=== PATIENT | female | born 1975 | race Caucasian/White ===

== ENCOUNTER 2023-03-21 22:34 | Emergency (ER) | payer MEDICAID, SELFPAY ==
--- NOTE | ~2023-03-21 | CT_ITS ---
EXAMINATION: CT abdomen pelvis w con INDICATION: Right upper quadrant pain and jaundice, history of primary biliary cholangitis TECHNIQUE: Computed tomographic images of the abdomen and pelvis were obtained after the administrati on of 100 cc of Omnipaque 350 intravenous contrast. The dose-length product (DLP) was 1287.27 mGy-cm. Automated exposure control and iterative reconstruction technique were employed. COMPARISON: 05/07/2019 FINDINGS: The lung bases are clear. The heart size is normal. There is mild nodularity of the liver s urface. Splenomegaly is noted. A stone is present in the nondistended gallbladder. The pancreas and a drenal glands are normal. The right kidney is unremarkable. There is mild urothelial enhancement of t he left renal pelvis. There is chronic periportal lymphadenopathy, likely reactive. There is calcifie d atherosclerosis of the aorta and many of the other arteries. No free intraperitoneal gas or evidenc e of bowel obstruction. The appendix is normal. There is mild lumbar spondylosis. IMPRESSION: 1. Cirrhosis and splenomegaly, consistent with history of primary biliary cholangitis. 2. Mild urothelial enhancement of the left renal pelvis, consistent with urinary tract infection. Reviewed, dictated and finalized at location F. UCT DIRECTOR IMPRESSION: 1. Cirrhosis and splenomegaly, consistent with history of primary biliary chola ngitis. 2. Mild urothelial enhancement of the left renal pelvis, consistent with urinar y tract infection.
[2023-03-21 22:36] VITALS: BP 123/51; PULSE 96; RESP 16; TEMP 38.6; O2SAT 100
[2023-03-21 22:55] VITALS: RESP 18; O2SAT 99
[2023-03-21 22:56] VITALS: BP 131/63; PULSE 87; RESP 17; TEMP 37.6; O2SAT 99
[2023-03-21 23:38] LABS: Basophils Percent Auto 0.4 % (0.2-1.2); Eosinophils Percent Auto 0.4 % (0-4.4); Hematocrit 29.1 % (37.0-47.0); Hemoglobin 9.7 g/dL (12.0-15.0); Immature Granulocyte Absolute 0.02 K/mm3 (0.00-0.031); Immature Granulocyte Percent A 0.4 % (0-0.5); Lymphocytes Absolute Auto 0.96 K/mm3 (0.9-3.2); Lymphocytes Percent Auto 20.2 % (18.3-44.2); Mean Corpuscular HGB Conc 33.3 g/dl (32-36); Mean Corpuscular Hemoglobin 31.5 pg (26-34); Mean Corpuscular Volume 94.5 fl (80-100); Mean Platelet Volume 9.9 fl (7.4-10.4); Monocytes Absolute Auto 0.3 K/mm3 (0.1-0.6); Monocytes Percent Auto 5.7 % (2.6-8.5); Neutrophils Absolute Auto 3.5 K/mm3 (1.3-6.7); Neutrophils Percent Auto 72.9 % (45.5-73.1); Platelet Count Result 145 k/mm3 (150-375); Red Blood Count 3.08 M/mm3 (4.2-5.4); Red Cell Distribution Width 18.7 % (11.5-14.5); White Blood Count 4.8 K/mm3 (4.5-10.0)
[2023-03-21 23:47] LABS: Appearance Urine Turbid (Clear); Bacteria Urine 4+ /hpf; Bilirubin Urine 2+ (Negative); Blood Urine 1+ (Negative); Color Urine Dark Yellow (Yellow); Glucose Urine UA Negative (Negative); Ketones Urine Negative (Negative); Leukocyte Esterase Ur 3+ LEU/UL (Negative); Nitrate Urine Positive (Negative); Non Pathogenic Casts 0-2; Protein Urine 1+ mg/dL (Negative); Specific Grav Ur 1.016 (1.001-1.035); Squamous Epithelial Cell Urine Occasional /hpf (Few); WBC Urine >100 /hpf
[2023-03-21 23:50] LABS: Add Urine Microscopic? YES
[2023-03-21 23:53] LABS: Alanine Aminotransferase 72 U/L (6-35); Albumin Level 3.4 g/dL (3.5-5.1); Alkaline Phosphatase 338 U/L (38-126); Anion Gap 10 mmol/L (8-16); Aspartate Amino Transferase 130 U/L (14-36); Bilirubin,Total 5.6 mg/dL (0.2-1.3); Blood Urea Nitrogen 13 mg/dL (7-17); Calcium 8.6 mg/dL (8.4-10.2); Carbon Dioxide 22 mmol/L (22-30); Chloride 104 mmol/L (98-107); Estimated CRCL calculation 85 ml/min; Estimated Glomerular Filt Rate > 60; Glucose 90 mg/dL (65-110); Potassium 3.9 mmol/L (3.4-5.0); Sodium 136 mmol/L (137-145)
[2023-03-22] VITALS (8 sets, daily range): BP systolic 103–139; BP diastolic 53–74; PULSE 71–97; RESP 14–18; TEMP 36.8–38.4; O2SAT 95–100
[2023-03-22 01:02] LABS: Influenza A QL RT-PCR Negative (Negative); Influenza B QL RT-PCR Negative (Negative); SARS-CoV-2 RNA PCR Negative (Negative)
--- NOTE | 2023-03-22 01:06 | ED.FEVER ---
HPI - Fever General Chief Complaint: Fever Stated Complaint: fever, bodyaches Time Seen by Provider: 03/21/23 23:04 Source: patient and family () History of Present Illness HPI Narrative: This is a 47-year-old female with past medical history of primary biliary cholangitis who presents with myalgias, headache, nausea, vomiting, and diarrhea. She denies any hematemesis or hematochezia / melena. Her symptoms all started last night. She has been febrile. She states she did have a maximum temperature of 106.8? F at home. She has also been coughing productive of white phlegm. Due to her underlying liver and biliary condition home she does not take a seat in the. She states she also has underlying kidney dysfunction and for this reason she was only taking 200 mg of ibuprofen for her fever. She is having abdominal pain that 1st started in left upper quadrant back is now in her right upper quadrant. She has noticed a worsening yellowing of her skin. She recently changed GI doctors as she was referred to another specialist and has seen them once. The are through U and she has MRI pending. Meds: cholesterol medication and Vitamin D as well as ursodiol and cholestyramine Related Data Allergies Allergy/AdvReac Type Severity Reaction Status Date / Time sulfamethoxazole Allergy Mild NAUSEA Verified 03/22/23 06:34 trimethoprim Allergy Mild NAUSEA Verified 03/22/23 06:34 Sulfa (Sulfonamide AdvReac Intermediate NAUSEA Verified 03/22/23 06:34 Antibiotics) PMFSH Past Medical History Medical History (Updated 03/22/23 @ 07:27 by Elizabet Diana MD) Frequent UTI Gastritis GERD (gastroesophageal reflux disease) Hypercholesterolemia Inflammatory liver disease, unspecified Primary biliary cholangitis Vitamin D deficiency Surgical History Surgical History (System 07/01/21 @ 16:10 by Cass Lott) History of section History of esophagogastroduodenoscopy (EGD) Social History Social History (System 07/01/21 @ 16:10 by Cass Lott) Smoking packs per day: 0.5 Smoking cigarettes per day: 10.0 Smoking status: Current every day smoker Additional smoking assessment comments: Patient trying to quit Alcohol intake: current Exam Narrative: GENERAL:well-nourished but ill appearing; HEAD: Normocephalic, atraumatic. EYES: scleral icterus ENT: Nares clear, no rhinorrhea or epistaxis. NECK: Supple. CHEST: No respiratory distress. Speaking in full sentences HEART: Regular rate and rhythm. ABDOMEN: Soft,nondistended, but TTP throughout. No rigidity or guarding, Not peritoneal EXTREMITIES: Normal range of motion. No edema. SKIN: Warm, dry, no rash. jaundiced NEURO: No focal deficits. Alert and oriented x3. PSYCH: Normal mood and affect. Course Vital Signs Vital signs: Vital Signs Temperature 101.4 F H 03/21/23 22:36 Pulse Rate 96 03/21/23 22:36 Respiratory Rate 16 03/21/23 22:36 Blood Pressure 123/51 L 03/21/23 22:36 Pulse Oximetry 100 03/21/23 22:36 Oxygen Delivery Room Air 03/21/23 22:36 Temperature 99.9 F H 03/22/23 06:31 Pulse Rate 96 03/22/23 06:31 Respiratory Rate 18 03/22/23 06:31 Blood Pressure 110/60 03/22/23 06:31 Pulse Oximetry 97 03/22/23 06:31 Oxygen Delivery Room Air 03/21/23 22:36 Transfer Transfered to: [facility] Accepting physician: Haleigh Burch comments: bed assignment pending MDM - Fever MDM Narrative Medical decision making narrative: Patient presents with fever, Nausea, vomiting, diarrhea myalgias, abdominal pain. Given patient's right upper quadrant abdominal pain, jaundice, and temperature of 101.4? , I do have significant concern for cholangitis. Urinalysis showed evidence of infection. CT supports UTI and left pyelonephritis. However, it is still a strong concern that patient has cholangitis. Antibiotics are initiated and patient given fluid boluses. Given our inability to obtain ultra
[2023-03-22 01:32] LABS: Pregnancy On Board Control Positive; Urine Pregnancy Test Negative
[2023-03-22] MEDS: MORPHINE SULFATE (*CRX) 4 MG/ML INJ IV PUSH ×2 (01:32→04:27)
[2023-03-22] MEDS: ONDANSETRON INJ 4 MG/2 ML VIAL IV PUSH (01:37)
[2023-03-22] MEDS: metroNIDAZOLE 500 MG/ISO 100ML 500 MG/100 ML BAG 100 MG IVPB ×2 (02:08→10:49)
[2023-03-22] MEDS: SODIUM CHLORIDE 0.9% IV 1,000 ML 999 ML IV CONT ×2 (02:08)
[2023-03-22 02:31] LABS: Lactic Acid Reflex 0.8 mmol/L (0.7-2.0)
[2023-03-22] MEDS: CIPROFLOXACIN 400 MG/D5W 200ML 200 ML 200 MG IVPB (02:58)
[2023-03-22] MEDS: IBUPROFEN 600 MG TABLET PO (05:06)
[2023-03-22] MEDS: LACTATED RINGERS 1,000 ML 150 ML IV CONT (06:27)
--- NOTE | 2023-03-22 07:40 | PC.NURSE ---
Pt given hospital bed at this time
[2023-03-22] MEDS: ursodioL 300 MG CAPSULE PO (09:35)
[2023-03-22] MEDS: ATORVASTATIN 10 MG TABLET PO (09:35)
[2023-03-22] MEDS: PHARMACIST COMMUNICATION ORDER 1 EACH XX (09:35)
[2023-03-24 14:34] LABS: GGT 102 U/L (3-55)
== END 2023-03-22 10:50 | disposition short-term general hospital (02) ==
PROVIDERS: Emergency Provider Student in an Organized Health Care Education/Training Program
DX: N12 Tubulo-interstitial nephritis, not specified as acute or chronic (principal); K74.3 Primary biliary cirrhosis; E80.6 Other disorders of bilirubin metabolism; R74.01 Elevation of levels of liver transaminase levels; R10.11 Right upper quadrant pain; Z20.822 Contact with and (suspected) exposure to COVID-19; E78.00 Pure hypercholesterolemia, unspecified; E55.9 Vitamin D deficiency, unspecified; K21.9 Gastro-esophageal reflux disease without esophagitis; F17.210 Nicotine dependence, cigarettes, uncomplicated
CPT/HCPCS: 36415; 74177; 80053; 81001; 81025; 82977; 83605; 85025; 87040; 87077; 87086; 87088; 87186; 87636; 96361; 96365; 96367; 96375; 96376; 99285; A9270; J0696; J0744; J1836; J2270; J2405; J7030; J7120; Q9967

== ENCOUNTER 2023-08-01 19:52 | Emergency (ER) | payer OTHER, SELFPAY ==
--- NOTE | ~2023-08-01 | CT_ITS ---
CT of the Abdomen and Pelvis: Indication: Rectal pain, GI bleed Technique: 2.5 mm axial scans were obtained through the abdomen and pelvis following intravenous adm inistration of 100 cc of Omnipaque 350. Dose reduction technique was used on this scan by utilizing a utomated exposure control and iterative reconstruction technique. The dose-length product (DLP) was 1 151.86 mGy-cm. Findings: Scans through the lung bases are unremarkable. Questionable micronodular contour of liver. The pancreas, gallbladder, adrenals and kidneys are withi n normal limits. Spleen is enlarged, measuring 23 cm in length. There are atherosclerotic calcificati ons of the aorta. No lymphadenopathy. No bowel obstruction or bowel wall thickening. There is no evidence to suggest acute appendicitis. Images through the pelvis were performed. Urinary bladder wall thickening versus underdistention. No pelvic mass. No ascites. Impression: No etiology for GI bleeding identified. Possible early/mild cirrhotic change of the liver. Splenomegaly. Reviewed, dictated and finalized at [facility]. Impression: No etiology for GI bleeding identified. Possible early/mild cirrhotic change of the liver. Splenomegaly.
[2023-08-01 20:18] VITALS: BP 123/59; PULSE 79; RESP 14; TEMP 36.6; O2SAT 98
[2023-08-01 21:55] VITALS: BP 125/57; PULSE 74; RESP 18; O2SAT 100
[2023-08-01 22:17] LABS: Basophils Percent Auto 0.7 % (0.2-1.2); Eosinophils Absolute Auto 0.1 K/mm3 (0-0.3); Eosinophils Percent Auto 2.1 % (0-4.4); Hematocrit 33.1 % (37.0-47.0); Hemoglobin 11.2 g/dL (12.0-15.0); Immature Granulocyte Absolute 0.01 K/mm3 (0.00-0.031); Immature Granulocyte Percent A 0.2 % (0-0.5); Lymphocytes Absolute Auto 1.17 K/mm3 (0.9-3.2); Lymphocytes Percent Auto 27.9 % (18.3-44.2); Mean Corpuscular HGB Conc 33.8 g/dl (32-36); Mean Corpuscular Hemoglobin 31.2 pg (26-34); Mean Corpuscular Volume 92.2 fl (80-100); Mean Platelet Volume 10.2 fl (7.4-10.4); Monocytes Absolute Auto 0.2 K/mm3 (0.1-0.6); Monocytes Percent Auto 5.2 % (2.6-8.5); Neutrophils Absolute Auto 2.7 K/mm3 (1.3-6.7); Neutrophils Percent Auto 63.9 % (45.5-73.1); Platelet Count Result 169 k/mm3 (150-375); Red Blood Count 3.59 M/mm3 (4.2-5.4); White Blood Count 4.2 K/mm3 (4.5-10.0)
[2023-08-01 22:27] LABS: Alanine Aminotransferase 56 U/L (6-35); Albumin Level 3.6 g/dL (3.5-5.1); Alkaline Phosphatase 296 U/L (38-126); Anion Gap 6 mmol/L (4-12); Aspartate Amino Transferase 114 U/L (14-36); Bilirubin,Total 6.8 mg/dL (0.2-1.3); Blood Urea Nitrogen 14 mg/dL (7-17); Carbon Dioxide 25 mmol/L (22-30); Chloride 107 mmol/L (98-107); Estimated CRCL calculation 93 ml/min; Estimated Glomerular Filt Rate > 60; Glucose 88 mg/dL (65-110); Potassium 3.9 mmol/L (3.4-5.0); Sodium 138 mmol/L (137-145)
[2023-08-01 22:28] LABS: Partial Thromboplastin Time 35.4 Seconds (22.3-36.8)
[2023-08-01 22:42] LABS: Prothrombin Time 14.2 Seconds (11.1-14.7)
--- NOTE | 2023-08-01 22:42 | ED.GIBLEED ---
HPI - GI Bleed General Chief complaint: GI Bleed Stated complaint: rectal pain Time Seen by Provider: 08/01/23 22:15 Source: patient Mode of arrival: ambulatory Limitations: no limitations History of Present Illness HPI Narrative: This is a 48 year old female that presents to the ER for rectal pain. Ongoing since having her colonoscopy about a month ago. Reports intermittent rectal bleeding. Reports bright red blood. She had her colonoscopy at [facility] which is where her GI specialist is for her primary biliary cholangitis. Denies fever, vomiting or diarrhea. Related Data Home Medications Medication Instructions Recorded Confirmed atorvastatin 10 mg tablet 10 mg PO DAILY 03/22/23 03/22/23 ursodiol 300 mg capsule 300 mg PO BID 03/22/23 03/22/23 Allergies Allergy/AdvReac Type Severity Reaction Status Date / Time sulfamethoxazole Allergy Mild NAUSEA Verified 08/01/23 21:57 trimethoprim Allergy Mild NAUSEA Verified 08/01/23 21:57 Sulfa (Sulfonamide AdvReac Intermediate NAUSEA Verified 08/01/23 21:57 Antibiotics) Review of Systems Review of Systems: CONSTITUTIONAL: Denies fever GASTROINTESTINAL: Denies abdominal pain, nausea, vomiting, or diarrhea. All systems reviewed & are unremarkable except as noted in HPI and below PMFSH Past Medical History Medical History (Updated 08/02/23 @ 01:53 by Africa Medrano PA-C) Frequent UTI Gastritis GERD (gastroesophageal reflux disease) Hypercholesterolemia Inflammatory liver disease, unspecified Primary biliary cholangitis Vitamin D deficiency Surgical History Surgical History (System 07/01/21 @ 16:10 by Cass Lott) History of section History of esophagogastroduodenoscopy (EGD) Social History Social History (System 07/01/21 @ 16:10 by Cass Lott) Smoking packs per day: 0.5 Smoking cigarettes per day: 10.0 Smoking status: Current every day smoker Additional smoking assessment comments: Patient trying to quit Alcohol intake: current Exam Narrative: GENERAL: Well-appearing, well-nourished, and in no acute distress. HEAD: Normocephalic, atraumatic. EYES: EOMI. CHEST: Clear to auscultation. No respiratory distress. No wheezes rales or rhonchi HEART: Regular rate and rhythm. No murmur heard. Normal peripheral pulses. ABDOMEN: Soft, nontender, nondistended, normal active bowel sounds. EXTREMITIES: Normal range of motion. No edema. SKIN: Warm, dry, no rash. NEURO: No focal deficits. Alert and oriented x3. PSYCH: Normal mood and affect RECTAL: No active bleeding. Two external hemorrhoids present that are not inflamed or thrombosed Course Course Emergency Course: Patient updated on her workup and agrees with plan of care Vital Signs Vital signs: Vital Signs Temperature 98 F 08/01/23 20:18 Pulse Rate 79 08/01/23 20:18 Respiratory Rate 14 08/01/23 20:18 Blood Pressure 123/59 L 08/01/23 20:18 Pulse Oximetry 98 08/01/23 20:18 Temperature 98 F 08/01/23 20:18 Pulse Rate 69 08/02/23 00:31 Respiratory Rate 17 08/02/23 00:31 Blood Pressure 119/65 08/02/23 00:31 Pulse Oximetry 98 08/02/23 00:31 MDM - GI Bleed MDM Narrative Medical decision making narrative: Patient presents the emergency department for rectal pain and intermittent it is rectal bleeding ongoing over the last month. She is afebrile and nontoxic appearing. Her vitals are stable. CBC without leukocytosis. Hemoglobin is improved from prior labs. Metabolic panel with evidence of patient's known liver disease. test is negative. CT abdomen and pelvis shows cirrhosis and splenomegaly. Changes due to chronic liver disease. Possible cystitis. Urine is without evidence of infection. Patient updated on her workup and agrees with plan of care. She did have hemorrhoids that were not actively bleeding. Will be treated with Anusol. She is to follow up with her secondary set up man. She was given warnings to return to the
[2023-08-02 00:21] VITALS: BP 122/63; PULSE 72; RESP 18; O2SAT 99
[2023-08-02 00:31] VITALS: BP 119/65; PULSE 69; RESP 17; O2SAT 98
[2023-08-02 00:46] VITALS: BP 123/69; PULSE 84; RESP 16; O2SAT 98
[2023-08-02 01:48] LABS: Appearance Urine Cloudy (Clear); Bacteria Urine Rare /hpf; Bilirubin Urine 3+ (Negative); Blood Urine Negative (Negative); Color Urine Dark Yellow (Yellow); Glucose Urine UA Negative (Negative); Ketones Urine Negative (Negative); Leukocyte Esterase Ur Trace LEU/UL (Negative); Nitrate Urine Negative (Negative); Non Pathogenic Casts 0-2; Protein Urine Negative (Negative); RBC Urine 0-2 /hpf (0-2); Specific Grav Ur 1.023 (1.001-1.035); Squamous Epithelial Cell Urine Moderate /hpf (Few); WBC Urine 0-5 /hpf (0-3)
[2023-08-02 01:49] LABS: Add Urine Microscopic? YES
[2023-08-02 02:01] VITALS: BP 115/57; PULSE 70; RESP 17; O2SAT 99
== END 2023-08-02 02:03 | disposition home or self-care (01) ==
PROVIDERS: Emergency Medicine; Emergency Provider Physician Assistant; PCP Physician Assistant
DX: K64.9 Unspecified hemorrhoids (principal); K74.3 Primary biliary cirrhosis; K21.9 Gastro-esophageal reflux disease without esophagitis; E78.00 Pure hypercholesterolemia, unspecified; E55.9 Vitamin D deficiency, unspecified
CPT/HCPCS: 36415; 74177; 80053; 81001; 81025; 85025; 85610; 85730; 86850; 86900; 86901; 99284; Q9967

== ENCOUNTER 2025-03-05 10:05 | Emergency (ER) | payer SELFPAY ==
--- OUTSIDE RECORDS SUMMARY | 2006-07-30 02:23 | XMS_ITS | Continuity of Care Document ---
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 No Information [address] Marta Holloway. [address], [place], [id number], [place]. tel:[phone] Referring Provider: Thelma Banegas MD, [address] [place], [address]. tel:[phone] Family History Family Member Type Diagnosis Age At Onset No Information Payers Payer name Insurance type Covered alliance party ID Authoriza tion(s) No Information Social History Type Description Quantity Date Captured Comments Sex Female Smoking Status No Information Chief Complaint And Reason For Visit No Information Reason For Referral Reason For Referral No Information History Of Present Illness Encounter Date Complaint History Of Prese nt Illness No Information Functional Status Date Functional Assessmen t No Information Instructions Date Instruction Additional Infor mation No Information Assessments Type Assessment Date No Information Patient Care Teams Name Effective Dates (start - stop) Status Members No Information
--- OUTSIDE RECORDS SUMMARY | 2006-07-30 02:23 | XMS_ITS | Continuity of Care Document ---
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, [address], [place], [place], [id number], [place] tel:[phone] [facility] No Information [address] Marta Holloway. [address], [place], [id number], [place]. tel:[phone] Referring Provider: Thelma Banegas MD, [address] [place], [address]. tel:[phone] Family History Family Member Type Diagnosis Age [...]
[2025-03-05] VITALS (7 sets, daily range): BP systolic 126–131; BP diastolic 52–74; PULSE 67–78; RESP 13–20; TEMP 36.2–36.6; O2SAT 99–100
--- NOTE | ~2025-03-05 | CT_ITS ---
Exam: CT abdomen and pelvis with contrast Clinical History: [Right upper quadrant abdominal pain ] Comparison: [ CT abdomen and pelvis 08/01/2023] Technique: Multiple axial CT images of the abdomen and pelvis were obtained with IV contrast. Sagittal and coronal reformatted images were obtained. FINDINGS: Lung bases: [Clear ] Liver: [ No intrahepatic biliary duct dilatation.] Micronodular appearance to the surface of the liver suggestive of cirrhosis. Correlate clinically. Consider a liver mass CT or MRI for further assessment. There are splenic, gastric and esophageal varices. Gallbladder: Surgically absent. Common bile duct: [ Normal caliber.] [ No stones.] Spleen: The spleen is enlarged. Pancreas: [ No mass. No pancreatic fluid collection.] Adrenals: [ No masses.] Kidneys: [ No masses. No hydronephrosis.][ ] Lymph nodes: There are a few nonenlarged, borderline and mildly enlarged lymph nodes in the abdomen which may be reactive. Other etiologies are possible. A malignant process is possible. Stomach, small bowel and colon: Short segment thickening of the cheng of the ascending and proximal transverse colon with a small amount of surrounding fat stranding. Colitis is suspected. Peritoneum cavity: [ No mesenteric fat stranding or fluid.] Bladder: [ Unremarkable.] Osseous structures: [ No acute fracture or destructive lesion.] [ Multilevel degenerative change in the visualized spine.] Abdominal aorta: [ No aneurysm.] Additional findings: The uterus is heterogeneous. Endometrium is prominent. A pelvic ultrasound is recommended. IMPRESSION: 1. Short segment thickening of the cheng of the ascending and proximal transverse colon with a small amount of surrounding fat stranding. Colitis is suspected. Recommend follow-up to resolution to exclude an underlying mass. 2. Micronodular appearance to the surface of the liver suggestive of cirrhosis. Correlate clinically. Consider a liver mass CT or MRI for further assessment. There are splenic, gastric and esophageal varices. 3. Splenomegaly. 4.There are a few nonenlarged, borderline and mildly enlarged lymph nodes in the abdomen which may be reactive. Other etiologies are possible. A malignant process is possible. Consider a PET/CT for further assessment. A follow-up CT in 3 months is recommended. 5. The uterus is heterogeneous. Endometrium is prominent. A pelvic ultrasound is recommended. Reviewed, dictated and finalized at location Q. VERY DRIVER/SUPERVISOR IMPRESSION: 1. Short segment thickening of the cheng of the ascending and proximal transver se colon with a small amount of surrounding fat stranding. Colitis is suspected . Recommend follow-up to resolution to exclude an underlying mass. 2. Micronodular appearance to the surface of the liver suggestive of cirrhosis. Correlate clinically. Consider a liver mass CT or MRI for further assessment. There are splenic, gastric and esophageal varices. 3. Splenomegaly. 4.There are a few nonenlarged, borderline and mildly enlarged lymph nodes in th e abdomen which may be reactive. Other etiologies are possible. A malignant pro cess is possible. Consider a PET/CT for further assessment. A follow-up CT in 3 months is recommended. 5. The uterus is heterogeneous. Endometrium is prominent. A pelvic ultrasound i s recommended.
--- NOTE | ~2025-03-05 | US_ITS ---
EXAM/PROCEDURE: US transvaginal HISTORY: heterogenous endometrium findings on ct COMPARISON: CT exam from same date TECHNIQUE: Pelvic ultrasound FINDINGS: The uterus measures 7.2 x 2.8 x 3.6 cm it is heterogeneous in appearance. The endometrial stripe is not well seen. The ovaries are poorly seen. No free fluid seen. No mass seen on images labeled left or right adnexal region. IMPRESSION: Very limited examination with essentially nonvisualization of the endometrial stripe, and nonvisualization of both ovaries. Heterogeneous appearance of the uterus noted. COMMENT: If there is clinical concern for intrapelvic pathology, follow-up pelvic ultrasound with adequate preparation, or pelvic MRI may provide more beneficial information. Reviewed, dictated and finalized at location A. BARBECUE IMPRESSION: Very limited examination with essentially nonvisualization of the e ndometrial stripe, and nonvisualization of both ovaries. Heterogeneous appearan ce of the uterus noted. COMMENT: If there is clinical concern for intrapelvic pathology, follow-up pelv ic ultrasound with adequate preparation, or pelvic MRI may provide more benefic ial information.
--- NOTE | 2025-03-05 11:56 | ED.ABDPAIN ---
HPI - Abdominal Pain General Chief Complaint: Abdominal Pain Stated Complaint: URI Time Seen by Provider: 03/05/25 11:56 Focused HPI: This is a 49 year old female that presents to the ER for abdominal pain. Reports history of primary biliary cholangitis. Reports she has not been able to go to her specialist recently because she lost her insurance. She used to see a specialist at [facility]. Reports she has felt unwell over the last couple of weeks. Reports she feels like she has the flu. Reports subjective fevers. Reports right sided abdominal pain, vomiting, diarrhea. GENERAL: Jaundiced, well-nourished, and in no acute distress. HEAD: Normocephalic, atraumatic. CHEST: Clear to auscultation. ?No respiratory distress. HEART: Regular rate and rhythm.? NEURO: ?Alert and oriented x3. Patient screened in triage and initial orders placed.? ?Additional care and disposition to be based upon?diagnostic testing and treatment. Related Data Home Medications ?Medication ?Instructions ?Recorded ?Confirmed ?Last Taken ?Type atorvastatin 10 mg tablet 10 mg PO DAILY 03/22/23 03/22/23 03/21/23 History ursodiol 300 mg capsule 300 mg PO BID 03/22/23 03/22/23 03/21/23 History Allergies Allergy/AdvReac Type Severity Reaction Status Date / Time sulfamethoxazole Allergy Mild NAUSEA Verified 03/05/25 13:17 trimethoprim Allergy Mild NAUSEA Verified 03/05/25 13:17 Sulfa (Sulfonamide AdvReac Intermediate NAUSEA Verified 03/05/25 13:17 Antibiotics) Review of Systems Review of Systems: All systems reviewed & are unremarkable except as noted in HPI and below PMFSH Past Medical History Medical History (Updated 03/07/25 @ 15:23 by Africa Medrano PA-C) GERD (gastroesophageal reflux disease) Vitamin D deficiency Hypercholesterolemia Primary biliary cholangitis Inflammatory liver disease, unspecified Frequent UTI Gastritis Surgical History Surgical History (System 07/01/21 @ 16:10 by Cass Lott) History of section History of esophagogastroduodenoscopy (EGD) Social History Social History (System 07/01/21 @ 16:10 by Cass Lott) Smoking packs per day: 0.5 Smoking cigarettes per day: 10.0 Additional smoking assessment comments: Patient trying to quit Alcohol intake: current Course Vital Signs Vital signs: Vital Signs Temperature 97.1 F L 03/05/25 10:10 Pulse Rate 71 03/05/25 10:10 Respiratory Rate 16 03/05/25 10:10 Blood Pressure 131/52 L 03/05/25 10:10 Pulse Oximetry 99 03/05/25 10:10 Temperature 97.9 F 03/05/25 13:12 Pulse Rate 71 03/05/25 17:33 Respiratory Rate 19 03/05/25 17:33 Blood Pressure 128/74 03/05/25 17:33 Pulse Oximetry 100 03/05/25 17:33 Oxygen Delivery Room Air 03/05/25 13:12 MDM - Abdominal Pain Lab Data 03/05/25 12:10 03/05/25 12:10 Labs: Lab Results 03/05/25 03/05/25 Range/Units 12:10 12:13 WBC 2.6 L (4.5-10.0) K/mm3 RBC 2.99 L (4.2-5.4) M/mm3 Hgb 9.8 L (12.0-15.0) g/dL Hct 30.1 L (37.0-47.0) % MCV 100.7 H (80-100) fl MCH 32.8 (26-34) pg MCHC 32.6 (32-36) g/dl RDW 16.6 H (11.5-14.5) % Plt Count 120 L (150-375) k/mm3 MPV 9.6 (7.4-10.4) fl Immature Gran % (Auto) 0.8 H (0-0.5) % Neut % (Auto) 54.1 (45.5-73.1) % Lymph % (Auto) 34.7 (18.3-44.2) % [place] % (Auto) 5.8 (2.6-8.5) % Eos % (Auto) 4.2 (0-4.4) % Baso % (Auto) 0.4 (0.2-1.2) % Lymph # (Auto) 0.90 (0.9-3.2) K/mm3 [place] # (Auto) 0.2 (0.1-0.6) K/mm3 Eos # (Auto) 0.1 (0-0.3) K/mm3 Baso # (Auto) 0.0 (0.0-0.1) K/mm3 Abs Immat Gran (auto) 0.02 (0.00-0.031) K/mm3 Absolute Neuts (auto) 1.4 (1.3-6.7) K/mm3 Absolute Nucleated RBC 0.000 (0.0-0.012) K/mm3 Nucleated RBC % 0.0 (0.0-0.2) % PT 14.7 (11.1-14.7) Seconds INR 1.1 APTT 36.5 (22.3-36.8) Seconds Sodium 138 (137-145) mmol/L Potassium 3.6 (3.4-5.0) mmol/L Chloride 108 H (98-107) mmol/L Carbon Dioxide 22 (22-30) mmol/L Anion Gap 8 (4-12) mmol/L BUN 12 (7-17) mg/dL Creatinine 0.72 (0.7-1.0) mg/dL Estim Creat Clear Calc 87 ml/min Estimated GFR > 60 (59 - ) Glucose 82 (65-110) mg/dL Calcium 8.6 (8.4-10.2) mg/dL Total Bilirubin 9.4 H (0.2-1.3) mg/dL AST 145 H (14-36) U/L ALT 55 H (6-35) U/L Alkaline Phosphatase 289 H (38-126) U/L Total Protein 7.9 (6.3-8.2) g/dL Albumin 3.3 L (3.5-5.1) g/dL Lipase 122 (23-300) U/L Urine Color Dark yellow (Yellow) Urine Appearance Turbid H (Clear) Urine pH 8.0 (5.0-9.0) Ur Specific [place] 1.017 (1.001-1.035) Urine Protein 1+ H (Negative) mg/dL Urine Glucose (UA) Negative (Negative) mg/dL Urine Ketones Negative (Negative) mg/dL Ur Blood (Man) Negative (Negative) Urine Nitrate Positive H (Negative) Urine Bilirubin 2+ H (Negative) Urine Urobilinogen 1.0 (<2.0) mg/dL Add Ur Microanalysis Reviewed Leukocyte Esterase Rfl 2+ H (Negative) ANTONINO/UL Urine RBC 3-5 H (0-2) /hpf Urine WBC 11-20 H (0-3) /hpf Ur Squamous Epith Cells Occasional (Few) /hpf Uric Acid Crystals Present H (None) /hpf Urine Bacteria 4+ /hpf Urine Casts 0-2 POC Urine HCG, Qual Negative (Negative) Imaging Data Radiologist's impression: ITS Impressions Abdomen/Pelvis CT 03/05/25 14:24 IMPRESSION: 1. Short segment thickening of the cheng of the ascending and proximal transverse colon with a small amount of surrounding fat stranding. Colitis is suspected. Recommend follow-up to resolution to exclude an underlying mass. 2. Micronodular appearance to the surface of the liver suggestive of cirrhosis. Correlate clinically. Consider a liver mass CT or MRI for further assessment. There are splenic, gastric and esophageal varices. 3. Splenomegaly. 4.There are a few nonenlarged, borderline and mildly enlarged lymph nodes in the abdomen which may be reactive. Other etiologies are possible. A malignant process is possible. Consider a PET/CT for further assessment. A follow-up CT in 3 months is recommended. 5. The uterus is heterogeneous. Endometrium is prominent. A pelvic ultrasound is recommended. Transvaginal US 03/05/25 16:46 IMPRESSION: Very limited examination with essentially nonvisualization of the endometrial stripe, and nonvisualization of both ovaries. Heterogeneous appearance of the uterus noted. COMMENT: If there is clinical concern for intrapelvic pathology, follow-up pelvic ultrasound with adequate preparation, or pelvic MRI may provide more beneficial information. Discharge Plan Discharge Clinical Impression: Restless leg syndrome, Colitis Chronic liver failure Qualifiers: Hepatic coma status: without hepatic coma Qualified Code(s): K72.10 - Chronic hepatic failure without coma Patient Disposition: Home Condition: Stable Instructions: Antibiotic Form Additional Instructions: CT scan was consistent with colitis. There were some other findings as noted below he should be followed up by your transplant team. Take Zofran as prescribed. After discussion, it did sound like he may have restless leg syndrome so your given a prescription for ropinirole, take this as prescribed. Return to the ED for any new or worsening symptoms. 2. Micronodular appearance to the surface of the liver suggestive of cirrhosis. Correlate clinically. Consider a liver mass CT or MRI for further assessment. There are splenic, gastric and esophageal varices. 3. Splenomegaly. 4.There are a few nonenlarged, borderline and mildly enlarged lymph nodes in the abdomen which may be reactive. Other etiologies are possible. A malignant process is possible. Consider a PET/CT for further assessment. A follow-up CT in 3 months is recommended. 5. The uterus is heterogeneous. Endometrium is prominent. A pelvic ultrasound is recommended. Patient Language: Ethiopian Prescriptions: New ropinirole 0.25 mg tablet 0.25 mg PO HS Qty: 30 0RF ondansetron 4 mg tablet,disintegrating 4 mg PO Q8H PRN (Reason: nausea and vomiting) Qty: 15 0RF No Action ursodiol 300 mg Capsule 300 mg PO BID atorvastatin 10 mg Tablet 10 mg PO DAILY hydrocortisone [Anusol-HC] 2.5 % cream with perineal applicator 1 applic RECTAL BID 7 Days Qty: 30 0RF Follow-up/Referrals: Nita,AUBREY Archer [Primary Care Provider, Family Practice]
[2025-03-05 12:16] LABS: BEDSIDEPREGUCG Negative (Negative)
[2025-03-05 12:23] LABS: Hematocrit 30.1 % (37.0-47.0); Hemoglobin 9.8 g/dL (12.0-15.0); Immature Granulocyte Percent A 0.8 % (0-0.5); Lymphocytes Absolute Auto 0.90 K/mm3 (0.9-3.2); Mean Corpuscular HGB Conc 32.6 g/dl (32-36); Mean Corpuscular Hemoglobin 32.8 pg (26-34); Mean Corpuscular Volume 100.7 fl (80-100); Nucleated Red Blood Cells Absolute Auto 0.000 K/mm3 (0.0-0.012); Nucleated Red Blood Cells Perc 0.0 % (0.0-0.2); Platelet Count Result 120 k/mm3 (150-375); Red Blood Count 2.99 M/mm3 (4.2-5.4); White Blood Count 2.6 K/mm3 (4.5-10.0)
[2025-03-05 12:44] LABS: Add Urine Microscopic? YES; Alanine Aminotransferase 55 U/L (6-35); Albumin Level 3.3 g/dL (3.5-5.1); Alkaline Phosphatase 289 U/L (38-126); Anion Gap 8 mmol/L (4-12); Appearance Urine Turbid (Clear); Aspartate Amino Transferase 145 U/L (14-36); Bilirubin,Total 9.4 mg/dL (0.2-1.3); Blood Urea Nitrogen 12 mg/dL (7-17); Calcium 8.6 mg/dL (8.4-10.2); Carbon Dioxide 22 mmol/L (22-30); Chloride 108 mmol/L (98-107); Estimated CRCL calculation 87 ml/min; Estimated Glomerular Filt Rate > 60; Glucose 82 mg/dL (65-110); Glucose Urine UA Negative (Negative); INR 1.1; Leukocyte Esterase Ur 2+ LEU/UL (Negative); Lipase 122 U/L (23-300); Need Manual Microscopic Reviewed; Nitrate Urine Positive (Negative); Non Pathogenic Casts 0-2; Potassium 3.6 mmol/L (3.4-5.0); Prothrombin Time 14.7 Seconds (11.1-14.7); Sodium 138 mmol/L (137-145); Specific Grav Ur 1.017 (1.001-1.035); Total Protein 7.9 g/dL (6.3-8.2)
[2025-03-05 12:45] LABS: Partial Thromboplastin Time 36.5 Seconds (22.3-36.8)
--- NOTE | 2025-03-05 13:32 | ED.ABDPAIN ---
HPI - Abdominal Pain General Chief Complaint: Abdominal Pain Stated Complaint: URI Time Seen by Provider: 03/05/25 11:56 Source: patient Mode of arrival: wheelchair Limitations: no limitations History of Present Illness HPI narrative: This is a 49-year-old female with history of PSC and liver failure who presents the ED for abdominal pain. Patient states that for the past week or so, she has been having increasing right upper quadrant abdominal pain and jaundice. She has not seen her transplant team in several months due to loss of insurance. She was on the transplant list at [facility] a year ago but she had a cholecystectomy which improved her meld score so she was taken off of the list. She has had intermittent nausea and abdominal swelling since then. Related Data Home Medications ?Medication ?Instructions ?Recorded ?Confirmed ?Last Taken ?Type atorvastatin 10 mg tablet 10 mg PO DAILY 03/22/23 03/22/23 03/21/23 History ursodiol 300 mg capsule 300 mg PO BID 03/22/23 03/22/23 03/21/23 History Allergies Allergy/AdvReac Type Severity Reaction Status Date / Time sulfamethoxazole Allergy Mild NAUSEA Verified 03/05/25 13:17 trimethoprim Allergy Mild NAUSEA Verified 03/05/25 13:17 Sulfa (Sulfonamide AdvReac Intermediate NAUSEA Verified 03/05/25 13:17 Antibiotics) Review of Systems Review of Systems: Gen.: Denies fevers or chills Eyes: Denies eye pain or visual change. ENT: Denies congestion Respiratory: Denies shortness of breath or cough CV: Denies chest pain or palpitations GI: As per HPI denies burning, urgency, frequency or hematuria Musculoskeletal: Denies back pain or muscle pain Neuro: Denies numbness, tingling, weakness or focal weakness Skin: Jaundice Except as documented, all other systems reviewed and negative [facility] Past Medical History Medical History (Updated 03/05/25 @ 17:15 by Car Drew DO) GERD (gastroesophageal reflux disease) Vitamin D deficiency Hypercholesterolemia Primary biliary cholangitis Inflammatory liver disease, unspecified Frequent UTI Gastritis Surgical History Surgical History (System 07/01/21 @ 16:10 by Cass Lott) History of section History of esophagogastroduodenoscopy (EGD) Social History Social History (System 07/01/21 @ 16:10 by Cass Lott) Smoking packs per day: 0.5 Smoking cigarettes per day: 10.0 Additional smoking assessment comments: Patient trying to quit Alcohol intake: current Exam Narrative: APPEARANCE: No acute distress, nontoxic, resting in bed EYES: EOMI. Scleral icterus HEENT: Normocephalic, atraumatic, OMM RESPIRATORY: No respiratory distress Clear to auscultation bilaterally with no rhonchi wheezing or rales. CARDIOVASCULAR: Regular rate and rhythm without murmurs rubs or gallops. ABDOMINAL: Soft, mild right upper quadrant tenderness to palpation, mild distention MUSCULOSKELETAl: Moves all extremities. No clubbing, cyanosis or edema. NEURO: Awake and alert. Following commands, speech normal, no focal deficits SKIN:: Jaundice PSYCHIATRIC: Normal affect/mood, Course Vital Signs Vital signs: Vital Signs Temperature 97.1 F L 03/05/25 10:10 Pulse Rate 71 03/05/25 10:10 Respiratory Rate 16 03/05/25 10:10 Blood Pressure 131/52 L 03/05/25 10:10 Pulse Oximetry 99 03/05/25 10:10 Temperature 97.9 F 03/05/25 13:12 Pulse Rate 71 03/05/25 17:33 Respiratory Rate 19 03/05/25 17:33 Blood Pressure 128/74 03/05/25 17:33 Pulse Oximetry 100 03/05/25 17:33 Oxygen Delivery Room Air 03/05/25 13:12 MDM - Abdominal Pain MDM Narrative Medical decision making narrative: 49-year-old female Presenting for nausea and abdominal pain. On initial evaluation patient was in no acute distress afebrile, hemodynamic stable. Differentials include but are not limited to: ACS, GERD, PUD, Pancreatitis, SBO, Cancer, AAA, liver failure Notable exam findings: Jaundice, scleral icterus, mild abdominal distension with minimal tenderness right upper quadrant tenderness to palpation Notable lab findings: White count 2.6. Anemic to 9.8. Bilirubin elevated at 9.4, likely consistent with her known hepatic failure. UA likely consistent with contaminated specimen. Notable imaging findings: CT abdomen/pelvis showed likely colitis as well as cirrhotic appearing liver with splenic, gastric, and esophageal varices, noted splenomegaly. Also noted mildly large lymph nodes that could be reactive versus malignant. Uterus was heterogenous with endometrium prominent and a pelvic ultrasound was recommended. Pelvic ultrasound showed limited visualization of the endometrial stripe. Patient's MELD score 16. He is she remained without nausea and abdominal pain throughout her ED course. She follows with transplant surgery at [facility] but has not seen them in about years due to insurance issues. Her meld score does not seem to have progressed per patient. CT scan was likely consistent with colitis which is likely the source of her symptoms. She was educated on bland diet. She is given a prescription for Zofran. On further discussion the patient, she had noted that she had a very hard time sleeping over the last several months due to feeling of restlessness in legs and hands. She has never tried ropinirole so she will be given a prescription for that as well. Patient was deemed appropriate for discharge at this time. She was advised to follow-up with her transplant team in the next week for re-evaluation if able. Patient was agreeable to this plan. Given strict return precautions. Medical Records Attestation: I reviewed the patient's medical records. Lab Data Attestation: I reviewed the patient's lab results. 03/05/25 12:10 03/05/25 12:10 Labs: Lab Results 03/05/25 03/05/25 Range/Units 12:10 12:13 WBC 2.6 L (4.5-10.0) K/mm3 RBC 2.99 L (4.2-5.4) M/mm3 Hgb 9.8 L (12.0-15.0) g/dL Hct 30.1 L (37.0-47.0) % MCV 100.7 H (80-100) fl MCH 32.8 (26-34) pg MCHC 32.6 (32-36) g/dl RDW 16.6 H (11.5-14.5) % Plt Count 120 L (150-375) k/mm3 MPV 9.6 (7.4-10.4) fl Immature Gran % (Auto) 0.8 H (0-0.5) % Neut % (Auto) 54.1 (45.5-73.1) % Lymph % (Auto) 34.7 (18.3-44.2) % Randall % (Auto) 5.8 (2.6-8.5) % Eos % (Auto) 4.2 (0-4.4) % Baso % (Auto) 0.4 (0.2-1.2) % Lymph # (Auto) 0.90 (0.9-3.2) K/mm3 Randall # (Auto) 0.2 (0.1-0.6) K/mm3 Eos # (Auto) 0.1 (0-0.3) K/mm3 Baso # (Auto) 0.0 (0.0-0.1) K/mm3 Abs Immat Gran (auto) 0.02 (0.00-0.031) K/mm3 Absolute Neuts (auto) 1.4 (1.3-6.7) K/mm3 Absolute Nucleated RBC 0.000 (0.0-0.012) K/mm3 Nucleated RBC % 0.0 (0.0-0.2) % PT 14.7 (11.1-14.7) Seconds INR 1.1 APTT 36.5 (22.3-36.8) Seconds Sodium 138 (137-145) mmol/L Potassium 3.6 (3.4-5.0) mmol/L Chloride 108 H (98-107) mmol/L Carbon Dioxide 22 (22-30) mmol/L Anion Gap 8 (4-12) mmol/L BUN 12 (7-17) mg/dL Creatinine 0.72 (0.7-1.0) mg/dL Estim Creat Clear Calc 87 ml/min Estimated GFR > 60 (59 - ) Glucose 82 (65-110) mg/dL Calcium 8.6 (8.4-10.2) mg/dL Total Bilirubin 9.4 H (0.2-1.3) mg/dL AST 145 H (14-36) U/L ALT 55 H (6-35) U/L Alkaline Phosphatase 289 H (38-126) U/L Total Protein 7.9 (6.3-8.2) g/dL Albumin 3.3 L (3.5-5.1) g/dL Lipase 122 (23-300) U/L Urine Color Dark yellow (Yellow) Urine Appearance Turbid H (Clear) Urine pH 8.0 (5.0-9.0) Ur Specific [place] 1.017 (1.001-1.035) Urine Protein 1+ H (Negative) mg/dL Urine Glucose (UA) Negative (Negative) mg/dL Urine Ketones Negative (Negative) mg/dL Ur Blood (Man) Negative (Negative) Urine Nitrate Positive H (Negative) Urine Bilirubin 2+ H (Negative) Urine Urobilinogen 1.0 (<2.0) mg/dL Add Ur Microanalysis Reviewed Leukocyte Esterase Rfl 2+ H (Negative) ANTONINO/UL Urine RBC 3-5 H (0-2) /hpf Urine WBC 11-20 H (0-3) /hpf Ur Squamous Epith Cells Occasional (Few) /hpf Uric Acid Crystals Present H (None) /hpf Urine Bacteria 4+ /hpf Urine Casts 0-2 POC Urine HCG, Qual Negative (Negative) Imaging Data Attestation: I personally reviewed and interpreted this imaging study as follows: Radiologist's impression: ITS Impressions Abdomen/Pelvis CT 03/05/25 14:24 IMPRESSION: 1. Short segment thickening of the cheng of the ascending and proximal transverse colon with a small amount of surrounding fat stranding. Colitis is suspected. Recommend follow-up to resolution to exclude an underlying mass. 2. Micronodular appearance to the surface of the liver suggestive of cirrhosis. Correlate clinically. Consider a liver mass CT or MRI for further assessment. There are splenic, gastric and esophageal varices. 3. Splenomegaly. 4.There are a few nonenlarged, borderline and mildly enlarged lymph nodes in the abdomen which may be reactive. Other etiologies are possible. A malignant process is possible. Consider a PET/CT for further assessment. A follow-up CT in 3 months is recommended. 5. The uterus is heterogeneous. Endometrium is prominent. A pelvic ultrasound is recommended. Transvaginal US 03/05/25 16:46 IMPRESSION: Very limited examination with essentially nonvisualization of the endometrial stripe, and nonvisualization of both ovaries. Heterogeneous appearance of the uterus noted. COMMENT: If there is clinical concern for intrapelvic pathology, follow-up pelvic ultrasound with adequate preparation, or pelvic MRI may provide more beneficial information. Discharge Plan Discharge Clinical Impression: Restless leg syndrome, Colitis Chronic liver failure Qualifiers: Hepatic coma status: without hepatic coma Qualified Code(s): K72.10 - Chronic hepatic failure without coma Patient Disposition: Home Condition: Stable Instructions: Antibiotic Form Additional Instructions: CT scan was consistent with colitis. There were some other findings as noted below he should be followed up by your transplant team. Take Zofran as prescribed. After discussion, it did sound like he may have restless leg syndrome so your given a prescription for ropinirole, take this as prescribed. Return to the ED for any new or worsening symptoms. 2. Micronodular appearance to the surface of the liver suggestive of cirrhosis. Correlate clinically. Consider a liver mass CT or MRI for further assessment. There are splenic, gastric and esophageal varices. 3. Splenomegaly. 4.There are a few nonenlarged, borderline and mildly enlarged lymph nodes in the abdomen which may be reactive. Other etiologies are possible. A malignant process is possible. Consider a PET/CT for further assessment. A follow-up CT in 3 months is recommended. 5. The uterus is heterogeneous. Endometrium is prominent. A pelvic ultrasound is recommended. Patient Language: Spanish Prescriptions: New ropinirole 0.25 mg tablet 0.25 mg PO HS Qty: 30 0RF ondansetron 4 mg tablet,disintegrating 4 mg PO Q8H PRN (Reason: nausea and vomiting) Qty: 15 0RF No Action ursodiol 300 mg Capsule 300 mg PO BID atorvastatin 10 mg Tablet 10 mg PO DAILY hydrocortisone [Anusol-HC] 2.5 % cream with perineal applicator 1 applic RECTAL BID 7 Days Qty: 30 0RF Follow-up/Referrals: Nita,AUBREY Archer [Primary Care Provider, Family Practice]
--- OUTSIDE RECORDS SUMMARY | 2025-03-05 18:23 | XMS_ITS | Patient Health Record ---
Author Organization [facility] [employer] Address [address] [facility] [address] [place] [address] Care Team Providers Care Rubber Goods Inspector Tester Name Role Phone Bubba Cortez Unavailable [phone] Reason For Referral No Information Medications Medication SIG (Take, Route, Frequency, Duration) Notes Start Date End Date Status Zoloft 100 MG Tablet Oral Active Wellbutrin SR 150 MG Tablet Extended Release 12 Hour Oral Active Plan Of Treatment No Information
--- OUTSIDE RECORDS SUMMARY | 2025-03-05 18:23 | XMS_ITS | Encounter Summary ---
Author Organization [facility] Address [address] [place] [address] Care Team Providers Care Quality System Manager Name Role Phone Lily Wright MD Unavailable Joana Moya PA-C Primary Care Provider Reason for Visit * Reason Comments Refill Request Encounter Details Date Type Department Care Team (Late st Contact Info) Description 03/04/2025 Refill [facility] [place] [address] [place] [address], [place] [id number] Alexx Manriquez MD [address] [place] [address] [place] [address] Refill Request Social History Tobacco Use Types Packs/Day Years Used Date Smoking Tobacco: Former Cigarettes 2 28 1 06/20/1991 - 04/19/2020 Smokeless Tobacco: Never Alcohol Use Standard Drinks/Week Comments Not Currently 0 (1 standard drink = 0.6 oz pure alcohol) minimal socially / none since diagnosed AUDIT-C Answer Date Recorded Frequency of Alcohol Consumption Not on file 06/25/2024 Q2: How many drinks containi ng alcohol do you have on a typical day when you are drinking? Patient does not drink Q3: How often do you have si x or more drinks on one occasion? Never 06/25/2024 Overall Financial Resource Strain (CARDIA) Gianfranco r Date Recorded How hard is it for you to pa y for the very basics like food, housing, medical care, and heating? Not hard at all 11/11/2023 [facility] [place] of Occupat ional Health - Occupational Stress Questionnaire Answer Date Recorded Do you feel stress - tense, restless, nervous, or anxious, or unable to sleep at night because your mind is troubled all the time - these days? Very much 11/11/2023 Hunger Vital Sign Answer Date Recorded Within the past 12 months, y ou worried that your food would run out before you got the money to buy more. Never true 11/11/19 24 Within the past 12 months, t he food you bought just didn't last and you didn't have money to get more. Never true 11/11/2023 PRAPARE - Transportation Answer Date Re corded In the past 12 months, has l ack of transportation kept you from medical appointments or from getting medications? No 10/28 In the past 12 months, has l ack of transportation kept you from meetings, work, or from getting things needed for daily living? No 11/11/2023 Housing Stability Vital Sign Answer Chad e Recorded In the last 12 months, was t here a time when you were not able to pay the mortgage or rent on time? No 11/11/2023 In the last 12 months, how many places have you lived? 1 11/11/2023 In the last 12 months, was t here a time when you did not have a steady place to sleep or slept in a correction (including now)? No 11/11/2023 Comments No Sex and Gender Information Value Date Recorded Sex Assigned at Female 01/09/2024 9:11 PM CDT Legal Sex Female 8:39 AM CDT Gender Identity Not on file Sexual Orientation Not on file documented as of this encounter Functional Status * Is person deaf or have serious hearing difficulty? Answer Date of Assessment Author No 06/25/2024 1:02 PM Martha Winkler RN * Is person blind or have serious difficulty seeing? Answer Date of Assessment Author No 06/25/2024 1:02 PM Martha Winkler RN * Does person have serious difficulty walking/climbing stairs? Answer Date of Assessment Author No 06/25/2024 1:02 PM Martha Winkler RN * Does person have difficulty dressing/bathing? Answer Date of Assessment Author No 06/25/2024 1:02 PM Martha Winkler RN * Does person have difficulty doing errands alone? Answer Date of Assessment Author No 06/25/2024 1:02 PM Martha Winkler RN documented as of this encounter Mental Status * Does person have difficulty concentrating/remembering/making decisions? Answer Entry Date Author No 06/25/2024 1:02 PM Martha Winkler RN documented in this encounter Plan of Treatment Not on file documented as of this encounter Goals Goal Patient Goal Type Associated Problems Recent Progress Patient-Stated? Author Medication Management General On track( 025 9:29 AM CDT) No Chantale Haney RN Note: Expected end date: Ongoing Interventions: Take all medications as prescribed Let your doctor know right away about any changes in your medications Make sure to request a refill of your medication at least one week prior to your last dose documented as of this encounter Visit Diagnoses Not on filedocumented in this encounter Care Teams Quality System Manager Relationship Specialty Start Date End Date Joana Moya PA-C [facility] [place] [address] PCP - General Physician Body Wirer 08/08/23 Lily Wright MD [address] [place] [id number] Obstetrics and Gynecology 08/08/23 documented as of this encounter
--- OUTSIDE RECORDS SUMMARY | 2025-03-05 18:23 | XMS_ITS | Clinical Summary ---
Author Organization [facility] Address [address] [place] [address] Care Team Providers Care Superintendent Seed Mill Name Role Phone Joana Moya PA-C Primary Care Provider [phone] Allergies Active Allergy Reactions Criticality Noted Date Comments Sulfamethoxazole-Trimethopr im Nausea Only 09/28/2020 Cephalexin Itching 09/28/2020 Itching-swelling in pubic area and itching Sulfa Antibiotics Nausea Only 09/28/2020 Nausea and abdomina pain Family History Medical History Relation Comments Alcohol Abuse Brother Alcohol Abuse Father Cancer Father Alcohol Abuse Mother Cancer Paternal Grandfather Diabetes Paternal Grandmother Alcohol Abuse Sister Relation Status Comments Brother Father Mother Paternal Grandfather Paternal Grandmother Sister Social History Tobacco Use Types Packs/Day Years Used Date Smoking Tobacco: Former Cigarettes Smokeless Tobacco: Never Comments Unknown Sex and Gender Information Value Date Recorded Sex Assigned at Not on file Legal Sex Female 6:30 PM CDT Gender Identity Not on file Sexual Orientation Not on file Plan of Treatment Health Maintenance Due Date Last Done Comments Cervical Cancer Screening Pa p Smear (Age 30 to 64) Every 3 Years 1974 Colorectal Cancer Screening Colonoscopy (10 Years) 1974 Annual Physical 1977 Hepatitis C 1992 DTaP, Tdap and Td Vaccines ( 1 - Tdap) 1993 Hepatitis B Vaccines (1 of 3 - 19+ 3-dose series) 1993 Cervical Cancer Screening Pa p with HPV Testing (Age 30 to 64) Every 5 Years 2004 Cervical Cancer Screening with HPV 2004 Mammogram Screening 2014 Pneumococcal Vaccine: 50+ Ye ars (1 of 1 - PCV) 2024 Zoster Vaccines (1 of 2) 2024 COVID-19 Vaccine ( - 2024-2 6 season) 2024 Influenza Adult (#1) 2025 Hepatitis A Vaccines Aged Out No long er eligible based on patient's age to complete this topic Meningococcal B Vaccine Aged Out No l onger eligible based on patient's age to complete this topic Meningococcal Vaccine Aged Out No hermann paige eligible based on patient's age to complete this topic RSV Immunizations Under 20 Months Aged Out No longer eligible based on patient's age to complete this topic Care Teams Superintendent Seed Mill Relationship Specialty Start Date End Date Joana Moya PA-C [address] [place] [id number] PCP - General NURSE PRACTITIONER 09/28/20
--- OUTSIDE RECORDS SUMMARY | 2025-03-05 18:23 | XMS_ITS | Encounter Summary ---
Author Organization [facility] Address [address] [place] [address] Care Team Providers Care Mems Process Engineer Name Role Phone Lily Wright MD Unavailable Joana Moya PA-C Primary Care Provider Encounter Details Date Type Department Care Team (Late st Contact Info) Description 08/09/2023 Telephone [facility] - [address] [phone] [place], [place] Social History Tobacco Use Types Packs/Day Years Used Date Smoking Tobacco: Former Cigarettes 2 28 1 06/20/1991 - 04/19/2020 Smokeless Tobacco: Never Alcohol Use Standard Drinks/Week Comments Never 0 (1 standard drink = 0.6 oz pur e alcohol) AUDIT-C Answer Date Recorded Q1: How often do you have a drink containing alcohol? Never 05/01/2023 Q2: How many drinks containi ng alcohol do you have on a typical day when you are drinking? Patient does not drink Q3: How often do you have si x or more drinks on one occasion? Never 05/01/2023 Overall Financial Resource Strain (CARDIA) Dare r Date Recorded How hard is it for you to pa y for the very basics like food, housing, medical care, and heating? Hard 03/22/2023 [facility] [place] of Occupat ional Health - Occupational Stress Questionnaire Answer Date Recorded Do you feel stress - tense, restless, nervous, or anxious, or unable to sleep at night because your mind is troubled all the time - these days? To some extent 03/22/2023 Hunger Vital Sign Answer Date Recorded Within the past 12 months, y ou worried that your food would run out before you got the money to buy more. Never true 03/22/20 Within the past 12 months, t he food you bought just didn't last and you didn't have money to get more. Never true 03/22/2023 PRAPARE - Transportation Answer Date Re corded In the past 12 months, has l ack of transportation kept you from medical appointments or from getting medications? No 03/01 In the past 12 months, has l ack of transportation kept you from meetings, work, or from getting things needed for daily living? No 03/22/2023 Housing Stability Vital Sign Answer Chad e Recorded In the last 12 months, was t here a time when you were not able to pay the mortgage or rent on time? No 03/22/2023 In the last 12 months, how many places have you lived? 1 03/22/2023 In the last 12 months, was t here a time when you did not have a steady place to sleep or slept in a nursing home (including now)? No 03/22/2023 Comments No Sex and Gender Information Value Date Recorded Sex Assigned at Female 01/09/2024 9:11 PM CDT Legal Sex Female 8:39 AM CDT Gender Identity Not on file Sexual Orientation Not on file documented as of this encounter Functional Status * Is person deaf or have serious hearing difficulty? Answer Date of Assessment Author No 06/21/2023 8:51 AM Brittnee Hernandez RN * Is person blind or have serious difficulty seeing? Answer Date of Assessment Author No 06/21/2023 8:51 AM Brittnee Hernandez RN * Does person have serious difficulty walking/climbing stairs? Answer Date of Assessment Author No 06/21/2023 8:51 AM Brittnee Hernandez RN * Does person have difficulty dressing/bathing? Answer Date of Assessment Author No 06/21/2023 8:51 AM Brittnee Hernandez RN * Does person have difficulty doing errands alone? Answer Date of Assessment Author No 06/21/2023 8:51 AM Brittnee Hernandez RN documented as of this encounter Mental Status * Does person have difficulty concentrating/remembering/making decisions? Answer Entry Date Author No 06/21/2023 8:51 AM Brittnee Hernandez RN documented in this encounter Plan of Treatment Not on file documented as of this encounter Goals Goal Patient Goal Type Associated Problems Recent Progress Patient-Stated? Author Medication Management General On track( 025 9:29 AM CDT) Chantale Prado RN Note: Expected end date: Ongoing Interventions: Take all medications as prescribed Let your doctor know right away about any changes in your medications Make sure to request a refill of your medication at least one week prior to your last dose documented as of this encounter Visit Diagnoses Not on filedocumented in this encounter Care Teams Mems Process Engineer Relationship Specialty Start Date End Date Joana Moya PA-C [address] [place] [address] PCP - General Physician Cable Television Access Coordinator 08/08/23 Lily Wright MD [address] [place] [address] Obstetrics and Gynecology 08/08/23 documented as of this encounter
--- OUTSIDE RECORDS SUMMARY | 2025-03-05 18:23 | XMS_ITS | Clinical Summary ---
Author Organization [facility] Address [address] [place] [address] Care Team Providers Care Bulkhead Carpenter Name Role Phone Lily Wright MD Unavailable Joana Moya PA-C Primary Care Provider Source Comments [facility],non-owned Affiliates and Associated Physician Practices is amultiple site organization consisting of ambulatory clinics and hospital sitesin [place], [place], [place] and [place]. This disclosure is being madepursuant to the Care Everywhere program and may not contain all information available regarding this patient. Last updated 18.[facility] Allergies Active Allergy Reactions Criticality Noted Date Comments Cephalexin Itching 09/28/2020 Itching-swelling in pubic area and itching Sulfa Drugs GI Discomfort,Nausea and/or Vomiting 09/28/2020 Nausea and abdomina pain Sulfamethoxazole W-Trimethoprim Nausea and/or Vomiting 09/28/2020 Medications * Be aware that medications may not be up to date on this document. Alwaysverify current medications with the patient. ursodiol (Actigall) 300 MG capsule ursodiol 300 mg capsule TAKE 2 CAPSULES BY MOUTH TWICE A DAY DIRECTED 1 Active cholestyramine (Questran) 4 g packet 2 times daily 1 Active atorvastatin (Lipitor) 10 MG tablet Take 1 (one) tablet by mouth once daily 3 Active vitamin D, ergocalciferol , (Drisdol) 1.25 MG (84284 UT) capsule Take 1 (one) capsule by mouth every 7 days 12 capsule 3 4 Active lactulose (Chronulac) 10 GM/15ML solution Take 10 mL by mouth 2 times daily for 90 days 600 mL 2 4 Active Additional Information Patient taking differently:10 mL Oral 2 TIMES DAILY,Taking PRN, Reported on 10/01/2024 furosemide (Lasix) 20 MG tablet Take 1 (one) tablet by mouth once daily 90 tablet 3 4 Active spironolactone (Aldactone) 50 MG tablet Take 1 (one) tablet by mouth once daily 90 tablet 3 4 Active acetaminophen (Tylenol) 500 MG tablet Take 1 (one) tablet by mouth every 6 hours as needed for Pain Maximum allowable Acetaminophen amount = 2 Grams (2000 mg) / 24 hours. 4 Active magnesium oxide (Mag-Ox) 400 MG tablet Take 1 (one) tablet by mouth 2 times daily 60 tablet 2 4 Active methocarbamol (Robaxin) 500 MG tablet Take 1 (one) tablet by mouth every 12 hours as needed for Muscle Spasms 30 tablet 4 Active hydrOXYzine HCl (Atarax) 25 MG tablet Take 1 (one) tablet by mouth 4 times daily as needed for Itching Active ferrous sulfate EC 325 (65 Fe) MG tablet Take 1 (one) tablet by mouth every 2 days 100 tablet 4 Active calcium carbonate (Tums) 500 MG chew tablet Take 1 (one) tablet by mouth daily with food Active docusate sodium (Colace) 100 MG capsule Take 1 (one) capsule by mouth once daily as needed for Constipation Constipation related to narcotics 10 capsule 5 Active Additional Information Patient not taking.Reported on 10/01/2024 acetaminophen (Tylenol) 500 MG tablet Take 1 (one) tablet by mouth every 6 hours as needed for Fever or Pain Maximum allowable Acetaminophen amount = 4 Grams (4000 mg) / 24 hours. 30 tablet 1 5 Active ciclopirox (Penlac) 8 % solutionIndica tions:Onychomy cosis Apply to nail daily. 30 days supply. 6.6 mL 3 5 Active ketoconazole (Nizoral) 2 % creamIndicatio ns:Tinea corporis Apply to affected area of fungal rash twice daily until clear. 30 days supply. 60 g 3 5 Active metroNIDAZOLE, topical, (Metrocream) 0.75 % creamIndicatio ns:Perioral dermatitis Apply to affected area on face BID. 30 day supply. 60 g 3 5 Active doxycycline hyclate 100 MG tabletIndicati ons:Acne Vulgaris Take 1 (one) tablet by mouth 2 times daily Reasons: Common Acne 60 tablet 2 5 Active clobetasol (Temovate) 0.05 % ointmentIndica tions:Rash Apply to affected area on arms twice daily. 30 day supply. 60 g 1 5 Active pantoprazole EC (Protonix) 40 MG tablet TAKE ONE TABLET BY MOUTH EVERY DAY BEFORE MEALS 30 tablet 2 5 Active Active Problems Problem Noted Date Diagnosed Date SOB (shortness of breath) 11/11/2023 RUQ pain 11/11/2023 Chest pain, unspecified type 11/11/2023 Encounter for pre-transplant evaluation for liver transplant 10/23/2023 Overview (08/04/2024): Images from the original note were not included. Elena Lugo 1975 48 year old female PBC w poss [facility] ariel Ybarra/Dr. Manriquez Liver biopsy 05/01/23 Final Diagnosis Liver, biopsy (A): - Cirrhosis - Features of chronic cholestatic liver disease, see comment Body mass index is 37.01 kg/m . MELD 3.0: 19 at 07/07/2024 12:54 PM MELD-Na: 16 at 07/07/2024 12:54 PM Calculated from: Serum Creatinine: 0.77 mg/dL (Using min of 1 mg/dL) at 07/07/2024 12:54 PM Serum Sodium: 135 mmol/L at 07/07/2024 12:54 PM Total Bilirubin: 4.8 mg/dL at 07/07/2024 12:54 PM Serum Albumin: 2.7 g/dL at 07/07/2024 12:54 PM INR(ratio): 1.2 at 07/07/2024 12:54 PM Age at listing (hypothetical): 49 years Sex: Female at 07/07/2024 12:54 PM Weight 11/19/23 = 215.6 lbs 12/26/23 = 212 lbs 05/23/24=214 lbs Goal = 195 Hep B IMMUNITY Status: 10/29/23 08:22 Hepatitis B Surface Antibody Quantitative 0.0 Patient is not hep B immune. Saw PCP 10/29/23 Vaccination was out of stock Obtained 05/02 on 12/17/23 10/29/23 08:23 10/29/23 08:42 ABO Rh O POS O POS 10/29/23 08:23 Ferritin 48 Iron 72 Transferrin 335 10/29/23 08:22 Total Cholesterol (NMR) 171 Triglycerides 175 (H) HDL <5 (L) LDL Calculated SEE COMMENT 10/29/23 08:22 10/29/23 08:23 Hemoglobin A1c <4.0 Estimated Average Glucose <68 PTH Intact 29.6 10/29/23 08:22 Alpha-Fetoprotein Tumor Marker 2.2 CA 19-9 103 (H) 10/17/23 04:37 Vitamin D, 25 Hydroxy 13.4 (L) 10/29/23 08:22 [id number] 266 (H) Tnmvc-6-Azsmyjcmhwa Phenotype M1M1 Ceruloplasmin 53 04/19/23 16:38 CONI HEp-2 IgG <1:80 CONI IgG Detected ! CONI Interpretive Comment See Note Cytoplasmic Pattern Titer >1:2560 (H) CYTOPLASMIC PATTERN AMA ! F-Actin Antibody IgG 8 Mitochondrial M2 Antibody 139.6 (H) Liver/Kidney Microsomal Antibody IgG See Note Soluable Liver Antigen Antibody IgG 2.7 APL 1 10/29/23 08:22 Cardiolipin Antibody IgG <10 Cardiolipin Antibody IgM 22 (H) Beta-2 Glycoprotein Antibody IgG <10 Beta-2 Glycoprotein Antibody IgM <10 dRVVT Screen Ratio 0.76 APL 2: To be drawn on or after 12/30/23 10/29/23 08:22 Treponema pallidum Antibody Non-reactive HIV Antigen/Antibody 1 & 2 Non-reactive 10/29/23 08:22 QuantiFERON-TB Gold Plus Negative QuantiFERON Plus TB1 Minus NIL -0.01 QuantiFERON Plus TB2 Minus NIL -0.01 QuantiFERON Mitogen Minus NIL 9.97 QuantiFERON Nil Value 0.03 10/29/23 08:22 Cytomegalovirus Antibody IgG >10.00 (H) Daniela-Reina Virus Antibody IgG Viral Capsid Antigen 124.0 (H) Measles (Rubeola) Antibody IgG >300.0 Mumps Virus Antibody IgG 12.1 Rubella Antibody IgG 9.3 Varicella zoster Virus Antibody IgG 954.4 10/29/23 08:22 HBc Antibody Total Non-reactive Hepatitis B Surface Antibody Quantitative 0.0 Hepatitis B Virus Surface Antibody Non-reactive Hepatitis B Virus Surface Antigen Non-reactive Hepatitis C Antibody Non-reactive 10/29/23 08:22 Strongyloides Antibody IgG 0.6 Toxoplasma Antibody IgG <3.0 10/29/23 08:43 Alcohol Random Urine Negative Amphetamines Urine Screen Negative Barbiturates Urine Screen Negative Benzodiazepines Urine Screen Negative THC Urine Screen Negative Cocaine Urine Screen Negative Methadone Urine Screen Negative Opiates Urine Negative Phencyclidine Urine Screen Negative Propoxyphene Urine Screen Negative 11/13/23 07:12 Cotinine <5 Nicotine <5 03/27/23 04:13 10/29/23 08:22 PEth 16:0/18.1 (POPEth) <10 <10 PEth 16:0/18.2 (PLPEth) <10 <10 CXR 11/11/23 Low lung volumes bilaterally with bronchovascular crowding. There is no focal consolidation, pleural effusion, or pneumothorax. The cardiomediastinal silhouette is normal. The visible bony thorax is intact. No acute pulmonary process. Former smoker quit 2020 PFT 11/05/23 SPIROMETRY: FVC: normal. FEV1: normal. FEV1/FVC ratio is normal. IMPRESSION: 1. Normal spirometry and lung volumes. 2. There is mild air trapping. 3. No significant bronchodilator response, however this does not preclude the use of bronchodilators. 4. There is no previous study available for comparison. MRI w/MRCP 10/18/23 Vasculature Portal and hepatic veins: Patent. Incidental retroaortic left renal vein. Arterial anatomy: Early bifurcation of the common hepatic artery. MRCP: The gallbladder is decompressed and cannot be fully evaluated. The intrahepatic and extrahepatic bile ducts are nondilated. No filling defect or stricture is seen in the biliary system. Subcentimeter pancreatic cyst in the tail (series 3, image 16). The pancreatic duct is nondilated. 1.No significant abnormality of the biliary or pancreatic ductal systems. 2.Cirrhosis with sequelae of portal hypertension. HIDA scan 12/07/23 1. No scintigraphic evidence of acute cholecystitis. 2. Abnormal gallbladder function with a calculated GBEF of 15%. However, certainty of diagnosis is limited due to use of ensure and not CCK, given patient cholelithiasis. 3. No evidence of enterogastric reflux. EKG 10/17/23 Echo w/BS 11/13/23 Findings Left Ventricle Left ventricular systolic function is normal with an estimated ejection fraction of 65% by biplane method of disks. The left ventricle is normal in size. There is normal mass and geometry of the left ventricle. Left ventricular segmental wall motion is normal. The left ventricular diastolic function is normal. Right Ventricle The right ventricle is normal in size. Right ventricular systolic function is normal. Left Atrium The left atrium is normal in size with a left atrial volume index of 27 ml/m by BP MOD. Right Atrium The right atrium is normal in size. Atrial Septum Interatrial septum is normal by 2D and color Doppler imaging. No right to left shunt visualized by agitated saline contrast study (bubble study) at rest and during Valsalva. Aortic Valve The aortic valve is trileaflet. There is no aortic valve stenosis with a peak velocity of 1.5 m/s, mean gradient of 4 mmHg, and aortic valve area of 2.6 cm . There is no aortic valve regurgitation. Mitral Valve The mitral valve is normal. There is no mitral valve stenosis. There is trace mitral valve regurgitation. Tricuspid Valve The tricuspid valve is normal. There is no tricuspid valve stenosis. There is trace tricuspid valve regurgitation. Unable to assess pulmonary pressures due to a lack of tricuspid regurgitation. Pulmonic Valve The pulmonic valve is grossly normal. There is no pulmonic valve stenosis. There is no significant pulmonic regurgitation. Z01.818 Encounter for pre-transplant evaluation for liver transplant Definity 0.50 ml Huber Norman no Agitated Saline 20.00 ml Huber Norman no Aorta The ascending aorta is normal in size measuring 2.3 cm with an index of 1.1 cm/m2. The aortic root at the sinus of Valsalva is normal in size measuring 2.3 cm with an index of 1.1 cm/m . Inferior Vena Cava The inferior vena cava is normal in size (< 2.1 cm). Unable to assess collapsibility. Pericardium/Pleural There is no pericardial effusion. DSE 11/13/23 PAP 07/26/23 Final Diagnosis Negative for Intraepithelial Lesion or Malignancy (NIL). HPV mRNA E6/E7,Reported w/Pap (CDH/DCH/KH/VWH) Specimen: Cervical Cancer Screening Component Ref Range & Units 2 mo ago HPV mRNA E6/E7 No HPV mRNA Detected No HPV mRNA Detected Mammogram 07/23/23 EGD 06/21/23 Z-line regular, 39 cm from the incisors. - Grade I and small (< 5 mm) esophageal varices. - Normal mucosa was found in the entire stomach. - Normal examined duodenum. - No specimens collected. Impression: - Repeat upper endoscopy in 1 year for screening purposes. - Perform a colonoscopy today Colonoscopy 06/21/23 - Two 3 to 5 mm polyps in the transverse colon, removed with a cold snare. Resected and retrieved. Clip was placed. - One 1 mm polyp at the hepatic flexure, removed with a jumbo cold forceps. Resected and retrieved. - The examination was otherwise normal on direct and retroflexion views - Await pathology results. - Repeat colonoscopy in 3 - 5 years for surveillance based on pathology result Path: Final Diagnosis Large intestine, transverse colon polyps x3, biopsy (A): - Tubular adenoma(s), fragmented at 1516 Panorex 11/13/23 Multiple dental restorations are identified. No acute mandibular fracture is identified. Both temporomandibular joints are intact. Slight lucency noted around the root of the left maxillary central incisor which could potentially represent a periapical abscess. IMPRESSION: Slight lucency noted around the root of the left maxillary central incisor which could potentially represent a periapical abscess. Dental evaluation is recommended. Dental Consultation Dr. Oliver working to get patient scheduled for resolution SW helped patient obtain dental maryellen Dental work completed as of 03/18/24 Dexa 12/07/23 LUMBAR SPINE (L1-L4): Bone mineral density (g/cm2): 1.107 Current Z-score: 1.2 LEFT FEMORAL NECK: Bone mineral density (g/cm2): 1.040 Current Z-score: 2.4 BONE DENSITY ASSESSMENT: WHO Category: Within the expected range for age.. FRAX not reported because: Patient age is less than 50. PT Frailty assessment 10/29/23 Liver Frailty Score Frailty Index Value: 4.42 (10/29/23 0900) Classification Score ROBUST: Less than or equal to 3.3 PRE-FRAIL: 3.3 - 4.4 FRAIL: Greater than or equal to 4.5 Transplant Education 10/29/23 Xuan Fallon seed technicianAuto Body Builder Apprentice 10/29/23 Clinical Social Work Impression: It is the impression of this social media job titles that Elena Lugo has several positive factors for Liver transplant candidacy including knowledge of illness, sufficient insurance coverage, stable financial situation for post transplant needs, no concerns regarding substance abuse, adequate support system, and appropriate discharge plan. Plan: parks and recreation worker to provide supportive services as needed. Patient appears to be a reasonable candidate for transplant from a psychosocial perspective. Post transplant arrangement forms are needed prior to being listed. -Mail senior placement resources for mother in law -DME for motor scooter Psychiatric Consult Recommended: No Transplant Pantograph Operator: Anna Painting LMSW RD 10/29/23 Ht: 64 Wt: 215.6 lbs BMI: 37.0, Class II Obesity. Pt is considered to be a good candidate for a Liver Transplant from a Nutrition standpoint. Pt is accepting of RD's recommendation to work on wt loss pre-Sx. Suggest: at least > 5 lb wt loss, wt of < 210 lbs, BMI of 35 or less. 08/17/22 Rheumatology Clinic Note Patient: Elena Lugo ( 1975, ) Encounter Date: 08/17/2022 Chief Concern: +SSA, SKIN THICKENING Assessment & Recommendations Elena Lugo is a 47 year old female seen for +CONI,+ SSA and skin thickening, dry eyes. First follow up visit #. Skin induration forearms: - Onset: 2021 Phenotype: Localized skin thickening with subcutaneous swelling of skin of forearms and left leg. no Sclerodactyly on exam.. D.D includes Eosinophilic fasciitis, Scleroderma vs Morphea. skin biopsy read as dermal Sclerosis. Considering lacking Rayanud's symptoms, no sclerodactyly and negative SSc autoantibody panel suspicion for Systemic Sclerosis is low at this point. Morphea and Eosinophilic fasciitis still in differentuial. Appreciate Derm input and plan for deep skin biopsy to muscle/fascia. MRI done, awaiting on results faxed to us Her elbow/wrists pain seem more related to skin induration of forearms. encourage to follow up with Derm and discuss treatment options including topicals vs watchful waiting. #.Possible Sjogren's reported dry mouth/dry eyes symptoms. repeated labs showed persistent +SSA abs. could have Sjogren's Syndrome. discussed different OTC modalities for dry mouth symptoms. following with Occupational Health And Safety Adviser #. Follow-up: In 4 months or sooner if needed. Thank you for placing trust in us. I educated the patient regarding risks and benefits of the management plan, their medical problems, and contingency plans for worsening symptoms. Additional contributions to medical decision making for today's encounter: - I reviewed the patient's chart including review of clinical notes, laboratory results, and imaging results dating back to 06/22 - Additional independent source(s) of information used for assessment included the patient's spouse who accompanied the patient during the visit. 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 Would need to discuss with glass breaker whether that was feasible given need for upcoming liver transplantation RTC in 2 months for follow up and FBSE Seen, examined, and discussed with Dr. Todd, attending railroad engineer. Han Aldrich MD - Dermatology Resident 12/17/23 Patient reports she was prescribed ointment for fungal infection and rash has resolved Transplant Surgical Consultation 11/19/23 Dr. Alvares Assessment/Plan: I believe Ms. Lugo is a Good candidate for liver transplant. At this time the patient needs the following prior to committee presentation: 15 lb weight loss (can work on this after listing) HIDA scan for RUQ pain - some gallstones on imaging Derm consult for idiopathic chronic rash All listing decisions will be made in the listing committee and are final. 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 Hyperlipidemia 03/27/2023 Sjogren's syndrome 03/27/2023 Normocytic anemia 03/27/2023 Gallbladder polyp 03/27/2023 Cholangitis, recurrent 03/22/2023 Resolved Problems Problem Noted Date Diagnosed Date Resolved Date Urinary tract infection 03/27/202303/30 Encounters Date Type Department Care Team Description 03/04/2025 Refill [facility] - [facility] [address] [place] [address] Alexx Manriquez MD Refill Request from Last 3 Months Family History Medical History Relation Name Comments Cancer - Skin, Non Melanoma Father Diabetes; unknown type Maternal Grandmother Cancer - Skin, Non Melanoma Mother Relation Name Status Comments Brother 1 Brother 2 Alive Father Alive Maternal Grandmother Mother Alive Sister Alive Social History Tobacco Use Types Packs/Day Years Used Date Smoking Tobacco: Former Cigarettes 2 28 1 06/20/1991 - 04/19/2020 Smokeless Tobacco: Never Tobacco Cessation:Counseling Given: Not Answered Alcohol Use Standard Drinks/Week Comments Not Currently [...] Never 06/25/2024 Overall Financial Resource Strain (CARDIA) Answe r Date Recorded How hard is it for you to pa y for the very basics like food, housing, medical care, and heating? Not hard at all 11/11/2023 [facility] Occupat ional Health - Occupational Stress [...] place to sleep or slept in a jail (including now)? No 11/11/2023 Comments No Sex and Gender Information Value Date Recorded Sex Assigned at Female 01/09/2024 9:11 PM CDT Legal Sex Female 8:39 AM CDT Gender Identity Not on file Sexual Orientation Not on file Last Filed Vital Signs Vital Sign Reading Time Taken Comments Blood Pressure 120/67 10/01/2024 2:15 PM CDT Pulse 57 10/01/2024 2:15 PM CDT Temperature 36.5 C (97.7 F) 07/07/2024 9:31 AM CDT Respiratory Rate 12 06/25/2024 1:53 PM [employer] EXCHANGE ARCHITECT Oxygen Saturation 100% 07/07/2024 9:31 AM CDT Inhaled Oxygen Concentration - - Weight 94.3 kg (208 lb) 10/01/2024 2:15 PM CDT Height 160 cm (5' 3) 07/07/2024 9:31 AM CDT Body Mass Index 36.85 07/07/2024 9:31 AM CDT Plan of Treatment Health Maintenance Due Date Last Done Comments COLOGUARD (AGES 45-75) - COLON CA SCREENING 1975 CT COLONOGRAPHY - COLON CA SCREENING 1975 FIT - COLON CA SCREENING 1975 FLEX SIG - COLON CA SCREENING 1975 MAMMOGRAM 1975 DTAP/TDAP/TD VACCINES (1 - Tdap) 1993 HEPATITIS B VACCINE (1 of 3 - 19+ 3-dose series) 1993 PNEUMOCOCCAL VACCINE 50+ (1 of 2 - PCV) 1993 DEPRESSION SCREENING 04/30/2024 LUNG CANCER SCREENING 2024 ZOSTER VACCINE (1 of 2) 2024 COVID-19 VACCINE (3 - 2024- season) 2024 06/13/2021, 05/23/2021 INFLUENZA VACCINE (#1) 2024 PAP SMEAR 07/25/2026 07/26/2023, 06/29, 07/23/2023 (Done Outside Per Patient) SCREENING FOR DIABETES 07/08/2027 , 06/25/2024, 06/04/2024, Additional history exists COLON MONITORING 06/21/2033 06/21/2023, 06/21/2023 COLONOSCOPY - COLON CA SCREENING 06/21/2033 06/21/2023, 06/21/2023 Colorectal Cancer Screening 06/21/2033 HEPATITIS C SCREENING Completed 10/29/2023, 023 HIV SCREENING Completed 10/29/2023 HIB VACCINE Aged Out No longer eligi ble based on patient's age to complete this topic HPV VACCINE Aged Out No longer eligi ble based on patient's age to complete this topic MENINGOCOCCAL (Group B) VACCINE SHARED DECISION-MAKING Aged Out No longer eligible based on patient's age to complete this topic MENINGOCOCCAL GROUPS A/C/Y/W VACCINE Aged Out No longer eligible based on patient's age to complete this topic Goals Goal Patient Goal Type Associated Problems Recent Progress Patient-Stated? Author Medication Management General On track( 025 9:29 AM CDT) No Chantale Haney, RN Note: Expected end date: Ongoing Interventions: Take all medications as prescribed Let your doctor know right away about any changes in your medications Make sure to request a refill of your medication at least one week prior to your last dose Procedures Procedure Name Priority Date/Time Associated Diagnosis Comments COMPREHENSIVE METABOLIC PANEL Routine 07/07/2024 12:54 PM CDT Chest pain, unspecified type HEPATITIS C ANTIBODY Routine 10/29/2023 8:22 AM CDT Hepatic encephalopathy Cholangitis, recurrent Muscle spasm Primary biliary cirrhosis Sjogren's syndrome, with unspecified organ involvement Encounter for pre-transplant evaluation for liver transplant HIV-1 HIV-2 ANTIBODY + HIV P24 AG PANEL Routine 10/29/2023 8:22 AM CDT Hepatic encephalopathy Cholangitis, recurrent Muscle spasm Primary biliary cirrhosis Sjogren's syndrome, with unspecified organ involvement Encounter for pre-transplant evaluation for liver transplant ENDOSCOPY, COLON, SCREENING Routine 06/21/2023 8:11 AM [employer] EXCHANGE ARCHITECT from Last 3 Months or Most Recently Relevant to Health Maintenance Results * (ABNORMAL) COMPREHENSIVE METABOLIC PANEL (07/07/2024 12:54 PM CDT) BUN 11 7 - 26 mg/dL 07/07/2024 1:58 PM [facility] Creatinine 0.77 0.56 - 0.96 mg/dL 07/07/2024 1:58 PM [facility] Sodium 135(L) 136 - 145 mmol/L 07/07/2024 1:58 PM [facility] Potassium 3.7 3.5 - 4.5 mmol/L 07/07/2024 1:58 PM [facility] Chloride 110(H) 98 - 107 mmol/L 07/07/2024 1:58 PM [facility] CO2 19(L) 22 - 29 mmol/L 07/07/2024 1:58 PM [facility] Glucose 81 70 - 99 mg/dL 07/07/2024 1:58 PM [facility] Calcium 8.6 8.4 - 10.2 mg/dL 07/07/2024 1:58 PM [facility] Protein Total 7.3 6.0 - 8.3 g/dL 07/07/2024 1:58 PM [facility] Albumin 2.7(L) 3.4 - 5.0 g/dL 07/07/2024 1:58 PM [facility] Bilirubin Total 4.8(H) 0.2 - 1.2 mg/dL 07/07/2024 1:58 PM [facility] Alkaline Phosphatase 346(H) 40 - 150 U/L 07/07/2024 1:58 PM [facility] ALT 62(H) 5 - 55 U/L 07/07/2024 1:58 PM [facility] AST 151(H) 5 - 34 U/L 07/07/2024 1:58 PM [facility] Anion Gap 6 6 - 16 07/07/2024 1:58 PM [facility] BUN/Creatinine Ratio 14 7 - 23 07/07/2024 1:58 PM [facility] Osmolality Calculated 278 275 - 295 mOsm/kg 07/07/2024 1:58 PM [facility] Albumin/Globulin Ratio 0.6(L) 1.1 - 2.3 07/07/2024 1:58 PM [facility] eGFR by CKD-EPI >90 >=90 mL/min/1.7 3 m2 07/07/2024 1:58 PM [facility] Blood BLOOD SPECIMEN / Unknown Lab Venipuncture / Unknown 07/07/2024 12:54 PM CDT 07/07/2024 1:30 PM CDT Alexx Manriquez MD LAB - CHEMISTRY ORDERABLES Fin al Result [facility] [address] [place] [address], [facility] [phone] * HIV-1 HIV-2 ANTIBODY + HIV P24 AG PANEL (10/29/2023 8:22 AM CDT) HIV Antigen/Antibod y 1 & 2 Non-reacti ve Non-react ion 10/29/2023 9:38 AM T [facility] Comment:No Laboratory eviden ce of HIV infection. Blood BLOOD SPECIMEN / Unknown Lab Venipuncture / Unknown 10/29/2023 8:22 AM CDT 10/29/2023 8:53 AM CDT Alexx Manriquez MD LAB - CHEMISTRY ORDERABLES Fin al Result Performing Organization Address [facility] Co de Phone Number [address] [address], [facility] [phone] * HEPATITIS C ANTIBODY (10/29/2023 8:22 AM CDT) Hepatitis C Antibody Non-react ion Non-reac tive 10/29/2023 9:38 AM CDT [facility] Comment:Hepatitis C Antibody screen indicates no serologic evidence of past or current infection with Hepatitis C Virus. Patients with unexplained liver disease who are immunocompromised or suspected of having acute Hepatitis C infection may benefit from Nucleic Acid Test (GIUSEPPE) for Hepatitis C Viral RNA to confirm Hepatitis C status. Blood BLOOD SPECIMEN / Unknown Lab Venipuncture / Unknown 10/29/2023 8:22 AM CDT 10/29/2023 8:54 AM CDT Alexx Manriquez MD LAB - CHEMISTRY ORDERABLES [facility] Result Performing Organization Address [facility] Co de Phone Number [address] [address], [facility] [phone] * ENDOSCOPY, COLON, SCREENING (06/21/2023 8:11 AM [employer]) [facility] Report Endoscopy POC Endoscopy Department Report _ Patient Name: Elena Lugo Procedure Date: 06/21/2023 8:11 AM Date of : 1975 Classification: Outpatient Gender: Female Ethnicity: Not or Race: White _ Providers: Alexx Manriquez Referring MD: Joana Moya (Referring MD) Procedure: Colonoscopy Indications: Screening for colorectal malignant neoplasm, This is the patient's first colonoscopy Medications: Propofol per Anesthesia, See the Anesthesia note for documentation of the administered medications Description of Procedure: Pre-Anesthesia Assessment: - Pre-procedure physical examination revealed no contraindications to sedation. - After reviewing the risks and benefits, the patient was deemed in satisfactory condition to undergo the procedure. - The anesthesia plan was to use monitored anesthesia care (MAC). - Immediately prior to administration of medications, the patient was re-assessed for adequacy to receive sedatives. After I obtained informed consent, the scope was passed under direct vision. Throughout the procedure, the patient's blood pressure, pulse, and oxygen saturations were monitored continuously. The PCF-[id number] was introduced through the anus and advanced to the cecum, identified by appendiceal orifice and ileocecal valve. The colonoscopy was performed without difficulty. The patient tolerated the procedure well. The quality of the bowel preparation was good. The ileocecal valve, appendiceal orifice, and rectum were photographed. Findings: The perianal and digital rectal examinations were normal. Two flat and sessile polyps were found in the transverse colon. The polyps were 3 to 5 mm in size. These polyps were removed with a cold snare. Resection and retrieval were complete. To prevent bleeding after the polypectomy, one hemostatic clip was successfully placed. There was no bleeding at the end of the maneuver. A 1 mm polyp was found in the hepatic flexure. The polyp was sessile. The polyp was removed with a jumbo cold forceps. Resection and retrieval were complete. The exam was otherwise without abnormality on direct and retroflexion views. Estimated Blood Loss: Estimated blood loss was minimal. Complications: No immediate complications. Impression: - Two 3 to 5 mm polyps in the transverse colon, removed with a cold snare. Resected and retrieved. Clip was placed. - One 1 mm polyp at the hepatic flexure, removed with a jumbo cold forceps. Resected and retrieved. - The examination was otherwise normal on direct and retroflexion views. Recommendation: - Patient has a contact number available for emergencies. The signs and symptoms of potential delayed complications were discussed with the patient. Return to normal activities tomorrow. Written discharge instructions were provided to the patient. - Discharge patient to home. - Resume previous diet. - Continue present medications. - No aspirin, ibuprofen, naproxen, or other non-steroidal anti-inflammatory drugs for 5 days after polyp removal. - Await pathology results. - Repeat colonoscopy in 3 - 5 years for surveillance based on pathology results. - Return to my office. - The findings and recommendations were discussed with the patient. Attending Participation: I personally performed the entire procedure. Procedure Code(s): --- Professional --- 16408, Colonoscopy, flexible; with removal of tumor(s), polyp(s), or other lesion(s) by snare technique 28864, 59, Colonoscopy, flexible; with biopsy, single or multiple Diagnosis Code(s): --- Professional --- D12.3, Benign neoplasm of transverse colon (hepatic flexure or splenic flexure) Z12.11, Encounter for screening for malignant neoplasm of colon CPT copyright 2021 [employer]. All rights reserved. The codes documented in this report are preliminary and upon reporting consultant review may be revised to meet current compliance requirements. Alexx Manriquez, 06/21/2023 8:53:42 AM Note Initiated On: 06/21/2023 8:11 AM Number of Addenda: [phone] [place] [address] PROVATION 06/21/2023 8:11 AM [employer] us Alexx Manriquez MD GI PROCEDURE ORDERABLES Edited Result - Final [facility] PROVATION from Last 3 Months or Most Recently Relevant to Health Maintenance Advance Directives * Full Code (Latest Code Status on File) Date Activated Date Inactivated Comments 11/11/2023 8:52 PM 11/14/2023 4:14 PM * Full Code Date Activated Date Inactivated Comments 10/17/2023 3:35 AM 10/17/2023 4:35 PM * Full Code Date Activated Date Inactivated Comments 03/22/2023 11:55 AM 03/27/2023 7:56 PM Care Teams [employer] Relationship Specialty Start Date End Date Joana Moya PA-C [address] [place] [id number] PCP - General Physician [employer] 08/08/23 Lily Wright MD [address] [place] [address] Obstetrics and Gynecology 08/08/23
--- OUTSIDE RECORDS SUMMARY | 2025-03-05 18:24 | XMS_ITS | Data Portability ---
Author Organization [facility] Jaky Dennise Address [address] [place] [address] Care Team Providers Care Research Project Coordinator Name Role Phone EZEQUIEL SANCHEZ Primary Care Provider Assessment Encounter Date Assessment Date Assessment LastModified by Organization Details LastModified Time 03/29/2023 03/29/2023 given [facility]P number to schedule mammogram and pap Not available 04/02/2023 10:43:50 06/11/2023 06/11/2023 given [facility]P number to schedule mammogram and pap Not available 06/11/2023 08:30:49 Plan of Treatment Reminders Order Date Submit Date Provider Last Modified By Organization Details Last Modified Time Details Appointments None recorded. Lab culture, urine 2023 024 [facility], [address], [address], [place], [address], 4 16:13:55 pro BNP (pro B-type natriuretic peptide), serum or plasma 2023 024 [facility], [address], [address], [place], [address], 4 08:23:40 hepatic function panel, serum 2023 024 [facility], [address] [facility], [address], [place], [address], 4 23:07:43 CBC w/ auto diff 2023 024 [facility], [address], [address], [place], [address], 4 23:07:43 unlisted lab - BMP8+1AC+co rrected calcium loren 2023 024 [facility], [address] [place] [address], [address], [place], [address], 4 06:24:51 immunoglobu micheline iga+igg+igm , quantitativ e, serum 2023 024 [facility], [address], [address], [place], [address], 4 06:24:52 Referral None recorded. Procedures None recorded. Surgeries None recorded. Imaging XR, chest, 2 view [id number] [place] [address] ([facility]), [address] [place] [address], [address], 4 12:01:54 Medication Orders Flonase Allergy Relief 50 mcg/actuati on nasal spray,suspe nsion 2023 024 [facility], [address] [place] [address], [address], 4 09:26:21 Patient TargetsNo targets recorded. Patient Instructions Encounter Date Encounter Id Patient Instructions Last Modified By Organization Details Last Modified Time 03/29/2023 [id number] A healthy lifestyle: care instructions Not available 04/02/2023 10:43:36 06/11/2023 [id number] A healthy lifestyle: care instructions Not available 06/11/2023 08:57:33 10/29/2023 [id number] A healthy lifestyle: care instructions Not available 11/07/2023 15:31:55 Reason for Referral None Reported. Results Created Date Observation Date Name Description Value Unit Range Abnormal Flag Note LastModifiedBy Organization Detail LastModifiedTime 03/20/2003/21/2023 COMP. METAB OLIC PANEL (14) glucose 92 mg/dL 70-99 Not Available [facility] [address] [place] [address], [address], 03/21/2023 21:07:41 03/20/20 23 03/21/2023 COMP. METAB OLIC PANEL (14) BUN 13 mg/dL 6-24 Not Available [facility] [address] [place], [address], 03/21/2023 21:07:41 03/20/20 23 03/21/2023 COMP. METAB OLIC PANEL (14) creatinine <=0.46 mg/dL 0.76-1 .27 below low normal Not Available [facility] [address] [place] [address], [address], 03/21/2023 21:07:41 03/20/20 23 03/21/2023 COMP. METAB OLIC PANEL (14) eGFR 118 >=60 Units for eGFR value s are mL/mi n/1.7 3 The eGFR Calcu latio n has not been valid ated for patie nts under the age of 18. If test resul ts are displ ayed for a patie nt under the age of 18, disre ora that value . Not Available [facility] [address] [place] [address], [address], 03/21/2023 21:07:41 03/20/20 23 03/21/2023 COMP. METAB OLIC PANEL (14) BUN/creatini ne ratio 28 9-23 above high normal Not Available [facility] [address] [place], [address], 03/21/2023 21:07:41 03/20/20 23 03/21/2023 COMP. METAB OLIC PANEL (14) sodium 137 mmol/ L 134-14 4 Not Available [facility] [address] [place], [address], 03/21/2023 21:07:41 03/20/20 23 03/21/2023 COMP. METAB OLIC PANEL (14) potassium 3.7 mmol/ L 3.5-5. 2 Not Available [facility] [address] [place], [address], 03/21/2023 21:07:41 03/20/20 23 03/21/2023 COMP. METAB OLIC PANEL (14) chloride 101 mmol/ L 96-106 Not Available [facility] [address] [place], [address], 03/21/2023 21:07:41 03/20/20 23 03/21/2023 COMP. METAB OLIC PANEL (14) carbon dioxide, total 23 mmol/ L 20-29 Not Available [facility] [address] [place], [address], 03/21/2023 21:07:41 03/20/20 23 03/21/2023 COMP. METAB OLIC PANEL (14) calcium 8.9 mg/dL 8.7-10 .2 Not Available [facility] [address] [place], [address], 03/21/2023 21:07:41 03/20/20 23 03/21/2023 COMP. METAB OLIC PANEL (14) protein, total 7.7 g/dL 6.0-8. 5 Not Available [facility] [address] [place], [address], 03/21/2023 21:07:41 03/20/20 23 03/21/2023 COMP. METAB OLIC PANEL (14) albumin 2.9 g/dL 3.9-4. 9 below low normal Not Available [facility] [address] [place], [address], 03/21/2023 21:07:41 03/20/20 23 03/21/2023 COMP. METAB OLIC PANEL (14) globulin, total 4.8 g/dL 1.5-4. 5 above high normal Not Available [facility] [address] [place], [address], 03/21/2023 21:07:41 03/20/20 23 03/21/2023 COMP. METAB OLIC PANEL (14) A/G ratio 0.6 1.2-2. 2 below low normal Not Available [facility] [address] [place], [address], 03/21/2023 21:07:41 03/20/20 23 03/21/2023 COMP. METAB OLIC PANEL (14) bilirubin, total 6.0 mg/dL 0.0-1. 2 above high normal Not Available [facility] [address] [place], [address], 03/21/2023 21:07:41 03/20/20 23 03/21/2023 COMP. METAB OLIC PANEL (14) alkaline phosphatase 365 IU/L 44-121 above high normal Not Available [facility] [address] [place], [address], 03/21/2023 21:07:41 03/20/20 23 03/21/2023 COMP. METAB OLIC PANEL (14) AST (SGOT) 128 IU/L 0-40 above high normal Not Available [facility] [address] [place], [address], 03/21/2023 21:07:41 03/20/20 23 03/21/2023 COMP. METAB OLIC PANEL (14) ALT (SGPT) 62 IU/L 0-32 above high normal Not Available [facility] [address] [place], [address], 03/21/2023 21:07:41 03/20/20 23 03/21/2023 CBC WITH DIFFE RENTI AL/PL ATELE T WBC 4.1 x10e3 /uL 3.4-10 .8 Not Available [facility] [address] [place], [address], 03/21/2023 21:07:42 03/20/20 23 03/21/2023 CBC WITH DIFFE RENTI AL/PL ATELE T RBC 3.39 x10e6 /uL 3.77-5 .28 below low normal Not Available [facility] [address] [place], [address], 03/21/2023 21:07:42 03/20/20 23 03/21/2023 CBC WITH DIFFE RENTI AL/PL ATELE T hemoglobin 10.3 g/dL 11.1-1 5.9 below low normal Not Available [facility] [address] [place], [address], 03/21/2023 21:07:42 03/20/20 23 03/21/2023 CBC WITH DIFFE RENTI AL/PL ATELE T hematocrit 31.4 % 34.0-4 6.6 below low normal Not Available [facility] [address] [place], [address], 03/21/2023 21:07:42 03/20/20 23 03/21/2023 CBC WITH DIFFE RENTI AL/PL ATELE T MCV 93 fL 79-97 Not Available [facility] [address] [place], [address], 03/21/2023 21:07:42 03/20/20 23 03/21/2023 CBC WITH DIFFE RENTI AL/PL ATELE T MCH 30.4 pg 26.6-3 3.0 Not Available [facility] [address] [place], [address], 03/21/2023 21:07:42 03/20/20 23 03/21/2023 CBC WITH DIFFE RENTI AL/PL ATELE T MCHC 32.8 g/dL 31.5-3 5.7 Not Available [facility] [address] [place], [address], 03/21/2023 21:07:42 03/20/20 23 03/21/2023 CBC WITH DIFFE RENTI AL/PL ATELE T RDW 19.0 % 11.5-1 4.5 above high normal Not Available [facility] [address] [place], [address], 03/21/2023 21:07:42 03/20/20 23 03/21/2023 CBC WITH DIFFE RENTI AL/PL ATELE T platelets 165 x10e3 /uL 150-45 0 Not Available [facility] [address] [place], [address], 03/21/2023 21:07:42 03/20/2003/21/2023 CBC WITH DIFFE RENTI AL/PL ATELE T neutrophils 68 % notest b. Not Available [facility] [address] [place], [address], 03/21/2023 21:07:42 03/20/20 23 03/21/2023 CBC WITH DIFFE RENTI AL/PL ATELE T lymphs 22 % notest b. Not Available [facility] [address] [place], [address], 03/21/2023 21:07:42 03/20/20 23 03/21/2023 CBC WITH DIFFE RENTI AL/PL ATELE T monocytes 8 % notest b. Not Available [facility] [address] [place], [address], 03/21/2023 21:07:42 03/20/20 23 03/21/2023 CBC WITH DIFFE RENTI AL/PL ATELE T eos 1 % notest b. Not Available [facility] [address] [place], [address], 03/21/2023 21:07:42 03/20/20 23 03/21/2023 CBC WITH DIFFE RENTI AL/PL ATELE T basos 1 % notest b. Not Available [facility] [address] [place], [address], 03/21/2023 21:07:42 03/20/20 23 03/21/2023 CBC WITH DIFFE RENTI AL/PL ATELE T neutrophils (absolute) 2.8 x10e3 /uL 1.4-7. 0 Not Available [facility] [address] [place], [address], 03/21/2023 21:07:42 03/20/20 23 03/21/2023 CBC WITH DIFFE RENTI AL/PL ATELE T lymphs (absolute) 0.9 x10e3 /uL 0.7-3. 1 Not Available [facility] [address] [place], [address], 03/21/2023 21:07:42 03/20/20 23 03/21/2023 CBC WITH DIFFE RENTI AL/PL ATELE T monocytes(ab solute) 0.3 x10e3 /uL 0.1-0. 9 Not Available [facility] [address] [place], [address], 03/21/2023 21:07:42 03/20/20 23 03/21/2023 CBC WITH DIFFE RENTI AL/PL ATELE T eos (absolute) 0.0 x10e3 /uL 0.0-0. 4 Not Available [facility] [address] [place], [address], 03/21/2023 21:07:42 03/20/20 23 03/21/2023 CBC WITH DIFFE RENTI AL/PL ATELE T baso (absolute) 0.0 x10e3 /uL 0.0-0. 2 Not Available [facility] [address] [place], [address], 03/21/2023 21:07:42 03/20/20 23 03/21/2023 CBC WITH DIFFE RENTI AL/PL ATELE T immature granulocytes 0.5 % notest b. Not Available [facility] [address] [place], [address], 03/21/2023 21:07:42 03/20/20 23 03/21/2023 CBC WITH DIFFE RENTI AL/PL ATELE T immature grans (abs) 0.0 x10e3 /uL 0.0-0. 1 Not Available [facility] [address] [place], [address], 03/21/2023 21:07:42 03/20/20 23 03/21/2023 CBC WITH DIFFE RENTI AL/PL ATELE T NRBC 0 % 0-0 Not Available [facility] [address] [place], [address], 03/21/2023 21:07:42 03/20/20 23 03/22/2023 HCV ANTIB NOLA RFX TO QUANT PCR HCV Ab Reacti ve nonrea ctive abnormal Not Available [facility] ([facility]) [address] [address], [place], [address], 03/27/2023 16:12:32 03/20/20 23 03/23/2023 LIVER -KIDN EY MICRO SOMAL AB liver-kidney microsomal Ab 4.1 units 0.0-20 .0 Negat ion 0.0 - 20.0 Equiv ocal 20.1 - 24.9 Posit ion >24.9 LKM type 1 antib odies are detec fransico in patie nts with autoi mmune hepat itis type 2 and in up to 8% of patie nts with chron ic HCV infec tion. Not Available [facility] ([facility]) [address] [facility], [place], [address], 03/27/2023 16:12:32 03/20/20 23 03/23/2023 T-TRA NSGLU TAMIN ASE (TTG) IGA T-transgluta minase (ttg) IgA <2 U/mL 0-3 Negat ion 0 - 3 Weak Posit ion 4 - 10 Posit ion >10 Tissu e Trans gluta natalie e (tTG) has been ident ified as the endom ysial antig en. Studi es have demon str- ated that endom ysial IgA antib odies have over 99% speci ficit y for glute n sensi tive enter opath y. Not Available [facility] ([facility]) [address] [address] [facility], [place], [address], 03/27/2023 16:12:33 03/20/20 23 03/23/2023 ANTIN UCLEA R AB MULTI PLEX RFX 9 CONI direct Positi ve negati ve abnormal Not Available [facility] ([facility]) [address] [facility], [place], [address], 03/27/2023 16:12:34 03/20/20 23 03/23/2023 ANTIN UCLEA R AB MULTI PLEX RFX 9 anti-DNA (ds) Ab qn 1 IU/mL 0-9 Negat ion <5 Equiv ocal 5 - 9 Posit ion >9 Not Available [facility] ([facility]) [address] [facility], [place], [address], 03/27/2023 16:12:34 03/20/20 23 03/23/2023 ANTIN UCLEA R AB MULTI PLEX RFX 9 design lead antibodies <0.2 ai 0.0-0. 9 Not Available [facility] ([facility]) [address] [place], [address], 03/27/2023 16:12:34 03/20/20 23 03/23/2023 ANTIN UCLEA R AB MULTI PLEX RFX 9 tolentino antibodies <0.2 Not Available [facility] ([facility]) [address] [place], [address], 03/27/2023 16:12:34 03/20/20 23 03/23/2023 ANTIN UCLEA R AB MULTI PLEX RFX 9 antisclerode rma-70 antibodies <0.2 Not Available [facility] ([facility]) [address] [facility], [place], [address], 03/27/2023 16:12:34 03/20/20 23 03/23/2023 ANTIN UCLEA R AB MULTI PLEX RFX 9 sjogren's anti-ss-A 3.1 ai 0.0-0. 9 above high normal Not Available [facility] ([facility]) [address] [facility], [place], [address], 03/27/2023 16:12:34 03/20/20 23 03/23/2023 ANTIN UCLEA R AB MULTI PLEX RFX 9 sjogren's anti-ss-B <0.2 ai 0.0-0. 9 Not Available [facility] ([facility]) [address] [facility], [place], [address], 03/27/2023 16:12:34 03/20/20 23 03/23/2023 ANTIN UCLEA R AB MULTI PLEX RFX 9 antichromati n antibodies 0.3 ai 0.0-0. 9 Not Available [facility] ([facility]) [address] [place], [address], 03/27/2023 16:12:34 03/20/20 23 03/23/2023 ANTIN UCLEA R AB MULTI PLEX RFX 9 anti-joey-1 <0.2 ai 0.0-0. 9 Not Available [facility] ([facility]) [address] [place], [address], 03/27/2023 16:12:34 03/20/20 23 03/23/2023 ANTIN UCLEA R AB MULTI PLEX RFX 9 anti-centrom ere B antibodies <0.2 Not Available [facility] ([facility]) [address] [place], [address], 03/27/2023 16:12:34 03/20/20 23 03/23/2023 ANTIN UCLEA R AB MULTI PLEX RFX 9 see below: Commen t Autoa ntibo dy Disea se Assoc iatio n ----- ----- ----- ----- ----- ----- ----- ----- ----- ----- ----- ----- Condi tion Frequ ency ----- ----- ----- ----- - ----- ----- ----- ----- ---- ----- ---- Antin uclea r Antib nola, SLE, mixed conne ctive Direc t (CONI- D) tissu e disea ses ----- ----- ----- ----- - ----- ----- ----- ----- ---- ----- ---- dsDNA SLE 40 - 60% ----- ----- ----- ----- - ----- ----- ----- ----- ---- ----- ---- Chrom atin Drug induc ed SLE 90% SLE 48 - 97% ----- ----- ----- ----- - ----- ----- ----- ----- ---- ----- ---- SSA (Ro) SLE 25 - 35% Sjogr en's Syndr ome 40 - 70% Neona nisha Lupus 100% ----- ----- ----- ----- - ----- ----- ----- ----- ---- ----- ---- SSB (La) SLE 10% Sjogr en's Syndr ome 30% ----- ----- ----- ----- - ----- ----- ----- ----- --- ----- ---- Sm (anti -Jacky h) SLE 15 - 30% ----- ----- ----- ----- - ----- ----- ----- ----- --- ----- ---- SWING DRIVER Mixed Conne ctive Tissu e Disea se 95% (U1 nRNP, SLE 30 - 50% anti- ribon ucleo prote in) Polym yosit is and/o r Milligan tomyo sitis 20% ----- ----- ----- ----- - ----- ----- ----- ----- ---- ----- ---- Scl-7 0 (anti DNA Scler oderm a (diff use) 20 - 35% topoi petros ase) Crest 13% ----- ----- ----- ----- - ----- ----- ----- ----- ---- ----- ---- Joey-1 Polym yosit is and/o r Milligan tomyo sitis 20 - 40% ----- ----- ----- ----- - ----- ----- ----- ----- ---- ----- ---- Centr omere B Scler oderm a - Crest varia nt 80% Not Available [facility] ([facility]) [address] [place], [address], 03/27/2023 16:12:34 03/20/20 23 03/22/2023 HEPAT ITIS B CORE AB, TOTAL hep B core Ab, tot Negati ve negati ve Not Available [facility] ([facility]) [address] [facility], [place], [address], 03/27/2023 16:12:34 03/20/20 23 03/22/2023 BILIR UBIN, DIREC T bilirubin, direct 4.48 mg/dL 0.00-0 .40 above high normal Not Available [facility] ([facility]) [address] [place], [address], 03/27/2023 16:12:36 03/20/2003/22/2023 CERUL OPLAS MIN ceruloplasmi n 56.0 mg/dL 19.0-3 9.0 above high normal Not Available [facility] ([facility]) [address] [facility], [place], [address], 03/27/2023 16:12:36 03/20/2003/22/2023 IMMUN OGLOB ULINS A/G/M , QN, SER immunoglobul in g, qn, serum 2382 mg/dL 586-16 02 above high normal Not Available [facility] ([facility]) [address] [facility], [place], [address], 03/27/2023 16:12:37 03/20/2003/22/2023 IMMUN OGLOB ULINS A/G/M , QN, SER immunoglobul in A, qn, serum 248 mg/dL 87-352 Not Available [facility] ([facility]) [address] [place], [address], 03/27/2023 16:12:37 03/20/2003/22/2023 IMMUN OGLOB ULINS A/G/M , QN, SER immunoglobul in M, qn, serum 797 mg/dL 26-217 above high normal Resul ts confi rmed on dilut ion. Not Available [facility] ([facility]) [address] [place], [address], 03/27/2023 16:12:37 03/20/2003/22/2023 HEPAT ITIS B SURF AB QUANT hepatitis B surf Ab quant <3.1 below low normal Statu s of Immun ity Anti- HBs Level ----- ----- ----- --- ----- ----- ---- Incon siste nt with Immun ity 0.0 - 9.9 Consi stent with Immun ity >9.9 Not Available [facility] ([facility]) [address] [facility], [place], [address], 03/27/2023 16:12:38 03/20/20 23 03/23/2023 MITOC HONDR IAL (M2) ANTIB NOLA mitochondria l (M2) antibody 166.6 units 0.0-20 .0 above high normal Negat ion 0.0 - 20.0 Equiv ocal 20.1 - 24.9 Posit ion >24.9 Mitoc hondr ial (M2) Antib odies are found in 90-96 % of patie nts with prima ry bilia ry cirrh osis. Not Available [facility] ([facility]) [address] [facility], [place], [address], 03/27/2023 16:12:39 03/20/20 23 03/22/2023 HEP A AB, TOTAL hep A Ab, total Positi ve negati ve abnormal Comme nt: The HAV total antib nola assay detec ts both IgG and IgM but does not diffe renti ate betwe en them. A negat ion resul t sugge sts susce ptibi lity to infec tion. A posit ion resul t could be due to vacci natio n, previ ously resol ayan infec tion or activ e infec tion. Testi ng for HAV IgM shoul d be perfo rmed if activ e HAV infec tion is suspe cted. [facility] offer s profi les that will autom atica lly refle x posit ion HAV total antib nola resul ts to IgM (e.g. , panel #[id number] HAV Antib nola w/ Rfx). Not Available [facility] ([facility]) [address] [facility], [place], [address], 03/27/2023 16:12:39 03/20/20 23 03/27/2023 SOLUB LE LIVER AG (IGG AB) anti-sla, IgG 5.7 units 0.0-20 .0 Negat ion 0.0 - 20.0 Equiv ocal 20.1 - 24.9 Posit ion >24.9 Not Available [facility] ([facility]) [address] [place], [address], 03/27/2023 16:12:40 03/20/2003/22/2023 PT AND PTT INR TNP Test not perfo rmed due to the age of this speci men. Refer ence inter susan is for non-a ntico agula fransico patie nts. Sugge sted INR thera peuti c range for Vitam in K antag onist thera py: Stand manuel Dose (mode rate inten sity thera peuti c range ): 2.0 - 3.0 Highe r inten sity thera peuti c range 2.5 - 3.5 Not Available [facility] ([facility]) [address] [place], [address], 03/27/2023 16:12:41 03/20/2003/22/2023 PT AND PTT prothrombin time - Test not perfo rmed Not Available [facility] ([facility]) [address] [place], [address], 03/27/2023 16:12:41 03/20/20 23 03/22/2023 PT AND PTT APTT - Test not perfo rmed Not Available [facility] ([facility]) [address] [place], [address], 03/27/2023 16:12:41 03/20/20 23 03/22/2023 FE+TI BC+FE R iron bind.cap.(TI BC) 377 ug/dL 250-45 0 Not Available [facility] ([facility]) [address] [place], [address], 03/27/2023 16:12:42 03/20/20 23 03/22/2023 FE+TI BC+FE R UIBC 182 ug/dL 131-42 5 Not Available [facility] ([facility]) [address] [facility], [place], [address], 03/27/2023 16:12:42 03/20/2003/22/2023 FE+TI BC+FE R iron 195 ug/dL 27-159 above high normal Not Available [facility] ([facility]) [address] [facility], [place], [address], 03/27/2023 16:12:42 03/20/2003/22/2023 FE+TI BC+FE R iron saturation 52 % 15-55 Not Available [facility] ([facility]) [address] [place], [address], 03/27/2023 16:12:42 03/20/2003/22/2023 FE+TI BC+FE R ferritin 74 NG/mL 15-150 Not Available [facility] ([facility]) [address] [facility], [place], [address], 03/27/2023 16:12:42 03/20/2003/22/2023 HCV RT-PC R, QUANT (NON- GRAPH ) test information: Commen t The quant itati ve range of this assay is 15 IU/mL to 100 maykel on IU/mL . Not Available [facility] ([facility]) [address] [facility], [place], [address], 03/27/2023 16:12:35 03/20/2003/24/2023 HCV RT-PC R, QUANT (NON- GRAPH ) hepatitis C quantitation HCV Not Detect ed Not Available [facility] ([facility]) [address] [place], [address], 03/27/2023 16:12:35 03/20/2003/24/2023 HCV RT-PC R, QUANT (NON- GRAPH ) interpretati on: Commen t Posit ion HCV antib nola scree n witho ut the prese nce of HCV RNA is consi stent with a resol ayan past infec tion or a false posit ion HCV antib nola. Consi ye repea t testi ng after one month . Not Available [facility] ([facility]) [address] [facility], [place], [address], 03/27/2023 16:12:35 03/20/2003/22/2023 SPECI MEN STATU S REPOR T specimen status report TNP Test not perfo rmed due to the age of this speci men. TEST: 55122 [id number] PT and PTT Not Available [facility] ([facility]) [address] [facility], [place], [address], 03/27/2023 16:12:31 03/22/2003/27/2023 Bacte eliza ident ified in Blood by Cultu re microorganis m identified in specimen by culture No growth day 5 Cultu re No growt h day 5 TANESHA 03/27 8:01 PM [facility]IDENT [facility] Not Available Not Available 06/23/2024 02:46:47 03/22/2003/27/2023 Bacte eliza ident ified in Blood by Cultu re interpretati on and review of laboratory results Normal Not Available Not Available 06/01 02:46:47 03/22/2003/22/2023 Creat inine [Mass /volu me] in Blood creatinine [mass/volume ] in blood 1.02 mg/dL low: 0.3mg/ dLhigh : 1.3mg/ dL Creat inine POCT 1.02 0.30 - 1.30 mg/dL 03/22 2:13 PM [facility]IDENT [facility]AM[facility] Not Available Not Available 06/23/2024 02:46:47 03/22/2003/22/2023 Creat inine [Mass /volu me] in Blood glomerular filtration rate/1.73 sq M.predicted [volume rate/area] in serum, plasma or blood by creatinine-b ased formula (CKD-epi) 68 text: >90 mL/min /1.73 m2 low eGFR 68 (L) >90 mL/mi n/1.7 3 m2 11/23 /2023 2:13 PM [facility]IDENT [facility]AM[facility] Not Available Not Available 06/23/2024 02:46:47 03/22/2003/22/2023 Creat inine [Mass /volu me] in Blood interpretati on and review of laboratory results Abnorm al Not Available Not Available 02:46:47 03/22/2003/23/2023 Bacte eliza ident ified in Urine by Cultu re bacteria identified in urine by culture <10,00 0 CFU/mL urogen ital lee Cultu re Urine <10,0 00 CFU/m L uroge nital lee TANESHA 03/23 9:24 PM ACCIDENT [facility]AM[facility] Not Available Not Available 06/23/2024 02:46:47 03/22/2003/22/2023 Urina lysis compl ete W Refle x Cultu re panel - Urine reflex status Cultur e to follow Refle x Statu s Cultu re to follo w 03/22 2:38 PM [facility] Not Available Not Available 06/23/2024 02:46:47 03/22/2003/22/2023 Urina lysis compl ete W Refle x Cultu re panel - Urine RBC UA 11-20 text: none seen, 0-2, 3-5 /hpf abnormal RBC UA 11-20 (A) None Seen, 0-2, 3-5 /HPF 03/22 2:38 PM [facility]IDENT [facility] Not Available Not Available 06/23/2024 02:46:47 03/22/2003/22/2023 Urina lysis compl ete W Refle x Cultu re panel - Urine WBC UA >100 text: none seen, 0-5 /hpf abnormal WBC UA >100 (A) None Seen, 0-5 /HPF 03/22 2:38 PM [facility]IDENT EXAM[facility] Not Available Not Available 06/23/2024 02:46:47 03/22/20 23 03/22/2023 Urina lysis compl ete W Refle x Cultu re panel - Urine bacteria UA Trace text: none /hpf abnormal Bacte eliza UA Trace (A) None /HPF 03/22 2:38 PM ACCIDENT EXAMINER [facility] Not Available Not Available 06/23/2024 02:46:47 03/22/2003/22/2023 Urina lysis compl ete W Refle x Cultu re panel - Urine squamous epithelial cells UA 3-5 text: none seen, 0-2, 3-5 /hpf Squam ous Epith elial Cells UA 3-5 None Seen, 0-2, 3-5 /HPF 03/22 2:38 PM ACCIDENT EXAMINER [facility] Not Available Not Available 06/23/2024 02:46:47 03/22/2003/22/2023 Urina lysis compl ete W Refle x Cultu re panel - Urine mucus UA 1+ text: /lpf Mucus UA 1+ /LPF 03/22 2:38 PM ACCIDENT EXAMINER [facility] Not Available Not Available 06/23/2024 02:46:47 03/22/2003/22/2023 Urina lysis compl ete W Refle x Cultu re panel - Urine Unknown Analyte Not Available Not Available 06/01 02:46:47 03/22/2003/22/2023 Urina lysis compl ete W Refle x Cultu re panel - Urine interpretati on and review of laboratory results Abnorm al Not Available Not Available 02:46:47 03/22/2003/22/2023 Urina lysis panel - Urine by Auto color UA Yazmin text: straw, yellow abnormal Color UA Yazmin (A) Straw , Yello w 03/22 2:32 PM ACCIDENT EXAMINER [facility] Not Available Not Available 06/23/2024 02:46:47 03/22/2003/22/2023 Urina lysis panel - Urine by Auto clarity UA Slt Cloudy text: clear abnormal Frida ty UA Slt Mccormick y (A) Clear 03/22 2:32 PM ACCIDENT EXAMINER [facility] Not Available Not Available 06/23/2024 02:46:47 03/22/2003/22/2023 Urina lysis panel - Urine by Auto specific gravity UA 1.027 low: 1.005h igh: 1.03 Speci fic Gravi ty UA 1.027 1.005 - 1.030 03/22 2:32 PM ACCIDENT EXAMINER [facility] Not Available Not Available 06/23/2024 02:46:47 03/22/2003/22/2023 Urina lysis panel - Urine by Auto pH UA 5 pH low: 5pHhig h: 8pH pH UA 5.0 5.0 - 8.0 pH 03/22 2:32 PM ACCIDENT EXAMINER [facility] Not Available Not Available 06/23/2024 02:46:47 03/22/2003/22/2023 Urina lysis panel - Urine by Auto protein UA 1+ text: negati ve abnormal Prote in UA 1+ (A) Negat ion 03/22 2:32 PM ACCIDENT EXAMINER [facility] Not Available Not Available 06/23/2024 02:46:47 03/22/2003/22/2023 Urina lysis panel - Urine by Auto glucose UA Negati ve text: negati ve Gluco se UA Negat ion Negat ion 03/22 2:32 PM ACCIDENT EXAMINER [facility] Not Available Not Available 06/23/2024 02:46:47 03/22/2003/22/2023 Urina lysis panel - Urine by Auto ketone UA Negati ve text: negati ve Keton e UA Negat ion Negat ion 03/22 2:32 PM ACCIDENT EXAMINER [facility] Not Available Not Available 06/23/2024 02:46:47 03/22/2003/22/2023 Urina lysis panel - Urine by Auto bilirubin UA Negati ve text: negati ve Bilir ubin UA Negat ion Negat ion 03/22 2:32 PM ACCIDENT EXAMINER [facility] Not Available Not Available 06/23/2024 02:46:47 03/22/2003/22/2023 Urina lysis panel - Urine by Auto blood UA 1+ text: negati ve abnormal Blood UA 1+ (A) Negat ion 03/22 2:32 PM ACCIDENT EXAMINER [facility] Not Available Not Available 06/23/2024 02:46:47 03/22/2003/22/2023 Urina lysis panel - Urine by Auto nitrite UA Negati ve text: negati ve Nitri te UA Negat ion Negat ion 03/22 2:32 PM ACCIDENT EXAMINER [facility] Not Available Not Available 06/23/2024 02:46:47 03/22/2003/22/2023 Urina lysis panel - Urine by Auto leukocyte esterase 2+ text: negati ve abnormal Leuko cyte Isadora ase 2+ (A) Negat ion 03/22 2:32 PM ACCIDENT EXAMINER [facility] Not Available Not Available 06/23/2024 02:46:47 03/22/2003/22/2023 Urina lysis panel - Urine by Auto urobilinogen UA 4 mg/dL text: negati ve abnormal Urobi linog en UA 4.0 (A) Negat ion mg/dL 03/22 2:32 PM ACCIDENT EXAMINER [facility] Not Available Not Available 06/23/2024 02:46:47 03/22/2003/22/2023 Urina lysis panel - Urine by Auto Unknown Analyte Not Available Not Available 06/01 02:46:47 03/22/2003/22/2023 Urina lysis panel - Urine by Auto interpretati on and review of laboratory results Abnorm al Not Available Not Available 02:46:47 03/22/2003/22/2023 Phosp hate [Mass /volu me] in Serum or Plasm a phosphate [mass/volume ] in serum or plasma 3.5 mg/dL low: 2.9mg/ dLhigh : 5.1mg/ dL Phosp horus 3.5 2.9 - 5.1 mg/dL 03/22 2:40 PM ACCIDENT EXAMINER [facility] Not Available Not Available 06/23/2024 02:46:47 03/22/2003/22/2023 Phosp hate [Mass /volu me] in Serum or Plasm a interpretati on and review of laboratory results Normal Not Available Not Available 06/01 02:46:47 03/22/2003/22/2023 Magne sium [Mass /volu me] in Serum or Plasm a magnesium [mass/volume ] in serum or plasma 1.6 mg/dL low: 1.6mg/ dLhigh : 2.6mg/ dL Magne sium 1.6 1.6 - 2.6 mg/dL 03/22 2:40 PM ACCIDENT EXAMINER [facility] Not Available Not Available 06/23/2024 02:46:47 03/22/2003/22/2023 Magne sium [Mass /volu me] in Serum or Plasm a interpretati on and review of laboratory results Normal Not Available Not Available 06/01 02:46:47 03/22/2003/22/2023 Compr ehens ion metab olic 2000 panel - Serum or Plasm a urea nitrogen [mass/volume ] in serum or plasma 12 mg/dL low: 7mg/dL high: 26mg/d L BUN 12 7 - 26 mg/dL 03/22 2:40 PM ACCIDENT EXAMINER [facility] Not Available Not Available 06/23/2024 02:46:47 03/22/2003/22/2023 Compr ehens ion metab olic 2000 panel - Serum or Plasm a creatinine [mass/volume ] in serum or plasma 0.77 mg/dL low: 0.56mg /dLhig h: 0.96mg /dL Creat inine 0.77 0.56 - 0.96 mg/dL 03/22 2:40 PM ACCIDENT EXAMINER [facility] Not Available Not Available 06/23/2024 02:46:47 03/22/2003/22/2023 Compr ehens ion metab olic 2000 panel - Serum or Plasm a sodium [moles/volum e] in serum or plasma 138 mmol/ L low: 136mmo l/Lhig h: 145mmo l/L Sodiu m 138 136 - 145 mmol/ L 03/22 2:40 PM ACCIDENT EXAMINER [facility] Not Available Not Available 06/23/2024 02:46:47 03/22/2003/22/2023 Compr ehens ion metab olic 1999 panel - Serum or Plasm a potassium [moles/volum e] in serum or plasma 3.6 mmol/ L low: 3.5mmo l/Lhig h: 4.5mmo l/L Potas sium 3.6 3.5 - 4.5 mmol/ L 03/22 2:40 PM ACCIDENT EXAMINER [facility] Not Available Not Available 06/23/2024 02:46:47 03/22/2003/22/2023 Compr ehens ion metab olic 1999 panel - Serum or Plasm a chloride [moles/volum e] in serum or plasma 105 mmol/ L low: 98mmol /Lhigh : 107mmo l/L Chlor leighann 105 98 - 107 mmol/ L 03/22 2:40 PM ACCIDENT EXAMINER [facility] Not Available Not Available 06/23/2024 02:46:47 03/22/2003/22/2023 Compr ehens ion metab olic 1999 panel - Serum or Plasm a carbon dioxide, total [moles/volum e] in serum or plasma 22 mmol/ L low: 22mmol /Lhigh : 29mmol /L CO2 22 22 - 29 mmol/ L 03/22 2:40 PM ACCIDENT EXAMINER [facility] Not Available Not Available 06/23/2024 02:46:47 03/22/2003/22/2023 Compr ehens ion metab olic 1999 panel - Serum or Plasm a glucose [mass/volume ] in serum or plasma 78 mg/dL low: 70mg/d Lhigh: 115mg/ dL Gluco se 78 70 - 115 mg/dL 03/22 2:40 PM ACCIDENT EXAMINER [facility] Not Available Not Available 06/23/2024 02:46:47 03/22/2003/22/2023 Compr ehens ion metab olic 2000 panel - Serum or Plasm a calcium [moles/volum e] in serum or plasma 7.8 mg/dL low: 8.4mg/ dLhigh : 10.2mg /dL low Calci um 7.8 (L) 8.4 - 10.2 mg/dL 03/22 2:40 PM ACCIDENT EXAMINER [facility] Not Available Not Available 06/23/2024 02:46:47 03/22/2003/22/2023 Compr ehens ion metab olic 2000 panel - Serum or Plasm a protein [mass/volume ] in serum or plasma 6.9 g/dL low: 6g/dLh igh: 8.3g/d L Prote in Total 6.9 6.0 - 8.3 g/dL 03/22 2:40 PM ACCIDENT EXAMINER [facility] Not Available Not Available 06/23/2024 02:46:47 03/22/2003/22/2023 Compr ehens ion metab olic 2000 panel - Serum or Plasm a albumin [mass/volume ] in serum or plasma by bromocresol green (bcg) dye binding method 2 g/dL low: 3.4g/d Lhigh: 5g/dL low Album in 2.0 (L) 3.4 - 5.0 g/dL 03/22 2:40 PM ACCIDENT EXAMINER [facility] Not Available Not Available 06/23/2024 02:46:47 03/22/2003/22/2023 Compr ehens ion metab olic 2000 panel - Serum or Plasm a bilirubin.to nisha [mass/volume ] in serum or plasma 6.7 mg/dL low: 0.2mg/ dLhigh : 1.2mg/ dL high Bilir ubin Total 6.7 (H) 0.2 - 1.2 mg/dL 03/22 2:40 PM ACCIDENT EXAMINER [facility] Not Available Not Available 06/23/2024 02:46:47 03/22/2003/22/2023 Compr ehens ion metab olic 2000 panel - Serum or Plasm a alkaline phosphatase [enzymatic activity/vol ume] in serum or plasma 274 U/L low: 40U/Lh igh: 150U/L high Alkal ine Phosp hatas e 274 (H) 40 - 150 U/L 03/22 2:40 PM ACCIDENT EXAMINER [facility] Not Available Not Available 06/23/2024 02:46:47 03/22/20 23 03/22/2023 Compr ehens ion metab olic 2000 panel - Serum or Plasm a alanine aminotransfe rase [enzymatic activity/vol ume] in serum or plasma by no addition of P-5'-P 51 U/L low: 5U/Lhi gh: 55U/L ALT 51 5 - 55 U/L 03/22 2:40 PM ACCIDENT EXAMINER [facility] Not Available Not Available 06/23/2024 02:46:47 03/22/2003/22/2023 Compr ehens ion metab olic 1999 panel - Serum or Plasm a aspartate aminotransfe rase [enzymatic activity/vol ume] in serum or plasma 94 U/L low: 5U/Lhi gh: 34U/L high AST 94 (H) 5 - 34 U/L 03/22 2:40 PM ACCIDENT EXAMINER [facility] Not Available Not Available 06/23/2024 02:46:47 03/22/20 23 03/22/2023 Compr ehens ion metab olic 1999 panel - Serum or Plasm a anion gap 11 low: 6high: 16 Anion Gap 11 6 - 16 03/22 2:40 PM ACCIDENT EXAMINER [facility] Not Available Not Available 06/23/2024 02:46:47 03/22/2003/22/2023 Compr ehens ion metab olic 2000 panel - Serum or Plasm a urea nitrogen/cre atinine [mass ratio] in serum or plasma 16 low: 7high: 23 BUN/C reati nine Ratio 16 7 - 23 03/22 2:40 PM ACCIDENT EXAMINER [facility] Not Available Not Available 06/23/2024 02:46:47 03/22/2003/22/2023 Compr ehens ion metab olic 2000 panel - Serum or Plasm a osmolality calculated 285 text: 275 - 295 mOsm/k g Osmol aliprincess Calcu lated 285 275 - 295 mOsm/ kg 03/22 2:40 PM ACCIDENT EXAMINER [facility] Not Available Not Available 06/23/2024 02:46:47 03/22/20 23 03/22/2023 Compr ehens ion metab olic 2000 panel - Serum or Plasm a albumin/glob ulin ratio 0.4 low: 1.1hig h: 2.3 low Album in/Gl obuli n Ratio 0.4 (L) 1.1 - 2.3 03/22 2:40 PM ACCIDENT EXAMINER [facility] Not Available Not Available 06/23/2024 02:46:47 03/22/2003/22/2023 Compr KartoonArtens ion metab olic 2000 panel - Serum or Plasm a glomerular filtration rate/1.73 sq M.predicted [volume rate/area] in serum, plasma or blood by creatinine-b ased formula (CKD-epi) text: >=90 mL/min /1.73 m2 eGFR by CKD-E PI >90 >=90 mL/mi n/1.7 3 m2 03/22 2:40 PM ACCIDENT EXAMINER [facility] Not Available Not Available 06/23/2024 02:46:47 03/22/2003/22/2023 Compr ehens ion metab olic 2000 panel - Serum or Plasm a interpretati on and review of laboratory results Abnorm al Not Available Not Available 02:46:47 03/22/2003/22/2023 CBC W Auto Diffe renti al panel - Blood leukocytes [#/volume] in blood by automated count 4.8 text: 3.5 - 10.5 10 3/uL WBC 4.8 3.5 - 10.5 10 3/uL 03/22 2:25 PM ACCIDENT EXAMINER [facility] Not Available Not Available 06/23/2024 02:46:47 03/22/2003/22/2023 CBC W Auto Diffe renti al panel - Blood erythrocytes [#/volume] in blood by automated count 2.87 text: 3.80 - 5.20 10 6/uL low RBC 2.87 (L) 3.80 - 5.20 10 6/uL 03/22 2:25 PM ACCIDENT EXAMINER [facility] Not Available Not Available 06/23/2024 02:46:47 03/22/2003/22/2023 CBC W Auto Diffe renti al panel - Blood hemoglobin [mass/volume ] in blood 9.1 g/dL low: 12g/dL high: 15.6g/ dL low Hemog lobin 9.1 (L) 12.0 - 15.6 g/dL 03/22 2:25 PM ACCIDENT EXAMINER [facility] Not Available Not Available 06/23/2024 02:46:47 03/22/2003/22/2023 CBC W Auto Diffe renti al panel - Blood hematocrit [volume fraction] of blood by automated count 27 % low: 35%hig h: 45% low Hemat ocrit 27.0 (L) 35.0 - 45.0 % 03/22 2:25 PM ACCIDENT EXAMINER [facility] Not Available Not Available 06/23/2024 02:46:47 03/22/2003/22/2023 CBC W Auto Diffe renti al panel - Blood MCV [entitic volume] by automated count 94.1 fL low: 80.7fL high: 98.3fL MCV 94.1 80.7 - 98.3 fL 03/22 2:25 PM ACCIDENT EXAMINER [facility] Not Available Not Available 06/23/2024 02:46:47 03/22/2003/22/2023 CBC W Auto Diffe renti al panel - Blood MCH [entitic mass] by automated count 31.7 pg low: 26.7pg high: 34pg MCH 31.7 26.7 - 34.0 pg 03/22 2:25 PM ACCIDENT EXAMINER [facility] Not Available Not Available 06/23/2024 02:46:47 03/22/2003/22/2023 CBC W Auto Diffe renti al panel - Blood MCHC [mass/volume ] by automated count 33.7 g/dL low: 30.8g/ dLhigh : 35.9g/ dL MCHC 33.7 30.8 - 35.9 g/dL 03/22 2:25 PM ACCIDENT EXAMINER [facility] Not Available Not Available 06/23/2024 02:46:47 03/22/2003/22/2023 CBC W Auto Diffe renti al panel - Blood erythrocyte distribution width [entitic volume] by automated count 64.5 fL low: 36fLhi gh: 50fL high RDW-S D 64.5 (H) 36.0 - 50.0 fL 03/22 2:25 PM [facility] Not Available Not Available 06/23/2024 02:46:47 03/22/2003/22/2023 CBC W Auto Diffe renti al panel - Blood erythrocyte distribution width [ratio] by automated count 18.8 % low: 11.2%h igh: 14.8% high RDW-C V 18.8 (H) 11.2 - 14.8 % 03/22 2:25 PM ACCIDENT EXAMINER [facility] Not Available Not Available 06/23/2024 02:46:47 03/22/2003/22/2023 CBC W Auto Diffe renti al panel - Blood platelets [#/volume] in blood by automated count 137 text: 150 - 400 10 3/uL low Plate let Count 137 (L) 150 - 400 10 3/uL 03/22 2:25 PM [facility] Available Not Available 06/23/2024 02:46:47 03/22/2003/22/2023 CBC W Auto Diffe renti al panel - Blood platelet mean volume [entitic volume] in blood by automated count 10.1 fL low: 9.4fLh igh: 12.9fL MPV 10.1 9.4 - 12.9 fL 03/22 2:25 PM [facility]3] [facility] Not Available Not Available 06/23/2024 02:46:47 03/22/2003/22/2023 CBC W Auto Diffe renti al panel - Blood platelets reticulated/ 100 platelets in blood by automated count 3.6 % low: 1.1%hi gh: 6.2% Immat ure Plate let Fract ion 3.6 1.1 - 6.2 % 03/22 2:25 PM [facility] Not Available Not Available 06/23/2024 02:46:47 03/22/2003/22/2023 CBC W Auto Diffe renti al panel - Blood nucleated erythrocytes [#/volume] in blood by automated count 0 text: 0 10 3/uL nRBC Absol [place] 0.00 0 10 3/uL 03/22 2:25 PM ACCIDENT EXAMINER [facility] Not Available Not Available 06/23/2024 02:46:47 03/22/2003/22/2023 CBC W Auto Diffe renti al panel - Blood nucleated erythrocytes /100 leukocytes [ratio] in blood by automated count 0 text: 0 /100 WBC nRBC Auto 0.0 0 /100 WBC 03/22 2:25 PM ACCIDENT EXAMINER [facility] Not Available Not Available 06/23/2024 02:46:47 03/22/2003/22/2023 CBC W Auto Diffe renti al panel - Blood neutrophils/ 100 leukocytes in blood by automated count 76.5 % low: 35%hig h: 70% high Neutr ophil s % 76.5 (H) 35.0 - 70.0 % 03/22 2:25 PM ACCIDENT EXAMINER [facility] Not Available Not Available 06/23/2024 02:46:47 03/22/2003/22/2023 CBC W Auto Diffe renti al panel - Blood lymphocytes/ 100 leukocytes in blood by automated count 16.9 % low: 20%hig h: 43% low Lymph ocyte s % 16.9 (L) 20.0 - 43.0 % 03/22 2:25 PM ACCIDENT EXAMINER [facility] Not Available Not Available 06/23/2024 02:46:47 03/22/2003/22/2023 CBC W Auto Diffe renti al panel - Blood monocytes/10 0 leukocytes in blood by automated count 5 % low: 5%high : 13% Monoc ytes % 5.0 5.0 - 13.0 % 03/22 2:25 PM ACCIDENT EXAMINER [facility] Not Available Not Available 06/23/2024 02:46:47 03/22/2003/22/2023 CBC W Auto Diffe renti al panel - Blood eosinophils/ 100 leukocytes in blood by automated count 0.4 % low: 0%high : 6% Eosin ophil s % 0.4 0.0 - 6.0 % 03/22 2:25 PM ACCIDENT EXAMINER [facility] Not Available Not Available 06/23/2024 02:46:47 03/22/2003/22/2023 CBC W Auto Diffe renti al panel - Blood basophils/10 0 leukocytes in blood by automated count 0.4 % low: 0%high : 2% Basop hil % 0.4 0.0 - 2.0 % 03/22 2:25 PM ACCIDENT EXAMINER [facility] Not Available Not Available 06/23/2024 02:46:47 03/22/2003/22/2023 CBC W Auto Diffe renti al panel - Blood neutrophils [#/volume] in blood by automated count 3.66 text: 1.60 - 7.00 10 3/uL Neutr ophil s Absol [place] 3.66 1.60 - 7.00 10 3/uL 03/22 2:25 PM ACCIDENT EXAMINER [facility] Not Available Not Available 06/23/2024 02:46:47 03/22/2003/22/2023 CBC W Auto Diffe renti al panel - Blood lymphocytes [#/volume] in blood by automated count 0.81 text: 1.10 - 3.90 10 3/uL low Lymph ocyte Absol [place] 0.81 (L) 1.10 - 3.90 10 3/uL 03/22 2:25 PM ACCIDENT EXAMINER [facility] Not Available Not Available 06/23/2024 02:46:47 03/22/2003/22/2023 CBC W Auto Diffe renti al panel - Blood monocytes [#/volume] in blood by automated count 0.24 text: 0.26 - 1.07 10 3/uL low Monoc ytes Absol [place] 0.24 (L) 0.26 - 1.07 10 3/uL 03/22 2:25 PM ACCIDENT EXAMINER [facility] Not Available Not Available 06/23/2024 02:46:47 03/22/2003/22/2023 CBC W Auto Diffe renti al panel - Blood eosinophils [#/volume] in blood by automated count 0.02 text: 0.00 - 0.47 10 3/uL Eosin ophil s Absol [place] 0.02 0.00 - 0.47 10 3/uL 03/22 2:25 PM ACCIDENT EXAMINER [facility] Not Available Not Available 06/23/2024 02:46:47 03/22/2003/22/2023 CBC W Auto Diffe renti al panel - Blood basophils [#/volume] in blood by automated count 0.02 text: 0.00 - 0.08 10 3/uL Basop hils Absol [place] 0.02 0.00 - 0.08 10 3/uL 03/22 2:25 PM ACCIDENT EXAMINER [facility] Not Available Not Available 06/23/2024 02:46:47 03/22/2003/22/2023 CBC W Auto Diffe renti al panel - Blood immature granulocytes /100 leukocytes in blood by automated count 0.8 % low: 0%high : 1% Immat ure Granu locyt es % 0.8 0.0 - 1.0 % 03/22 2:25 PM ACCIDENT EXAMINER [facility] Not Available Not Available 06/23/2024 02:46:47 03/22/2003/22/2023 CBC W Auto Diffe renti al panel - Blood immature granulocytes absolute 0.04 Immat ure Granu locyt es Absol [place] 0.04 03/22 2:25 PM ACCIDENT EXAMINER [facility] Not Available Not Available 06/23/2024 02:46:47 03/22/2003/22/2023 CBC W Auto Diffe renti al panel - Blood interpretati on and review of laboratory results Abnorm al Not Available Not Available 02:46:47 03/23/2003/23/2023 Gluco se [Mass /volu me] in Arter ial blood glucose [mass/volume ] in capillary blood by glucometer 115 mg/dL low: 70mg/d Lhigh: 115mg/ dL Gluco se WB/PO C 115 70 - 115 mg/dL 03/23 9:05 PM ACCIDENT EXAMINER [facility] Not Available Not Available 06/23/2024 02:46:48 03/23/2003/23/2023 Gluco se [Mass /volu me] in Arter ial blood specimen source identified Cap Finger stick Speci men Type Cap Finge rstic k 03/23 9:05 PM [facility] Not Available Not Available 06/23/2024 02:46:48 03/23/20 23 03/23/2023 Phosp hate [Mass /volu me] in Serum or Plasm a phosphate [mass/volume ] in serum or plasma 3.6 mg/dL low: 2.9mg/ dLhigh : 5.1mg/ dL Phosp horus 3.6 2.9 - 5.1 mg/dL 03/23 5:38 AM [facility] Not Available Not Available 06/23/2024 02:46:48 03/23/20 23 03/23/2023 Phosp hate [Mass /volu me] in Serum or Plasm a interpretati on and review of laboratory results Normal Not Available Not Available 06/01 02:46:48 03/23/20 23 03/23/2023 Magne sium [Mass /volu me] in Serum or Plasm a magnesium [mass/volume ] in serum or plasma 1.9 mg/dL low: 1.6mg/ dLhigh : 2.6mg/ dL Magne sium 1.9 1.6 - 2.6 mg/dL 03/23 5:38 AM [facility] Not Available Not Available 06/23/2024 02:46:48 03/23/20 23 03/23/2023 Magne sium [Mass /volu me] in Serum or Plasm a interpretati on and review of laboratory results Normal Not Available Not Available 06/01 02:46:48 03/23/20 23 03/23/2023 Compr ehens ion metab olic 2000 panel - Serum or Plasm a urea nitrogen [mass/volume ] in serum or plasma 13 mg/dL low: 7mg/dL high: 26mg/d L BUN 13 7 - 26 mg/dL 03/23 5:38 AM [facility] Not Available Not Available 06/23/2024 02:46:48 03/23/20 23 03/23/2023 Compr ehens ion metab olic 2000 panel - Serum or Plasm a creatinine [mass/volume ] in serum or plasma 0.95 mg/dL low: 0.56mg /dLhig h: 0.96mg /dL Creat inine 0.95 0.56 - 0.96 mg/dL 03/23 5:38 AM [facility]3] [facility] Not Available Not Available 06/23/2024 02:46:48 03/23/2003/23/2023 Compr ehens ion metab olic 1999 panel - Serum or Plasm a sodium [moles/volum e] in serum or plasma 137 mmol/ L low: 136mmo l/Lhig h: 145mmo l/L Sodiu m 137 136 - 145 mmol/ L 03/23 5:38 AM [facility] Not Available Not Available 06/23/2024 02:46:48 03/23/2003/23/2023 Compr ehens ion metab olic 2000 panel - Serum or Plasm a potassium [moles/volum e] in serum or plasma 4 mmol/ L low: 3.5mmo l/Lhig h: 4.5mmo l/L Potas sium 4.0 3.5 - 4.5 mmol/ L 03/23 5:38 AM [facility] Not Available Not Available 06/23/2024 02:46:48 03/23/2003/23/2023 Compr ehens ion metab olic 2000 panel - Serum or Plasm a chloride [moles/volum e] in serum or plasma 109 mmol/ L low: 98mmol /Lhigh : 107mmo l/L high Chlor leighann 109 (H) 98 - 107 mmol/ L 03/23 5:38 AM [facility] Not Available Not Available 06/23/2024 02:46:48 03/23/20 23 03/23/2023 Compr ehens ion metab olic 2000 panel - Serum or Plasm a carbon dioxide, total [moles/volum e] in serum or plasma 21 mmol/ L low: 22mmol /Lhigh : 29mmol /L low CO2 21 (L) 22 - 29 mmol/ L 03/23 5:38 AM [facility] Not Available Not Available 06/23/2024 02:46:48 03/23/20 23 03/23/2023 Compr [employer] ion metab olic 1999 panel - Serum or Plasm a glucose [mass/volume ] in serum or plasma 88 mg/dL low: 70mg/d Lhigh: 115mg/ dL Gluco se 88 70 - 115 mg/dL 03/23 5:38 AM [facility] NISHA Not Available Not Available 06/23/2024 02:46:48 03/23/20 23 03/23/2023 Compr [employer] ion metab olic 1999 panel - Serum or Plasm a calcium [moles/volum e] in serum or plasma 8 mg/dL low: 8.4mg/ dLhigh : 10.2mg /dL low Calci um 8.0 (L) 8.4 - 10.2 mg/dL 03/23 5:38 AM [facility] Not Available Not Available 06/23/2024 02:46:48 03/23/2003/23/2023 Compr Digital Signal ion metab olic 2000 panel - Serum or Plasm a protein [mass/volume ] in serum or plasma 6.6 g/dL low: 6g/dLh igh: 8.3g/d L Prote in Total 6.6 6.0 - 8.3 g/dL 03/23 5:38 AM [facility]3] [facility] Not Available Not Available 06/23/2024 02:46:48 03/23/20 23 03/23/2023 [facility] Digital Signal ion metab olic 2000 panel - Serum or Plasm a albumin [mass/volume ] in serum or plasma by bromocresol green (bcg) dye binding method 1.8 g/dL low: 3.4g/d Lhigh: 5g/dL low Album in 1.8 (L) 3.4 - 5.0 g/dL 03/23 5:38 AM [facility]3] [facility] Not Available Not Available 06/23/2024 02:46:48 03/23/20 23 03/23/2023 Compr Digital Signal ion metab olic 2000 panel - Serum or Plasm a bilirubin.to nisha [mass/volume ] in serum or plasma 6.5 mg/dL low: 0.2mg/ dLhigh : 1.2mg/ dL high Bilir ubin Total 6.5 (H) 0.2 - 1.2 mg/dL 03/23 5:38 AM [facility] Not Available Not Available 06/23/2024 02:46:48 03/23/20 23 03/23/2023 Compr ehens ion metab olic 1999 panel - Serum or Plasm a alkaline phosphatase [enzymatic activity/vol ume] in serum or plasma 249 U/L low: 40U/Lh igh: 150U/L high Alkal ine Phosp hatas e 249 (H) 40 - 150 U/L 03/23 5:38 AM ACCIDENT EXAMINER [facility] Not Available Not Available 06/23/2024 02:46:48 03/23/20 23 03/23/2023 Compr ehens ion metab olic 1999 panel - Serum or Plasm a alanine aminotransfe rase [enzymatic activity/vol ume] in serum or plasma by no addition of P-5'-P 46 U/L low: 5U/Lhi gh: 55U/L ALT 46 5 - 55 U/L 03/23 5:38 AM ACCIDENT EXAMINER [facility] Not Available Not Available 06/23/2024 02:46:48 03/23/20 23 03/23/2023 Compr ehens ion metab olic 1999 panel - Serum or Plasm a aspartate aminotransfe rase [enzymatic activity/vol ume] in serum or plasma 93 U/L low: 5U/Lhi gh: 34U/L high AST 93 (H) 5 - 34 U/L 03/23 5:38 AM ACCIDENT EXAMINER [facility] Not Available Not Available 06/23/2024 02:46:48 03/23/20 23 03/23/2023 Compr ehens ion metab olic 1999 panel - Serum or Plasm a anion gap 7 low: 6high: 16 Anion Gap 7 6 - 16 03/23 5:38 AM ACCIDENT EXAMINER [facility] Not Available Not Available 06/23/2024 02:46:48 03/23/20 23 03/23/2023 Compr ehens ion metab olic 1999 panel - Serum or Plasm a urea nitrogen/cre atinine [mass ratio] in serum or plasma 14 low: 7high: 23 BUN/C reati nine Ratio 14 7 - 23 03/23 5:38 AM ACCIDENT EXAMINER [facility] Not Available Not Available 06/23/2024 02:46:48 03/23/20 23 03/23/2023 Compr ehens ion metab olic 2000 panel - Serum or Plasm a osmolality calculated 284 text: 275 - 295 mOsm/k g Osmol evert Grieru lated 284 275 - 295 mOsm/ kg 03/23 5:38 AM ACCIDENT EXAMINER [facility] Not Available Not Available 06/23/2024 02:46:48 03/23/20 23 03/23/2023 Compr ehens ion metab olic 2000 panel - Serum or Plasm a albumin/glob ulin ratio 0.4 low: 1.1hig h: 2.3 low Album in/Gl obuli n Ratio 0.4 (L) 1.1 - 2.3 03/23 5:38 AM ACCIDENT EXAMINER [facility] Not Available Not Available 06/23/2024 02:46:48 03/23/2003/23/2023 Compr ehens ion metab olic 2000 panel - Serum or Plasm a glomerular filtration rate/1.73 sq M.predicted [volume rate/area] in serum, plasma or blood by creatinine-b ased formula (CKD-epi) 74 text: >=90 mL/min /1.73 m2 low eGFR by CKD-E PI 74 (L) >=90 mL/mi n/1.7 3 m2 03/23 5:38 AM [facility]3] [facility] Not Available Not Available 06/23/2024 02:46:48 03/23/2003/23/2023 Compr ehens ion metab olic 2000 panel - Serum or Plasm a interpretati on and review of laboratory results Abnorm al Not Available Not Available 02:46:48 03/23/2003/23/2023 CBC W Auto Diffe renti al panel - Blood leukocytes [#/volume] in blood by automated count 4 text: 3.5 - 10.5 10 3/uL WBC 4.0 3.5 - 10.5 10 3/uL 03/23 5:16 AM ACCIDENT EXAMINER [facility] Not Available Not Available 06/23/2024 02:46:47 03/23/2003/23/2023 CBC W Auto Diffe renti al panel - Blood erythrocytes [#/volume] in blood by automated count 2.71 text: 3.80 - 5.20 10 6/uL low RBC 2.71 (L) 3.80 - 5.20 10 6/uL 03/23 5:16 AM [facility]3] [facility] Not Available Not Available 06/23/2024 02:46:47 03/23/2003/23/2023 CBC W Auto Diffe renti al panel - Blood hemoglobin [mass/volume ] in blood 8.5 g/dL low: 12g/dL high: 15.6g/ dL low Hemog lobin 8.5 (L) 12.0 - 15.6 g/dL 03/23 5:16 AM [facility]3] [facility] Not Available Not Available 06/23/2024 02:46:47 03/23/2003/23/2023 CBC W Auto Diffe tiati al panel - Blood hematocrit [volume fraction] of blood by automated count 25.7 % low: 35%hig h: 45% low Hemat ocrit 25.7 (L) 35.0 - 45.0 % 03/23 5:16 AM [facility]3] [facility] Not Available Not Available 06/23/2024 02:46:47 03/23/2003/23/2023 CBC W Auto Diffe renti al panel - Blood MCV [entitic volume] by automated count 94.8 fL low: 80.7fL high: 98.3fL MCV 94.8 80.7 - 98.3 fL 03/23 5:16 AM [facility]3] [facility] Not Available Not Available 06/23/2024 02:46:47 03/23/20 23 03/23/2023 CBC W Auto Diffe renti al panel - Blood MCH [entitic mass] by automated count 31.4 pg low: 26.7pg high: 34pg MCH 31.4 26.7 - 34.0 pg 03/23 5:16 AM [facility]3] [facility] Not Available Not Available 06/23/2024 02:46:47 03/23/2003/23/2023 CBC W Auto Diffe estuardo al panel - Blood MCHC [mass/volume ] by automated count 33.1 g/dL low: 30.8g/ dLhigh : 35.9g/ dL MCHC 33.1 30.8 - 35.9 g/dL 03/23 5:16 AM [facility]3] [facility] Not Available Not Available 06/23/2024 02:46:47 03/23/2003/23/2023 CBC W Auto Diffe estuardo farrell panel - Blood erythrocyte distribution width [entitic volume] by automated count 63.9 fL low: 36fLhi gh: 50fL high RDW-S D 63.9 (H) 36.0 - 50.0 fL 03/23 5:16 AM [facility] Not Available Not Available 06/23/2024 02:46:47 03/23/2003/23/2023 CBC W Auto Diffe estuardo farrell panel - Blood erythrocyte distribution width [ratio] by automated count 18.5 % low: 11.2%h igh: 14.8% high RDW-C V 18.5 (H) 11.2 - 14.8 % 03/23 5:16 AM [facility] Not Available Not Available 06/23/2024 02:46:47 03/23/2003/23/2023 CBC W Auto Diffe estuardo farrell panel - Blood platelets [#/volume] in blood by automated count 120 text: 150 - 400 10 3/uL low Plate let Count 120 (L) 150 - 400 10 3/uL 03/23 5:16 AM [facility]3] [facility] Not Available Not Available 06/23/2024 02:46:47 03/23/2003/23/2023 CBC W Auto Diffe estuardo al panel - Blood platelet mean volume [entitic volume] in blood by automated count 9.5 fL low: 9.4fLh igh: 12.9fL MPV 9.5 9.4 - 12.9 fL 03/23 5:16 AM ACCIDENT EXAMINER [facility] Not Available Not Available 06/23/2024 02:46:47 03/23/20 23 03/23/2023 CBC W Auto Diffe renti al panel - Blood nucleated erythrocytes [#/volume] in blood by automated count 0 text: 0 10 3/uL nRBC Absol [place] 0.00 0 10 3/uL 03/23 5:16 AM ACCIDENT EXAMINER [facility] Not Available Not Available 06/23/2024 02:46:47 03/23/20 23 03/23/2023 CBC W Auto Diffe renti al panel - Blood nucleated erythrocytes /100 leukocytes [ratio] in blood by automated count 0 text: 0 /100 WBC nRBC Auto 0.0 0 /100 WBC 03/23 5:16 AM ACCIDENT EXAMINER [facility] Not Available Not Available 06/23/2024 02:46:47 03/23/20 23 03/23/2023 CBC W Auto Diffe renti al panel - Blood neutrophils/ 100 leukocytes in blood by automated count 66.1 % low: 35%hig h: 70% Neutr ophil s % 66.1 35.0 - 70.0 % 03/23 5:16 AM ACCIDENT EXAMINER [facility] Not Available Not Available 06/23/2024 02:46:47 03/23/20 23 03/23/2023 CBC W Auto Diffe renti al panel - Blood lymphocytes/ 100 leukocytes in blood by automated count 21.8 % low: 20%hig h: 43% Lymph ocyte s % 21.8 20.0 - 43.0 % 03/23 5:16 AM ACCIDENT EXAMINER [facility] Not Available Not Available 06/23/2024 02:46:47 03/23/20 23 03/23/2023 CBC W Auto Diffe renti al panel - Blood monocytes/10 0 leukocytes in blood by automated count 10.6 % low: 5%high : 13% Monoc ytes % 10.6 5.0 - 13.0 % 03/23 5:16 AM ACCIDENT EXAMINER [facility] Not Available Not Available 06/23/2024 02:46:47 03/23/20 23 03/23/2023 CBC W Auto Diffe renti al panel - Blood eosinophils/ 100 leukocytes in blood by automated count 0.5 % low: 0%high : 6% Eosin ophil s % 0.5 0.0 - 6.0 % 03/23 5:16 AM ACCIDENT EXAMINER [facility] Not Available Not Available 06/23/2024 02:46:47 03/23/20 23 03/23/2023 CBC W Auto Diffe renti al panel - Blood basophils/10 0 leukocytes in blood by automated count 0.5 % low: 0%high : 2% Basop hil % 0.5 0.0 - 2.0 % 03/23 5:16 AM ACCIDENT EXAMINER [facility] Not Available Not Available 06/23/2024 02:46:47 03/23/20 23 03/23/2023 CBC W Auto Diffe renti al panel - Blood neutrophils [#/volume] in blood by automated count 2.67 text: 1.60 - 7.00 10 3/uL Neutr ophil s Absol [place] 2.67 1.60 - 7.00 10 3/uL 03/23 5:16 AM ACCIDENT EXAMINER [facility] Not Available Not Available 06/23/2024 02:46:47 03/23/20 23 03/23/2023 CBC W Auto Diffe renti al panel - Blood lymphocytes [#/volume] in blood by automated count 0.88 text: 1.10 - 3.90 10 3/uL low Lymph ocyte Absol [place] 0.88 (L) 1.10 - 3.90 10 3/uL 03/23 5:16 AM [facility]3] [facility] Not Available Not Available 06/23/2024 02:46:47 03/23/20 23 03/23/2023 CBC W Auto Diffe renti al panel - Blood monocytes [#/volume] in blood by automated count 0.43 text: 0.26 - 1.07 10 3/uL Monoc ytes Absol [place] 0.43 0.26 - 1.07 10 3/uL 03/23 5:16 AM ACCIDENT EXAMINER [facility] Not Available Not Available 06/23/2024 02:46:47 03/23/20 23 03/23/2023 CBC W Auto Diffe renti al panel - Blood eosinophils [#/volume] in blood by automated count 0.02 text: 0.00 - 0.47 10 3/uL Eosin ophil s Absol [place] 0.02 0.00 - 0.47 10 3/uL 03/23 5:16 AM ACCIDENT EXAMINER [facility] Not Available Not Available 06/23/2024 02:46:47 03/23/2003/23/2023 CBC W Auto Diffe renti al panel - Blood basophils [#/volume] in blood by automated count 0.02 text: 0.00 - 0.08 10 3/uL Basop hils Absol [place] 0.02 0.00 - 0.08 10 3/uL 03/23 5:16 AM ACCIDENT EXAMINER [facility] Not Available Not Available 06/23/2024 02:46:47 03/23/20 23 03/23/2023 CBC W Auto Diffe renti al panel - Blood immature granulocytes /100 leukocytes in blood by automated count 0.5 % low: 0%high : 1% Immat ure Granu locyt es % 0.5 0.0 - 1.0 % 03/23 5:16 AM ACCIDENT EXAMINER [facility] Not Available Not Available 06/23/2024 02:46:47 03/23/20 23 03/23/2023 CBC W Auto Diffe renti al panel - Blood immature granulocytes absolute 0.02 Immat ure Granu locyt es Absol [place] 0.02 03/23 5:16 AM [facility]3] [facility] Not Available Not Available 06/23/2024 02:46:47 03/23/2003/23/2023 CBC W Auto Diffe renti al panel - Blood interpretati on and review of laboratory results Abnorm al Not Available Not Available 02:46:47 03/24/2003/24/2023 Phosp hate [Mass /volu me] in Serum or Plasm a phosphate [mass/volume ] in serum or plasma 3 mg/dL low: 2.9mg/ dLhigh : 5.1mg/ dL Phosp horus 3.0 2.9 - 5.1 mg/dL 03/24 5:51 AM ACCIDENT EXAMINER [facility] Not Available Not Available 06/23/2024 02:46:48 03/24/2003/24/2023 Phosp hate [Mass /volu me] in Serum or Plasm a interpretati on and review of laboratory results Normal Not Available Not Available 06/01 02:46:48 03/24/2003/24/2023 Magne sium [Mass /volu me] in Serum or Plasm a magnesium [mass/volume ] in serum or plasma 1.8 mg/dL low: 1.6mg/ dLhigh : 2.6mg/ dL Magne sium 1.8 1.6 - 2.6 mg/dL 03/24 5:51 AM ACCIDENT EXAMINER [facility] Not Available Not Available 06/23/2024 02:46:48 03/24/2003/24/2023 Magne sium [Mass /volu me] in Serum or Plasm a interpretati on and review of laboratory results Normal Not Available Not Available 06/01 02:46:48 03/24/2003/24/2023 Compr ehens ion metab olic 2000 panel - Serum or Plasm a urea nitrogen [mass/volume ] in serum or plasma 10 mg/dL low: 7mg/dL high: 26mg/d L BUN 10 7 - 26 mg/dL 03/24 5:51 AM ACCIDENT EXAMINER [facility] Not Available Not Available 06/23/2024 02:46:48 03/24/2003/24/2023 Compr ehens ion metab olic 1999 panel - Serum or Plasm a creatinine [mass/volume ] in serum or plasma 0.73 mg/dL low: 0.56mg /dLhig h: 0.96mg /dL Creat inine 0.73 0.56 - 0.96 mg/dL 03/24 5:51 AM ACCIDENT EXAMINER [facility] Not Available Not Available 06/23/2024 02:46:48 03/24/20 23 03/24/2023 Compr ehens ion metab olic 2000 panel - Serum or Plasm a sodium [moles/volum e] in serum or plasma 137 mmol/ L low: 136mmo l/Lhig h: 145mmo l/L Sodiu m 137 136 - 145 mmol/ L 03/24 5:51 AM ACCIDENT EXAMINER [facility] Not Available Not Available 06/23/2024 02:46:48 03/24/2003/24/2023 Compr ehens ion metab olic 1999 panel - Serum or Plasm a potassium [moles/volum e] in serum or plasma 3.8 mmol/ L low: 3.5mmo l/Lhig h: 4.5mmo l/L Potas sium 3.8 3.5 - 4.5 mmol/ L 03/24 5:51 AM ACCIDENT EXAMINER [facility] Not Available Not Available 06/23/2024 02:46:48 03/24/2003/24/2023 Compr ehens ion metab olic 2000 panel - Serum or Plasm a chloride [moles/volum e] in serum or plasma 110 mmol/ L low: 98mmol /Lhigh : 107mmo l/L high Chlor leighann 110 (H) 98 - 107 mmol/ L 03/24 5:51 AM ACCIDENT EXAMINER [facility] Not Available Not Available 06/23/2024 02:46:48 03/24/2003/24/2023 Compr ehens ion metab olic 1999 panel - Serum or Plasm a carbon dioxide, total [moles/volum e] in serum or plasma 18 mmol/ L low: 22mmol /Lhigh : 29mmol /L low CO2 18 (L) 22 - 29 mmol/ L 03/24 5:51 AM ACCIDENT EXAMINER [facility] Not Available Not Available 06/23/2024 02:46:48 03/24/2003/24/2023 Compr ehens ion metab olic 2000 panel - Serum or Plasm a glucose [mass/volume ] in serum or plasma 82 mg/dL low: 70mg/d Lhigh: 115mg/ dL Gluco se 82 70 - 115 mg/dL 03/24 5:51 AM ACCIDENT EXAMINER [facility] Not Available Not Available 06/23/2024 02:46:48 03/24/20 23 03/24/2023 Compr ehens ion metab olic 1999 panel - Serum or Plasm a calcium [moles/volum e] in serum or plasma 8.3 mg/dL low: 8.4mg/ dLhigh : 10.2mg /dL low Calci um 8.3 (L) 8.4 - 10.2 mg/dL 03/24 5:51 AM ACCIDENT EXAMINER [facility] Not Available Not Available 06/23/2024 02:46:48 03/24/2003/24/2023 [facility] Digital Signal ion metab olic 1999 panel - Serum or Plasm a protein [mass/volume ] in serum or plasma 6.5 g/dL low: 6g/dLh igh: 8.3g/d L Prote in Total 6.5 6.0 - 8.3 g/dL 03/24 5:51 AM [facility]3] [facility] Not Available Not Available 06/23/2024 02:46:48 03/24/2003/24/2023 [facility] Digital Signal ion Jixee olic 2000 panel - Serum or Plasm a albumin [mass/volume ] in serum or plasma by bromocresol green (bcg) dye binding method 1.8 g/dL low: 3.4g/d Lhigh: 5g/dL low Album in 1.8 (L) 3.4 - 5.0 g/dL 03/24 5:51 AM [facility]3] [facility] Not Available Not Available 06/23/2024 02:46:48 03/24/2003/24/2023 [facility] Digital Signal ion Jixee olic 2000 panel - Serum or Plasm a bilirubin.to nisha [mass/volume ] in serum or plasma 5.3 mg/dL low: 0.2mg/ dLhigh : 1.2mg/ dL high Bilir ubin Total 5.3 (H) 0.2 - 1.2 mg/dL 03/24 5:51 AM ACCIDENT EXAMINER [facility] Not Available Not Available 06/23/2024 02:46:48 03/24/2003/24/2023 [facility] Digital Signal ion metab olic 2000 panel - Serum or Plasm a alkaline phosphatase [enzymatic activity/vol ume] in serum or plasma 246 U/L low: 40U/Lh igh: 150U/L high Alkal ine Phosp hatas e 246 (H) 40 - 150 U/L 03/24 5:51 AM ACCIDENT EXAMINER [facility] Not Available Not Available 06/23/2024 02:46:48 03/24/20 23 03/24/2023 Compr ehens ion metab olic 2000 panel - Serum or Plasm a alanine aminotransfe rase [enzymatic activity/vol ume] in serum or plasma by no addition of P-5'-P 44 U/L low: 5U/Lhi gh: 55U/L ALT 44 5 - 55 U/L 03/24 5:51 AM ACCIDENT EXAMINER [facility] Not Available Not Available 06/23/2024 02:46:48 03/24/20 23 03/24/2023 Compr ehens ion metab olic 2000 panel - Serum or Plasm a aspartate aminotransfe rase [enzymatic activity/vol ume] in serum or plasma 91 U/L low: 5U/Lhi gh: 34U/L high AST 91 (H) 5 - 34 U/L 03/24 5:51 AM [facility]IDENT EXAMINER [facility] Not Available Not Available 06/23/2024 02:46:48 03/24/20 23 03/24/2023 Compr ehens ion metab olic 2000 panel - Serum or Plasm a anion gap 9 low: 6high: 16 Anion Gap 9 6 - 16 03/24 5:51 AM ACCIDENT EXAMINER [facility] Not Available Not Available 06/23/2024 02:46:48 03/24/20 23 03/24/2023 Compr ehens ion metab olic 2000 panel - Serum or Plasm a urea nitrogen/cre atinine [mass ratio] in serum or plasma 14 low: 7high: 23 BUN/C reati nine Ratio 14 7 - 23 03/24 5:51 AM ACCIDENT EXAMINER [facility] Not Available Not Available 06/23/2024 02:46:48 03/24/20 23 03/24/2023 Compr ehens ion metab olic 2000 panel - Serum or Plasm a osmolality calculated 282 text: 275 - 295 mOsm/k g Osmol ality Calcu lated 282 275 - 295 mOsm/ kg 03/24 5:51 AM ACCIDENT EXAMINER [facility] Not Available Not Available 06/23/2024 02:46:48 03/24/2003/24/2023 Compr ehens ion metab olic 2000 panel - Serum or Plasm a albumin/glob ulin ratio 0.4 low: 1.1hig h: 2.3 low Album in/Gl obuli n Ratio 0.4 (L) 1.1 - 2.3 03/24 5:51 AM [facility]3] [facility] Not Available Not Available 06/23/2024 02:46:48 03/24/2003/24/2023 Compr ehens ion metab olic 2000 panel - Serum or Plasm a glomerular filtration rate/1.73 sq M.predicted [volume rate/area] in serum, plasma or blood by creatinine-b ased formula (CKD-epi) text: >=90 mL/min /1.73 m2 eGFR by CKD-E PI >90 >=90 mL/mi n/1.7 3 m2 03/24 5:51 AM [facility]3] [facility] Not Available Not Available 06/23/2024 02:46:48 03/24/2003/24/2023 Compr ehens ion metab olic 2000 panel - Serum or Plasm a interpretati on and review of laboratory results Abnorm al Not Available Not Available 02:46:48 03/24/2003/24/2023 CBC W Auto Diffe renti al panel - Blood leukocytes [#/volume] in blood by automated count 3.2 text: 3.5 - 10.5 10 3/uL low WBC 3.2 (L) 3.5 - 10.5 10 3/uL 03/24 5:31 AM [facility]3] [facility] Not Available Not Available 06/23/2024 02:46:48 03/24/2003/24/2023 CBC W Auto Diffe renti al panel - Blood erythrocytes [#/volume] in blood by automated count 2.66 text: 3.80 - 5.20 10 6/uL low RBC 2.66 (L) 3.80 - 5.20 10 6/uL 03/24 5:31 AM [facility] EXAMIN[facility] Not Available Not Available 06/23/2024 02:46:48 03/24/2003/24/2023 CBC W Auto Diffe renti al panel - Blood hemoglobin [mass/volume ] in blood 8.2 g/dL low: 12g/dL high: 15.6g/ dL low Hemog lobin 8.2 (L) 12.0 - 15.6 g/dL 03/24 5:31 AM [facility]3] LAB[facility] Not Available Not Available 06/23/2024 02:46:48 03/24/2003/24/2023 CBC W Auto Diffe renti al panel - Blood hematocrit [volume fraction] of blood by automated count 25.3 % low: 35%hig h: 45% low Hemat ocrit 25.3 (L) 35.0 - 45.0 % 03/24 5:31 AM [facility] Not Available Not Available 06/23/2024 02:46:48 03/24/2003/24/2023 CBC W Auto Diffe renti al panel - Blood MCV [entitic volume] by automated count 95.1 fL low: 80.7fL high: 98.3fL MCV 95.1 80.7 - 98.3 fL 03/24 5:31 AM [facility] Not Available Not Available 06/23/2024 02:46:48 03/24/2003/24/2023 CBC W Auto Diffe renti al panel - Blood MCH [entitic mass] by automated count 30.8 pg low: 26.7pg high: 34pg MCH 30.8 26.7 - 34.0 pg 03/24 5:31 AM [facility]3] LABOR [facility]OS[facility] N[facility]HA Not Available Not Available 06/23/2024 02:46:48 03/24/2003/24/2023 CBC W Auto Diffe renti al panel - Blood MCHC [mass/volume ] by automated count 32.4 g/dL low: 30.8g/ dLhigh : 35.9g/ dL MCHC 32.4 30.8 - 35.9 g/dL 03/24 5:31 AM [facility] Not Available Not Available 06/23/2024 02:46:48 03/24/2003/24/2023 CBC W Auto Diffe renti al panel - Blood erythrocyte distribution width [entitic volume] by automated count 65.1 fL low: 36fLhi gh: 50fL high RDW-S D 65.1 (H) 36.0 - 50.0 fL 03/24 5:31 AM [facility] Not Available Not Available 06/23/2024 02:46:48 03/24/2003/24/2023 CBC W Auto Diffe renti al panel - Blood erythrocyte distribution width [ratio] by automated count 18.5 % low: 11.2%h igh: 14.8% high RDW-C V 18.5 (H) 11.2 - 14.8 % 03/24 5:31 AM [facility] Not Available Not Available 06/23/2024 02:46:48 03/24/2003/24/2023 CBC W Auto Diffe renti al panel - Blood platelets [#/volume] in blood by automated count 128 text: 150 - 400 10 3/uL low Plate let Count 128 (L) 150 - 400 10 3/uL 03/24 5:31 AM [facility] Not Available Not Available 06/23/2024 02:46:48 03/24/2003/24/2023 CBC W Auto Diffe renti al panel - Blood platelet mean volume [entitic volume] in blood by automated count 10 fL low: 9.4fLh igh: 12.9fL MPV 10.0 9.4 - 12.9 fL 03/24 5:31 AM [facility] Not Available Not Available 06/23/2024 02:46:48 03/24/2003/24/2023 CBC W Auto Diffe renti al panel - Blood nucleated erythrocytes [#/volume] in blood by automated count 0 text: 0 10 3/uL nRBC Absol [place] 0.00 0 10 3/uL 03/24 5:31 AM [facility] Not Available Not Available 06/23/2024 02:46:48 03/24/2003/24/2023 CBC W Auto Diffe renti al panel - Blood nucleated erythrocytes /100 leukocytes [ratio] in blood by automated count 0 text: 0 /100 WBC nRBC Auto 0.0 0 /100 WBC 03/24 5:31 AM ACCIDENT EXAMINER [facility] Not Available Not Available 06/23/2024 02:46:48 03/24/2003/24/2023 CBC W Auto Diffe renti al panel - Blood neutrophils/ 100 leukocytes in blood by automated count 53.7 % low: 35%hig h: 70% Neutr ophil s % 53.7 35.0 - 70.0 % 03/24 5:31 AM ACCIDENT EXAMINER [facility] Not Available Not Available 06/23/2024 02:46:48 03/24/2003/24/2023 CBC W Auto Diffe renti al panel - Blood lymphocytes/ 100 leukocytes in blood by automated count 35.6 % low: 20%hig h: 43% Lymph ocyte s % 35.6 20.0 - 43.0 % 03/24 5:31 AM ACCIDENT EXAMINER [facility] Not Available Not Available 06/23/2024 02:46:48 03/24/2003/24/2023 CBC W Auto Diffe renti al panel - Blood monocytes/10 0 leukocytes in blood by automated count 8.2 % low: 5%high : 13% Monoc ytes % 8.2 5.0 - 13.0 % 03/24 5:31 AM ACCIDENT EXAMINER [facility] Not Available Not Available 06/23/2024 02:46:48 03/24/2003/24/2023 CBC W Auto Diffe renti al panel - Blood eosinophils/ 100 leukocytes in blood by automated count 0.9 % low: 0%high : 6% Eosin ophil s % 0.9 0.0 - 6.0 % 03/24 5:31 AM ACCIDENT EXAMINER [facility] Not Available Not Available 06/23/2024 02:46:48 03/24/20 23 03/24/2023 CBC W Auto Diffe renti al panel - Blood basophils/10 0 leukocytes in blood by automated count 0.3 % low: 0%high : 2% Basop hil % 0.3 0.0 - 2.0 % 03/24 5:31 AM [facility] Not Available Not Available 06/23/2024 02:46:48 03/24/2003/24/2023 CBC W Auto Diffe renti al panel - Blood neutrophils [#/volume] in blood by automated count 1.7 text: 1.60 - 7.00 10 3/uL Neutr ophil s Absol [place] 1.70 1.60 - 7.00 10 3/uL 03/24 5:31 AM [facility]3] [facility] Not Available Not Available 06/23/2024 02:46:48 03/24/2003/24/2023 CBC W Auto Diffe renti al panel - Blood lymphocytes [#/volume] in blood by automated count 1.13 text: 1.10 - 3.90 10 3/uL Lymph ocyte Absol [place] 1.13 1.10 - 3.90 10 3/uL 03/24 5:31 AM [facility]3] [facility] Not Available Not Available 06/23/2024 02:46:48 03/24/2003/24/2023 CBC W Auto Diffe renti al panel - Blood monocytes [#/volume] in blood by automated count 0.26 text: 0.26 - 1.07 10 3/uL Monoc ytes Absol [place] 0.26 0.26 - 1.07 10 3/uL 03/24 5:31 AM [facility]3] [facility] Not Available Not Available 06/23/2024 02:46:48 03/24/2003/24/2023 CBC W Auto Diffe renti al panel - Blood eosinophils [#/volume] in blood by automated count 0.03 text: 0.00 - 0.47 10 3/uL Eosin ophil s Absol [place] 0.03 0.00 - 0.47 10 3/uL 03/24 5:31 AM ACCIDENT EXAMINER [facility] Not Available Not Available 06/23/2024 02:46:48 03/24/2003/24/2023 CBC W Auto Diffe renti al panel - Blood basophils [#/volume] in blood by automated count 0.01 text: 0.00 - 0.08 10 3/uL Basop hils Absol [place] 0.01 0.00 - 0.08 10 3/uL 03/24 5:31 AM ACCIDENT EXAMINER [facility] Not Available Not Available 06/23/2024 02:46:48 03/24/2003/24/2023 CBC W Auto Diffe renti al panel - Blood immature granulocytes /100 leukocytes in blood by automated count 1.3 % low: 0%high : 1% high Immat ure Granu locyt es % 1.3 (H) 0.0 - 1.0 % 03/24 5:31 AM ACCIDENT EXAMINER [facility] Not Available Not Available 06/23/2024 02:46:48 03/24/2003/24/2023 CBC W Auto Diffe renti al panel - Blood immature granulocytes absolute 0.04 Immat ure Granu locyt es Absol [place] 0.04 03/24 5:31 AM ACCIDENT EXAMINER [facility] Not Available Not Available 06/23/2024 02:46:48 03/24/2003/24/2023 CBC W Auto Diffe renti al panel - Blood interpretati on and review of laboratory results Abnorm al Not Available Not Available 02:46:48 03/24/2003/24/2023 Eliane tin [Mass /volu me] in Serum or Plasm a ferritin [mass/volume ] in serum or plasma 164 NG/mL low: 13NG/m Lhigh: 204NG/ mL Eliane tin 164 13 - 204 ng/mL 03/24 6:25 AM ACCIDENT EXAMINER [facility] Not Available Not Available 06/23/2024 02:46:48 03/24/20 23 03/24/2023 Eliane tin [Mass /volu me] in Serum or Plasm a interpretati on and review of laboratory results Normal Not Available Not Available 06/01 02:46:48 03/24/20 23 03/24/2023 Iron satur ation [Mass Fract ion] in Serum or Plasm a iron [mass/volume ] in serum or plasma 31 ug/dL low: 40ug/d Lhigh: 150ug/ dL low Iron 31 (L) 40 - 150 ug/dL 03/24 6:07 AM [facility]3] [facility] Not Available Not Available 06/23/2024 02:46:48 03/24/2003/24/2023 Iron satur ation [Mass Fract ion] in Serum or Plasm a transferrin [mass/volume ] in serum or plasma 240 mg/dL low: 174mg/ dLhigh : 382mg/ dL Trans eliane n 240 174 - 382 mg/dL 03/24 6:07 AM [facility]3] [facility] Not Available Not Available 06/23/2024 02:46:48 03/24/2003/24/2023 Iron satur ation [Mass Fract ion] in Serum or Plasm a transferrin saturation % 10 % low: 16%hig h: 50% low Trans eliane n Satur ation % 10 (L) 16 - 50 % 03/24 6:07 AM [facility]3] [facility] Not Available Not Available 06/23/2024 02:46:48 03/24/2003/24/2023 Iron satur ation [Mass Fract ion] in Serum or Plasm a iron binding capacity [mass/volume ] in serum or plasma 300 ug/dL low: 240ug/ dLhigh : 450ug/ dL TIBC Calcu lated 300 240 - 450 ug/dL 03/24 6:07 AM [facility]3] [facility] Not Available Not Available 06/23/2024 02:46:48 03/24/2003/24/2023 Iron satur ation [Mass Fract ion] in Serum or Plasm a interpretati on and review of laboratory results Abnorm al Not Available Not Available 02:46:48 03/25/2003/25/2023 Phosp hate [Mass /volu me] in Serum or Plasm a phosphate [mass/volume ] in serum or plasma 3.6 mg/dL low: 2.9mg/ dLhigh : 5.1mg/ dL Phosp horus 3.6 2.9 - 5.1 mg/dL 03/25 5:37 AM [facility]3] [facility] Not Available Not Available 06/23/2024 02:46:48 03/25/2003/25/2023 Phosp hate [Mass /volu me] in Serum or Plasm a interpretati on and review of laboratory results Normal Not Available Not Available 06/01 02:46:48 03/25/20 23 03/25/2023 Magne sium [Mass /volu me] in Serum or Plasm a magnesium [mass/volume ] in serum or plasma 1.9 mg/dL low: 1.6mg/ dLhigh : 2.6mg/ dL Magne sium 1.9 1.6 - 2.6 mg/dL 03/25 5:37 AM ACCIDENT EXAMINER [facility] NISHA Not Available Not Available 06/23/2024 02:46:48 03/25/20 23 03/25/2023 Magne sium [Mass /volu me] in Serum or Plasm a interpretati on and review of laboratory results Normal Not Available Not Available 06/01 02:46:48 03/25/20 23 03/25/2023 Compr ehens ion metab olic 1999 panel - Serum or Plasm a urea nitrogen [mass/volume ] in serum or plasma 9 mg/dL low: 7mg/dL high: 26mg/d L BUN 9 7 - 26 mg/dL 03/25 5:37 AM ACCIDENT EXAMINER [facility] N[facility] Not Available Not Available 06/23/2024 02:46:48 03/25/20 23 03/25/2023 Compr ehens ion metab olic 1999 panel - Serum or Plasm a creatinine [mass/volume ] in serum or plasma 0.68 mg/dL low: 0.56mg /dLhig h: 0.96mg /dL Creat inine 0.68 0.56 - 0.96 mg/dL 03/25 5:37 AM ACCIDENT EXAMINER [facility] Not Available Not Available 06/23/2024 02:46:48 03/25/20 23 03/25/2023 Compr ehens ion metab olic 2000 panel - Serum or Plasm a sodium [moles/volum e] in serum or plasma 139 mmol/ L low: 136mmo l/Lhig h: 145mmo l/L Sodiu m 139 136 - 145 mmol/ L 03/25 5:37 AM ACCIDENT EXAMINER [facility] Not Available Not Available 06/23/2024 02:46:48 03/25/20 23 03/25/2023 Compr ehens ion metab olic 1999 panel - Serum or Plasm a potassium [moles/volum e] in serum or plasma 3.7 mmol/ L low: 3.5mmo l/Lhig h: 4.5mmo l/L Potas sium 3.7 3.5 - 4.5 mmol/ L 03/25 5:37 AM [facility]3] [facility] Not Available Not Available 06/23/2024 02:46:48 03/25/20 23 03/25/2023 Compr ehens ion metab olic 2000 panel - Serum or Plasm a chloride [moles/volum e] in serum or plasma 111 mmol/ L low: 98mmol /Lhigh : 107mmo l/L high Chlor leighann 111 (H) 98 - 107 mmol/ L 03/25 5:37 AM [facility]3] [facility] Not Available Not Available 06/23/2024 02:46:48 03/25/20 23 03/25/2023 Compr ehens ion metab olic 1999 panel - Serum or Plasm a carbon dioxide, total [moles/volum e] in serum or plasma 20 mmol/ L low: 22mmol /Lhigh : 29mmol /L low CO2 20 (L) 22 - 29 mmol/ L 03/25 5:37 AM [facility]3] [facility] Not Available Not Available 06/23/2024 02:46:48 03/25/2003/25/2023 Compr ehens ion metab olic 1999 panel - Serum or Plasm a glucose [mass/volume ] in serum or plasma 78 mg/dL low: 70mg/d Lhigh: 115mg/ dL Gluco se 78 70 - 115 mg/dL 03/25 5:37 AM [facility]3] [facility] Not Available Not Available 06/23/2024 02:46:48 03/25/20 23 03/25/2023 Compr ehens ion metab olic 2000 panel - Serum or Plasm a calcium [moles/volum e] in serum or plasma 8.2 mg/dL low: 8.4mg/ dLhigh : 10.2mg /dL low Calci um 8.2 (L) 8.4 - 10.2 mg/dL 03/25 5:37 AM [facility]3] [facility] Not Available Not Available 06/23/2024 02:46:48 03/25/2003/25/2023 Compr [employer] ion metab olic 2000 panel - Serum or Plasm a protein [mass/volume ] in serum or plasma 6.7 g/dL low: 6g/dLh igh: 8.3g/d L Prote in Total 6.7 6.0 - 8.3 g/dL 03/25 5:37 AM [facility]3] [facility] Not Available Not Available 06/23/2024 02:46:48 03/25/2003/25/2023 [facility] 2000 panel - Serum or Plasm a albumin [mass/volume ] in serum or plasma by bromocresol green (bcg) dye binding method 1.8 g/dL low: 3.4g/d Lhigh: 5g/dL low Album in 1.8 (L) 3.4 - 5.0 g/dL 03/25 5:37 AM [facility]3] [facility] Not Available Not Available 06/23/2024 02:46:48 03/25/2003/25/2023 [facility] ion metab olic 2000 panel - Serum or Plasm a bilirubin.to nisha [mass/volume ] in serum or plasma 4.9 mg/dL low: 0.2mg/ dLhigh : 1.2mg/ dL high Bilir ubin Total 4.9 (H) 0.2 - 1.2 mg/dL 03/25 5:37 AM [facility]3] [facility] Not Available Not Available 06/23/2024 02:46:48 03/25/20 23 03/25/2023 [facility] [employer] ino metab olic 2000 panel - Serum or Plasm a alkaline phosphatase [enzymatic activity/vol ume] in serum or plasma 265 U/L low: 40U/Lh igh: 150U/L high Alkal ine Phosp hatas e 265 (H) 40 - 150 U/L 03/25 5:37 AM ACCIDENT EXAMINER [facility] NISHA Not Available Not Available 06/23/2024 02:46:48 03/25/20 23 03/25/2023 Compr ehens ion metab olic 1999 panel - Serum or Plasm a alanine aminotransfe rase [enzymatic activity/vol ume] in serum or plasma by no addition of P-5'-P 40 U/L low: 5U/Lhi gh: 55U/L ALT 40 5 - 55 U/L 03/25 5:37 AM ACCIDENT EXAMINER [facility] Not Available Not Available 06/23/2024 02:46:48 03/25/20 23 03/25/2023 Compr ehens ion metab olic 1999 panel - Serum or Plasm a aspartate aminotransfe rase [enzymatic activity/vol ume] in serum or plasma 83 U/L low: 5U/Lhi gh: 34U/L high AST 83 (H) 5 - 34 U/L 03/25 5:37 AM ACCIDENT EXAMINER [facility] N[facility] Not Available Not Available 06/23/2024 02:46:48 03/25/20 23 03/25/2023 Compr ehens ion metab olic 1999 panel - Serum or Plasm a anion gap 8 low: 6high: 16 Anion Gap 8 6 - 16 03/25 5:37 AM ACCIDENT EXAMINER [facility] Not Available Not Available 06/23/2024 02:46:48 03/25/20 23 03/25/2023 Compr ehens ion metab olic 1999 panel - Serum or Plasm a urea nitrogen/cre atinine [mass ratio] in serum or plasma 13 low: 7high: 23 BUN/C reati nine Ratio 13 7 - 23 03/25 5:37 AM ACCIDENT EXAMINER [facility] Not Available Not Available 06/23/2024 02:46:48 03/25/20 23 03/25/2023 Compr ehens ion metab olic 2000 panel - Serum or Plasm a osmolality calculated 286 text: 275 - 295 mOsm/k g Osmol ality Calcu lated 286 275 - 295 mOsm/ kg 03/25 5:37 AM ACCIDENT EXAMINER [facility] Not Available Not Available 06/23/2024 02:46:48 03/25/2003/25/2023 Compr ehens ion metab olic 2000 panel - Serum or Plasm a albumin/glob ulin ratio 0.4 low: 1.1hig h: 2.3 low Album in/Gl obuli n Ratio 0.4 (L) 1.1 - 2.3 03/25 5:37 AM [facility]3] [facility] Not Available Not Available 06/23/2024 02:46:48 03/25/2003/25/2023 Compr ehens ion metab olic 2000 panel - Serum or Plasm a glomerular filtration rate/1.73 sq M.predicted [volume rate/area] in serum, plasma or blood by creatinine-b ased formula (CKD-epi) text: >=90 mL/min /1.73 m2 eGFR by CKD-E PI >90 >=90 mL/mi n/1.7 3 m2 03/25 5:37 AM [facility]3] [facility] Not Available Not Available 06/23/2024 02:46:48 03/25/2003/25/2023 Compr ehens ion metab olic 2000 panel - Serum or Plasm a interpretati on and review of laboratory results Abnorm al Not Available Not Available 02:46:48 03/25/2003/25/2023 CBC W Auto Diffe renti al panel - Blood leukocytes [#/volume] in blood by automated count 3 text: 3.5 - 10.5 10 3/uL low WBC 3.0 (L) 3.5 - 10.5 10 3/uL 03/25 5:25 AM [facility]3] [facility] Not Available Not Available 06/23/2024 02:46:48 03/25/20 23 03/25/2023 CBC W Auto Diffe renti al panel - Blood erythrocytes [#/volume] in blood by automated count 2.66 text: 3.80 - 5.20 10 6/uL low RBC 2.66 (L) 3.80 - 5.20 10 6/uL 03/25 5:25 AM [facility]3] [facility] Not Available Not Available 06/23/2024 02:46:48 03/25/2003/25/2023 CBC W Auto Diffe renti al panel - Blood hemoglobin [mass/volume ] in blood 8.3 g/dL low: 12g/dL high: 15.6g/ dL low Hemog lobin 8.3 (L) 12.0 - 15.6 g/dL 03/25 5:25 AM ACCIDENT EXAMINER [facility] N[facility]HA Not Available Not Available 06/23/2024 02:46:48 03/25/2003/25/2023 CBC W Auto Diffe renti al panel - Blood hematocrit [volume fraction] of blood by automated count 24.7 % low: 35%hig h: 45% low Hemat ocrit 24.7 (L) 35.0 - 45.0 % 03/25 5:25 AM ACCIDENT EXAMINER [facility] N[facility]HA Not Available Not Available 06/23/2024 02:46:48 03/25/2003/25/2023 CBC W Auto Diffe renti al panel - Blood MCV [entitic volume] by automated count 92.9 fL low: 80.7fL high: 98.3fL MCV 92.9 80.7 - 98.3 fL 03/25 5:25 AM ACCIDENT EXAMINER [facility] N[facility] Not Available Not Available 06/23/2024 02:46:48 03/25/2003/25/2023 CBC W Auto Diffe renti al panel - Blood MCH [entitic mass] by automated count 31.2 pg low: 26.7pg high: 34pg MCH 31.2 26.7 - 34.0 pg 03/25 5:25 AM ACCIDENT EXAMINER [facility] N[facility]HA Not Available Not Available 06/23/2024 02:46:48 03/25/2003/25/2023 CBC W Auto Diffe renti al panel - Blood MCHC [mass/volume ] by automated count 33.6 g/dL low: 30.8g/ dLhigh : 35.9g/ dL MCHC 33.6 30.8 - 35.9 g/dL 03/25 5:25 AM ACCIDENT EXAMINER [facility] Not Available Not Available 06/23/2024 02:46:48 03/25/2003/25/2023 CBC W Auto Diffe renti al panel - Blood erythrocyte distribution width [entitic volume] by automated count 62.7 fL low: 36fLhi gh: 50fL high RDW-S D 62.7 (H) 36.0 - 50.0 fL 03/25 5:25 AM ACCIDENT EXAMINER [facility] N[facility]HA Not Available Not Available 06/23/2024 02:46:48 03/25/2003/25/2023 CBC W Auto Diffe renti al panel - Blood erythrocyte distribution width [ratio] by automated count 18.4 % low: 11.2%h igh: 14.8% high RDW-C V 18.4 (H) 11.2 - 14.8 % 03/25 5:25 AM ACCIDENT EXAMINER [facility] N[facility]HA Not Available Not Available 06/23/2024 02:46:48 03/25/2003/25/2023 CBC W Auto Diffe renti al panel - Blood platelets [#/volume] in blood by automated count 140 text: 150 - 400 10 3/uL low Plate let Count 140 (L) 150 - 400 10 3/uL 03/25 5:25 AM ACCIDENT EXAMINER [facility] N[facility]HA Not Available Not Available 06/23/2024 02:46:48 03/25/2003/25/2023 CBC W Auto Diffe renti al panel - Blood platelet mean volume [entitic volume] in blood by automated count 9.7 fL low: 9.4fLh igh: 12.9fL MPV 9.7 9.4 - 12.9 fL 03/25 5:25 AM ACCIDENT EXAMINER [employer] [facility] NISHA Not Available Not Available 06/23/2024 02:46:48 03/25/2003/25/2023 CBC W Auto Diffe renti al panel - Blood nucleated erythrocytes [#/volume] in blood by automated count 0 text: 0 10 3/uL nRBC Absol [place] 0.00 0 10 3/uL 03/25 5:25 AM ACCIDENT EXAMINER [employer] [facility] NISHA Not Available Not Available 06/23/2024 02:46:48 03/25/2003/25/2023 CBC W Auto Diffe renti al panel - Blood nucleated erythrocytes /100 leukocytes [ratio] in blood by automated count 0 text: 0 /100 WBC nRBC Auto 0.0 0 /100 WBC 03/25 5:25 AM ACCIDENT EXAMINER [facility]HA Not Available Not Available 06/23/2024 02:46:48 03/25/20 23 03/25/2023 CBC W Auto Diffe renti al panel - Blood neutrophils/ 100 leukocytes in blood by automated count 47.6 % low: 35%hig h: 70% Neutr ophil s % 47.6 35.0 - 70.0 % 03/25 5:25 AM ACCIDENT EXAMINER [facility] Not Available Not Available 06/23/2024 02:46:48 03/25/20 23 03/25/2023 CBC W Auto Diffe renti al panel - Blood lymphocytes/ 100 leukocytes in blood by automated count 40.7 % low: 20%hig h: 43% Lymph ocyte s % 40.7 20.0 - 43.0 % 03/25 5:25 AM ACCIDENT EXAMINER [facility] NISHA Not Available Not Available 06/23/2024 02:46:48 03/25/2003/25/2023 CBC W Auto Diffe renti al panel - Blood monocytes/10 0 leukocytes in blood by automated count 8.3 % low: 5%high : 13% Monoc ytes % 8.3 5.0 - 13.0 % 03/25 5:25 AM ACCIDENT EXAMINER [facility] N[facility]HA Not Available Not Available 06/23/2024 02:46:48 03/25/20 23 03/25/2023 CBC W Auto Diffe renti al panel - Blood eosinophils/ 100 leukocytes in blood by automated count 1.7 % low: 0%high : 6% Eosin ophil s % 1.7 0.0 - 6.0 % 03/25 5:25 AM ACCIDENT EXAMINER [facility] Not Available Not Available 06/23/2024 02:46:48 03/25/20 23 03/25/2023 CBC W Auto Diffe renti al panel - Blood basophils/10 0 leukocytes in blood by automated count 1 % low: 0%high : 2% Basop hil % 1.0 0.0 - 2.0 % 03/25 5:25 AM ACCIDENT EXAMINER [facility] Not Available Not Available 06/23/2024 02:46:48 03/25/2003/25/2023 CBC W Auto Diffe renti al panel - Blood neutrophils [#/volume] in blood by automated count 1.43 text: 1.60 - 7.00 10 3/uL low Neutr ophil s Absol [place] 1.43 (L) 1.60 - 7.00 10 3/uL 03/25 5:25 AM ACCIDENT EXAMINER [facility] Not Available Not Available 06/23/2024 02:46:48 03/25/2003/25/2023 CBC W Auto Diffe renti al panel - Blood lymphocytes [#/volume] in blood by automated count 1.22 text: 1.10 - 3.90 10 3/uL Lymph ocyte Absol [place] 1.22 1.10 - 3.90 10 3/uL 03/25 5:25 AM ACCIDENT EXAMINER [facility] Not Available Not Available 06/23/2024 02:46:48 03/25/2003/25/2023 CBC W Auto Diffe renti al panel - Blood monocytes [#/volume] in blood by automated count 0.25 text: 0.26 - 1.07 10 3/uL low Monoc ytes Absol [place] 0.25 (L) 0.26 - 1.07 10 3/uL 03/25 5:25 AM ACCIDENT EXAMINER [facility] Not Available Not Available 06/23/2024 02:46:48 03/25/2003/25/2023 CBC W Auto Diffe renti al panel - Blood eosinophils [#/volume] in blood by automated count 0.05 text: 0.00 - 0.47 10 3/uL Eosin ophil s Absol [place] 0.05 0.00 - 0.47 10 3/uL 03/25 5:25 AM ACCIDENT EXAMINER [facility]HA Not Available Not Available 06/23/2024 02:46:48 03/25/20 23 03/25/2023 CBC W Auto Diffe renti al panel - Blood basophils [#/volume] in blood by automated count 0.03 text: 0.00 - 0.08 10 3/uL Basop hils Absol [place] 0.03 0.00 - 0.08 10 3/uL 03/25 5:25 AM ACCIDENT EXAMINER [facility] Not Available Not Available 06/23/2024 02:46:48 03/25/20 23 03/25/2023 CBC W Auto Diffe renti al panel - Blood immature granulocytes /100 leukocytes in blood by automated count 0.7 % low: 0%high : 1% Immat ure Granu locyt es % 0.7 0.0 - 1.0 % 03/25 5:25 AM ACCIDENT EXAMINER [facility] Not Available Not Available 06/23/2024 02:46:48 03/25/2003/25/2023 CBC W Auto Diffe renti al panel - Blood immature granulocytes absolute 0.02 Immat ure Granu locyt es Absol [place] 0.02 03/25 5:25 AM ACCIDENT EXAMINER [facility] Not Available Not Available 06/23/2024 02:46:48 03/25/2003/25/2023 CBC W Auto Diffe renti al panel - Blood interpretati on and review of laboratory results Abnorm al Not Available Not Available 02:46:48 03/26/2003/26/2023 Hepat ic funct ion 2000 panel - Serum or Plasm a protein [mass/volume ] in serum or plasma 6.7 g/dL low: 6g/dLh igh: 8.3g/d L Prote in Total 6.7 6.0 - 8.3 g/dL 03/26 10:35 AM [facility]3] [facility] Not Available Not Available 06/23/2024 02:46:49 03/26/2003/26/2023 Hepat ic funct ion 2000 panel - Serum or Plasm a albumin [mass/volume ] in serum or plasma by bromocresol green (bcg) dye binding method 1.8 g/dL low: 3.4g/d Lhigh: 5g/dL low Album in 1.8 (L) 3.4 - 5.0 g/dL 03/26 10:35 AM [facility] Not Available Not Available 06/23/2024 02:46:49 03/26/2003/26/2023 Hepat ic funct ion 2000 panel - Serum or Plasm a bilirubin.to nisha [mass/volume ] in serum or plasma 4.5 mg/dL low: 0.2mg/ dLhigh : 1.2mg/ dL high Bilir ubin Total 4.5 (H) 0.2 - 1.2 mg/dL 03/26 10:35 AM ACCIDENT EXAMINER [facility] Not Available Not Available 06/23/2024 02:46:49 03/26/2003/26/2023 Hepat ic funct ion 2000 panel - Serum or Plasm a bilirubin.di rect [mass/volume ] in serum or plasma 3.5 mg/dL low: 0.1mg/ dLhigh : 0.5mg/ dL high Bilir ubin Conju gated 3.5 (H) 0.1 - 0.5 mg/dL 03/26 10:35 AM ACCIDENT EXAMINER [employer] [facility] Not Available Not Available 06/23/2024 02:46:49 03/26/2003/26/2023 Hepat ic funct ion 2000 panel - Serum or Plasm a bilirubin unconjugated 1 mg/dL text: unconj ugated biliru bin IS a calcul ated value: refere nce ranges have not been establ ished. Bilir ubin Uncon jugat ed 1.0 Uncon jugat ed Bilir ubin is a calcu lated value : Refer ence range s have not been estab lishe d. mg/dL 03/26 10:35 AM [employer] [facility] Not Available Not Available 06/23/2024 02:46:49 03/26/2003/26/2023 Hepat ic funct ion 2000 panel - Serum or Plasm a alkaline phosphatase [enzymatic activity/vol ume] in serum or plasma 282 U/L low: 40U/Lh igh: 150U/L high Alkal ine Phosp hatas e 282 (H) 40 - 150 U/L 03/26 10:35 AM ACCIDENT EXAMINER [employer] [facility] Not Available Not Available 06/23/2024 02:46:49 11/27/20 23 03/26/2023 Hepat ic funct ion 2000 panel - Serum or Plasm a alanine aminotransfe rase [enzymatic activity/vol ume] in serum or plasma by no addition of P-5'-P 36 U/L low: 5U/Lhi gh: 55U/L ALT 36 5 - 55 U/L 03/26 10:35 AM [facility] Not Available Not Available 06/23/2024 02:46:49 03/26/20 23 03/26/2023 Hepat ic funct ion 2000 panel - Serum or Plasm a aspartate aminotransfe rase [enzymatic activity/vol ume] in serum or plasma 72 U/L low: 5U/Lhi gh: 34U/L high AST 72 (H) 5 - 34 U/L 03/26 10:35 AM [facility] Not Available Not Available 06/23/2024 02:46:49 03/26/20 23 03/26/2023 Hepat ic funct ion 1999 panel - Serum or Plasm a albumin/glob ulin ratio 0.4 low: 1.1hig h: 2.3 low Album in/Gl obuli n Ratio 0.4 (L) 1.1 - 2.3 03/26 10:35 AM [facility] EXAMINER [facility] Not Available Not Available 06/23/2024 02:46:49 03/26/20 23 03/26/2023 Hepat ic funct ion 2000 panel - Serum or Plasm a interpretati on and review of laboratory results Abnorm al Not Available Not Available 02:46:49 03/26/2003/26/2023 Phosp hate [Mass /volu me] in Serum or Plasm a phosphate [mass/volume ] in serum or plasma 3.5 mg/dL low: 2.9mg/ dLhigh : 5.1mg/ dL Phosp horus 3.5 2.9 - 5.1 mg/dL 03/26 6:22 AM [facility] Not Available Not Available 06/23/2024 02:46:49 03/26/20 23 03/26/2023 Phosp hate [Mass /volu me] in Serum or Plasm a interpretati on and review of laboratory results Normal Not Available Not Available 06/01 02:46:49 03/26/2003/26/2023 Magne sium [Mass /volu me] in Serum or Plasm a magnesium [mass/volume ] in serum or plasma 1.8 mg/dL low: 1.6mg/ dLhigh : 2.6mg/ dL Magne sium 1.8 1.6 - 2.6 mg/dL 03/26 6:22 AM ACC[facility] EXAMINER [facility] Not Available Not Available 06/23/2024 02:46:49 03/26/20 23 03/26/2023 Magne sium [Mass /volu me] in Serum or Plasm a interpretati on and review of laboratory results Normal Not Available Not Available 06/01 02:46:49 03/26/20 23 03/26/2023 Compr ehens ion metab olic 1999 panel - Serum or Plasm a urea nitrogen [mass/volume ] in serum or plasma 8 mg/dL low: 7mg/dL high: 26mg/d L BUN 8 7 - 26 mg/dL 03/26 6:22 AM [facility] Not Available Not Available 06/23/2024 02:46:49 03/26/20 23 03/26/2023 Compr ehens ion metab olic 2000 panel - Serum or Plasm a creatinine [mass/volume ] in serum or plasma 0.78 mg/dL low: 0.56mg /dLhig h: 0.96mg /dL Creat inine 0.78 0.56 - 0.96 mg/dL 03/26 6:22 AM [facility] Not Available Not Available 06/23/2024 02:46:49 03/26/20 23 03/26/2023 Compr ehens ion metab olic 2000 panel - Serum or Plasm a sodium [moles/volum e] in serum or plasma 138 mmol/ L low: 136mmo l/Lhig h: 145mmo l/L Sodiu m 138 136 - 145 mmol/ L 03/26 6:22 AM ACC[facility] EXAMINER [facility] Not Available Not Available 06/23/2024 02:46:49 03/26/20 23 03/26/2023 Compr ehens ion metab olic 1999 panel - Serum or Plasm a potassium [moles/volum e] in serum or plasma 3.7 mmol/ L low: 3.5mmo l/Lhig h: 4.5mmo l/L Potas sium 3.7 3.5 - 4.5 mmol/ L 03/26 6:22 AM ACC[facility] EXAMINER [facility] Not Available Not Available 06/23/2024 02:46:49 03/26/20 23 03/26/2023 Compr ehens ion metab olic 1999 panel - Serum or Plasm a chloride [moles/volum e] in serum or plasma 107 mmol/ L low: 98mmol /Lhigh : 107mmo l/L Chlor leighann 107 98 - 107 mmol/ L 03/26 6:22 AM [facility] Not Available Not Available 06/23/2024 02:46:49 03/26/20 23 03/26/2023 Compr ehens ion metab olic 1999 panel - Serum or Plasm a carbon dioxide, total [moles/volum e] in serum or plasma 21 mmol/ L low: 22mmol /Lhigh : 29mmol /L low CO2 21 (L) 22 - 29 mmol/ L 03/26 6:22 AM [facility]] [facility] Not Available Not Available 06/23/2024 02:46:49 03/26/20 23 03/26/2023 Compr ehens ion metab olic 1999 panel - Serum or Plasm a glucose [mass/volume ] in serum or plasma 86 mg/dL low: 70mg/d Lhigh: 115mg/ dL Gluco se 86 70 - 115 mg/dL 03/26 6:22 AM [facility] EXAMINER [facility] Not Available Not Available 06/23/2024 02:46:49 03/26/20 23 03/26/2023 Compr ehens ion metab olic 2000 panel - Serum or Plasm a calcium [moles/volum e] in serum or plasma 8 mg/dL low: 8.4mg/ dLhigh : 10.2mg /dL low Calci um 8.0 (L) 8.4 - 10.2 mg/dL 03/26 6:22 AM [facility] EXAMINER [facility] Not Available Not Available 06/23/2024 02:46:49 03/26/2003/26/2023 Compr [employer] ion metab olic 2000 panel - Serum or Plasm a protein [mass/volume ] in serum or plasma 6.8 g/dL low: 6g/dLh igh: 8.3g/d L Prote in Total 6.8 6.0 - 8.3 g/dL 03/26 6:22 AM ACCIDENT EXAMINER [facility] Not Available Not Available 06/23/2024 02:46:49 03/26/2003/26/2023 Compr [employer] ion metab olic 2000 panel - Serum or Plasm a albumin [mass/volume ] in serum or plasma by bromocresol green (bcg) dye binding method 1.8 g/dL low: 3.4g/d Lhigh: 5g/dL low Album in 1.8 (L) 3.4 - 5.0 g/dL 03/26 6:22 AM [facility] Not Available Not Available 06/23/2024 02:46:49 03/26/2003/26/2023 Compr [employer] ion metab olic 2000 panel - Serum or Plasm a bilirubin.to nisha [mass/volume ] in serum or plasma 4.6 mg/dL low: 0.2mg/ dLhigh : 1.2mg/ dL high Bilir ubin Total 4.6 (H) 0.2 - 1.2 mg/dL 03/26 6:22 AM [facility] Not Available Not Available 06/23/2024 02:46:49 03/26/2003/26/2023 Compr [employer] ion metab olic 2000 panel - Serum or Plasm a alkaline phosphatase [enzymatic activity/vol ume] in serum or plasma 284 U/L low: 40U/Lh igh: 150U/L high Alkal ine Phosp hatas e 284 (H) 40 - 150 U/L 03/26 6:22 AM ACCIDENT EXAMINER [facility] Not Available Not Available 06/23/2024 02:46:49 03/26/20 23 03/26/2023 Compr ehens ion metab olic 1999 panel - Serum or Plasm a alanine aminotransfe rase [enzymatic activity/vol ume] in serum or plasma by no addition of P-5'-P 36 U/L low: 5U/Lhi gh: 55U/L ALT 36 5 - 55 U/L 03/26 6:22 AM [facility] Not Available Not Available 06/23/2024 02:46:49 03/26/20 23 03/26/2023 Compr ehens ion metab olic 1999 panel - Serum or Plasm a aspartate aminotransfe rase [enzymatic activity/vol ume] in serum or plasma 71 U/L low: 5U/Lhi gh: 34U/L high AST 71 (H) 5 - 34 U/L 03/26 6:22 AM [facility] Not Available Not Available 06/23/2024 02:46:49 03/26/20 23 03/26/2023 Compr ehens ion metab olic 1999 panel - Serum or Plasm a anion gap 10 low: 6high: 16 Anion Gap 10 6 - 16 03/26 6:22 AM [facility] Not Available Not Available 06/23/2024 02:46:49 03/26/20 23 03/26/2023 Compr ehens ion metab olic 2000 panel - Serum or Plasm a urea nitrogen/cre atinine [mass ratio] in serum or plasma 10 low: 7high: 23 BUN/C reati nine Ratio 10 7 - 23 03/26 6:22 AM [facility] Not Available Not Available 06/23/2024 02:46:49 03/26/20 23 03/26/2023 Compr ehens ion metab olic 2000 panel - Serum or Plasm a osmolality calculated 284 text: 275 - 295 mOsm/k g Osmol evert Ricks lated 284 275 - 295 mOsm/ kg 03/26 6:22 AM [facility] Not Available Not Available 06/23/2024 02:46:49 03/26/20 23 03/26/2023 Compr ehens ion metab olic 2000 panel - Serum or Plasm a albumin/glob ulin ratio 0.4 low: 1.1hig h: 2.3 low Album in/Gl obuli n Ratio 0.4 (L) 1.1 - 2.3 03/26 6:22 AM ACCIDENT EXAMINER [facility] Not Available Not Available 06/23/2024 02:46:49 03/26/2003/26/2023 Compr ehens ion metab olic 2000 panel - Serum or Plasm a glomerular filtration rate/1.73 sq M.predicted [volume rate/area] in serum, plasma or blood by creatinine-b ased formula (CKD-epi) text: >=90 mL/min /1.73 m2 eGFR by CKD-E PI >90 >=90 mL/mi n/1.7 3 m2 03/26 6:22 AM [facility] Not Available Not Available 06/23/2024 02:46:49 03/26/2003/26/2023 Compr ehens ion metab olic 2000 panel - Serum or Plasm a interpretati on and review of laboratory results Abnorm al Not Available Not Available 02:46:49 03/26/2003/26/2023 CBC W Auto Diffe renti al panel - Blood leukocytes [#/volume] in blood by automated count 3 text: 3.5 - 10.5 10 3/uL low WBC 3.0 (L) 3.5 - 10.5 10 3/uL 03/26 6:19 AM [facility] Not Available Not Available 06/23/2024 02:46:49 03/26/2003/26/2023 CBC W Auto Diffe renti al panel - Blood erythrocytes [#/volume] in blood by automated count 2.65 text: 3.80 - 5.20 10 6/uL low RBC 2.65 (L) 3.80 - 5.20 10 6/uL 03/26 6:19 AM ACCIDENT EXAMINER [facility] Not Available Not Available 06/23/2024 02:46:49 03/26/20 23 03/26/2023 CBC W Auto Diffe renti al panel - Blood hemoglobin [mass/volume ] in blood 8.3 g/dL low: 12g/dL high: 15.6g/ dL low Hemog lobin 8.3 (L) 12.0 - 15.6 g/dL 03/26 6:19 AM [facility] Not Available Not Available 06/23/2024 02:46:49 03/26/2003/26/2023 CBC W Auto Diffe renti al panel - Blood hematocrit [volume fraction] of blood by automated count 24.7 % low: 35%hig h: 45% low Hemat ocrit 24.7 (L) 35.0 - 45.0 % 03/26 6:19 [facility] Not Available 06/23/2024 02:46:49 03/26/2003/26/2023 CBC W Auto Diffe renti al panel - Blood MCV [entitic volume] by automated count 93.2 fL low: 80.7fL high: 98.3fL MCV 93.2 80.7 - 98.3 fL 03/26 6:19 [facility] Not Available Not Available 06/23/2024 02:46:49 03/26/2003/26/2023 CBC W Auto Diffe renti al panel - Blood MCH [entitic mass] by automated count 31.3 pg low: 26.7pg high: 34pg MCH 31.3 26.7 - 34.0 pg 03/26 6:19 [facility] Not Available Not Available 06/23/2024 02:46:49 03/26/2003/26/2023 CBC W Auto Diffe renti al panel - Blood MCHC [mass/volume ] by automated count 33.6 g/dL low: 30.8g/ dLhigh : 35.9g/ dL MCHC 33.6 30.8 - 35.9 g/dL 03/26 6:19 [facility] Not Available Not Available 06/23/2024 02:46:49 03/26/20 23 03/26/2023 CBC W Auto Diffe renhe al panel - Blood erythrocyte distribution width [entitic volume] by automated count 62.4 fL low: 36fLhi gh: 50fL high RDW-S D 62.4 (H) 36.0 - 50.0 fL 03/26 6:19 AM [facility]3] [facility] Not Available Not Available 06/23/2024 02:46:49 03/26/20 23 03/26/2023 CBC W Auto Diffe renti al panel - Blood erythrocyte distribution width [ratio] by automated count 18.2 % low: 11.2%h igh: 14.8% high RDW-C V 18.2 (H) 11.2 - 14.8 % 03/26 6:19 AM [facility]3] [facility] Not Available Not Available 06/23/2024 02:46:49 03/26/2003/26/2023 CBC W Auto Diffe renti al panel - Blood platelets [#/volume] in blood by automated count 151 text: 150 - 400 10 3/uL Plate let Count 151 150 - 400 10 3/uL 03/26 6:19 AM [facility]3] [facility] Not Available Not Available 06/23/2024 02:46:49 03/26/2003/26/2023 CBC W Auto Diffe renti al panel - Blood platelet mean volume [entitic volume] in blood by automated count 10.3 fL low: 9.4fLh igh: 12.9fL MPV 10.3 9.4 - 12.9 fL 03/26 6:19 AM [facility]3] [facility] Not Available Not Available 06/23/2024 02:46:49 03/26/2003/26/2023 CBC W Auto Diffe renti al panel - Blood platelets reticulated/ 100 platelets in blood by automated count 2.8 % low: 1.1%hi gh: 6.2% Immat ure Plate let Fract ion 2.8 1.1 - 6.2 % 03/26 6:19 AM [facility]3] [facility] Not Available Not Available 06/23/2024 02:46:49 03/26/20 23 03/26/2023 CBC W Auto Diffe renti al panel - Blood nucleated erythrocytes [#/volume] in blood by automated count 0 text: 0 10 3/uL nRBC Absol [place] 0.00 0 10 3/uL 03/26 6:19 AM [facility] Not Available Not Available 06/23/2024 02:46:49 03/26/20 23 03/26/2023 CBC W Auto Diffe renti al panel - Blood nucleated erythrocytes /100 leukocytes [ratio] in blood by automated count 0 text: 0 /100 WBC nRBC Auto 0.0 0 /100 WBC 03/26 6:19 AM [facility] EXAM[facility] Not Available Not Available 06/23/2024 02:46:49 03/26/2003/26/2023 CBC W Auto Diffe renti al panel - Blood neutrophils/ 100 leukocytes in blood by automated count 48.1 % low: 35%hig h: 70% Neutr ophil s % 48.1 35.0 - 70.0 % 03/26 6:19 AM ACCIDENT EXAMINER [facility] Not Available Not Available 06/23/2024 02:46:49 03/26/2003/26/2023 CBC W Auto Diffe renti al panel - Blood lymphocytes/ 100 leukocytes in blood by automated count 41.4 % low: 20%hig h: 43% Lymph ocyte s % 41.4 20.0 - 43.0 % 03/26 6:19 AM [facility] EXAMINER [facility] Not Available Not Available 06/23/2024 02:46:49 03/26/2003/26/2023 CBC W Auto Diffe renti al panel - Blood monocytes/10 0 leukocytes in blood by automated count 7.4 % low: 5%high : 13% Monoc ytes % 7.4 5.0 - 13.0 % 03/26 6:19 AM [facility] Not Available Not Available 06/23/2024 02:46:49 03/26/2003/26/2023 CBC W Auto Diffe renti al panel - Blood eosinophils/ 100 leukocytes in blood by automated count 1.7 % low: 0%high : 6% Eosin ophil s % 1.7 0.0 - 6.0 % 03/26 6:19 AM [facility] Not Available Not Available 06/23/2024 02:46:49 03/26/2003/26/2023 CBC W Auto Diffe renti al panel - Blood basophils/10 0 leukocytes in blood by automated count 0.7 % low: 0%high : 2% Basop hil % 0.7 0.0 - 2.0 % 03/26 6:19 AM ACCIDENT EXAMINER [facility] N[facility] Not Available Not Available 06/23/2024 02:46:49 03/26/2003/26/2023 CBC W Auto Diffe renti al panel - Blood neutrophils [#/volume] in blood by automated count 1.43 text: 1.60 - 7.00 10 3/uL low Neutr ophil s Absol [place] 1.43 (L) 1.60 - 7.00 10 3/uL 03/26 6:19 AM ACCIDENT EXAMINER [facility] Not Available Not Available 06/23/2024 02:46:49 03/26/2003/26/2023 CBC W Auto Diffe renti al panel - Blood lymphocytes [#/volume] in blood by automated count 1.23 text: 1.10 - 3.90 10 3/uL Lymph ocyte Absol [place] 1.23 1.10 - 3.90 10 3/uL 03/26 6:19 AM ACCIDENT EXAMINER [facility] Not Available Not Available 06/23/2024 02:46:49 03/26/2003/26/2023 CBC W Auto Diffe renti al panel - Blood monocytes [#/volume] in blood by automated count 0.22 text: 0.26 - 1.07 10 3/uL low Monoc ytes Absol [place] 0.22 (L) 0.26 - 1.07 10 3/uL 03/26 6:19 AM ACCIDENT EXAMINER [facility] Not Available Not Available 06/23/2024 02:46:49 03/26/20 23 03/26/2023 CBC W Auto Diffe renti al panel - Blood eosinophils [#/volume] in blood by automated count 0.05 text: 0.00 - 0.47 10 3/uL Eosin ophil s Absol [place] 0.05 0.00 - 0.47 10 3/uL 03/26 6:19 AM ACCIDENT EXAMINER [facility] Not Available Not Available 06/23/2024 02:46:49 03/26/2003/26/2023 CBC W Auto Diffe renti al panel - Blood basophils [#/volume] in blood by automated count 0.02 text: 0.00 - 0.08 10 3/uL Basop hils Absol [place] 0.02 0.00 - 0.08 10 3/uL 03/26 6:19 AM ACCIDENT EXAMINER [facility] Not Available Not Available 06/23/2024 02:46:49 03/26/2003/26/2023 CBC W Auto Diffe renti al panel - Blood immature granulocytes /100 leukocytes in blood by automated count 0.7 % low: 0%high : 1% Immat ure Granu locyt es % 0.7 0.0 - 1.0 % 03/26 6:19 AM [facility]] [facility] Not Available Not Available 06/23/2024 02:46:49 03/26/2003/26/2023 CBC W Auto Diffe renti al panel - Blood immature granulocytes absolute 0.02 Immat ure Granu locyt es Absol [place] 0.02 03/26 6:19 AM [facility]3] [facility] Not Available Not Available 06/23/2024 02:46:49 03/26/2003/26/2023 CBC W Auto Diffe renti al panel - Blood interpretati on and review of laboratory results Abnorm al Not Available Not Available 02:46:49 03/27/2003/27/2023 ABO and Rh group [Type ] in Blood ABO and Rh group [type] in blood O POS ABO Rh O POS 03/27 6:04 AM [facility]3] BLOOD BANK LAB Not Available Not Available 06/23/2024 02:46:49 03/27/2003/27/2023 Blood type and Indir ect antib nola scree n panel - Blood blood group antibody screen [presence] in serum or plasma NEG Antib nloa Scree n NEG 03/27 5:20 AM [facility]3] BLOOD BANK LAB Not Available Not Available 06/23/2024 02:46:49 03/27/2003/27/2023 Blood type and Indir ect antib nola scree n panel - Blood ABO and Rh group [type] in blood O POS ABO Rh O POS 03/27 5:20 AM [facility]3] BLOOD BANK LAB Not Available Not Available 06/23/2024 02:46:49 03/27/2003/27/2023 Phosp hate [Mass /volu me] in Serum or Plasm a phosphate [mass/volume ] in serum or plasma 3.6 mg/dL low: 2.9mg/ dLhigh : 5.1mg/ dL Phosp horus 3.6 2.9 - 5.1 mg/dL 03/27 5:23 AM [facility] Not Available Not Available 06/23/2024 02:46:49 03/27/2003/27/2023 Phosp hate [Mass /volu me] in Serum or Plasm a interpretati on and review of laboratory results Normal Not Available Not Available 06/01 02:46:49 03/27/2003/27/2023 Magne sium [Mass /volu me] in Serum or Plasm a magnesium [mass/volume ] in serum or plasma 1.8 mg/dL low: 1.6mg/ dLhigh : 2.6mg/ dL Magne sium 1.8 1.6 - 2.6 mg/dL 03/27 5:23 AM [facility]3] [facility] Not Available Not Available 06/23/2024 02:46:49 03/27/2003/27/2023 Magne sium [Mass /volu me] in Serum or Plasm a interpretati on and review of laboratory results Normal Not Available Not Available 06/01 02:46:49 03/27/20 23 03/27/2023 Compr ehens ion metab olic 2000 panel - Serum or Plasm a urea nitrogen [mass/volume ] in serum or plasma 7 mg/dL low: 7mg/dL high: 26mg/d L BUN 7 7 - 26 mg/dL 03/27 5:23 AM [facility]] [facility] Not Available Not Available 06/23/2024 02:46:49 03/27/2003/27/2023 Compr ehens ion metab olic 1999 panel - Serum or Plasm a creatinine [mass/volume ] in serum or plasma 0.68 mg/dL low: 0.56mg /dLhig h: 0.96mg /dL Creat inine 0.68 0.56 - 0.96 mg/dL 03/27 5:23 AM ACC[facility] EXAMINER [facility] Not Available Not Available 06/23/2024 02:46:49 03/27/2003/27/2023 Compr ehens ion metab olic 1999 panel - Serum or Plasm a sodium [moles/volum e] in serum or plasma 137 mmol/ L low: 136mmo l/Lhig h: 145mmo l/L Sodiu m 137 136 - 145 mmol/ L 03/27 5:23 AM [facility] Not Available Not Available 06/23/2024 02:46:49 03/27/2003/27/2023 Compr ehens ion metab olic 1999 panel - Serum or Plasm a potassium [moles/volum e] in serum or plasma 3.7 mmol/ L low: 3.5mmo l/Lhig h: 4.5mmo l/L Potas sium 3.7 3.5 - 4.5 mmol/ L 03/27 5:23 AM [facility] Not Available Not Available 06/23/2024 02:46:49 03/27/2003/27/2023 Compr ehens ion metab olic 1999 panel - Serum or Plasm a chloride [moles/volum e] in serum or plasma 107 mmol/ L low: 98mmol /Lhigh : 107mmo l/L Chlor leighann 107 98 - 107 mmol/ L 03/27 5:23 AM [facility] EXAMIN[facility] Not Available Not Available 06/23/2024 02:46:49 03/27/20 23 03/27/2023 Compr ehens ion metab olic 2000 panel - Serum or Plasm a carbon dioxide, total [moles/volum e] in serum or plasma 20 mmol/ L low: 22mmol /Lhigh : 29mmol /L low CO2 20 (L) 22 - 29 mmol/ L 03/27 5:23 AM [facility] Not Available Not Available 06/23/2024 02:46:49 03/27/20 23 03/27/2023 Compr ehens ion metab olic 2000 panel - Serum or Plasm a glucose [mass/volume ] in serum or plasma 75 mg/dL low: 70mg/d Lhigh: 115mg/ dL Gluco se 75 70 - 115 mg/dL 03/27 5:23 AM [facility]] [facility] Not Available Not Available 06/23/2024 02:46:49 03/27/20 23 03/27/2023 Compr ehens ion metab olic 2000 panel - Serum or Plasm a calcium [moles/volum e] in serum or plasma 8.2 mg/dL low: 8.4mg/ dLhigh : 10.2mg /dL low Calci um 8.2 (L) 8.4 - 10.2 mg/dL 03/27 5:23 AM [facility] Not Available Not Available 06/23/2024 02:46:49 03/27/20 23 03/27/2023 Compr ehens ion metab olic 2000 panel - Serum or Plasm a protein [mass/volume ] in serum or plasma 6.8 g/dL low: 6g/dLh igh: 8.3g/d L Prote in Total 6.8 6.0 - 8.3 g/dL 03/27 5:23 AM [facility] Not Available Not Available 06/23/2024 02:46:49 03/27/20 23 03/27/2023 Compr ehens ion metab olic 2000 panel - Serum or Plasm a albumin [mass/volume ] in serum or plasma by bromocresol green (bcg) dye binding method 1.8 g/dL low: 3.4g/d Lhigh: 5g/dL low Album in 1.8 (L) 3.4 - 5.0 g/dL 03/27 5:23 AM [facility] Not Available Not Available 06/23/2024 02:46:49 03/27/20 23 03/27/2023 Compr ehens ion metab olic 1999 panel - Serum or Plasm a bilirubin.to nisha [mass/volume ] in serum or plasma 4.4 mg/dL low: 0.2mg/ dLhigh : 1.2mg/ dL high Bilir ubin Total 4.4 (H) 0.2 - 1.2 mg/dL 03/27 5:23 AM ACCIDENT EXAMINER [facility] Not Available Not Available 06/23/2024 02:46:49 03/27/2003/27/2023 Compr ehens ion metab olic 1999 panel - Serum or Plasm a alkaline phosphatase [enzymatic activity/vol ume] in serum or plasma 293 U/L low: 40U/Lh igh: 150U/L high Alkal ine Phosp hatas e 293 (H) 40 - 150 U/L 03/27 5:23 AM ACCIDENT EXAMINER [facility] Not Available Not Available 06/23/2024 02:46:49 03/27/2003/27/2023 Compr ehens ion metab olic 1999 panel - Serum or Plasm a alanine aminotransfe rase [enzymatic activity/vol ume] in serum or plasma by no addition of P-5'-P 32 U/L low: 5U/Lhi gh: 55U/L ALT 32 5 - 55 U/L 03/27 5:23 AM ACCIDENT EXAMINER [facility] Not Available Not Available 06/23/2024 02:46:49 03/27/2003/27/2023 Compr ehens ion metab olic 1999 panel - Serum or Plasm a aspartate aminotransfe rase [enzymatic activity/vol ume] in serum or plasma 62 U/L low: 5U/Lhi gh: 34U/L high AST 62 (H) 5 - 34 U/L 03/27 5:23 AM ACCIDENT EXAMINER [facility] Not Available Not Available 06/23/2024 02:46:49 03/27/20 23 03/27/2023 Compr ehens ion metab olic 2000 panel - Serum or Plasm a anion gap 10 low: 6high: 16 Anion Gap 10 6 - 16 03/27 5:23 AM ACCIDENT EXAMINER [facility] Not Available Not Available 06/23/2024 02:46:49 03/27/2003/27/2023 Compr ehens ion metab olic 2000 panel - Serum or Plasm a urea nitrogen/cre atinine [mass ratio] in serum or plasma 10 low: 7high: 23 BUN/C reati nine Ratio 10 7 - 23 03/27 5:23 AM ACCIDENT EXAMINER [facility] Not Available Not Available 06/23/2024 02:46:49 03/27/2003/27/2023 Compr ehens ion metab olic 2000 panel - Serum or Plasm a osmolality calculated 281 text: 275 - 295 mOsm/k g Osmol aliprincess Calcu lated 281 275 - 295 mOsm/ kg 03/27 5:23 AM ACCIDENT EXAMINER [employer] [facility] [facility] Not Available Not Available 06/23/2024 02:46:49 03/27/2003/27/2023 Compr ehens ion metab olic 2000 panel - Serum or Plasm a albumin/glob ulin ratio 0.4 low: 1.1hig h: 2.3 low Album in/Gl obuli n Ratio 0.4 (L) 1.1 - 2.3 03/27 5:23 AM ACCIDENT EXAMINER [facility] Not Available Not Available 06/23/2024 02:46:49 03/27/2003/27/2023 Compr ehens ion metab olic 2000 panel - Serum or Plasm a glomerular filtration rate/1.73 sq M.predicted [volume rate/area] in serum, plasma or blood by creatinine-b ased formula (CKD-epi) text: >=90 mL/min /1.73 m2 eGFR by CKD-E PI >90 >=90 mL/mi n/1.7 3 m2 03/27 5:23 AM ACCIDENT EXAMINER [facility] Not Available Not Available 06/23/2024 02:46:49 03/27/2003/27/2023 Compr ehens ion metab olic 2000 panel - Serum or Plasm a interpretati on and review of laboratory results Abnorm al Not Available Not Available 02:46:49 03/27/20 23 03/27/2023 CBC W Auto Diffe renti al panel - Blood leukocytes [#/volume] in blood by automated count 3.2 text: 3.5 - 10.5 10 3/uL low WBC 3.2 (L) 3.5 - 10.5 10 3/uL 03/27 5:04 AM [facility]3] [facility] Not Available Not Available 06/23/2024 02:46:49 03/27/2003/27/2023 CBC W Auto Diffe estuardo al panel - Blood erythrocytes [#/volume] in blood by automated count 2.76 text: 3.80 - 5.20 10 6/uL low RBC 2.76 (L) 3.80 - 5.20 10 6/uL 03/27 5:04 AM [facility]3] [facility] Not Available Not Available 06/23/2024 02:46:49 03/27/2003/27/2023 CBC W Auto Diffe estuardo al panel - Blood hemoglobin [mass/volume ] in blood 8.5 g/dL low: 12g/dL high: 15.6g/ dL low Hemog lobin 8.5 (L) 12.0 - 15.6 g/dL 03/27 5:04 AM [facility]3] [facility] Not Available Not Available 06/23/2024 02:46:49 03/27/2003/27/2023 CBC W Auto Diffe estuardo al panel - Blood hematocrit [volume fraction] of blood by automated count 25.6 % low: 35%hig h: 45% low Hemat ocrit 25.6 (L) 35.0 - 45.0 % 03/27 5:04 AM [facility]3] [facility] Not Available Not Available 06/23/2024 02:46:49 03/27/20 23 03/27/2023 CBC W Auto Diffe estuardo al panel - Blood MCV [entitic volume] by automated count 92.8 fL low: 80.7fL high: 98.3fL MCV 92.8 80.7 - 98.3 fL 03/27 5:04 AM [facility]3] [facility] Not Available Not Available 06/23/2024 02:46:49 03/27/20 23 03/27/2023 CBC W Auto Diffe renti al panel - Blood MCH [entitic mass] by automated count 30.8 pg low: 26.7pg high: 34pg MCH 30.8 26.7 - 34.0 pg 03/27 5:04 AM [facility] Not Available Not Available 06/23/2024 02:46:49 03/27/2003/27/2023 CBC W Auto Diffe renti al panel - Blood MCHC [mass/volume ] by automated count 33.2 g/dL low: 30.8g/ dLhigh : 35.9g/ dL MCHC 33.2 30.8 - 35.9 g/dL 03/27 5:04 AM [facility] Not Available Not Available 06/23/2024 02:46:49 03/27/2003/27/2023 CBC W Auto Diffe renti al panel - Blood erythrocyte distribution width [entitic volume] by automated count 60.1 fL low: 36fLhi gh: 50fL high RDW-S D 60.1 (H) 36.0 - 50.0 fL 03/27 5:04 AM [facility] Not Available Not Available 06/23/2024 02:46:49 03/27/2003/27/2023 CBC W Auto Diffe renti al panel - Blood erythrocyte distribution width [ratio] by automated count 17.9 % low: 11.2%h igh: 14.8% high RDW-C V 17.9 (H) 11.2 - 14.8 % 03/27 5:04 AM [facility] Available Not Available 06/23/2024 02:46:49 03/27/2003/27/2023 CBC W Auto Diffe renti al panel - Blood platelets [#/volume] in blood by automated count 143 text: 150 - 400 10 3/uL low Plate let Count 143 (L) 150 - 400 10 3/uL 03/27 5:04 AM [facility]3] [facility] Not Available Not Available 06/23/2024 02:46:49 03/27/20 23 03/27/2023 CBC W Auto Diffe renti al panel - Blood platelet mean volume [entitic volume] in blood by automated count 9.7 fL low: 9.4fLh igh: 12.9fL MPV 9.7 9.4 - 12.9 fL 03/27 5:04 AM [facility]3] [facility] Not Available Not Available 06/23/2024 02:46:49 03/27/20 23 03/27/2023 CBC W Auto Diffe renti al panel - Blood nucleated erythrocytes [#/volume] in blood by automated count 0 text: 0 10 3/uL nRBC Absol [place] 0.00 0 10 3/uL 03/27 5:04 AM [facility]3] [facility] Not Available Not Available 06/23/2024 02:46:49 03/27/2003/27/2023 CBC W Auto Diffe renti al panel - Blood nucleated erythrocytes /100 leukocytes [ratio] in blood by automated count 0 text: 0 /100 WBC nRBC Auto 0.0 0 /100 WBC 03/27 5:04 AM [facility]3] [facility] Not Available Not Available 06/23/2024 02:46:49 03/27/2003/27/2023 CBC W Auto Diffe renti al panel - Blood neutrophils/ 100 leukocytes in blood by automated count 49.7 % low: 35%hig h: 70% Neutr ophil s % 49.7 35.0 - 70.0 % 03/27 5:04 AM [facility]3] [facility] Not Available Not Available 06/23/2024 02:46:49 03/27/20 23 03/27/2023 CBC W Auto Diffe renti al panel - Blood lymphocytes/ 100 leukocytes in blood by automated count 40.7 % low: 20%hig h: 43% Lymph ocyte s % 40.7 20.0 - 43.0 % 03/27 5:04 AM [facility]3] [facility] Not Available Not Available 06/23/2024 02:46:49 03/27/20 23 03/27/2023 CBC W Auto Diffe renti al panel - Blood monocytes/10 0 leukocytes in blood by automated count 6.2 % low: 5%high : 13% Monoc ytes % 6.2 5.0 - 13.0 % 03/27 5:04 AM [facility]3] [facility] Not Available Not Available 06/23/2024 02:46:49 03/27/2003/27/2023 CBC W Auto Diffe renti al panel - Blood eosinophils/ 100 leukocytes in blood by automated count 1.9 % low: 0%high : 6% Eosin ophil s % 1.9 0.0 - 6.0 % 03/27 5:04 AM [facility] Not Available Not Available 06/23/2024 02:46:49 03/27/2003/27/2023 CBC W Auto Diffe renti al panel - Blood basophils/10 0 leukocytes in blood by automated count 0.6 % low: 0%high : 2% Basop hil % 0.6 0.0 - 2.0 % 03/27 5:04 AM [facility] Not Available Not Available 06/23/2024 02:46:49 03/27/2003/27/2023 CBC W Auto Diffe renti al panel - Blood neutrophils [#/volume] in blood by automated count 1.61 text: 1.60 - 7.00 10 3/uL Neutr ophil s Absol [place] 1.61 1.60 - 7.00 10 3/uL 03/27 5:04 AM [facility] Not Available Not Available 06/23/2024 02:46:49 03/27/2003/27/2023 CBC W Auto Diffe renti al panel - Blood lymphocytes [#/volume] in blood by automated count 1.32 text: 1.10 - 3.90 10 3/uL Lymph ocyte Absol [place] 1.32 1.10 - 3.90 10 3/uL 03/27 5:04 AM [facility]3] [facility] Not Available Not Available 06/23/2024 02:46:49 03/27/20 23 03/27/2023 CBC W Auto Diffe renti al panel - Blood monocytes [#/volume] in blood by automated count 0.2 text: 0.26 - 1.07 10 3/uL low Monoc ytes Absol [place] 0.20 (L) 0.26 - 1.07 10 3/uL 03/27 5:04 AM ACCIDENT EXAMINER [facility] Not Available Not Available 06/23/2024 02:46:49 03/27/20 23 03/27/2023 CBC W Auto Diffe renti al panel - Blood eosinophils [#/volume] in blood by automated count 0.06 text: 0.00 - 0.47 10 3/uL Eosin ophil s Absol [place] 0.06 0.00 - 0.47 10 3/uL 03/27 5:04 AM ACCIDENT EXAMINER [facility] Not Available Not Available 06/23/2024 02:46:49 03/27/20 23 03/27/2023 CBC W Auto Diffe renti al panel - Blood basophils [#/volume] in blood by automated count 0.02 text: 0.00 - 0.08 10 3/uL Basop hils Absol [place] 0.02 0.00 - 0.08 10 3/uL 03/27 5:04 AM ACCIDENT EXAMINER [facility] Not Available Not Available 06/23/2024 02:46:49 03/27/20 23 03/27/2023 CBC W Auto Diffe renti al panel - Blood immature granulocytes /100 leukocytes in blood by automated count 0.9 % low: 0%high : 1% Immat ure Granu locyt es % 0.9 0.0 - 1.0 % 03/27 5:04 AM [facility]3] [facility] Not Available Not Available 06/23/2024 02:46:49 03/27/2003/27/2023 CBC W Auto Diffe renti al panel - Blood immature granulocytes absolute 0.03 Immat ure Granu locyt es Absol [place] 0.03 03/27 5:04 AM [facility]3] [facility] Not Available Not Available 06/23/2024 02:46:49 03/27/20 23 03/27/2023 CBC W Auto Diffe renti al panel - Blood interpretati on and review of laboratory results Abnorm al Not Available Not Available 02:46:49 05/01/19 24 05/02/2023 Tissu e Patho logy biops y repor t pathology report.secti on heading Surgic al Pathol ogy Report Case: [id number] Author izing Provid er: Alexx Baez i, MD Collec fransico: 2023 08:43 AM Orderi ng Locati on: [facility] Receiv ed: 2023 10:02 AM Pathol ogist: Tim Benz MD Specim en: Liver Needle Biopsy , liver biopsy Case Repor t Surgi loren Patho logy Repor t Case: [id number] Autho ridoreenn g Provi ye: Elena Marcelino MD Colle cted: 05/01 08:43 AM Order ing Locat ion: [facility] Recei ayan: 05/01 10:02 AM Patho logis t: Sheldon Grant MD Speci men: Liver Needl e Biops y, liver biops y 05/02 3:22 PM ACCIDENT EXAMINER [facility] Not Available Not Available 06/23/2024 02:46:33 05/01/19 24 05/02/2023 Tissu e Patho logy biops y repor t pathology report final diagnosis narrative Liver, biopsy (A): - Cirrho sis - Featur es of chroni c choles tatic liver diseas e, see commen t Final Diagn osis Liver , biops y (A): - Cirrh osis - Featu res of chron ic jolie stati c liver disea se, see comme nt 05/02 3:22 PM ACCIDENT EXAMINER [facility] Elect charlotte natarajan d by Sheldon Grant MD on 024 at 3:22 PM Not Available Not Available 06/23/2024 02:46:33 05/01/19 24 05/02/2023 Tissu e Patho logy biops y repor t pathology report microscopic observation narrative other stain The biopsy is two relati vely thin cores of parenc hyma with signif icantl y altere d nodula r edvin ecture due to fibrot ic septa surrou nding nodule s of hepato cytes; trichr ome and reticu miranda stains confir m cirrho sis. Althou gh dense chroni c inflam mation or sheets of plasma cells are not eviden t, the interf arturo betwee n the residu al portal tracts /septa and nodule s of hepato cytes is irregu lar due to a combin ation of mixed mild chroni c inflam mation and ductul ar reacti on. Occasi onal plasma cells are presen t at the interf arturo, but do not predom inate. Ductul ar reacti on is presen t throug hout, and in some areas has a reacti ve fibrob lastic stroma associ ated. There is no granul omatou s inflam mation , and assess ment of the [place] interl obular bile ducts is diffic ult due to the marked edvin ectura l distor tion. In additi on to the ductul ar reacti on with fibrop lasia, some of the peripo rtal/p erisep nisha hepato cytes have a feathe ry degene rated appear ance, and a copper specia l stain shows excess ion copper deposi ts in all peripo rtal/p erisep nisha hepato cytes. Occasi onal hepato cytes have intrah epatoc ellula r bile (jolie stasis ). An immuno stain for CK7 (block A1, with approp riatel y staini ng contro ls) highli ghts ductul ar reacti on and extens ion biliar y metapl danie. There is no steato sis, balloo nicolasa, or featur es of steato hepati tis. The PAS-D stain is negati ve for alpha- 1 antitr ypsin globul es, and highli ghts irregu lar contou rs of occasi onal residu al bile ducts, but no defini tive associ ated lympho cytic or granul omatou s cholan gitis. The iron stain is negati ve. The liver is cirrho tic and the morpho logic featur es suppor t an underl akin chroni c choles tatic liver diseas e. Althou gh florid duct lesion s or granul omas are not seen, review of the electr onic medica l record indica ximena an elevat ed antimi tochon drial antibo dy and alkali ne phosph atase that, with histol ogic findin gs of a so-loren led biliar y-type interf arturo (ductu lar reacti on, fibrop lasia, cholat e stasis ), are compat ible with chroni c choles tasis and primar y biliar y cholan gitis (PBC). The clinic al concer n for autoim mune hepati tis in this patien t with elevat ed IgG and positi ve CONI is noted, and there are occasi onal plasma cells and a mild interf arturo hepati tis presen t which could suppor t some elemen t of PBC-AI H overla p, but in this biopsy the featur es of chroni c choles tatic liver diseas e/PBC outwei gh the featur es of chroni c hepati tis/AI H in terms of accumu lated and ongoin g liver injury . Micro scopi c Descr iptio n and Comme nt The biops y is two relat ively thin cores of paren chyma with signi fican tly alter ed nodul ar archi tectu re due to fibro tic septa surro undin g nodul es of hepat ocyte s; trich shona and retic ulin stain s confi rm cirrh osis. Altho ugh dense chron ic infla mmati on or sheet s of plasm a cells are not evide nt, the inter face betwe en the resid ual tony l tract s/sep ta and nodul es of hepat ocyte s is irreg ular due to a combi natio n of mixed mild chron ic infla mmati on and ductu lar react ion. Occas ional plasm a cells are prese nt at the inter face, but do not predo minat e. Ductu lar react ion is prese nt throu ghout , and in some areas has a react ion fibro blast ic jennifer a assoc iated . There is no granu lomat ous infla mmati on, and asses sment of the nativ e inter lobul ar bile ducts is diffi cult due to the marke d archi tectu ral disto rtion . In addit ion to the ductu lar react ion with fibro plasi a, some of the perip ortal /aissatou septa l hepat ocyte s have a feath jorge luis degen erate d appea steffen , and a coppe r speci al stain shows exces sive coppe r depos its in all perip ortal /aissatou septa l hepat ocyte s. Occas ional hepat ocyte s have intra hepat ocell ular bile (chol estas is). An immun ostai n for CK7 (bloc k A1, with appro priat devin stain ing contr ols) highl ights ductu lar react ion and exten sive bilia ry metap lasia . There is no steat osis, ballo oning , or featu res of steat ohepa titis . The PAS-D stain is negat ion for alpha -1 antit rypsi n globu les, and highl ights irreg ular conto urs of occas ional resid ual bile ducts , but no defin itive assoc iated lymph ocyti c or granu lomat ous chola ngiti s. The iron stain is negat ion. The liver is cirrh otic and the morph ologi c featu res suppo rt an under lying chron ic jolie stati c liver disea se. Altho ugh tracy d duct lesio ns or granu margarito are not seen, revie w of the elect ronic medic al recor d indic ates an eleva fransico antim itoch ondri al antib nola and alkal ine phosp hatas e that, with histo logic findi ngs of a so-ca lled bilia ry-ty pe inter face (duct ular react ion, fibro plasi a, chola te stasi s), are nicola tible with chron ic jolie stasi s and prima ry bilia ry chola ngiti s (PBC) . The clini loren ricardo rn for autoi mmune hepat itis in this patie nt with eleva fransico IgG and posit ion CONI is noted , and there are occas ional plasm a cells and a mild inter face hepat itis prese nt which could suppo rt some eleme nt of PBC-A IH overl ap, but in this biops y the featu res of chron ic jolie stati c liver disea se/PB C outwe igh the featu res of chron ic hepat itis/ AIH in terms of accum ulate d and ongoi ng liver injur y. 05/02 3:22 PM ACCIDENT EXAMINER [facility] Not Available Not Available 06/23/2024 02:46:33 05/01/19 24 05/02/2023 Tissu e Patho logy biops y repor t pathology report relevant history narrative The chely t is a 47-yea r-old woman with MELD 15, elevat ed liver enzyme s, elevat ed IgG, and positi ve CONI concer nicolasa for autoim mune hepati tis. Operat ion proced ure/fi ndings : Fluoro scopy guided transj ugular core biopsy of the liver; pressu re measur ements with hepati c venous pressu re gradie nt 9 mmHg Clini loren Histo ry The kavin nt is a 47-ye ar-ol d woman with MELD 15, eleva fransico liver enzym es, eleva fransico IgG, and posit ion CONI ricardo rning for autoi mmune hepat itis. Opera tive proce dure/ findi ngs: Fluor oscop y guide d trans jugul ar core biops y of the liver ; press ure measu remen ts with hepat ic venou s press ure gradi ent 9 mmHg 05/02 3:22 PM ACCIDENT EXAMINER [facility] Not Available Not Available 06/23/2024 02:46:33 05/01/19 24 05/02/2023 Tissu e Patho logy biops y repor t pathology report gross observation narrative The requis ition and specim en(s) are identi fied with the chely t's name Corazon Lugo . Receiv ed in formal in, specim en A, consis ts of 3 enriquez-ye llow cylind rical cores, 0.6-1. 6 cm length x each 0.1 cm in diamet er, submit fransico in toto in casset te A1. BAJ Gross Descr iptio n The requi sitio n and speci men(s ) are ident ified with the kavin nt's name Tuan bryson. Recei ayan in forma miranda, speci men A, consi sts of 3 enriquez-y ellow cylin drica l cores , 0.6-1 .6 cm lengt h x each 0.[address], submi tted in toto in casse tte A1. BAJ 05/02 3:22 PM ACCIDENT EXAMINER [facility] Not Available Not Available 06/23/2024 02:46:33 05/01/1905/02/2023 Tissu e Patho logy biops y repor t [facility] johnie Engelhard 05/02 3:22 PM ACCIDENT EXAMINER [facility] Not Available Not Available 06/23/2024 02:46:33 05/01/1905/02/2023 Tissu e Patho logy biops y repor t service comment The perfor gautam charac terist ics of all immuno histoc hemica l and indire ct immuno fluore scence stains (if any) cited in this report were determ ined by the Histop atholo gy Labora tory of [facility]. Some of these tests were develo ped by our own labora tory and have not been cleare d or approv ed by the [place] Food and Drug Admini strati on. The FDA does not requir e this test to go throug h premar ket FDA review . These tests are used for clinic al purpos es. They should not be regard ed as invest igatio nal or for resear ch. This amarjita shayla is certif ied under the Clinic al Teresa mcguire Improv ement Amendm ents (CLIA) as qualif ied to perfor m high comple xity clinic al teresa mcguire testin g. This case has been person ally review ed and interp reted by the attend ing (teach ing) pathol ogist. Discl aimer The perfo rmanc e dario cteri stics of all immun ohist ochem ical and indir ect immun ofluo resce nce stain s (if any) cited in this repor t were deter mined by the Histo patho logy Labor atory of [facility] . Some of these tests were devel oped by our own labor atory and have not been clear ed or appro ayan by the US Food and Drug Admin istra tion. The FDA does not requi re this test to go throu gh nico rket FDA revie w. These tests are used for clini loren purpo ses. They shoul d not be regar ded as inves tigat ional or for resea rch. This labor atory is certi fied under the Clini loren Labor atory Impro vemen t Amend ments (CLIA ) as quali fied to perfo rm high compl exity clini loren labor atory testi ng. This case has been perso joe revie wed and inter prete d by the [facility] t. 05/02 3:22 PM ACCIDENT EXAMINER [facility] Not Available Not Available 06/23/2024 02:46:33 05/01/19 24 05/02/2023 Tissu e Patho logy biops y repor t collected by Alexx Baez i, MD Colle cted By Elena Marcelino MD 05/02 3:22 PM ACCIDENT EXAMINER [facility] Not Available Not Available 06/23/2024 02:46:33 05/01/19 24 05/02/2023 Tissu e Patho logy biops y repor t embedded images Embed ded Image s 05/02 3:22 PM ACCIDENT EXAMINER [facility] Not Available Not Available 06/23/2024 02:46:33 06/05/19 24 06/05/2023 HEPAT IC FUNCT ION PANEL (7) protein, total 7.5 g/dL 6.0-8. 5 Not Available [facility] Department [address] [place] [address], [id number], 06/05/2023 23:07:43 06/05/19 24 06/05/2023 HEPAT IC FUNCT ION PANEL (7) albumin 3.6 g/dL 3.9-4. 9 below low normal Not Available [facility] Department [address] [place], [address], 06/05/2023 23:07:43 06/05/19 24 06/05/2023 HEPAT IC FUNCT ION PANEL (7) bilirubin, total 4.5 mg/dL 0.0-1. 2 above high normal Not Available [facility] Department [address] [place], [address], 06/05/2023 23:07:43 06/05/19 24 06/05/2023 HEPAT IC FUNCT ION PANEL (7) bilirubin, direct 3.12 mg/dL 0.00-0 .40 above high normal Not Available [facility] Department [address] [place], [address], 06/05/2023 23:07:43 06/05/19 24 06/05/2023 HEPAT IC FUNCT ION PANEL (7) alkaline phosphatase 345 IU/L 44-121 above high normal Not Available [facility] Department [address] [place] [address], [id number], 06/05/2023 23:07:43 06/05/19 24 06/05/2023 HEPAT IC FUNCT ION PANEL (7) AST (SGOT) 89 IU/L 0-40 above high normal Not Available [facility] Department [address] [place] [address], [id number], 06/05/2023 23:07:43 06/05/19 24 06/05/2023 HEPAT IC FUNCT ION PANEL (7) ALT (SGPT) 55 IU/L 0-32 above high normal Not Available [facility] Department [address] [place] [address], [id number], 06/05/2023 23:07:43 06/05/19 24 06/05/2023 CBC WITH DIFFE RENTI AL/PL ATELE T WBC 4.7 x10e3 /uL 3.4-10 .8 Not Available [facility] Department [address] [place], [address], 06/05/2023 23:07:43 06/05/19 24 06/05/2023 CBC WITH DIFFE RENTI AL/PL ATELE T RBC 3.95 x10e6 /uL 3.77-5 .28 Not Available [facility] Department [address] [place], [address], 06/05/2023 23:07:43 06/05/19 24 06/05/2023 CBC WITH DIFFE RENTI AL/PL ATELE T hemoglobin 11.6 g/dL 11.1-1 5.9 Not Available [facility] [address] [place], [address], 06/05/2023 23:07:43 06/05/19 24 06/05/2023 CBC WITH DIFFE RENTI AL/PL ATELE T hematocrit 36.8 % 34.0-4 6.6 Not Available [facility] [address] [place], [address], 06/05/2023 23:07:43 06/05/19 24 06/05/2023 CBC WITH DIFFE RENTI AL/PL ATELE T MCV 93 fL 79-97 Not Available [facility] Department [address] [place], [address], 06/05/2023 23:07:43 06/05/19 24 06/05/2023 CBC WITH DIFFE RENTI AL/PL ATELE T MCH 29.4 pg 26.6-3 3.0 Not Available [facility] [address] [place], [address], 06/05/2023 23:07:43 06/05/19 24 06/05/2023 CBC WITH DIFFE RENTI AL/PL ATELE T MCHC 31.5 g/dL 31.5-3 5.7 Not Available [facility] [address] [place], [address], 06/05/2023 23:07:43 06/05/19 24 06/05/2023 CBC WITH DIFFE RENTI AL/PL ATELE T RDW 17.6 % 11.5-1 4.5 above high normal Not Available [facility] [address] [place], [address], 06/05/2023 23:07:43 06/05/19 24 06/05/2023 CBC WITH DIFFE RENTI AL/PL ATELE T platelets 212 x10e3 /uL 150-45 0 Not Available [facility] [address] [place], [address], 06/05/2023 23:07:43 06/05/19 24 06/05/2023 CBC WITH DIFFE RENTI AL/PL ATELE T neutrophils 61 % notest b. Not Available [facility] [address] [place], [address], 06/05/2023 23:07:43 06/05/19 24 06/05/2023 CBC WITH DIFFE RENTI AL/PL ATELE T lymphs 25 % notest b. Not Available [facility] [address] [place], [address], 06/05/2023 23:07:43 06/05/19 24 06/05/2023 CBC WITH DIFFE RENTI AL/PL ATELE T monocytes 7 % notest b. Not Available [facility] [address] [place] [address], [id number], 06/05/2023 23:07:43 06/05/19 24 06/05/2023 CBC WITH DIFFE RENTI AL/PL ATELE T eos 5 % notest b. Not Available [facility] Department [address] [place], [address], 06/05/2023 23:07:43 06/05/19 24 06/05/2023 CBC WITH DIFFE RENTI AL/PL ATELE T basos 1 % notest b. Not Available [facility] Department [address] [place], [address], 06/05/2023 23:07:43 06/05/19 24 06/05/2023 CBC WITH DIFFE RENTI AL/PL ATELE T neutrophils (absolute) 2.9 x10e3 /uL 1.4-7. 0 Not Available [facility] Department [address] [place], [address], 06/05/2023 23:07:43 06/05/19 24 06/05/2023 CBC WITH DIFFE RENTI AL/PL ATELE T lymphs (absolute) 1.2 x10e3 /uL 0.7-3. 1 Not Available [facility] Department [address] [place], [address], 06/05/2023 23:07:43 06/05/19 24 06/05/2023 CBC WITH DIFFE RENTI AL/PL ATELE T monocytes(ab solute) 0.3 x10e3 /uL 0.1-0. 9 Not Available [facility] Department [address] [place], [address], 06/05/2023 23:07:43 06/05/19 24 06/05/2023 CBC WITH DIFFE RENTI AL/PL ATELE T eos (absolute) 0.3 x10e3 /uL 0.0-0. 4 Not Available [facility] Department [address] [place], [address], 06/05/2023 23:07:43 06/05/19 24 06/05/2023 CBC WITH DIFFE RENTI AL/PL ATELE T baso (absolute) 0.0 x10e3 /uL 0.0-0. 2 Not Available [facility] Department [address] [place], [address], 06/05/2023 23:07:43 06/05/19 24 06/05/2023 CBC WITH DIFFE RENTI AL/PL ATELE T immature granulocytes 1.1 % notest b. Not Available [facility] Department [address] [place], [address], 06/05/2023 23:07:43 06/05/19 24 06/05/2023 CBC WITH DIFFE RENTI AL/PL ATELE T immature grans (abs) 0.1 x10e3 /uL 0.0-0. 1 Not Available [facility] Department [address] [place], [address], 06/05/2023 23:07:43 06/05/19 24 06/05/2023 CBC WITH DIFFE RENTI AL/PL ATELE T NRBC 0 % 0-0 Not Available [facility] Department [address] [place], [address], 06/05/2023 23:07:43 06/05/19 24 06/06/2023 BMP8+ 1AC+C ORREC FRANSICO CALCI UM LOREN glucose 172 mg/dL 70-99 above high normal Not Available [facility] ([facility]) [address] [place], [address], 06/07/2023 06:24:51 06/05/19 24 06/06/2023 BMP8+ 1AC+C ORREC FRANSICO CALCI UM LOREN BUN 9 mg/dL 6-24 Not Available [facility] ([facility]) [address] [place], [address], 06/07/2023 06:24:51 06/05/19 24 06/06/2023 BMP8+ 1AC+C ORREC FRANSICO CALCI UM LOREN creatinine 0.68 mg/dL 0.57-1 .00 Not Available [facility] ([facility]) [address] [facility], [place], [address], 06/07/2023 06:24:51 06/05/19 24 06/06/2023 BMP8+ 1AC+C ORREC FRANSICO CALCI UM LOREN eGFR 107 mL/mi n/1.7 3 >59 Not Available [facility] ([facility]) [address] [place], [address], 06/07/2023 06:24:51 06/05/19 24 06/06/2023 BMP8+ 1AC+C ORREC FRANSICO CALCI UM LOREN BUN/creatini ne ratio 13 9-23 Not Available [facility] ([facility]) [address] [place], [address], 06/07/2023 06:24:51 06/05/19 24 06/06/2023 BMP8+ 1AC+C ORREC FRANSICO CALCI UM LOREN sodium 135 mmol/ L 134-14 4 Not Available [facility] ([facility]) [address] [place], [address], 06/07/2023 06:24:51 06/05/19 24 06/06/2023 BMP8+ 1AC+C ORREC FRANSICO CALCI UM LOREN potassium 4.4 mmol/ L 3.5-5. 2 Not Available [facility] ([facility]) [address] [place], [address], 06/07/2023 06:24:51 06/05/19 24 06/06/2023 BMP8+ 1AC+C ORREC FRANSICO CALCI UM LOREN chloride 102 mmol/ L 96-106 Not Available [facility] ([facility]) [address] [place], [address], 06/07/2023 06:24:51 06/05/19 24 06/06/2023 BMP8+ 1AC+C ORREC FRANSICO CALCI UM LOREN carbon dioxide, total 19 mmol/ L 20-29 below low normal Not Available [facility] ([facility]) [address] [place], [address], 06/07/2023 06:24:51 06/05/19 24 06/06/2023 BMP8+ 1AC+C ORREC FRANSICO CALCI UM LOREN calcium 8.5 mg/dL 8.7-10 .2 below low normal Not Available [facility] ([facility]) [address] [place], [address], 06/07/2023 06:24:51 06/05/19 24 06/06/2023 BMP8+ 1AC+C ORREC FRANSICO CALCI UM LOREN corrected calcium 8.9 mg/dL Not Available [facility] ([facility]) [address] [place], [address], 06/07/2023 06:24:51 06/05/19 24 06/06/2023 BMP8+ 1AC+C ORREC FRANSICO CALCI UM LOREN albumin 3.5 g/dL 3.9-4. 9 below low normal Not Available [facility] ([facility]) [address] [facility], [place], [address], 06/07/2023 06:24:51 06/05/19 24 06/06/2023 IMMUN OGLOB ULINS A/G/M , QN, SER immunoglobul in g, qn, serum 1463 mg/dL 586-16 02 Not Available [facility] ([facility]) [address] [place], [address], 06/07/2023 06:24:52 06/05/19 24 06/06/2023 IMMUN OGLOB ULINS A/G/M , QN, SER immunoglobul in A, qn, serum 239 mg/dL 87-352 Not Available [facility] ([facility]) [address] [place], [address], 06/07/2023 06:24:52 06/05/19 24 06/07/2023 IMMUN OGLOB ULINS A/G/M , QN, SER immunoglobul in M, qn, serum 700 mg/dL 26-217 above high normal Resul ts confi rmed on dilut ion. Not Available [facility] ([facility]) [address] [place], [address], 06/07/2023 06:24:52 06/11/19 24 06/12/2023 NT-MO OBNP nt-probnp 39 pg/mL 0-249 The follo wing cut-p oints have been sugge sted for the use of proBN P for the diagn ostic evalu ation of heart failu re (HF) in patie nts with acute dyspn ea: Modal ity Age Optim al Cut (year s) Point ----- ----- ----- ----- ----- ----- ----- ----- ----- ----- ---- Diagn osis (rule in HF) <50 450 pg/mL 50 - 75 900 pg/mL >75 1800 pg/mL Exclu nia (rule out HF) Age indep enden t 300 pg/mL Not Available [facility] ([facility]) [address] [facility], [place], [address], 06/12/2023 08:23:40 10/29/1910/29/2023 Urina lysis panel - Urine by Auto color UA Yazmin text: straw, yellow abnormal Color UA Yazmin (A) Straw Tammieo w 10/28 9:39 AM CDT [facility] Not Available Not Available 06/23/2024 02:46:00 10/29/1910/29/2023 Urina lysis panel - Urine by Auto clarity UA Slt Cloudy text: clear abnormal Frida ty UA Slt Mccormick y (A) Clear 10/28 9:39 AM CDT [facility] Not Available Not Available 06/23/2024 02:46:00 10/29/1910/29/2023 Urina lysis panel - Urine by Auto specific gravity UA 1.02 low: 1.005h igh: 1.03 Speci fic Gravi ty UA 1.020 1.005 - 1.030 10/28 9:39 AM CDT [facility] Not Available Not Available 06/23/2024 02:46:00 10/29/1910/29/2023 Urina lysis panel - Urine by Auto pH UA 5 pH low: 5pHhig h: 8pH pH UA 5.0 5.0 - 8.0 pH 10/28 9:39 AM CDT [facility] Not Available Not Available 06/23/2024 02:46:00 10/29/1910/29/2023 Urina lysis panel - Urine by Auto protein UA Negati ve text: negati ve Prote in UA Negat ion Negat ion 10/28 9:39 AM CDT [facility] Not Available Not Available 06/23/2024 02:46:00 10/29/19 24 10/29/2023 Urina lysis panel - Urine by Auto glucose UA Negati ve text: negati ve Gluco se UA Negat ion Negat ion 10/28 9:39 AM CDT [facility] Not Available Not Available 06/23/2024 02:46:00 10/29/19 24 10/29/2023 Urina lysis panel - Urine by Auto ketone UA Negati ve text: negati ve Keton e UA Negat ion Negat ion 10/28 9:39 AM CDT [facility] Not Available Not Available 06/23/2024 02:46:00 10/29/19 24 10/29/2023 Urina lysis panel - Urine by Auto bilirubin UA 2+ text: negati ve abnormal Bilir ubin UA 2+ (A) Negat ion 10/28 9:39 AM CDT [facility] Not Available Not Available 06/23/2024 02:46:00 10/29/19 24 10/29/2023 Urina lysis panel - Urine by Auto blood UA Negati ve text: negati ve Blood UA Negat ion Negat ion 10/28 9:39 AM CDT [facility] Not Available Not Available 06/23/2024 02:46:00 10/29/19 24 10/29/2023 Urina lysis panel - Urine by Auto nitrite UA Negati ve text: negati ve Nitri te UA Negat ion Negat ion 10/28 9:39 AM CDT [facility] Not Available Not Available 06/23/2024 02:46:00 10/29/1910/29/2023 Urina lysis panel - Urine by Auto leukocyte esterase Negati ve text: negati ve Leuko cyte Isadora ase Negat ion Negat ion 10/28 9:39 AM CDT [facility] Not Available Not Available 06/23/2024 02:46:00 10/29/19 24 10/29/2023 Urina lysis panel - Urine by Auto urobilinogen UA 4 mg/dL text: negati ve abnormal Urobi linog en UA 4.0 (A) Negat ion mg/dL 10/28 9:39 AM CDT [facility] Not Available Not Available 06/23/2024 02:46:00 10/29/1910/29/2023 Urina lysis panel - Urine by Auto RBC UA 0-2 text: none seen, 0-2, 3-5 /hpf RBC UA 0-2 None Seen, 0-2, 3-5 /HPF 10/28 9:39 AM CDT [facility] Not Available Not Available 06/23/2024 02:46:00 10/29/1910/29/2023 Urina lysis panel - Urine by Auto WBC UA 0-5 text: none seen, 0-5 /hpf WBC UA 0-5 None Seen, 0-5 /HPF 10/28 9:39 AM CDT [facility] Not Available Not Available 06/23/2024 02:46:00 10/29/1910/29/2023 Urina lysis panel - Urine by Auto squamous epithelial cells UA 6-10 text: none seen, 0-2, 3-5 /hpf abnormal Squam ous Epith elial Cells UA 6-10 (A) None Seen, 0-2, 3-5 /HPF 10/28 9:39 AM CDT [facility] Not Available Not Available 06/23/2024 02:46:00 10/29/1910/29/2023 Urina lysis panel - Urine by Auto mucus UA 1+ text: /lpf Mucus UA 1+ /LPF 10/28 9:39 AM CDT [facility] Not Available Not Available 06/23/2024 02:46:00 10/29/1910/29/2023 Urina lysis panel - Urine by Auto Unknown Analyte Not Available Not Available 06/01 02:46:00 10/29/1910/29/2023 Urina lysis panel - Urine by Auto interpretati on and review of laboratory results Abnorm al Not Available Not Available 02:46:00 10/29/19 24 10/29/[address] [Mass /volu me] in Serum or Plasm a parathyrin.i ntact [mass/volume ] in serum or plasma 29.6 pg/mL low: 8pg/mL high: 77pg/m L PTH Intac t 29.6 8.0 - 77.0 pg/mL 10/28 9:33 AM CDT [facility] Not Available Not Available 06/23/2024 02:46:00 10/29/19 24 10/29/[address] [Mass /volu me] in Serum or Plasm a interpretati on and review of laboratory results Normal Not Available Not Available 06/01 02:46:00 10/29/19 24 10/29/2023 Iron [Mass /volu me] in Serum or Plasm a iron [mass/volume ] in serum or plasma 72 ug/dL low: 40ug/d Lhigh: 150ug/ dL Iron 72 40 - 150 ug/dL 10/28 9:34 AM T [facility] Not Available Not Available 06/23/2024 02:46:00 10/29/19 24 10/29/2023 Iron [Mass /volu me] in Serum or Plasm a interpretati on and review of laboratory results Normal Not Available Not Available 06/01 02:46:00 10/29/19 24 10/29/2023 Eliane tin [Mass /volu me] in Serum or Plasm a ferritin [mass/volume ] in serum or plasma 48 NG/mL low: 13NG/m Lhigh: 204NG/ mL Eliane tin 48 13 - 204 ng/mL 10/28 9:37 AM [facility] Not Available Not Available 06/23/2024 02:46:00 10/29/19 24 10/29/2023 Eliane tin [Mass /volu me] in Serum or Plasm a interpretati on and review of laboratory results Normal Not Available Not Available 06/01 02:46:00 10/29/19 24 10/29/2023 Trans eliane n [Mass /volu me] in Serum or Plasm a transferrin [mass/volume ] in serum or plasma 335 mg/dL low: 174mg/ dLhigh : 382mg/ dL Trans eliane n 335 174 - 382 mg/dL 10/28 9:34 AM T [facility] Not Available Not Available 06/23/2024 02:46:00 10/29/19 24 10/29/2023 Trans eliane n [Mass /volu me] in Serum or Plasm a interpretati on and review of laboratory results Normal Not Available Not Available 06/01 02:46:00 10/29/1910/29/2023 Compr ehens ion metab olic 1999 panel - Serum or Plasm a urea nitrogen [mass/volume ] in serum or plasma 15 mg/dL low: 7mg/dL high: 26mg/d L BUN 15 7 - 26 mg/dL 10/28 9:28 AM T [facility] Not Available Not Available 06/23/2024 02:46:00 10/29/1910/29/2023 Compr ehens ion metab olic 1999 panel - Serum or Plasm a creatinine [mass/volume ] in serum or plasma 0.95 mg/dL low: 0.56mg /dLhig h: 0.96mg /dL Creat inine 0.95 0.56 - 0.96 mg/dL 10/28 9:28 AM [facility] Not Available Not Available 06/23/2024 02:46:00 10/29/19 24 10/29/2023 Compr ehens ion metab olic 1999 panel - Serum or Plasm a sodium [moles/volum e] in serum or plasma 137 mmol/ L low: 136mmo l/Lhig h: 145mmo l/L Sodiu m 137 136 - 145 mmol/ L 10/28 9:28 AM T [facility] Not Available Not Available 06/23/2024 02:46:00 10/29/19 24 10/29/2023 Compr ehens ion metab olic 1999 panel - Serum or Plasm a potassium [moles/volum e] in serum or plasma 4.1 mmol/ L low: 3.5mmo l/Lhig h: 4.5mmo l/L Potas sium 4.1 3.5 - 4.5 mmol/ L 10/28 9:28 AM [facility] Not Available Not Available 06/23/2024 02:46:00 10/29/19 24 10/29/2023 Compr ehens ion metab olic 1999 panel - Serum or Plasm a chloride [moles/volum e] in serum or plasma 106 mmol/ L low: 98mmol /Lhigh : 107mmo l/L Chlor leighann 106 98 - 107 mmol/ L 10/28 9:28 AM T [facility] Not Available Not Available 06/23/2024 02:46:00 10/29/1910/29/2023 Compr ehens ion metab olic 1999 panel - Serum or Plasm a carbon dioxide, total [moles/volum e] in serum or plasma 24 mmol/ L low: 22mmol /Lhigh : 29mmol /L CO2 24 22 - 29 mmol/ L 10/28 9:28 AM [facility] Not Available Not Available 06/23/2024 02:46:00 10/29/1910/29/2023 Compr ehens ion metab olic 1999 panel - Serum or Plasm a glucose [mass/volume ] in serum or plasma 87 mg/dL low: 70mg/d Lhigh: 115mg/ dL Gluco se 87 70 - 115 mg/dL 10/28 9:28 AM [facility] Not Available Not Available 06/23/2024 02:46:00 10/29/19 24 10/29/2023 Compr ehens ion metab olic 1999 panel - Serum or Plasm a calcium [moles/volum e] in serum or plasma 8.7 mg/dL low: 8.4mg/ dLhigh : 10.2mg /dL Calci um 8.7 8.4 - 10.2 mg/dL 10/28 9:28 AM [facility] Not Available Not Available 06/23/2024 02:46:00 10/29/19 24 10/29/2023 Compr ehens ion metab olic 2000 panel - Serum or Plasm a protein [mass/volume ] in serum or plasma 7.8 g/dL low: 6g/dLh igh: 8.3g/d L Prote in Total 7.8 6.0 - 8.3 g/dL 10/28 9:28 AM CDT [facility] Not Available Not Available 06/23/2024 02:46:00 10/29/19 24 10/29/2023 [facility] ion metab [facility] 1999 panel - Serum or Plasm a albumin [mass/volume ] in serum or plasma by bromocresol green (bcg) dye binding method 2.3 g/dL low: 3.4g/d Lhigh: 5g/dL low Album in 2.3 (L) 3.4 - 5.0 g/dL 10/28 9:28 AM CDT [facility] Not Available Not Available 06/23/2024 02:46:00 10/29/1910/29/2023 [facility] ion metab ic 1999 panel - Serum or Plasm a bilirubin.to nisha [mass/volume ] in serum or plasma 6.6 mg/dL low: 0.2mg/ dLhigh : 1.2mg/ dL high Bilir ubin Total 6.6 (H) 0.2 - 1.2 mg/dL 10/28 9:28 AM CDT [facility] Not Available Not Available 06/23/2024 02:46:00 10/29/19 24 10/29/2023 [facility] ion metab olic 1999 panel - Serum or Plasm a alkaline phosphatase [enzymatic activity/vol ume] in serum or plasma 266 U/L low: 40U/Lh igh: 150U/L high Alkal ine Phosp hatas e 266 (H) 40 - 150 U/L 10/28 9:28 AM CDT [facility] Not Available Not Available 06/23/2024 02:46:00 10/29/19 24 10/29/2023 Compr ens ion metab olic 2000 panel - Serum or Plasm a alanine aminotransfe rase [enzymatic activity/vol ume] in serum or plasma by no addition of P-5'-P 32 U/L low: 5U/Lhi gh: 55U/L ALT 32 5 - 55 U/L 10/28 9:28 AM CDT [facility] Not Available Not Available 06/23/2024 02:46:00 10/29/19 24 10/29/2023 Compr ehens ion metab olic 2000 panel - Serum or Plasm a aspartate aminotransfe rase [enzymatic activity/vol ume] in serum or plasma 74 U/L low: 5U/Lhi gh: 34U/L high AST 74 (H) 5 - 34 U/L 10/28 9:28 AM CDT [facility] Not Available Not Available 06/23/2024 02:46:00 10/29/1910/29/2023 Compr ehens ion metab olic 2000 panel - Serum or Plasm a anion gap 7 low: 6high: 16 Anion Gap 7 6 - 16 10/28 9:28 AM CDT [facility] Not Available Not Available 06/23/2024 02:46:00 10/29/19 24 10/29/2023 Compr ehens ion metab olic 2000 panel - Serum or Plasm a urea nitrogen/cre atinine [mass ratio] in serum or plasma 16 low: 7high: 23 BUN/C reati nine Ratio 16 7 - 23 10/28 9:28 AM CDT [facility] Not Available Not Available 06/23/2024 02:46:00 10/29/19 24 10/29/2023 Compr ehens ion metab olic 2000 panel - Serum or Plasm a osmolality calculated 284 text: 275 - 295 mOsm/k g Osmol ality Calcu lated 284 275 - 295 mOsm/ kg 10/28 9:28 AM CDT [facility] Not Available Not Available 06/23/2024 02:46:00 10/29/19 24 10/29/2023 Compr ehens ion metab olic 2000 panel - Serum or Plasm a albumin/glob ulin ratio 0.4 low: 1.1hig h: 2.3 low Album in/Gl obuli n Ratio 0.4 (L) 1.1 - 2.3 10/28 9:28 AM CDT [facility] Not Available Not Available 06/23/2024 02:46:00 10/29/1910/29/2023 Compr ehens ion metab olic 2000 panel - Serum or Plasm a glomerular filtration rate/1.73 sq M.predicted [volume rate/area] in serum, plasma or blood by creatinine-b ased formula (CKD-epi) 73 text: >=90 mL/min /1.73 m2 low eGFR by CKD-E PI 73 (L) >=90 mL/mi n/1.7 3 m2 10/28 9:28 AM [facility] Not Available Not Available 06/23/2024 02:46:00 10/29/1910/29/2023 Compr ehens ion metab olic 1999 panel - Serum or Plasm a interpretati on and review of laboratory results Abnorm al Not Available Not Available 02:46:00 10/29/1910/29/2023 CBC W Auto Diffe renti al panel - Blood leukocytes [#/volume] in blood by automated count 3.6 text: 4.0 - 10.7 x10e9/ L low WBC 3.6 (L) 4.0 - 10.7 x10E9 /L 10/28 9:08 AM [facility] Not Available Not Available 06/23/2024 02:46:00 10/29/1910/29/2023 CBC W Auto Diffe renti al panel - Blood erythrocytes [#/volume] in blood by automated count 3.2 text: 3.90 - 5.20 x10e12 /L low RBC Count 3.20 (L) 3.90 - 5.20 x10E1 2/L 10/28 9:08 AM [facility] Not Available Not Available 06/23/2024 02:46:00 10/29/19 24 10/29/2023 CBC W Auto Diffe renti al panel - Blood hemoglobin [mass/volume ] in blood 10.1 g/dL low: 11.9g/ dLhigh : 15.8g/ dL low Hemog lobin 10.1 (L) 11.9 - 15.8 g/dL 10/28 9:08 AM [facility] NISHA Not Available Not Available 06/23/2024 02:46:00 10/29/1910/29/2023 CBC W Auto Diffe renti al panel - Blood hematocrit [volume fraction] of blood by automated count 29.2 % low: 34.8%h igh: 46.1% low Hemat ocrit 29.2 (L) 34.8 - 46.1 % 10/28 9:08 AM [facility] N[facility] Not Available Not Available 06/23/2024 02:46:00 10/29/1910/29/2023 CBC W Auto Diffe renti al panel - Blood MCV [entitic volume] by automated count 91.3 fL low: 80fLhi gh: 98fL MCV 91.3 80.0 - 98.0 fL 10/28 9:08 AM [facility] N[facility] Not Available Not Available 06/23/2024 02:46:00 10/29/1910/29/2023 CBC W Auto Diffe renti al panel - Blood MCH [entitic mass] by automated count 31.6 pg low: 26.7pg high: 33.6pg MCH 31.6 26.7 - 33.6 pg 10/28 9:08 AM [facility] Not Available Not Available 06/23/2024 02:46:00 10/29/1910/29/2023 CBC W Auto Diffe renti al panel - Blood MCHC [mass/volume ] by automated count 34.6 g/dL low: 31.7g/ dLhigh : 36.3g/ dL MCHC 34.6 31.7 - 36.3 g/dL 10/28 9:08 AM [facility] Not Available Not Available 06/23/2024 02:46:00 10/29/1910/29/2023 CBC W Auto Diffe renti al panel - Blood erythrocyte distribution width [ratio] by automated count 18.3 % low: 11.3%h igh: 14.8% high RDW-C V 18.3 (H) 11.3 - 14.8 % 10/28 9:08 AM T [facility] Not Available Not Available 06/23/2024 02:46:00 10/29/1910/29/2023 CBC W Auto Diffe renti al panel - Blood platelets [#/volume] in blood by automated count 183 text: 150 - 420 x10e9/ L Plate let Count 183 150 - 420 x10E9 /L 10/28 9:08 AM [facility] Not Available Not Available 06/23/2024 02:46:00 10/29/1910/29/2023 CBC W Auto Diffe renti al panel - Blood platelet mean volume [entitic volume] in blood by automated count 9.9 fL low: 7.8fLh igh: 11.4fL MPV 9.9 7.8 - 11.4 fL 10/28 9:08 AM [facility] Not Available Not Available 06/23/2024 02:46:00 10/29/19 24 10/29/2023 CBC W Auto Diffe renti al panel - Blood neutrophils/ 100 leukocytes in blood by automated count 58.9 % low: 41%hig h: 74% Neutr ophil % 58.9 41.0 - 74.0 % 10/28 9:08 AM [facility] Not Available Not Available 06/23/2024 02:46:00 10/29/1910/29/2023 CBC W Auto Diffe renti al panel - Blood lymphocytes/ 100 leukocytes in blood by automated count 32.2 % low: 17%hig h: 47% Lymph ocyte % 32.2 17.0 - 47.0 % 10/28 9:08 AM T [facility] Not Available Not Available 06/23/2024 02:46:00 10/29/1910/29/2023 CBC W Auto Diffe renti al panel - Blood monocytes/10 0 leukocytes in blood by automated count 4.7 % low: 3%high : 11% Monoc yte % 4.7 3.0 - 11.0 % 10/28 9:08 AM T [facility] N[facility] Not Available Not Available 06/23/2024 02:46:00 10/29/19 24 10/29/2023 CBC W Auto Diffe renti al panel - Blood eosinophils/ 100 leukocytes in blood by automated count 3.3 % low: 0%high : 7% Eosin ophil % 3.3 0.0 - 7.0 % 10/28 9:08 AM CDT [facility] N[facility] Not Available Not Available 06/23/2024 02:46:00 10/29/19 24 10/29/2023 CBC W Auto Diffe renti al panel - Blood basophils/10 0 leukocytes in blood by automated count 0.6 % low: 0%high : 1.6% Basop hil % 0.6 0.0 - 1.6 % 10/28 9:08 AM T [facility] Not Available Not Available 06/23/2024 02:46:00 10/29/1910/29/2023 CBC W Auto Diffe renti al panel - Blood immature granulocytes /100 leukocytes in blood by automated count 0.3 % low: 0%high : 1% Immat ure Granu locyt es % 0.3 0.0 - 1.0 % 10/28 9:08 AM T [facility] Not Available Not Available 06/23/2024 02:46:00 10/29/1910/29/2023 CBC W Auto Diffe renti al panel - Blood neutrophils [#/volume] in blood by automated count 2.12 text: 1.60 - 7.50 x10e9/ L Neutr ophil Absol [place] 2.12 1.60 - 7.50 x10E9 /L 10/28 9:08 AM T [facility] Not Available Not Available 06/23/2024 02:46:00 10/29/19 24 10/29/2023 CBC W Auto Diffe renti al panel - Blood lymphocytes [#/volume] in blood by automated count 1.16 text: 1.00 - 4.40 x10e9/ L Lymph ocyte Absol [place] 1.16 1.00 - 4.40 x10E9 /L 10/28 9:08 AM [facility] Not Available Not Available 06/23/2024 02:46:00 10/29/19 24 10/29/2023 CBC W Auto Diffe renti al panel - Blood monocytes [#/volume] in blood by automated count 0.17 text: 0.15 - 1.00 x10e9/ L Monoc yte Absol [place] 0.17 0.15 - 1.00 x10E9 /L 10/28 9:08 AM [facility] Not Available Not Available 06/23/2024 02:46:00 10/29/19 24 10/29/2023 CBC W Auto Diffe renti al panel - Blood eosinophils [#/volume] in blood 0.12 text: 0.00 - 0.60 x10e9/ L Eosin ophil Absol [place] 0.12 0.00 - 0.60 x10E9 /L 10/28 9:08 AM [facility] Not Available Not Available 06/23/2024 02:46:00 10/29/19 24 10/29/2023 CBC W Auto Diffe renti al panel - Blood basophils [#/volume] in blood by automated count 0.02 text: 0.00 - 0.13 x10e9/ L Basop hil Absol [place] 0.02 0.00 - 0.13 x10E9 /L 10/28 9:08 AM [facility] Not Available Not Available 06/23/2024 02:46:00 10/29/19 24 10/29/2023 CBC W Auto Diffe renti al panel - Blood interpretati on and review of laboratory results Abnorm al Not Available Not Available 02:46:00 10/29/19 24 10/29/2023 Blood type and Indir ect antib nola scree n panel - Blood blood group antibody screen [presence] in serum or plasma NEG Antib nola Scree n NEG 10/28 9:47 AM [facility] Not Available Not Available 06/23/2024 02:46:00 10/29/19 24 10/29/2023 Blood type and Indir ect antib nola scree n panel - Blood ABO and Rh group [type] in blood O POS ABO Rh O POS 10/28 9:47 AM CDT [facility] Not Available Not Available 06/23/2024 02:46:00 10/29/19 24 10/30/2023 Cardi olipi n IgG and IgM panel - Serum cardiolipin IgG Ab [units/volum e] in serum by immunoassay <10 text: <=14 gpl Cardi olipi n Antib nola IgG <10 <=14 GPL 10/29 9:09 PM CDT [facility] ([facility]) Not Available Not Available 06/23/2024 02:45:59 10/29/19 24 10/30/2023 Cardi olipi n IgG and IgM panel - Serum cardiolipin IgM Ab [units/volum e] in serum by immunoassay 22 text: <=12 mpl high Cardi olipi n Antib nola IgM 22 (H) <=12 MPL 10/29 9:09 PM CDT [facility] ([facility]) Not Available Not Available 06/23/2024 02:45:59 10/29/19 24 10/30/2023 Cardi olipi n IgG and IgM panel - Serum Unknown Analyte This test has been ordere d as a part of the Antiph osphol ipid Syndro me Reflex Panel ([id number]). This test has been order ed as a part of the Antip hosph olipi d Syndr ome Refle x Panel ([id number]). Not Available Not Available 06/23/2024 02:45:59 10/29/19 24 10/30/2023 Cardi olipi n IgG and IgM panel - Serum interpretati on and review of laboratory results Abnorm al Not Available Not Available 02:45:59 10/29/19 24 10/30/2023 Beta 2 glyco prote in 1 IgG and IgM panel - Serum beta 2 glycoprotein 1 IgG Ab [units/volum e] in serum or plasma by immunoassay <10 text: <=20 sgu Beta- 2 Glyco prote in Antib nola IgG <10 <=20 SGU 10/29 9:08 PM CDT [facility] ([facility]) Not Available Not Available 06/23/2024 02:45:59 10/29/19 24 10/30/2023 Beta 2 glyco prote in 1 IgG and IgM panel - Serum beta 2 glycoprotein 1 IgM Ab [units/volum e] in serum or plasma by immunoassay <10 text: <=20 smu Beta- 2 Glyco prote in Antib nola IgM <10 <=20 SMU 10/29 9:08 PM CDT [facility] ([facility]) Not Available Not Available 06/23/2024 02:45:59 10/29/19 24 10/30/2023 Beta 2 glyco prote in 1 IgG and IgM panel - Serum Unknown Analyte This test has been ordere d as a part of the Antiph osphol ipid Syndro me Reflex Panel ([id number]). This test has been order ed as a part of the Antip hosph olipi d Syndr ome Refle x Panel ([id number]). Not Available Not Available 06/23/2024 02:45:59 10/29/19 24 10/29/2023 Hepat itis B virus surfa ce Ab [Pres ence] in Serum hepatitis B virus surface Ab [units/volum e] in serum Non-re active text: non-re active Hepat itis B Virus Surfa ce Antib nola Non-r eacti ve Non-r eacti ve 10/28 9:38 AM CDT [facility] Not Available Not Available 06/23/2024 02:45:59 10/29/19 24 10/29/2023 Hepat itis B virus surfa ce Ab [Pres ence] in Serum hepatitis B virus surface Ab [units/volum e] in serum or plasma by immunoassay 0 text: <8.0 mIU/mL Hepat itis B Surfa ce Antib nola Quant itati ve 0.0 <8.0 mIU/m L 10/28 9:38 AM CDT [facility] Not Available Not Available 06/23/2024 02:45:59 10/29/19 24 10/29/2023 Hepat itis B virus surfa ce Ab [Pres ence] in Serum interpretati on and review of laboratory results Normal Not Available Not Available 06/01 02:45:59 10/29/19 10/29/2023 Hepat itis B virus core Ab [Pres ence] in Serum hepatitis B virus core IgG+IgM Ab [presence] in serum Non-re active text: non-re active HBc Antib nola Total Non-r eacti ve Non-r eacti ve 10/28 9:38 AM CDT [facility] Not Available Not Available 06/23/2024 02:45:59 10/29/19 24 10/29/2023 Hepat itis B virus core Ab [Pres ence] in Serum interpretati on and review of laboratory results Normal Not Available Not Available 06/01 02:45:59 10/29/19 24 10/29/2023 Hepat itis B virus surfa ce Ag [Pres ence] in Serum hepatitis B virus surface Ag [presence] in serum or plasma by immunoassay Non-re active text: non-re active Hepat itis B Virus Surfa ce Antig en Non-r eacti ve Non-r eacti ve 10/28 9:38 AM CDT [facility] Not Available Not Available 06/23/2024 02:45:59 10/29/19 24 10/29/2023 Hepat itis B virus surfa ce Ag [Pres ence] in Serum interpretati on and review of laboratory results Normal Not Available Not Available 06/01 02:45:59 10/29/19 24 10/30/2023 Hepat itis A virus Ab [Pres ence] in Serum by Immun oassa y hepatitis A virus Ab [presence] in serum by immunoassay Positi ve text: negati ve abnormal Hepat itis A Virus Antib nola Total Posit ion (A) Negat ion 10/29 11:11 AM CDT [facility] ([facility]) Not Available Not Available 06/23/2024 02:45:59 10/29/19 24 10/30/2023 Hepat itis A virus Ab [Pres ence] in Serum by Immun oassa y interpretati on and review of laboratory results Abnorm al Not Available Not Available 02:45:59 10/29/19 24 10/29/2023 Lipid 1996 panel - Serum or Plasm a cholesterol [mass/volume ] in serum or plasma 171 mg/dL high: 200mg/ dL Jolie stero l Total 171 <200 mg/dL 10/28 9:27 AM T [facility] [facility] Not Available Not Available 06/23/2024 02:45:59 10/29/1910/29/2023 Lipid 1996 panel - Serum or Plasm a cholesterol in HDL [mass/volume ] in serum or plasma low: 40mg/d L low HDL <5 (L) >40 mg/dL 10/28 9:27 AM T [facility] [facility] Not Available Not Available 06/23/2024 02:45:59 10/29/1910/29/2023 Lipid 1996 panel - Serum or Plasm a cholesterol in LDL [mass/volume ] in serum or plasma by calculation LDL Calcu lated 10/28 9:27 AM [facility] [facility] Not Available Not Available 06/23/2024 02:45:59 10/29/1910/29/2023 Lipid 1996 panel - Serum or Plasm a tricyclic antidepressa nts [mass/volume ] in serum or plasma 175 mg/dL high: 150mg/ dL high Trigl yceri dariusz 175 (H) <150 mg/dL 10/28 9:27 AM [facility] [facility] Not Available Not Available 06/23/2024 02:45:59 10/29/19 24 10/29/2023 Lipid 1996 panel - Serum or Plasm a interpretati on and review of laboratory results Abnorm al Not Available Not Available 02:45:59 10/29/1910/29/2023 Phosp hate [Mass /volu me] in Serum or Plasm a phosphate [mass/volume ] in serum or plasma 3.8 mg/dL low: 2.9mg/ dLhigh : 5.1mg/ dL Phosp horus 3.8 2.9 - 5.1 mg/dL 10/28 9:27 AM [facility] [facility] Not Available Not Available 06/23/2024 02:45:59 10/29/19 24 10/29/2023 Phosp hate [Mass /volu me] in Serum or Plasm a interpretati on and review of laboratory results Normal Not Available Not Available 06/01 02:45:59 10/29/19 24 10/30/2023 Cance r Ag 19-9 [Unit s/vol ume] in Serum or Plasm a cancer Ag 19-9 [units/volum e] in serum or plasma by immunoassay 103 U/mL high: 35U/mL high CA 19-9 103 (H) <=35 U/mL 10/29 12:50 PM CDT [facility] ([facility]) Not Available Not Available 06/23/2024 02:45:59 10/29/19 24 10/30/2023 Cance r Ag 19-9 [Unit s/vol ume] in Serum or Plasm a interpretati on and review of laboratory results Abnorm al Not Available Not Available 02:45:59 10/29/19 24 10/29/2023 Cerul oplas min [Mass /volu me] in Serum or Plasm a ceruloplasmi n [mass/volume ] in serum or plasma 53 mg/dL low: 20mg/d Lhigh: 60mg/d L Cerul oplas min 53 20 - 60 mg/dL 10/28 10:45 AM CDT [facility] Not Available Not Available 06/23/2024 02:45:59 10/29/19 24 10/29/2023 Cerul oplas min [Mass /volu me] in Serum or Plasm a interpretati on and review of laboratory results Normal Not Available Not Available 06/01 02:45:59 10/29/19 24 10/30/2023 Toxop lasma gondi i IgG Ab [Unit s/vol ume] in Serum toxoplasma gondii IgG Ab [units/volum e] in serum <3.0 text: <=8.8 IU/mL Toxop lasma Antib nola IgG <3.0 <=8.8 IU/mL 10/29 12:38 PM CDT [facility] ([facility]) Not Available Not Available 06/23/2024 02:45:59 10/29/19 24 10/30/2023 Varic michael castroe r virus IgG Ab [Unit s/vol ume] in Serum varicella zoster virus IgG Ab [units/volum e] in serum by immunoassay 954.4 text: IV Varic michael zoste r Virus Antib nola IgG 954.4 IV 10/29 1:57 PM CDT [facility] ([facility]) Not Available Not Available 06/23/2024 02:45:59 10/29/19 24 10/31/2023 Rubel la virus IgG Ab [Pres ence] in Serum or Plasm a by Immun oassa y rubella virus IgG Ab [units/volum e] in serum 9.3 text: IU/mL Rubel la Antib nola IgG 9.3 IU/mL 10/30 12:51 AM CDT [facility] ([facility]) Not Available Not Available 06/23/2024 02:45:58 10/29/19 24 10/30/2023 Mumps virus IgG Ab [Pres ence] in Serum by Immun oassa y mumps virus IgG Ab [units/volum e] in serum by immunoassay 12.1 AU/mL Mumps Virus Antib nola IgG 12.1 AU/mL 10/29 2:04 PM CDT [facility] ([facility]) Not Available Not Available 06/23/2024 02:45:58 10/29/1910/30/2023 Measl es virus IgG Ab [Unit s/vol ume] in Serum by Immun oassa y measles virus IgG Ab [units/volum e] in serum >300.0 text: AU/mL Measl es (Rube julio césar) Antib nola IgG >300. 0 AU/mL 10/29 1:27 PM CDT [facility] ([facility]) Not Available Not Available 06/23/2024 02:45:58 10/29/19 24 10/29/2023 Hemog lobin A1c/H emogl obin. total in Blood hemoglobin A1C/hemoglob in.total in blood high: 5.6% Hemog lobin A1c <4.0 <=5.6 % 10/28 1:34 PM CDT [facility] Not Available Not Available 06/23/2024 02:45:58 10/29/19 10/29/2023 Hemog lobin A1c/H emogl obin. total in Blood glucose mean value [mass/volume ] in blood estimated from glycated hemoglobin text: mg/dL Estim rusty [place]agle ge Gluco se <68 mg/dL 10/28 1:34 PM CDT [facility] Not Available Not Available 06/23/2024 02:45:58 10/29/19 24 10/30/2023 Cytom egalo virus IgG Ab [Unit s/vol ume] in Serum or Plasm a by Immun oassa y cytomegalovi miladys IgG Ab [units/volum e] in serum or plasma by immunoassay >10.00 high: 0.7U/m L high Cytom egalo virus Antib nola IgG >10.0 0 (H) <=0.7 0 U/mL 10/29 12:43 PM CDT [facility] ([facility]) Not Available Not Available 06/23/2024 02:45:58 10/29/19 24 10/30/2023 Cytom egalo virus IgG Ab [Unit s/vol ume] in Serum or Plasm a by Immun oassa y interpretati on and review of laboratory results Abnorm al Not Available Not Available 02:45:58 10/29/19 24 10/29/2023 Alpha -1-fe topro tein. tumor marke r [Mass /volu me] in Serum or Plasm a [id number] protein [mass/volume ] in serum or plasma 2.2 NG/mL high: 8.3NG/ mL Alpha -Feto prote in Tumor Marke r 2.2 <=8.3 ng/mL 10/28 9:46 AM CDT [facility] Not Available Not Available 06/23/2024 02:45:58 10/29/19 24 10/29/2023 Alpha -1-fe topro tein. tumor marke r [Mass /volu me] in Serum or Plasm a interpretati on and review of laboratory results Normal Not Available Not Available 06/01 02:45:58 10/29/19 24 10/29/2023 HIV 1+2 Ab+HI V1 p24 Ag [Pres ence] in Serum or Plasm a by Immun oassa y HIV 1+2 Ab+HIV1 P24 Ag [presence] in serum or plasma by immunoassay Non-re active text: non-re active HIV Antig en/An tibod y 1 & 2 Non-r eacti ve Non-r eacti ve 10/28 9:38 AM CDT [facility] Not Available Not Available 06/23/2024 02:45:52 10/29/19 24 10/29/2023 HIV 1+2 Ab+HI V1 p24 Ag [Pres ence] in Serum or Plasm a by Immun oassa y interpretati on and review of laboratory results Normal Not Available Not Available 06/01 02:45:52 10/29/19 24 10/29/2023 Hepat itis C virus Ab [Pres ence] in Serum hepatitis C virus Ab [presence] in serum or plasma by immunoassay Non-re active text: non-re active Hepat itis C Antib nola Non-r eacti ve Non-r eacti ve 10/28 9:38 AM CDT [facility] Not Available Not Available 06/23/2024 02:45:52 10/29/19 24 10/29/2023 Hepat itis C virus Ab [Pres ence] in Serum interpretati on and review of laboratory results Normal Not Available Not Available 06/01 02:45:52 11/11/19 24 11/11/2023 Chori ogona dotro pin.b eta subun it [Unit s/vol ume] in Serum or Plasm a choriogonado tropin.intac t+beta subunit [units/volum e] in serum or plasma 6 text: mIU/mL Beta- hCG Total Quant itati ve 6 mIU/m L 11/10 2:17 PM CDT [facility] Not Available Not Available 06/23/2024 02:47:19 11/11/19 24 11/11/2023 Lipas e [Enzy matic activ ity/v olume ] in Serum or Plasm a lipase [enzymatic activity/vol ume] in serum or plasma 15 U/L low: 8U/Lhi gh: 78U/L Lipas e 15 8 - 78 U/L 11/10 2:12 PM CDT [facility] Not Available Not Available 06/23/2024 02:47:19 11/11/19 24 11/11/2023 Lipas e [Enzy matic activ ity/v olume ] in Serum or Plasm a Unknown Analyte Lipase result s from the [facility] analyz er may not be compar able with other method ologie s. Lipas e resul ts from the [facility] rob zer may not be nicola rable with other metho dolog ies. Not Available Not Available 06/23/2024 02:47:19 11/11/19 24 11/11/2023 Lipas e [Enzy matic activ ity/v olume ] in Serum or Plasm a interpretati on and review of laboratory results Normal Not Available Not Available 06/01 02:47:19 11/11/19 24 11/11/2023 Compr ehens ion metab olic 1999 panel - Serum or Plasm a urea nitrogen [mass/volume ] in serum or plasma 14 mg/dL low: 7mg/dL high: 26mg/d L BUN 14 7 - 26 mg/dL 11/10 2:12 PM CDT [facility] Not Available Not Available 06/23/2024 02:47:19 11/11/19 24 11/11/2023 Compr ehens ion metab olic 1999 panel - Serum or Plasm a creatinine [mass/volume ] in serum or plasma 0.84 mg/dL low: 0.56mg /dLhig h: 0.96mg /dL Creat inine 0.84 0.56 - 0.96 mg/dL 11/10 2:12 PM CDT [facility] Not Available Not Available 06/23/2024 02:47:19 11/11/19 24 11/11/2023 Compr ehens ion metab olic 1999 panel - Serum or Plasm a sodium [moles/volum e] in serum or plasma 136 mmol/ L low: 136mmo l/Lhig h: 145mmo l/L Sodiu m 136 136 - 145 mmol/ L 11/10 2:12 PM CDT [facility] Not Available Not Available 06/23/2024 02:47:19 11/11/19 24 11/11/2023 Compr ehens ion metab olic 1999 panel - Serum or Plasm a potassium [moles/volum e] in serum or plasma 3.7 mmol/ L low: 3.5mmo l/Lhig h: 4.5mmo l/L Potas sium 3.7 3.5 - 4.5 mmol/ L 11/10 2:12 PM CDT [facility] Not Available Not Available 06/23/2024 02:47:19 11/11/19 24 11/11/2023 Compr ehens ion metab olic 1999 panel - Serum or Plasm a chloride [moles/volum e] in serum or plasma 106 mmol/ L low: 98mmol /Lhigh : 107mmo l/L Chlor leighann 106 98 - 107 mmol/ L 11/10 2:12 PM CDT [facility] Not Available Not Available 06/23/2024 02:47:19 11/11/19 24 11/11/2023 Compr ehens ion metab olic 1999 panel - Serum or Plasm a carbon dioxide, total [moles/volum e] in serum or plasma 21 mmol/ L low: 22mmol /Lhigh : 29mmol /L low CO2 21 (L) 22 - 29 mmol/ L 11/10 2:12 PM CDT [facility] Not Available Not Available 06/23/2024 02:47:19 11/11/19 24 11/11/2023 Compr ehens ion metab olic 1999 panel - Serum or Plasm a glucose [mass/volume ] in serum or plasma 95 mg/dL low: 70mg/d Lhigh: 115mg/ dL Gluco se 95 70 - 115 mg/dL 11/10 2:12 PM CDT [facility] Not Available Not Available 06/23/2024 02:47:19 11/11/19 24 11/11/2023 Compr ehens ion metab olic 2000 panel - Serum or Plasm a calcium [moles/volum e] in serum or plasma 8.6 mg/dL low: 8.4mg/ dLhigh : 10.2mg /dL Calci um 8.6 8.4 - 10.2 mg/dL 11/10 2:12 PM CDT [facility] Not Available Not Available 06/23/2024 02:47:19 11/11/19 24 11/11/2023 Compr [employer] ion metab olic 1999 panel - Serum or Plasm a protein [mass/volume ] in serum or plasma 7.8 g/dL low: 6g/dLh igh: 8.3g/d L Prote in Total 7.8 6.0 - 8.3 g/dL 11/10 2:12 PM CDT [facility] Not Available Not Available 06/23/2024 02:47:19 11/11/1911/11/2023 Compr [employer] ion metab olic 2000 panel - Serum or Plasm a albumin [mass/volume ] in serum or plasma by bromocresol green (bcg) dye binding method 2.3 g/dL low: 3.4g/d Lhigh: 5g/dL low Album in 2.3 (L) 3.4 - 5.0 g/dL 11/10 2:12 PM CDT [facility] Not Available Not Available 06/23/2024 02:47:19 11/11/1911/11/2023 Compr Digital Signal ion Jixee olic 2000 panel - Serum or Plasm a bilirubin.to nisha [mass/volume ] in serum or plasma 7.8 mg/dL low: 0.2mg/ dLhigh : 1.2mg/ dL high Bilir ubin Total 7.8 (H) 0.2 - 1.2 mg/dL 11/10 2:12 PM CDT [facility] Not Available Not Available 06/23/2024 02:47:19 11/11/19 24 11/11/2023 Compr [employer] ion metab olic 2000 panel - Serum or Plasm a alkaline phosphatase [enzymatic activity/vol ume] in serum or plasma 264 U/L low: 40U/Lh igh: 150U/L high Alkal ine Phosp hatas e 264 (H) 40 - 150 U/L 11/10 2:12 PM CDT [facility] Not Available Not Available 06/23/2024 02:47:19 11/11/19 24 11/11/2023 Compr ehens ion metab olic 1999 panel - Serum or Plasm a alanine aminotransfe rase [enzymatic activity/vol ume] in serum or plasma by no addition of P-5'-P 30 U/L low: 5U/Lhi gh: 55U/L ALT 30 5 - 55 U/L 11/10 2:12 PM CDT [facility] Not Available Not Available 06/23/2024 02:47:19 11/11/19 24 11/11/2023 Compr ehens ion metab olic 1999 panel - Serum or Plasm a aspartate aminotransfe rase [enzymatic activity/vol ume] in serum or plasma 64 U/L low: 5U/Lhi gh: 34U/L high AST 64 (H) 5 - 34 U/L 11/10 2:12 PM CDT [facility] Not Available Not Available 06/23/2024 02:47:19 11/11/19 24 11/11/2023 Compr ehens ion metab olic 1999 panel - Serum or Plasm a anion gap 9 low: 6high: 16 Anion Gap 9 6 - 16 11/10 2:12 PM CDT [facility] Not Available Not Available 06/23/2024 02:47:19 11/11/19 24 11/11/2023 Compr ehens ion metab olic 2000 panel - Serum or Plasm a urea nitrogen/cre atinine [mass ratio] in serum or plasma 17 low: 7high: 23 BUN/C reati nine Ratio 17 7 - 23 11/10 2:12 PM CDT [facility] Not Available Not Available 06/23/2024 02:47:19 11/11/19 24 11/11/2023 Compr ehens ion metab olic 2000 panel - Serum or Plasm a osmolality calculated 282 text: 275 - 295 mOsm/k g Osmol aliprincess Calcu lated 282 275 - 295 mOsm/ kg 11/10 2:12 PM CDT [facility] Not Available Not Available 06/23/2024 02:47:19 07/14/11/11/2023 Compr ehens ion metab olic 2000 panel - Serum or Plasm a albumin/glob ulin ratio 0.4 low: 1.1hig h: 2.3 low Album in/Gl obuli n Ratio 0.4 (L) 1.1 - 2.3 11/10 2:12 PM CDT [facility] Not Available Not Available 06/23/2024 02:47:19 11/11/1911/11/2023 Compr ehens ion metab olic 2000 panel - Serum or Plasm a glomerular filtration rate/1.73 sq M.predicted [volume rate/area] in serum, plasma or blood by creatinine-b ased formula (CKD-epi) 85 text: >=90 mL/min /1.73 m2 low eGFR by CKD-E PI 85 (L) >=90 mL/mi n/1.7 3 m2 11/10 2:12 PM CDT [facility] Not Available Not Available 06/23/2024 02:47:19 11/11/1911/11/2023 Compr [employer] ion metab olic 2000 panel - Serum or Plasm a interpretati on and review of laboratory results Abnorm al Not Available Not Available 02:47:19 11/11/1911/11/2023 CBC W Auto Diffe renti al panel - Blood leukocytes [#/volume] in blood by automated count 4 text: 4.0 - 10.7 x10e9/ L WBC 4.0 4.0 - 10.7 x10E9 /L 11/10 1:51 PM CDT [facility] Not Available Not Available 06/23/2024 02:47:19 11/11/1911/11/2023 CBC W Auto Diffe renti al panel - Blood erythrocytes [#/volume] in blood by automated count 3.29 text: 3.90 - 5.20 x10e12 /L low RBC Count 3.29 (L) 3.90 - 5.20 x10E1 2/L 11/10 1:51 PM CDT [facility] Not Available Not Available 06/23/2024 02:47:19 11/11/1911/11/2023 CBC W Auto Diffe renti al panel - Blood hemoglobin [mass/volume ] in blood 10.4 g/dL low: 11.9g/ dLhigh : 15.8g/ dL low Hemog lobin 10.4 (L) 11.9 - 15.8 g/dL 11/10 1:51 PM CDT [facility] Not Available Not Available 06/23/2024 02:47:11/11/1911/11/2023 CBC W Auto Diffe tiati al panel - Blood hematocrit [volume fraction] of blood by automated count 29.6 % low: 34.8%h igh: 46.1% low Hemat ocrit 29.6 (L) 34.8 - 46.1 % 11/10 1:51 PM CDT [facility] Not Available Not Available 06/23/2024 02:47:11/11/1911/11/2023 CBC W Auto Diffe renti al panel - Blood MCV [entitic volume] by automated count 90 fL low: 80fLhi gh: 98fL MCV 90.0 80.0 - 98.0 fL 11/10 1:51 PM CDT [facility] Not Available Not Available 06/23/2024 02:47:11/11/1911/11/2023 CBC W Auto Diffe tiati al panel - Blood MCH [entitic mass] by automated count 31.6 pg low: 26.7pg high: 33.6pg MCH 31.6 26.7 - 33.6 pg 11/10 1:51 PM CDT [facility] Not Available Not Available 06/23/2024 02:47:11/11/1911/11/2023 CBC W Auto Diffe estuardo al panel - Blood MCHC [mass/volume ] by automated count 35.1 g/dL low: 31.7g/ dLhigh : 36.3g/ dL MCHC 35.1 31.7 - 36.3 g/dL 11/10 1:51 PM CDT [facility] Not Available Not Available 06/23/2024 02:47:11/11/1911/11/2023 CBC W Auto Diffe renti al panel - Blood erythrocyte distribution width [ratio] by automated count 17.8 % low: 11.3%h igh: 14.8% high RDW-C V 17.8 (H) 11.3 - 14.8 % 11/10 1:51 PM CDT [facility] Not Available Not Available 06/23/2024 02:47:11/11/1911/11/2023 CBC W Auto Diffe renti al panel - Blood platelets [#/volume] in blood by automated count 162 text: 150 - 420 x10e9/ L Plate let Count 162 150 - 420 x10E9 /L 11/10 1:51 PM CDT [facility] Not Available Not Available 06/23/2024 02:47:11/11/1911/11/2023 CBC W Auto Diffe renti al panel - Blood platelet mean volume [entitic volume] in blood by automated count 10.2 fL low: 7.8fLh igh: 11.4fL MPV 10.2 7.8 - 11.4 fL 11/10 1:51 PM CDT [facility] Not Available Not Available 06/23/2024 02:47:11/11/1911/11/2023 CBC W Auto Diffe renti al panel - Blood neutrophils/ 100 leukocytes in blood by automated count 66.5 % low: 41%hig h: 74% Neutr ophil % 66.5 41.0 - 74.0 % 11/10 1:51 PM CDT [facility] Not Available Not Available 06/23/2024 02:47:19 11/11/1911/11/2023 CBC W Auto Diffe renti al panel - Blood lymphocytes/ 100 leukocytes in blood by automated count 25 % low: 17%hig h: 47% Lymph ocyte % 25.0 17.0 - 47.0 % 11/10 1:51 PM CDT [facility] Not Available Not Available 06/23/2024 02:47:19 11/11/1911/11/2023 CBC W Auto Diffe renti al panel - Blood monocytes/10 0 leukocytes in blood by automated count 6 % low: 3%high : 11% Monoc yte % 6.0 3.0 - 11.0 % 11/10 1:51 PM CDT [facility] Not Available Not Available 06/23/2024 02:47:19 11/11/1911/11/2023 CBC W Auto Diffe renti al panel - Blood eosinophils/ 100 leukocytes in blood by automated count 1.5 % low: 0%high : 7% Eosin ophil % 1.5 0.0 - 7.0 % 11/10 1:51 PM CDT [facility] Not Available Not Available 06/23/2024 02:47:19 11/11/1911/11/2023 CBC W Auto Diffe renti al panel - Blood basophils/10 0 leukocytes in blood by automated count 0.5 % low: 0%high : 1.6% Basop hil % 0.5 0.0 - 1.6 % 11/10 1:51 PM CDT [facility] Not Available Not Available 06/23/2024 02:47:19 11/11/1911/11/2023 CBC W Auto Diffe renti al panel - Blood immature granulocytes /100 leukocytes in blood by automated count 0.5 % low: 0%high : 1% Immat ure Granu locyt es % 0.5 0.0 - 1.0 % 11/10 1:51 PM CDT [facility] NISHA Not Available Not Available 06/23/2024 02:47:19 11/11/1911/11/2023 CBC W Auto Diffe renti al panel - Blood neutrophils [#/volume] in blood by automated count 2.66 text: 1.60 - 7.50 x10e9/ L Neutr ophil Absol [place] 2.66 1.60 - 7.50 x10E9 /L 11/10 1:51 PM CDT [facility] Not Available Not Available 06/23/2024 02:47:19 11/11/1911/11/2023 CBC W Auto Diffe renti al panel - Blood lymphocytes [#/volume] in blood by automated count 1 text: 1.00 - 4.40 x10e9/ L Lymph ocyte Absol [place] 1.00 1.00 - 4.40 x10E9 /L 11/10 1:51 PM [facility]T [facility] Not Available Not Available 06/23/2024 02:47:19 11/11/19 24 11/11/2023 CBC W Auto Diffe renti al panel - Blood monocytes [#/volume] in blood by automated count 0.24 text: 0.15 - 1.00 x10e9/ L Monoc yte Absol [place] 0.24 0.15 - 1.00 x10E9 /L 11/10 1:51 PM [facility]T [facility] Not Available Not Available 06/23/2024 02:47:19 11/11/19 24 11/11/2023 CBC W Auto Diffe renti al panel - Blood eosinophils [#/volume] in blood 0.06 text: 0.00 - 0.60 x10e9/ L Eosin ophil Absol [place] 0.06 0.00 - 0.60 x10E9 /L 11/10 1:51 PM [facility] Not Available Not Available 06/23/2024 02:47:19 11/11/19 24 11/11/2023 CBC W Auto Diffe renti al panel - Blood basophils [#/volume] in blood by automated count 0.02 text: 0.00 - 0.13 x10e9/ L Basop hil Absol [place] 0.02 0.00 - 0.13 x10E9 /L 11/10 1:51 PM CDT [facility] Not Available Not Available 06/23/2024 02:47:19 11/11/19 24 11/11/2023 CBC W Auto Diffe renti al panel - Blood interpretati on and review of laboratory results Abnorm al Not Available Not Available 02:47:19 11/12/19 24 11/12/2023 Compr ehens ion metab olic 2000 panel - Serum or Plasm a urea nitrogen [mass/volume ] in serum or plasma 12 mg/dL low: 7mg/dL high: 26mg/d L BUN 12 7 - 26 mg/dL 11/11 8:43 AM CDT [facility] Not Available Not Available 06/23/2024 02:47:19 11/12/19 24 11/12/2023 Compr ehens ion metab olic 1999 panel - Serum or Plasm a creatinine [mass/volume ] in serum or plasma 0.73 mg/dL low: 0.56mg /dLhig h: 0.96mg /dL Creat inine 0.73 0.56 - 0.96 mg/dL 11/11 8:43 AM CDT [facility] N[facility] Not Available Not Available 06/23/2024 02:47:19 11/12/1911/12/2023 Compr ehens ion metab olic 1999 panel - Serum or Plasm a sodium [moles/volum e] in serum or plasma 137 mmol/ L low: 136mmo l/Lhig h: 145mmo l/L Sodiu m 137 136 - 145 mmol/ L 11/11 8:43 AM CDT [facility] Not Available Not Available 06/23/2024 02:47:19 11/12/19 24 11/12/2023 Compr ehens ion metab olic 1999 panel - Serum or Plasm a potassium [moles/volum e] in serum or plasma 3.6 mmol/ L low: 3.5mmo l/Lhig h: 4.5mmo l/L Potas sium 3.6 3.5 - 4.5 mmol/ L 11/11 8:43 AM CDT [facility] Not Available Not Available 06/23/2024 02:47:19 11/12/19 24 11/12/2023 Compr ehens ion metab olic 1999 panel - Serum or Plasm a chloride [moles/volum e] in serum or plasma 108 mmol/ L low: 98mmol /Lhigh : 107mmo l/L high Chlor leighann 108 (H) 98 - 107 mmol/ L 11/11 8:43 AM CDT [facility] Not Available Not Available 06/23/2024 02:47:19 07/1511/12/2023 Compr [employer] ion metab olic 1999 panel - Serum or Plasm a carbon dioxide, total [moles/volum e] in serum or plasma 23 mmol/ L low: 22mmol /Lhigh : 29mmol /L CO2 23 22 - 29 mmol/ L 11/11 8:43 AM [facility] N[facility]HA Not Available Not Available 06/23/2024 02:47:19 11/12/1911/12/2023 Compr ehens ion metab olic 1999 panel - Serum or Plasm a glucose [mass/volume ] in serum or plasma 76 mg/dL low: 70mg/d Lhigh: 115mg/ dL Gluco se 76 70 - 115 mg/dL 11/11 8:43 AM [facility] N[facility] Not Available Not Available 06/23/2024 02:47:19 11/12/19 24 11/12/2023 Compr [employer] ion metab olic 1999 panel - Serum or Plasm a calcium [moles/volum e] in serum or plasma 8.5 mg/dL low: 8.4mg/ dLhigh : 10.2mg /dL Calci um 8.5 8.4 - 10.2 mg/dL 11/11 8:43 AM [facility] N[facility] Not Available Not Available 06/23/2024 02:47:19 11/12/19 24 11/12/2023 Compr [employer] ion metab olic 1999 panel - Serum or Plasm a protein [mass/volume ] in serum or plasma 6.7 g/dL low: 6g/dLh igh: 8.3g/d L Prote in Total 6.7 6.0 - 8.3 g/dL 11/11 8:43 AM [facility] N[facility] Not Available Not Available 06/23/2024 02:47:19 11/12/19 24 11/12/2023 Compr [employer] ion metab olic 1999 panel - Serum or Plasm a albumin [mass/volume ] in serum or plasma by bromocresol green (bcg) dye binding method 2 g/dL low: 3.4g/d Lhigh: 5g/dL low Album in 2.0 (L) 3.4 - 5.0 g/dL 11/11 8:43 AM CDT [facility] Not Available Not Available 06/23/2024 02:47:19 11/12/19 24 11/12/2023 Compr ehens ion metab olic 1999 panel - Serum or Plasm a bilirubin.to nisha [mass/volume ] in serum or plasma 6.7 mg/dL low: 0.2mg/ dLhigh : 1.2mg/ dL high Bilir ubin Total 6.7 (H) 0.2 - 1.2 mg/dL 11/11 8:43 AM CDT [facility] Not Available Not Available 06/23/2024 02:47:19 11/12/1911/12/2023 Compr ehens ion metab olic 2000 panel - Serum or Plasm a alkaline phosphatase [enzymatic activity/vol ume] in serum or plasma 228 U/L low: 40U/Lh igh: 150U/L high Alkal ine Phosp hatas e 228 (H) 40 - 150 U/L 11/11 8:43 AM CDT [facility] Not Available Not Available 06/23/2024 02:47:19 11/12/19 24 11/12/2023 Compr ehens ion metab olic 2000 panel - Serum or Plasm a alanine aminotransfe rase [enzymatic activity/vol ume] in serum or plasma by no addition of P-5'-P 24 U/L low: 5U/Lhi gh: 55U/L ALT 24 5 - 55 U/L 11/11 8:43 AM CDT [facility] Not Available Not Available 06/23/2024 02:47:19 11/12/1911/12/2023 Compr ehens ion metab olic 1999 panel - Serum or Plasm a aspartate aminotransfe rase [enzymatic activity/vol ume] in serum or plasma 52 U/L low: 5U/Lhi gh: 34U/L high AST 52 (H) 5 - 34 U/L 11/11 8:43 AM CDT [facility] Not Available Not Available 06/23/2024 02:47:19 11/12/19 24 11/12/2023 Compr ehens ion metab olic 1999 panel - Serum or Plasm a anion gap 6 low: 6high: 16 Anion Gap 6 6 - 16 11/11 8:43 AM CDT [facility] Not Available Not Available 06/23/2024 02:47:19 11/12/19 24 11/12/2023 Compr ehens ion metab olic 1999 panel - Serum or Plasm a urea nitrogen/cre atinine [mass ratio] in serum or plasma 16 low: 7high: 23 BUN/C reati nine Ratio 16 7 - 23 11/11 8:43 AM CDT [facility] Not Available Not Available 06/23/2024 02:47:19 11/12/1911/12/2023 Compr ehens ion metab olic 1999 panel - Serum or Plasm a osmolality calculated 283 text: 275 - 295 mOsm/k g Osmol ality Calcu lated 283 275 - 295 mOsm/ kg 11/11 8:43 AM T [facility] [employer] [facility] [place] Not Available Not Available 06/23/2024 02:47:19 11/12/1911/12/2023 Compr ehens ion metab olic 1999 panel - Serum or Plasm a albumin/glob ulin ratio 0.4 low: 1.1hig h: 2.3 low Album in/Gl obuli n Ratio 0.4 (L) 1.1 - 2.3 11/11 8:43 AM CDT [facility] [place] Not Available Not Available 06/23/2024 02:47:19 11/12/1911/12/2023 Compr ehens ion metab olic 1999 panel - Serum or Plasm a glomerular filtration rate/1.73 sq M.predicted [volume rate/area] in serum, plasma or blood by creatinine-b ased formula (CKD-epi) text: >=90 mL/min /1.73 m2 eGFR by CKD-E PI >90 >=90 mL/mi n/1.7 3 m2 11/11 8:43 AM CDT [facility] [place] Not Available Not Available 06/23/2024 02:47:19 07/15/20 24 11/12/2023 Compr ehens ion metab olic 2000 panel - Serum or Plasm a interpretati on and review of laboratory results Abnorm al Not Available Not Available 02:47:19 11/12/1911/12/2023 CBC panel - Blood by Autom ated count leukocytes [#/volume] in blood by automated count 2.9 text: 4.0 - 10.7 x10e9/ L low WBC 2.9 (L) 4.0 - 10.7 x10E9 /L 11/11 9:21 AM CDT [facility] [employer] NISHA Not Available Not Available 06/23/2024 02:47:19 11/12/1911/12/2023 CBC panel - Blood by Autom ated count erythrocytes [#/volume] in blood by automated count 2.82 text: 3.90 - 5.20 x10e12 /L low RBC Count 2.82 (L) 3.90 - 5.20 x10E1 2/L 11/11 9:21 AM T [facility] [employer] [facility] Not Available Not Available 06/23/2024 02:47:19 11/12/1911/12/2023 CBC panel - Blood by Autom ated count hemoglobin [mass/volume ] in blood 8.9 g/dL low: 11.9g/ dLhigh : 15.8g/ dL low Hemog lobin 8.9 (L) 11.9 - 15.8 g/dL 11/11 9:21 AM [employer] NISHA Not Available Not Available 06/23/2024 02:47:19 11/12/1911/12/2023 CBC panel - Blood by Autom ated count hematocrit [volume fraction] of blood by automated count 25.7 % low: 34.8%h igh: 46.1% low Hemat ocrit 25.7 (L) 34.8 - 46.1 % 11/11 9:21 AM [employer] [facility] [employer] [facility] N[facility]HA Not Available Not Available 06/23/2024 02:47:19 11/12/19 24 11/12/2023 CBC panel - Blood by Autom ated count MCV [entitic volume] by automated count 91.1 fL low: 80fLhi gh: 98fL MCV 91.1 80.0 - 98.0 fL 11/11 9:21 AM [facility] NISHA Not Available Not Available 06/23/2024 02:47:19 11/12/1911/12/2023 CBC panel - Blood by Autom ated count MCH [entitic mass] by automated count 31.6 pg low: 26.7pg high: 33.6pg MCH 31.6 26.7 - 33.6 pg 11/11 9:21 AM [facility] NISHA Not Available Not Available 06/23/2024 02:47:19 11/12/1911/12/2023 CBC panel - Blood by Autom ated count MCHC [mass/volume ] by automated count 34.6 g/dL low: 31.7g/ dLhigh : 36.3g/ dL MCHC 34.6 31.7 - 36.3 g/dL 11/11 9:21 AM [facility] NISHA Not Available Not Available 06/23/2024 02:47:19 11/12/1911/12/2023 CBC panel - Blood by Autom ated count erythrocyte distribution width [ratio] by automated count 17.8 % low: 11.3%h igh: 14.8% high RDW-C V 17.8 (H) 11.3 - 14.8 % 11/11 9:21 AM [facility] NISHA Not Available Not Available 06/23/2024 02:47:19 11/12/1911/12/2023 CBC panel - Blood by Autom ated count platelets [#/volume] in blood by automated count 133 text: 150 - 420 x10e9/ L low Plate let Count 133 (L) 150 - 420 x10E9 /L 11/11 9:21 AM [facility] NISHA Not Available Not Available 06/23/2024 02:47:19 11/12/1911/12/2023 CBC panel - Blood by Autom ated count platelet mean volume [entitic volume] in blood by automated count 10.1 fL low: 7.8fLh igh: 11.4fL MPV 10.1 7.8 - 11.4 fL 11/11 9:21 AM [facility] Not Available Not Available 06/23/2024 02:47:19 11/12/19 24 11/12/2023 CBC panel - Blood by Autom ated count interpretati on and review of laboratory results Abnorm al Not Available Not Available 02:47:19 11/13/19 24 11/13/2023 Phosp hate [Mass /volu me] in Serum or Plasm a phosphate [mass/volume ] in serum or plasma 3.7 mg/dL low: 2.9mg/ dLhigh : 5.1mg/ dL Phosp horus 3.7 2.9 - 5.1 mg/dL 11/12 8:09 AM [facility] Not Available Not Available 06/23/2024 02:47:19 11/13/19 24 11/13/2023 Phosp hate [Mass /volu me] in Serum or Plasm a interpretati on and review of laboratory results Normal Not Available Not Available 06/01 02:47:19 11/13/19 24 11/13/2023 Magne sium [Mass /volu me] in Serum or Plasm a magnesium [mass/volume ] in serum or plasma 1.9 mg/dL low: 1.6mg/ dLhigh : 2.6mg/ dL Magne sium 1.9 1.6 - 2.6 mg/dL 11/12 8:09 AM [facility] Not Available Not Available 06/23/2024 02:47:19 11/13/19 24 11/13/2023 Magne sium [Mass /volu me] in Serum or Plasm a interpretati on and review of laboratory results Normal Not Available Not Available 06/01 02:47:19 11/13/19 24 11/13/2023 Compr ehens ion metab olic 2000 panel - Serum or Plasm a urea nitrogen [mass/volume ] in serum or plasma 11 mg/dL low: 7mg/dL high: 26mg/d L BUN 11 7 - 26 mg/dL 11/12 8:09 AM [facility] N[facility] Not Available Not Available 06/23/2024 02:47:19 11/13/19 24 11/13/2023 Compr ehens ion metab olic 1999 panel - Serum or Plasm a creatinine [mass/volume ] in serum or plasma 0.78 mg/dL low: 0.56mg /dLhig h: 0.96mg /dL Creat inine 0.78 0.56 - 0.96 mg/dL 11/12 8:09 AM T [facility] N[facility] Not Available Not Available 06/23/2024 02:47:19 11/13/1911/13/2023 Compr ehens ion metab olic 1999 panel - Serum or Plasm a sodium [moles/volum e] in serum or plasma 136 mmol/ L low: 136mmo l/Lhig h: 145mmo l/L Sodiu m 136 136 - 145 mmol/ L 11/12 8:09 AM T [facility] NISHA Not Available Not Available 06/23/2024 02:47:19 11/13/1911/13/2023 Compr ehens ion metab olic 1999 panel - Serum or Plasm a potassium [moles/volum e] in serum or plasma 3.5 mmol/ L low: 3.5mmo l/Lhig h: 4.5mmo l/L Potas sium 3.5 3.5 - 4.5 mmol/ L 11/12 8:09 AM T [facility] N[facility] Not Available Not Available 06/23/2024 02:47:19 11/13/1911/13/2023 Compr ehens ion metab olic 1999 panel - Serum or Plasm a chloride [moles/volum e] in serum or plasma 106 mmol/ L low: 98mmol /Lhigh : 107mmo l/L Chlor leighann 106 98 - 107 mmol/ L 11/12 8:09 AM T [facility] N[facility] Not Available Not Available 06/23/2024 02:47:19 11/13/19 24 11/13/2023 Compr ehens ion metab olic 2000 panel - Serum or Plasm a carbon dioxide, total [moles/volum e] in serum or plasma 23 mmol/ L low: 22mmol /Lhigh : 29mmol /L CO2 23 22 - 29 mmol/ L 11/12 8:09 AM CDT [facility] N[facility] Not Available Not Available 06/23/2024 02:47:19 11/13/19 24 11/13/2023 Compr ehens ion metab olic 2000 panel - Serum or Plasm a glucose [mass/volume ] in serum or plasma 81 mg/dL low: 70mg/d Lhigh: 115mg/ dL Gluco se 81 70 - 115 mg/dL 11/12 8:09 AM T [facility] N[facility] Not Available Not Available 06/23/2024 02:47:19 11/13/19 24 11/13/2023 Compr ehens ion metab olic 2000 panel - Serum or Plasm a calcium [moles/volum e] in serum or plasma 8.4 mg/dL low: 8.4mg/ dLhigh : 10.2mg /dL Calci um 8.4 8.4 - 10.2 mg/dL 11/12 8:09 AM [facility] NISHA Not Available Not Available 06/23/2024 02:47:19 11/13/19 24 11/13/2023 Compr ehens ion metab olic 2000 panel - Serum or Plasm a protein [mass/volume ] in serum or plasma 7.1 g/dL low: 6g/dLh igh: 8.3g/d L Prote in Total 7.1 6.0 - 8.3 g/dL 11/12 8:09 AM [facility] NISHA Not Available Not Available 06/23/2024 02:47:19 11/13/1911/13/2023 Compr ehens ion metab olic 2000 panel - Serum or Plasm a albumin [mass/volume ] in serum or plasma by bromocresol green (bcg) dye binding method 2.1 g/dL low: 3.4g/d Lhigh: 5g/dL low Album in 2.1 (L) 3.4 - 5.0 g/dL 11/12 8:09 AM [facility] Not Available Not Available 06/23/2024 02:47:19 0711/13/2023 Compr ehens ion metab olic 1999 panel - Serum or Plasm a bilirubin.to nisha [mass/volume ] in serum or plasma 5.8 mg/dL low: 0.2mg/ dLhigh : 1.2mg/ dL high Bilir ubin Total 5.8 (H) 0.2 - 1.2 mg/dL 11/12 8:09 AM CDT [facility] N[facility] Not Available Not Available 06/23/2024 02:47:19 11/13/1911/13/2023 Compr ehens ion metab olic 1999 panel - Serum or Plasm a alkaline phosphatase [enzymatic activity/vol ume] in serum or plasma 237 U/L low: 40U/Lh igh: 150U/L high Alkal ine Phosp hatas e 237 (H) 40 - 150 U/L 11/12 8:09 AM CDT [facility] N[facility] Not Available Not Available 06/23/2024 02:47:19 11/13/1911/13/2023 Compr ehens ion metab olic 1999 panel - Serum or Plasm a alanine aminotransfe rase [enzymatic activity/vol ume] in serum or plasma by no addition of P-5'-P 24 U/L low: 5U/Lhi gh: 55U/L ALT 24 5 - 55 U/L 11/12 8:09 AM CDT [facility] N[facility] Not Available Not Available 06/23/2024 02:47:19 11/13/19 24 11/13/2023 Compr ehens ion metab olic 1999 panel - Serum or Plasm a aspartate aminotransfe rase [enzymatic activity/vol ume] in serum or plasma 59 U/L low: 5U/Lhi gh: 34U/L high AST 59 (H) 5 - 34 U/L 11/12 8:09 AM CDT [facility] N[facility] Not Available Not Available 06/23/2024 02:47:19 11/13/19 24 11/13/2023 Compr ehens ion metab olic 2000 panel - Serum or Plasm a anion gap 7 low: 6high: 16 Anion Gap 7 6 - 16 11/12 8:09 AM CDT [facility] N[facility]HA Not Available Not Available 06/23/2024 02:47:19 11/13/19 24 11/13/2023 Compr ehens ion metab olic 2000 panel - Serum or Plasm a urea nitrogen/cre atinine [mass ratio] in serum or plasma 14 low: 7high: 23 BUN/C reati nine Ratio 14 7 - 23 11/12 8:09 AM [facility] [employer] [facility] NISHA Not Available Not Available 06/23/2024 02:47:19 11/13/19 24 11/13/2023 Compr ehens ion metab olic 2000 panel - Serum or Plasm a osmolality calculated 280 text: 275 - 295 mOsm/k g Osmol evert Calcu lated 280 275 - 295 mOsm/ kg 11/12 8:09 AM [facility] NISHA Not Available Not Available 06/23/2024 02:47:19 11/13/1911/13/2023 Compr ehens ion metab olic 2000 panel - Serum or Plasm a albumin/glob ulin ratio 0.4 low: 1.1hig h: 2.3 low Album in/Gl obuli n Ratio 0.4 (L) 1.1 - 2.3 11/12 8:09 AM [facility] Not Available Not Available 06/23/2024 02:47:19 11/13/1911/13/2023 Compr ehens ion metab olic 2000 panel - Serum or Plasm a glomerular filtration rate/1.73 sq M.predicted [volume rate/area] in serum, plasma or blood by creatinine-b ased formula (CKD-epi) text: >=90 mL/min /1.73 m2 eGFR by CKD-E PI >90 >=90 mL/mi n/1.7 3 m2 11/12 8:09 AM [facility] [facility] Not Available Not Available 06/23/2024 02:47:19 11/13/1911/13/2023 Compr ehens ion metab olic 2000 panel - Serum or Plasm a interpretati on and review of laboratory results Abnorm al Not Available Not Available 02:47:19 11/13/1911/13/2023 CBC panel - Blood by Autom ated count leukocytes [#/volume] in blood by automated count 2.9 text: 4.0 - 10.7 x10e9/ L low WBC 2.9 (L) 4.0 - 10.7 x10E9 /L 11/12 7:43 AM CDT [facility] [employer] [facility] Not Available Not Available 06/23/2024 02:47:19 11/13/1911/13/2023 CBC panel - Blood by Autom ated count erythrocytes [#/volume] in blood by automated count 2.92 text: 3.90 - 5.20 x10e12 /L low RBC Count 2.92 (L) 3.90 - 5.20 x10E1 2/L 11/12 7:43 AM T [facility] [employer] [facility] Not Available Not Available 06/23/2024 02:47:19 11/13/1911/13/2023 CBC panel - Blood by Autom ated count hemoglobin [mass/volume ] in blood 9.3 g/dL low: 11.9g/ dLhigh : 15.8g/ dL low Hemog lobin 9.3 (L) 11.9 - 15.8 g/dL 11/12 7:43 AM [facility] [facility] Not Available Not Available 06/23/2024 02:47:19 11/13/1911/13/2023 CBC panel - Blood by Autom ated count hematocrit [volume fraction] of blood by automated count 26.9 % low: 34.8%h igh: 46.1% low Hemat ocrit 26.9 (L) 34.8 - 46.1 % 11/12 7:43 AM T [facility] [employer] [facility] Not Available Not Available 06/23/2024 02:47:19 11/13/1911/13/2023 CBC panel - Blood by Autom ated count MCV [entitic volume] by automated count 92.1 fL low: 80fLhi gh: 98fL MCV 92.1 80.0 - 98.0 fL 11/12 7:43 AM T [facility] [employer] [facility] Not Available Not Available 06/23/2024 02:47:19 11/13/1911/13/2023 CBC panel - Blood by Autom ated count MCH [entitic mass] by automated count 31.8 pg low: 26.7pg high: 33.6pg MCH 31.8 26.7 - 33.6 pg 11/12 7:43 AM [facility] Not Available Not Available 06/23/2024 02:47:19 11/13/1911/13/2023 CBC panel - Blood by Autom ated count MCHC [mass/volume ] by automated count 34.6 g/dL low: 31.7g/ dLhigh : 36.3g/ dL MCHC 34.6 31.7 - 36.3 g/dL 11/12 7:43 AM [facility]T [facility] Not Available Not Available 06/23/2024 02:47:19 11/13/1911/13/2023 CBC panel - Blood by Autom ated count erythrocyte distribution width [ratio] by automated count 17.5 % low: 11.3%h igh: 14.8% high RDW-C V 17.5 (H) 11.3 - 14.8 % 11/12 7:43 AM [facility] Not Available Not Available 06/23/2024 02:47:19 11/13/1911/13/2023 CBC panel - Blood by Autom ated count platelets [#/volume] in blood by automated count 141 text: 150 - 420 x10e9/ L low Plate let Count 141 (L) 150 - 420 x10E9 /L 11/12 7:43 AM [facility] Not Available Not Available 06/23/2024 02:47:19 11/13/1911/13/2023 CBC panel - Blood by Autom ated count platelet mean volume [entitic volume] in blood by automated count 10.3 fL low: 7.8fLh igh: 11.4fL MPV 10.3 7.8 - 11.4 fL 11/12 7:43 AM [facility]T [facility] Not Available Not Available 06/23/2024 02:47:19 11/13/1911/13/2023 CBC panel - Blood by Autom ated count interpretati on and review of laboratory results Abnorm al Not Available Not Available 02:47:19 11/13/19 24 11/16/2023 Nicot ine [Mass /volu me] in Serum or Plasm a nicotine [mass/volume ] in serum or plasma <5 text: NG/mL Nicot ine <5 ng/mL 11/15 2:47 PM CDT [facility] ([facility]) Not Available Not Available 06/23/2024 02:47:19 11/13/19 24 11/16/2023 Nicot ine [Mass /volu me] in Serum or Plasm a cotinine [mass/volume ] in serum or plasma <5 text: NG/mL Cotin ine <5 ng/mL 11/15 2:47 PM CDT [facility] ([facility]) Not Available Not Available 06/23/2024 02:47:19 11/14/19 24 11/14/2023 Phosp hate [Mass /volu me] in Serum or Plasm a phosphate [mass/volume ] in serum or plasma 3.7 mg/dL low: 2.9mg/ dLhigh : 5.1mg/ dL Phosp horus 3.7 2.9 - 5.1 mg/dL 11/13 6:58 AM CDT [facility] Not Available Not Available 06/23/2024 02:47:20 11/14/19 24 11/14/2023 Phosp hate [Mass /volu me] in Serum or Plasm a interpretati on and review of laboratory results Normal Not Available Not Available 06/01 02:47:20 11/14/19 24 11/14/2023 Magne sium [Mass /volu me] in Serum or Plasm a magnesium [mass/volume ] in serum or plasma 1.8 mg/dL low: 1.6mg/ dLhigh : 2.6mg/ dL Magne sium 1.8 1.6 - 2.6 mg/dL 11/13 6:58 AM CDT [facility] Not Available Not Available 06/23/2024 02:47:20 11/14/19 24 11/14/2023 Magne sium [Mass /volu me] in Serum or Plasm a interpretati on and review of laboratory results Normal Not Available Not Available 06/01 02:47:20 11/14/19 24 11/14/2023 Compr ehens ion metab olic 1999 panel - Serum or Plasm a urea nitrogen [mass/volume ] in serum or plasma 13 mg/dL low: 7mg/dL high: 26mg/d L BUN 13 7 - 26 mg/dL 11/13 6:58 AM CDT [facility] Not Available Not Available 06/23/2024 02:47:20 11/14/19 24 11/14/2023 Compr ehens ion metab olic 1999 panel - Serum or Plasm a creatinine [mass/volume ] in serum or plasma 0.84 mg/dL low: 0.56mg /dLhig h: 0.96mg /dL Creat inine 0.84 0.56 - 0.96 mg/dL 11/13 6:58 AM CDT [facility] Not Available Not Available 06/23/2024 02:47:20 11/14/19 24 11/14/2023 Compr ehens ion metab olic 1999 panel - Serum or Plasm a sodium [moles/volum e] in serum or plasma 134 mmol/ L low: 136mmo l/Lhig h: 145mmo l/L low Sodiu m 134 (L) 136 - 145 mmol/ L 11/13 6:58 AM CDT [facility] Not Available Not Available 06/23/2024 02:47:20 11/14/19 24 11/14/2023 Compr ehens ion metab olic 1999 panel - Serum or Plasm a potassium [moles/volum e] in serum or plasma 3.8 mmol/ L low: 3.5mmo l/Lhig h: 4.5mmo l/L Potas sium 3.8 3.5 - 4.5 mmol/ L 11/13 6:58 AM CDT [facility] Not Available Not Available 06/23/2024 02:47:20 11/14/19 24 11/14/2023 Compr ehens ion metab olic 1999 panel - Serum or Plasm a chloride [moles/volum e] in serum or plasma 105 mmol/ L low: 98mmol /Lhigh : 107mmo l/L Chlor leighann 105 98 - 107 mmol/ L 11/13 6:58 AM CDT [facility] NISHA Not Available Not Available 06/23/2024 02:47:20 11/14/19 24 11/14/2023 Compr ehens ion metab olic 1999 panel - Serum or Plasm a carbon dioxide, total [moles/volum e] in serum or plasma 21 mmol/ L low: 22mmol /Lhigh : 29mmol /L low CO2 21 (L) 22 - 29 mmol/ L 11/13 6:58 AM CDT [facility] NISHA Not Available Not Available 06/23/2024 02:47:20 11/14/19 24 11/14/2023 Compr ehens ion metab olic 1999 panel - Serum or Plasm a glucose [mass/volume ] in serum or plasma 85 mg/dL low: 70mg/d Lhigh: 115mg/ dL Gluco se 85 70 - 115 mg/dL 11/13 6:58 AM CDT [facility] NISHA Not Available Not Available 06/23/2024 02:47:20 11/14/19 24 11/14/2023 Compr ens ion metab olic 1999 panel - Serum or Plasm a calcium [moles/volum e] in serum or plasma 8.9 mg/dL low: 8.4mg/ dLhigh : 10.2mg /dL Calci um 8.9 8.4 - 10.2 mg/dL 11/13 6:58 AM CDT [facility] NISHA Not Available Not Available 06/23/2024 02:47:20 11/14/19 24 11/14/2023 Compr ehens ion metab olic 1999 panel - Serum or Plasm a protein [mass/volume ] in serum or plasma 7.1 g/dL low: 6g/dLh igh: 8.3g/d L Prote in Total 7.1 6.0 - 8.3 g/dL 11/13 6:58 AM CDT [facility] NISHA Not Available Not Available 06/23/2024 02:47:20 11/14/19 24 11/14/2023 Compr ehens ion metab olic 2000 panel - Serum or Plasm a albumin [mass/volume ] in serum or plasma by bromocresol green (bcg) dye binding method 2.2 g/dL low: 3.4g/d Lhigh: 5g/dL low Album in 2.2 (L) 3.4 - 5.0 g/dL 11/13 6:58 AM CDT [facility] NISHA Not Available Not Available 06/23/2024 02:47:20 11/14/19 24 11/14/2023 Compr ehens ion metab olic 2000 panel - Serum or Plasm a bilirubin.to nisha [mass/volume ] in serum or plasma 5.4 mg/dL low: 0.2mg/ dLhigh : 1.2mg/ dL high Bilir ubin Total 5.4 (H) 0.2 - 1.2 mg/dL 11/13 6:58 AM CDT [facility] NISHA Not Available Not Available 06/23/2024 02:47:20 11/14/19 24 11/14/2023 Compr ehens ion metab olic 1999 panel - Serum or Plasm a alkaline phosphatase [enzymatic activity/vol ume] in serum or plasma 247 U/L low: 40U/Lh igh: 150U/L high Alkal ine Phosp hatas e 247 (H) 40 - 150 U/L 11/13 6:58 AM CDT [facility] NISHA Not Available Not Available 06/23/2024 02:47:20 11/14/19 24 11/14/2023 Compr ehens ion metab olic 2000 panel - Serum or Plasm a alanine aminotransfe rase [enzymatic activity/vol ume] in serum or plasma by no addition of P-5'-P 26 U/L low: 5U/Lhi gh: 55U/L ALT 26 5 - 55 U/L 11/13 6:58 AM CDT [facility] NISHA Not Available Not Available 06/23/2024 02:47:20 11/14/19 24 11/14/2023 Compr ehens ion metab olic 2000 panel - Serum or Plasm a aspartate aminotransfe rase [enzymatic activity/vol ume] in serum or plasma 67 U/L low: 5U/Lhi gh: 34U/L high AST 67 (H) 5 - 34 U/L 11/13 6:58 AM CDT [facility] NISHA Not Available Not Available 06/23/2024 02:47:20 11/14/19 24 11/14/2023 Compr ehens ion metab olic 1999 panel - Serum or Plasm a anion gap 8 low: 6high: 16 Anion Gap 8 6 - 16 11/13 6:58 AM CDT [facility] NISHA Not Available Not Available 06/23/2024 02:47:20 11/14/19 24 11/14/2023 Compr ehens ion metab olic 1999 panel - Serum or Plasm a urea nitrogen/cre atinine [mass ratio] in serum or plasma 15 low: 7high: 23 BUN/C reati nine Ratio 15 7 - 23 11/13 6:58 AM CDT [facility] NISHA Not Available Not Available 06/23/2024 02:47:20 11/14/19 24 11/14/2023 Compr ehens ion metab olic 1999 panel - Serum or Plasm a osmolality calculated 277 text: 275 - 295 mOsm/k g Osmol ality Calcu lated 277 275 - 295 mOsm/ kg 11/13 6:58 AM CDT [facility] NISHA Not Available Not Available 06/23/2024 02:47:20 11/14/19 24 11/14/2023 Compr ehens ion metab olic 1999 panel - Serum or Plasm a albumin/glob ulin ratio 0.4 low: 1.1hig h: 2.3 low Album in/Gl obuli n Ratio 0.4 (L) 1.1 - 2.3 11/13 6:58 AM CDT [facility] NISHA Not Available Not Available 06/23/2024 02:47:20 11/14/19 24 11/14/2023 Compr ehens ion metab olic 1999 panel - Serum or Plasm a glomerular filtration rate/1.73 sq M.predicted [volume rate/area] in serum, plasma or blood by creatinine-b ased formula (CKD-epi) 85 text: >=90 mL/min /1.73 m2 low eGFR by CKD-E PI 85 (L) >=90 mL/mi n/1.7 3 m2 11/13 6:58 AM CDT [facility] NISHA Not Available Not Available 06/23/2024 02:47:20 11/14/1911/14/2023 Compr ehens ion metab olic 2000 panel - Serum or Plasm a interpretati on and review of laboratory results Abnorm al Not Available Not Available 02:47:20 11/14/19 24 11/14/2023 CBC panel - Blood by Autom ated count leukocytes [#/volume] in blood by automated count 3.6 text: 4.0 - 10.7 x10e9/ L low WBC 3.6 (L) 4.0 - 10.7 x10E9 /L 11/13 6:58 AM T [facility] NISHA Not Available Not Available 06/23/2024 02:47:20 11/14/19 24 11/14/2023 CBC panel - Blood by Autom ated count erythrocytes [#/volume] in blood by automated count 3.1 text: 3.90 - 5.20 x10e12 /L low RBC Count 3.10 (L) 3.90 - 5.20 x10E1 2/L 11/13 6:58 AM [facility] NISHA Not Available Not Available 06/23/2024 02:47:20 11/14/19 24 11/14/2023 CBC panel - Blood by Autom ated count hemoglobin [mass/volume ] in blood 9.8 g/dL low: 11.9g/ dLhigh : 15.8g/ dL low Hemog lobin 9.8 (L) 11.9 - 15.8 g/dL 11/13 6:58 AM Pro Breath MDT [facility] NISHA Not Available Not Available 06/23/2024 02:47:20 11/14/19 24 11/14/2023 CBC panel - Blood by Autom ated count hematocrit [volume fraction] of blood by automated count 28.5 % low: 34.8%h igh: 46.1% low Hemat ocrit 28.5 (L) 34.8 - 46.1 % 11/13 6:58 AM [facility] NISHA Not Available Not Available 06/23/2024 02:47:20 11/14/19 24 11/14/2023 CBC panel - Blood by Autom ated count MCV [entitic volume] by automated count 91.9 fL low: 80fLhi gh: 98fL MCV 91.9 80.0 - 98.0 fL 11/13 6:58 AM [facility] NISHA Not Available Not Available 06/23/2024 02:47:20 11/14/1911/14/2023 CBC panel - Blood by Autom ated count MCH [entitic mass] by automated count 31.6 pg low: 26.7pg high: 33.6pg MCH 31.6 26.7 - 33.6 pg 11/13 6:58 AM [facility] NISHA Not Available Not Available 06/23/2024 02:47:20 11/14/1911/14/2023 CBC panel - Blood by Autom ated count MCHC [mass/volume ] by automated count 34.4 g/dL low: 31.7g/ dLhigh : 36.3g/ dL MCHC 34.4 31.7 - 36.3 g/dL 11/13 6:58 AM [facility] NISHA Not Available Not Available 06/23/2024 02:47:20 11/14/1911/14/2023 CBC panel - Blood by Autom ated count erythrocyte distribution width [ratio] by automated count 17.4 % low: 11.3%h igh: 14.8% high RDW-C V 17.4 (H) 11.3 - 14.8 % 11/13 6:58 AM [facility] NISHA Not Available Not Available 06/23/2024 02:47:20 11/14/19 24 11/14/2023 CBC panel - Blood by Autom ated count platelets [#/volume] in blood by automated count 149 text: 150 - 420 x10e9/ L low Plate let Count 149 (L) 150 - 420 x10E9 /L 11/13 6:58 AM CDT [facility] NISHA Not Available Not Available 06/23/2024 02:47:20 11/14/19 24 11/14/2023 CBC panel - Blood by Autom ated count platelet mean volume [entitic volume] in blood by automated count 10.5 fL low: 7.8fLh igh: 11.4fL MPV 10.5 7.8 - 11.4 fL 11/13 6:58 AM CDT [facility] NISHA Not Available Not Available 06/23/2024 02:47:20 11/14/19 24 11/14/2023 CBC panel - Blood by Autom ated count interpretati on and review of laboratory results Abnorm al Not Available Not Available 02:47:20 02/04/20 24 02/07/2024 URINE CULTU RERAMON NE urine culture, routine FINAL REPORT abnormal Not Available [facility] ([facility]) [address], [place], [address], 02/07/2024 16:13:55 02/04/2002/07/2024 URINE CULTU RERAMON NE result 1 ESCHER ICHIA COLI abnormal Cefaz mack <=4 ug/mL Cefaz mack with an TANESHA <=16 predi cts susce ptibi lity to the oral agent s cefac osman, cefdi lakesha, cefpo doxim e, cefpr ozil, cefur oxime , cepha lexin , and lorac arbef when used for thera py of uncom plica fransico urina ry tract infec tions due to E. coli, Klebs iella pneum oniae , and Prote us mirab ilis. 50,00 0-100 ,000 colon y formi ng units per mL Not Available [facility] ([facility]) [address], [place], [address], 02/07/2024 16:13:55 02/04/20 24 02/07/2024 URINE CULTU RERAMON NE result 2 COMMEN T Mixed uroge nital lee 50,00 0-100 ,000 colon y formi ng units per mL Not Available [facility] ([facility]) [address], [place], [address], 02/07/2024 16:13:55 02/04/20 24 02/07/2024 URINE CULTU RE, ROUTI NE antimicrobia l susceptibili ty COMMEN T S = Susce ptibl e; I = Inter media te; R = Resis tant P = Posit ion; N = Negat ion MICS are expre ssed in micro grams per mL Antib iotic RSLT# 1 RSLT# 2 RSLT# 3 RSLT# 4 Amoxi cilli n/Cla vulan ic Acid S Ampic illin S Cefep sharath S Ceftr iaxon e S Cefur oxime S Cipro floxa vic S Ertap enem S Genta micin S Imipe nem S Levof loxac in S Merop enem S Nitro furan toin S Piper acill in/Ta zobac cohen S Tetra cycli ne S Tobra mycin S Trime thopr im/Bang lfa S Not Available [facility] ([facility]) [address], [place], [address], 02/07/2024 16:13:55 06/04/19 25 06/06/2024 INR in Plate let poor plasm a by Coagu latio n assay INR in platelet poor plasma by coagulation assay 1 INR 1.0 [facility] Not Available Not Available 06/23/2024 02:45:52 06/04/19 25 06/06/2024 INR in Plate let poor plasm a by Coagu latio n assay prothrombin time (PT) 11.4 text: 9.0 - 11.5 sec PT 11.4 9.0 - 11.5 sec [facility] Not Available Not Available 06/23/2024 02:45:52 06/04/19 25 06/06/2024 Compr ehens ion metab olic 1999 panel - Serum or Plasm a glucose 87 mg/dL low: 65mg/d Lhigh: 99mg/d L Gluco se 87 65 - 99 mg/dL [facility] Not Available Not Available 06/23/2024 02:45:52 06/04/19 25 06/06/2024 Compr ehens ion metab olic 1999 panel - Serum or Plasm a BUN 11 mg/dL low: 7mg/dL high: 25mg/d L BUN 11 7 - 25 mg/dL [facility] Not Available Not Available 06/23/2024 02:45:52 06/04/19 25 06/06/2024 Compr ehens ion metab olic 1999 panel - Serum or Plasm a creatinine 0.74 mg/dL low: 0.5mg/ dLhigh : 1.03mg /dL Creat inine 0.74 0.50 - 1.03 mg/dL [facility] Not Available Not Available 06/23/2024 02:45:52 06/04/19 25 06/06/2024 Compr ehens ion metab olic 1999 panel - Serum or Plasm a glomerular filtration rate/1.73 sq M.predicted [volume rate/area] in serum, plasma or blood by cystatin C-based formula 99 text: > or = 60 mL/min /1.73m 2 eGFR by Cysta tin C 99 > OR = 60 mL/mi n/1.7 3m2 [facility] Not Available Not Available 06/23/2024 02:45:52 06/04/19 25 06/06/2024 Compr ehens ion metab olic 1999 panel - Serum or Plasm a BUN/creatini ne ratio SEE NOTE: text: 6 22 (calc) BUN/C reati nine Ratio SEE NOTE: 6 (calc ) [facility] Not Available Not Available 06/23/2024 02:45:52 06/04/19 25 06/06/2024 Compr ehens ion metab olic 1999 panel - Serum or Plasm a sodium 136 mmol/ L low: 135mmo l/Lhig h: 146mmo l/L Sodiu m 136 135 - 146 mmol/ L [facility] Not Available Not Available 06/23/2024 02:45:52 06/04/19 25 06/06/2024 Compr ehens ion metab olic 2000 panel - Serum or Plasm a potassium 4 mmol/ L low: 3.5mmo l/Lhig h: 5.3mmo l/L Potas sium 4.0 3.5 - 5.3 mmol/ L [facility] Not Available Not Available 06/23/2024 02:45:52 06/04/19 25 06/06/2024 Compr ehens ion metab olic 1999 panel - Serum or Plasm a chloride 107 mmol/ L low: 98mmol /Lhigh : 110mmo l/L Chlor leighann 107 98 - 110 mmol/ L [facility] Not Available Not Available 06/23/2024 02:45:52 06/04/19 25 06/06/2024 Compr ehens ion metab olic 1999 panel - Serum or Plasm a CO2 22 mmol/ L low: 20mmol /Lhigh : 32mmol /L CO2 22 20 - 32 mmol/ L [facility] Not Available Not Available 06/23/2024 02:45:52 06/04/19 25 06/06/2024 Compr ehens ion metab olic 1999 panel - Serum or Plasm a calcium 8.4 mg/dL low: 8.6mg/ dLhigh : 10.4mg /dL low Calci um 8.4 (L) 8.6 - 10.4 mg/dL [facility] Not Available Not Available 06/23/2024 02:45:52 06/04/19 25 06/06/2024 Compr ehens ion metab olic 1999 panel - Serum or Plasm a protein total 6.7 g/dL low: 6.1g/d Lhigh: 8.1g/d L Prote in Total 6.7 6.1 - 8.1 g/dL [facility] Not Available Not Available 06/23/2024 02:45:52 06/04/19 25 06/06/2024 Compr ehens ion metab olic 1999 panel - Serum or Plasm a albumin 2.8 g/dL low: 3.6g/d Lhigh: 5.1g/d L low Album in 2.8 (L) 3.6 - 5.1 g/dL [facility] Not Available Not Available 06/23/2024 02:45:52 06/04/19 25 06/06/2024 Compr ehens ion metab olic 2000 panel - Serum or Plasm a globulin total 3.9 text: 1.9 - 3.7 g/dL (calc) high Globu miranda Total 3.9 (H) 1.9 - 3.7 g/dL (calc ) [facility] Not Available Not Available 06/23/2024 02:45:52 06/04/19 25 06/06/2024 Compr ehens ion metab olic 2000 panel - Serum or Plasm a albumin/glob ulin ratio 0.7 text: 1.0 - 2.5 (calc) low Album in/Gl obuli n Ratio 0.7 (L) 1.0 - 2.5 (calc ) [facility] Not Available Not Available 06/23/2024 02:45:52 06/04/19 25 06/06/2024 Compr ens ion metab [facility] 1999 panel - Serum or Plasm a bilirubin total 5.2 mg/dL low: 0.2mg/ dLhigh : 1.2mg/ dL high Bilir ubin Total 5.2 (H) 0.2 - 1.2 mg/dL [facility] Not Available Not Available 06/23/2024 02:45:52 06/04/19 25 06/06/2024 Compr ens ion metab [facility] 2000 panel - Serum or Plasm a alkaline phosphatase 285 U/L low: 37U/Lh igh: 153U/L high Alkal ine Phosp hatas e 285 (H) 37 - 153 U/L [facility] Not Available Not Available 06/23/2024 02:45:52 06/04/19 25 06/06/2024 Compr ens ion metab [facility] 2000 panel - Serum or Plasm a AST 118 U/L low: 10U/Lh igh: 35U/L high AST 118 (H) 10 - 35 U/L [facility] Not Available Not Available 06/23/2024 02:45:52 06/04/19 25 06/06/2024 Compr ehens ion metab olic 2000 panel - Serum or Plasm a ALT 55 U/L low: 6U/Lhi gh: 29U/L high ALT 55 (H) 6 - 29 U/L [facility] Not Available Not Available 06/23/2024 02:45:52 06/04/19 25 06/06/2024 [facility] 2000 panel - Serum or Plasm a interpretati on and review of laboratory results Abnorm al Not Available Not Available 02:45:52 06/12/1906/12/2024 CBC W Auto Diffe estuardo al panel - Blood leukocytes [#/volume] in blood by automated count 2.6 text: 4.0 - 10.7 x10e9/ L low WBC 2.6 (L) 4.0 - 10.7 x10E9 /L 06/12 11:24 [facility] Not Available Not Available 06/23/2024 02:45:52 06/12/1906/12/2024 CBC W Auto Diffe renti al panel - Blood erythrocytes [#/volume] in blood by automated count 3.3 text: 3.90 - 5.20 x10e12 /L low RBC Count 3.30 (L) 3.90 - 5.20 x10E1 2/L 06/12 11:24 [facility] Not Available Not Available 06/23/2024 02:45:52 06/12/1906/12/2024 CBC W Auto Diffe renti al panel - Blood hemoglobin [mass/volume ] in blood 9.3 g/dL low: 11.9g/ dLhigh : 15.8g/ dL low Hemog lobin 9.3 (L) 11.9 - 15.8 g/dL 06/12 11:24 AM [facility] Not Available Not Available 06/23/2024 02:45:52 06/12/1906/12/2024 CBC W Auto Diffe tiati al panel - Blood hematocrit [volume fraction] of blood by automated count 28.5 % low: 34.8%h igh: 46.1% low Hemat ocrit 28.5 (L) 34.8 - 46.1 % 06/12 11:24 AM [facility] Not Available Not Available 06/23/2024 02:45:52 06/12/19 25 06/12/2024 CBC W Auto Diffe renti al panel - Blood MCV [entitic volume] by automated count 86.4 fL low: 80fLhi gh: 98fL MCV 86.4 80.0 - 98.0 fL 06/12 11:24 AM [facility] Not Available Not Available 06/23/2024 02:45:52 06/12/19 25 06/12/2024 CBC W Auto Diffe renti al panel - Blood MCH [entitic mass] by automated count 28.2 pg low: 26.7pg high: 33.6pg MCH 28.2 26.7 - 33.6 pg 06/12 11:24 AM [facility] NISHA Not Available Not Available 06/23/2024 02:45:52 06/12/1906/12/2024 CBC W Auto Diffe estuardo al panel - Blood MCHC [mass/volume ] by automated count 32.6 g/dL low: 31.7g/ dLhigh : 36.3g/ dL MCHC 32.6 31.7 - 36.3 g/dL 06/12 11:24 AM [facility] Not Available Not Available 06/23/2024 02:45:52 06/12/1906/12/2024 CBC W Auto Diffe estuardo farrell panel - Blood erythrocyte distribution width [ratio] by automated count 19.2 % low: 11.3%h igh: 14.8% high RDW-C V 19.2 (H) 11.3 - 14.8 % 06/12 11:24 [facility] Not Available Not Available 06/23/2024 02:45:52 06/12/1906/12/2024 CBC W Auto Diffrhea farrell panel - Blood platelets [#/volume] in blood by automated count 145 text: 150 - 420 x10e9/ L low Plate let Count 145 (L) 150 - 420 x10E9 /L 06/12 11:24 AM [facility] Not Available Not Available 06/23/2024 02:45:52 06/12/1906/12/2024 CBC W Auto Diffrhea farrell panel - Blood platelet mean volume [entitic volume] in blood by automated count 9.6 fL low: 7.8fLh igh: 11.4fL MPV 9.6 7.8 - 11.4 fL 06/12 11:24 AM [facility] Not Available Not Available 06/23/2024 02:45:52 06/12/19 25 06/12/2024 CBC W Auto Diffe estuardo farrell panel - Blood neutrophils/ 100 leukocytes in blood by automated count 56.6 % low: 41%hig h: 74% Neutr ophil % 56.6 41.0 - 74.0 % 06/12 11:24 AM ACCIDENT EXAMINER [facility] NISHA Not Available Not Available 06/23/2024 02:45:52 06/12/1906/12/2024 CBC W Auto Diffe renti al panel - Blood lymphocytes/ 100 leukocytes in blood by automated count 32.7 % low: 17%hig h: 47% Lymph ocyte % 32.7 17.0 - 47.0 % 06/12 11:24 AM ACCIDENT EXAMINER [facility] NISHA Not Available Not Available 06/23/2024 02:45:52 06/12/1906/12/2024 CBC W Auto Diffe renti al panel - Blood monocytes/10 0 leukocytes in blood by automated count 8 % low: 3%high : 11% Monoc yte % 8.0 3.0 - 11.0 % 06/12 11:24 AM ACCIDENT EXAMINER [facility] NISHA Not Available Not Available 06/23/2024 02:45:52 06/12/1906/12/2024 CBC W Auto Diffe renti al panel - Blood eosinophils/ 100 leukocytes in blood by automated count 1.5 % low: 0%high : 7% Eosin ophil % 1.5 0.0 - 7.0 % 06/12 11:24 AM ACCIDENT EXAMINER [facility] NISHA Not Available Not Available 06/23/2024 02:45:52 06/12/19 25 06/12/2024 CBC W Auto Diffe renti al panel - Blood basophils/10 0 leukocytes in blood by automated count 0.8 % low: 0%high : 1.6% Basop hil % 0.8 0.0 - 1.6 % 06/12 11:24 AM ACCIDENT EXAMINER [facility] NISHA Not Available Not Available 06/23/2024 02:45:52 06/12/19 25 06/12/2024 CBC W Auto Diffe renti al panel - Blood immature granulocytes /100 leukocytes in blood by automated count 0.4 % low: 0%high : 1% Immat ure Granu locyt es % 0.4 0.0 - 1.0 % 06/12 11:24 AM ACCIDENT EXAMINER [facility] NISHA Not Available Not Available 06/23/2024 02:45:52 06/12/19 25 06/12/2024 CBC W Auto Diffe renti al panel - Blood neutrophils [#/volume] in blood by automated count 1.49 text: 1.60 - 7.50 x10e9/ L low Neutr ophil Absol [place] 1.49 (L) 1.60 - 7.50 x10E9 /L 06/12 11:24 AM ACCIDENT EXAMINER [facility] NISHA Not Available Not Available 06/23/2024 02:45:52 06/12/19 25 06/12/2024 CBC W Auto Diffe renti al panel - Blood lymphocytes [#/volume] in blood by automated count 0.86 text: 1.00 - 4.40 x10e9/ L low Lymph ocyte Absol [place] 0.86 (L) 1.00 - 4.40 x10E9 /L 06/12 11:24 AM [facility] NISHA Not Available Not Available 06/23/2024 02:45:52 06/12/19 25 06/12/2024 CBC W Auto Diffe renti al panel - Blood monocytes [#/volume] in blood by automated count 0.21 text: 0.15 - 1.00 x10e9/ L Monoc yte Absol [place] 0.21 0.15 - 1.00 x10E9 /L 06/12 11:24 AM [facility] NISHA Not Available Not Available 06/23/2024 02:45:52 06/12/19 25 06/12/2024 CBC W Auto Diffe renti al panel - Blood eosinophils [#/volume] in blood 0.04 text: 0.00 - 0.60 x10e9/ L Eosin ophil Absol [place] 0.04 0.00 - 0.60 x10E9 /L 06/12 11:24 AM ACCIDENT EXAMINER [facility] NISHA Not Available Not Available 06/23/2024 02:45:52 06/12/19 25 06/12/2024 CBC W Auto Diffe renti al panel - Blood basophils [#/volume] in blood by automated count 0.02 text: 0.00 - 0.13 x10e9/ L Basop hil Absol [place] 0.02 0.00 - 0.13 x10E9 /L 06/12 11:24 AM ACCIDENT EXAMINER [facility] NISHA Not Available Not Available 06/23/2024 02:45:52 06/12/1906/12/2024 CBC W Auto Diffe renti al panel - Blood interpretati on and review of laboratory results Abnorm al Not Available Not Available 02:45:52 06/12/1906/12/2024 Blood type and Indir ect antib nola scree n panel - Blood blood group antibody screen [presence] in serum or plasma NEG Antib nola Scree n NEG 06/12 11:38 AM [facility]3] BLOOD BANK LAB Not Available Not Available 06/23/2024 02:45:26 06/12/19 25 06/12/2024 Blood type and Indir ect antib nola scree n panel - Blood ABO and Rh group [type] in blood O POS ABO Rh O POS 06/12 11:38 AM [facility]3] BLOOD BANK LAB Not Available Not Available 06/23/2024 02:45:26 06/25/19 25 06/26/2024 Tissu e Patho logy biops y repor t pathology report.secti on heading Surgic al Pathol ogy Report Case: [id number] Author kimberli Light er: Phillip Reich Collec fransico: 2024 10:51 AM Orderi ng Locati on: [facility] OP Receiv ed: 2024 12:42 PM Pathol ogist: Tim Benz MD Specim en: Nikhil addmiguelito Case Repor t Surgi loren Patho logy Repor t Case: [id number] Autho selam g Provi ye: Cheri Hudson Colle cted: 06/25 10:51 AM Order ing Locat ion: [facility] Recei ayan: 06/25 12:42 PM Patho logis t: Sheldon Grant MD Speci men: Agueda harrington 06/26 11:27 AM ACCIDENT EXAMINER [facility] Not Available Not Available 07/04/2024 11:27:22 06/25/19 25 06/26/2024 Tissu e Patho logy biops y repor t pathology report final diagnosis narrative Gallbl adder, cholec ystect maryann (A): - Mild chroni c cholec ystiti s - Choles terolo sis Final Diagn osis Gallb ladde r, jolie cyste ctomy (A): - Mild chron ic jolie cysti tis - Jolie stero losis 06/26 11:27 AM ACCIDENT EXAMINER [facility] Elect yomairaerich natarajan d by Sheldon Grant MD on 2024 at 11:27 AM Not Available Not Available 07/04/2024 11:27:22 06/25/19 25 06/26/2024 Tissu e Patho logy biops y repor t pathology report microscopic observation narrative other stain Micros copic examin ation substa ntiate s the final diagno sis. Micro scopi c Descr iptio n and Comme nt Micro scopi c exami natio n subst antia ximena the final diagn osis. 06/26 11:27 AM ACCIDENT EXAMINER [facility] Not Available Not Available 07/04/2024 11:27:22 06/25/1906/26/2024 Tissu e Patho logy biops y repor t pathology report relevant history narrative The patien t is a 49-yea r-old woman with well compen sated PBC with contin ued sympto ms of biliar y colic. Operat ion proced ure: Laparo scopic cholec ystect maryann Clini loren Histo ry The patie nt is a 49-ye ar-ol d woman with well compe nsate d PBC with antonio nued sympt oms of bilia ry colic . Opera tive proce dure: Lapar oscop ic jolie cyste ctomy 06/26 11:27 AM ACCIDENT EXAMINER [facility] Not Available Not Available 07/04/2024 11:27:22 06/25/19 25 06/26/2024 Tissu e Patho logy biops y repor t pathology report gross observation narrative The requis ition and specim en(s) are identi fied with the patien t's name, Christian Bates . Receiv ed in formal in, specim en A, is a 7.0 x 2.0 x 2.0 cm open and disrup fransico gallbl adder with a 0.7 cm portio n of attach ed cystic duct. The serosa is [id number] [id number], edemat ous with focal hemorr iris at the fundus . The cystic duct is dilate d to 1.3 cm. There are three transm ural defect s rangin g from 0.5-1. 7 cm exposi ng the underl akin mucosa . Openin g shows pink-r ed velvet y mucosa with diffus e yellow stippl ing and hemorr iris surrou nding the defect s. The lumen contai ns scant blood- tinged yellow bile withou t stones . There are no gross lesion s or lymph nodes. Repres entati ve sectio ns to includ e wall at defect s are submit fransico in casset te A1. IKD Gross Descr iptio n The requi sitio n and speci men(s ) are ident ified with the patie nt's name, Corazon bryson. Recei ayan in forma miranda, speci men A, is a 7.0 x 2.0 x 2.0 cm open and disru pted gallb ladde r with a 0.7 cm porti on of attac hed cysti c duct. The seros a is enriquez-p ink, edema tous with focal hemor rhage at the fundu s. The cysti c duct is dilat ed to 1.3 cm. There are three trans mural defec ts rangi ng from 0.5-1 .7 cm expos ing the under lying mucos a. Openi ng shows pink- red velve ty mucos a with diffu se yello w stipp ling and hemor rhage surro undin g the defec ts. The lumen conta ins scant blood -ting ed yello w bile witho ut stone s. There are no gross lesio ns or lymph nodes . Repre senta tive secti ons to inclu de wall at defec ts are submi tted in casse tte A1. IKD 06/26 11:27 AM [facility] EXAM[facility] Not Available Not Available 07/04/2024 11:27:22 06/25/19 25 06/26/2024 Tissu e Patho logy biops y repor t pathologist location at signout [facility] abelardo Jarrell Patho logis t Locat ion at [place] [place] Beatriz jett Jarrell 06/26 11:27 AM ACCIDENT EXAMINER [facility] Not Available Not Available 07/04/2024 11:27:22 06/25/1906/26/2024 Tissu e Patho logy biops y repor t service comment The perfor gautam charac terist ics of all immuno histoc hemica l and indire ct immuno fluore scence stains (if any) cited in this report were determ ined by the Histop atholo gy Amarjita toraaron of [facility]. Some of these tests were develo ped by our own labora tory and have not been cleare d or approv ed by the [place] Food and Drug Admini strati on. The FDA does not requir e this test to go throug h premar ket FDA review . These tests are used for clinic al purpos es. They should not be regard ed as invest igatio nal or for resear ch. This teresa mcguire is certif ied under the Clinic al Teresa mcguire Improv ement Amendm ents (CLIA) as qualif ied to perfor m high comple xity clinic al teresa mcguire testin g. This case has been person ally review ed and interp reted by the attend ing (teach ing) pathol ogist. Discl aimer The perfo rmanc e dario cteri stics of all immun ohist ochem ical and indir ect immun ofluo resce nce stain s (if any) cited in this repor t were deter mined by the Histo patho logy Labor atory of [facility] . Some of these tests were devel oped by our own labor atory and have not been clear ed or appro ayan by the US Food and Drug Admin istra tion. The FDA does not requi re this test to go throu gh nico rket FDA revie w. These tests are used for clini loren purpo ses. They shoul d not be regar ded as inves tigat ional or for resea [facility]. This labor atory is certi fied under the Clini loren Labor atory Impro vemen t Amend ments (CLIA ) as quali fied to perfo rm high compl exity clini loren labor atory testi ng. This case has been perso joe revie wed and inter prete d by the avelino riley ([facility]) patho logis t. 06/26 11:27 AM [facility] Not Available Not Available 07/04/2024 11:27:22 06/25/1906/26/2024 Tissu e Patho logy biops y repor t embedded images Embed ded Image s 06/26 11:27 AM [facility] Not Available Not Available 07/04/2024 11:27:22 06/25/1906/25/2024 Blood type and Indir ect antib nola scree n panel - Blood blood group antibody screen [presence] in serum or plasma NEG Antib nola Scree n NEG 06/25 8:57 AM [facility]3] [facility] LAB Not Available Not Available 07/04/2024 11:27:22 06/25/19 25 06/25/2024 Blood type and Indir ect antib nola scree n panel - Blood ABO and Rh group [type] in blood O POS ABO Rh O POS 06/25 8:57 AM [facility]3] BLOOD BANK LAB Not Available Not Available 07/04/2024 11:27:22 06/25/19 25 06/25/2024 CBC panel - Blood by Autom ated count leukocytes [#/volume] in blood by automated count 2.8 text: 4.0 - 10.7 x10e9/ L low WBC 2.8 (L) 4.0 - 10.7 x10E9 /L 06/25 9:10 AM [facility]3] [facility] Not Available Not Available 07/04/2024 11:27:22 06/25/19 25 06/25/2024 CBC panel - Blood by Autom ated count erythrocytes [#/volume] in blood by automated count 3.03 text: 3.90 - 5.20 x10e12 /L low RBC Count 3.03 (L) 3.90 - 5.20 x10E1 2/L 06/25 9:10 AM [facility]3] [facility] Not [facility] Not Available 07/04/2024 11:27:22 06/25/1906/25/2024 CBC panel - Blood by Autom ated count hemoglobin [mass/volume ] in blood 8.7 g/dL low: 11.9g/ dLhigh : 15.8g/ dL low Hemog lobin 8.7 (L) 11.9 - 15.8 g/dL 06/25 9:10 AM [facility]3] [facility] Not Available Not Available 07/04/2024 11:27:22 06/25/1906/25/2024 CBC panel - Blood by Autom ated count hematocrit [volume fraction] of blood by automated count 26.6 % low: 34.8%h igh: 46.1% low Hemat ocrit 26.6 (L) 34.8 - 46.1 % 06/25 9:10 AM [facility]3] [facility] Not Available Not Available 07/04/2024 11:27:22 06/25/1906/25/2024 CBC panel - Blood by Autom ated count MCV [entitic volume] by automated count 87.8 fL low: 80fLhi gh: 98fL MCV 87.8 80.0 - 98.0 fL 06/25 9:10 AM [facility]3] [facility] Not Available Not Available 07/04/2024 11:27:22 06/25/1906/25/2024 CBC panel - Blood by Autom ated count MCH [entitic mass] by automated count 28.7 pg low: 26.7pg high: 33.6pg MCH 28.7 26.7 - 33.6 pg 06/25 9:10 AM [facility]3] [facility] Not Available Not Available 07/04/2024 11:27:22 06/25/19 25 06/25/2024 CBC panel - Blood by Autom ated count MCHC [mass/volume ] by automated count 32.7 g/dL low: 31.7g/ dLhigh : 36.3g/ dL MCHC 32.7 31.7 - 36.3 g/dL 06/25 9:10 AM [facility]3] [facility] Not Available Not Available 07/04/2024 11:27:22 06/25/19 25 06/25/2024 CBC panel - Blood by Autom ated count erythrocyte distribution width [ratio] by automated count 18.8 % low: 11.3%h igh: 14.8% high RDW-C V 18.8 (H) 11.3 - 14.8 % 06/25 9:10 AM [facility]3] [facility] Not Available Not Available 07/04/2024 11:27:22 06/25/19 25 06/25/2024 CBC panel - Blood by Autom ated count platelets [#/volume] in blood by automated count 142 text: 150 - 420 x10e9/ L low Plate let Count 142 (L) 150 - 420 x10E9 /L 06/25 9:10 AM [facility]3] [facility] Not Available Not Available 07/04/2024 11:27:22 06/25/19 25 06/25/2024 CBC panel - Blood by Autom ated count platelet mean volume [entitic volume] in blood by automated count 10.1 fL low: 7.8fLh igh: 11.4fL MPV 10.1 7.8 - 11.4 fL 06/25 9:10 AM [facility]3] [facility] Not Available Not Available 07/04/2024 11:27:22 06/25/1906/25/2024 CBC panel - Blood by Autom ated count interpretati on and review of laboratory results Abnorm al Not Available Not Available 11:27:22 06/25/19 25 06/25/2024 Basic metab olic 2000 panel - Serum or Plasm a urea nitrogen [mass/volume ] in serum or plasma 13 mg/dL low: 7mg/dL high: 26mg/d L BUN 13 7 - 26 mg/dL 06/25 8:29 AM [facility]3] [facility] Not Available Not Available 07/04/2024 11:27:22 06/25/19 25 06/25/2024 Basic metab olic 2000 panel - Serum or Plasm a creatinine [mass/volume ] in serum or plasma 0.76 mg/dL low: 0.56mg /dLhig h: 0.96mg /dL Creat inine 0.76 0.56 - 0.96 mg/dL 06/25 8:29 AM [facility]3] [facility] Not Available Not Available 07/04/2024 11:27:22 06/25/19 25 06/25/2024 Basic metab olic 1999 panel - Serum or Plasm a sodium [moles/volum e] in serum or plasma 138 mmol/ L low: 136mmo l/Lhig h: 145mmo l/L Sodiu m 138 136 - 145 mmol/ L 06/25 8:29 AM [facility] Not Available Not Available 07/04/2024 11:27:22 06/25/19 25 06/25/2024 Basic metab olic 1999 panel - Serum or Plasm a potassium [moles/volum e] in serum or plasma 3.3 mmol/ L low: 3.5mmo l/Lhig h: 4.5mmo l/L low Potas sium 3.3 (L) 3.5 - 4.5 mmol/ L 06/25 8:29 AM [facility] Not Available Not Available 07/04/2024 11:27:22 06/25/19 25 06/25/2024 Basic metab olic 1999 panel - Serum or Plasm a chloride [moles/volum e] in serum or plasma 110 mmol/ L low: 98mmol /Lhigh : 107mmo l/L high Chlor leighann 110 (H) 98 - 107 mmol/ L 06/25 8:29 AM [facility] Not Available Not Available 07/04/2024 11:27:22 06/25/19 25 06/25/2024 Basic metab olic 1999 panel - Serum or Plasm a carbon dioxide, total [moles/volum e] in serum or plasma 20 mmol/ L low: 22mmol /Lhigh : 29mmol /L low CO2 20 (L) 22 - 29 mmol/ L 06/25 8:29 AM [facility]3] [facility] Not Available Not Available 07/04/2024 11:27:22 06/25/19 25 06/25/2024 Basic metab olic 1999 panel - Serum or Plasm a glucose [mass/volume ] in serum or plasma 82 mg/dL low: 70mg/d Lhigh: 99mg/d L Gluco se 82 70 - 99 mg/dL 06/25 8:29 AM ACCIDENT EXAMINER [facility] Not Available Not Available 07/04/2024 11:27:22 06/25/19 25 06/25/2024 Basic metab olic 1999 panel - Serum or Plasm a calcium [moles/volum e] in serum or plasma 8.6 mg/dL low: 8.4mg/ dLhigh : 10.2mg /dL Calci um 8.6 8.4 - 10.2 mg/dL 06/25 8:29 AM [facility]IDENT EXAMINER [facility] Not Available Not Available 07/04/2024 11:27:22 06/25/19 25 06/25/2024 Basic metab olic 1999 panel - Serum or Plasm a anion gap 8 low: 6high: 16 Anion Gap 8 6 - 16 06/25 8:29 AM [facility] EXAMIN[facility] Not Available Not Available 07/04/2024 11:27:22 06/25/19 25 06/25/2024 Basic metab olic 1999 panel - Serum or Plasm a urea nitrogen/cre atinine [mass ratio] in serum or plasma 17 low: 7high: 23 BUN/C reati nine Ratio 17 7 - 23 06/25 8:29 AM ACCIDENT EXAMINER [facility] Not Available Not Available 07/04/2024 11:27:22 06/25/19 25 06/25/2024 Basic metab olic 1999 panel - Serum or Plasm a osmolality calculated 285 text: 275 - 295 mOsm/k g Osmol ality Calcu lated 285 275 - 295 mOsm/ kg 06/25 8:29 AM ACCIDENT EXAMINER [facility] Not Available Not Available 07/04/2024 11:27:22 06/25/19 25 06/25/2024 Basic metab olic 2000 panel - Serum or Plasm a glomerular filtration rate/1.73 sq M.predicted [volume rate/area] in serum, plasma or blood by creatinine-b ased formula (CKD-epi 2020) text: >=90 mL/min /1.73 m2 eGFR by CKD-E PI >90 >=90 mL/mi n/1.7 3 m2 06/25 8:29 AM ACCIDENT EXAMINER [facility] Not Available Not Available 07/04/2024 11:27:22 06/25/19 25 06/25/2024 Basic metab olic 2000 panel - Serum or Plasm a interpretati on and review of laboratory results Abnorm al Not Available Not Available 11:27:22 06/25/19 25 06/25/2024 Hepat ic funct ion 2000 panel - Serum or Plasm a protein [mass/volume ] in serum or plasma 7 g/dL low: 6g/dLh igh: 8.3g/d L Prote in Total 7.0 6.0 - 8.3 g/dL 06/25 9:48 AM ACCIDENT EXAMINER [facility] Not Available Not Available 07/04/2024 11:27:22 06/25/1906/25/2024 Hepat ic funct ion 2000 panel - Serum or Plasm a albumin [mass/volume ] in serum or plasma by bromocresol green (bcg) dye binding method 2.4 g/dL low: 3.4g/d Lhigh: 5g/dL low Album in 2.4 (L) 3.4 - 5.0 g/dL 06/25 9:48 AM ACCIDENT EXAMINER [facility] Not Available Not Available 07/04/2024 11:27:22 06/25/1906/25/2024 Hepat ic funct ion 2000 panel - Serum or Plasm a bilirubin.to nisha [mass/volume ] in serum or plasma 5.2 mg/dL low: 0.2mg/ dLhigh : 1.2mg/ dL high Bilir ubin Total 5.2 (H) 0.2 - 1.2 mg/dL 06/25 9:48 AM [facility] Not Available Not Available 07/04/2024 11:27:22 06/25/19 25 06/25/2024 Hepat ic funct ion 2000 panel - Serum or Plasm a bilirubin.di rect [mass/volume ] in serum or plasma 3.8 mg/dL low: 0.1mg/ dLhigh : 0.5mg/ dL high Bilir ubin Conju gated 3.8 (H) 0.1 - 0.5 mg/dL 06/25 9:48 AM ACCIDENT EXAMINER [facility] Not Available Not Available 07/04/2024 11:27:22 06/25/19 25 06/25/2024 Hepat ic funct ion 2000 panel - Serum or Plasm a bilirubin unconjugated 1.4 mg/dL text: unconj ugated biliru bin IS a calcul ated value: refere nce ranges have not been establ ished. Bilir ubin Uncon jugat ed 1.4 Uncon jugat ed Bilir ubin is a calcu lated value : Refer ence range s have not been estab lishe d. mg/dL 06/25 9:48 AM ACCIDENT EXAMINER [facility] Not Available Not Available 07/04/2024 11:27:22 06/25/19 25 06/25/2024 Hepat ic funct ion 2000 panel - Serum or Plasm a alkaline phosphatase [enzymatic activity/vol ume] in serum or plasma 297 U/L low: 40U/Lh igh: 150U/L high Alkal ine Phosp hatas e 297 (H) 40 - 150 U/L 06/25 9:48 AM ACCIDENT EXAMINER [facility] Not Available Not Available 07/04/2024 11:27:22 06/25/19 25 06/25/2024 Hepat ic funct ion 1999 panel - Serum or Plasm a alanine aminotransfe rase [enzymatic activity/vol ume] in serum or plasma by no addition of P-5'-P 52 U/L low: 5U/Lhi gh: 55U/L ALT 52 5 - 55 U/L 06/25 9:48 AM ACCIDENT EXAMINER [facility] Not Available Not Available 07/04/2024 11:27:22 06/25/19 25 06/25/2024 Hepat ic funct ion 2000 panel - Serum or Plasm a aspartate aminotransfe rase [enzymatic activity/vol ume] in serum or plasma 116 U/L low: 5U/Lhi gh: 34U/L high AST 116 (H) 5 - 34 U/L 06/25 9:48 AM ACCIDENT EXAMINER [facility] Not Available Not Available 07/04/2024 11:27:22 06/25/19 25 06/25/2024 Hepat ic funct ion 2000 panel - Serum or Plasm a albumin/glob ulin ratio 0.5 low: 1.1hig h: 2.3 low Album in/Gl obuli n Ratio 0.5 (L) 1.1 - 2.3 06/25 9:48 AM ACCIDENT EXAMINER [facility] Not Available Not Available 07/04/2024 11:27:22 06/25/19 25 06/25/2024 Hepat ic funct ion 2000 panel - Serum or Plasm a interpretati on and review of laboratory results Abnorm al Not Available Not Available 11:27:22 06/25/19 25 06/25/2024 Chori ogona dotro pin (preg yazmin test) [Pres ence] in Urine HCG qual urine Negati ve text: negati ve HCG Qual Urine Negat ion Negat ion 06/25 7:35 AM ACCIDENT EXAMINER [facility] Not Available Not Available 07/04/2024 11:27:22 06/25/19 25 06/25/2024 Chori ogona dotro pin (preg yazmin test) [Pres ence] in Urine interpretati on and review of laboratory results Normal Not Available Not Available 10/2024 11:27:22 08/02/19 24 08/01/2023 CT, abdom en + pelvi s, w/ contr ast No observ ation record ed. [address], [place], [address], 08/06/2023 13:51:22 03/05/20 25 03/05/2025 imagi ng/di agnos tic resul t No observ ation record ed. [place] [id number] [facility] [address], [place], [address], 03/05/2025 17:52:44 Result Notes None recorded. Problems Name Problem SNOMED Code Status Onset Date Resolution Date Notes Provider Name and Address Organization Details Recorded Time Anxiety 71794647 Active 2018 Gisela Stock [place] null, [place] - [facility] 9 14:33:05 Depressive disorder 14365104 Active 2018 Gisela Stock [place] [facility] 9 14:33:11 Cyst of ovary 11520362 Active 2018 Gisela Stock [place] [facility] 9 14:40:50 Gastroesop hageal reflux disease 618967509 Active 2018 Gisela Stock [place] [facility] 9 14:46:51 Environmen nisha allergy 019193677 Active 2018 Gisela Stock [place] [facility] 9 14:47:05 Migraine 67924745 Active 2018 Gisela Stock [place] [facility] 9 14:47:13 Liver enzymes level above reference range 466460102 Active 2018 AUBREY GALAVIZ Attn: Lico g,[address] [facility], [place], [address], [place] - [facility] 9 15:15:40 Primary biliary cholangiti s 97985685 Active 2018 [facility] 06/24/2020: F4, S0 MUNIR PROSPER, V[employer] [address], [place], [address], [place] - [facility] 1 13:51:41 Vitamin D below reference range 047258215 Active 2019 MUNIR PROSPER, V[employer] [address], [place], [address], [place] [facility] 0 13:32:43 Hyperlipid emia 54928219 Active 2019 MUNIR PROSPER, [employer] [address], [place], [address], [place] [facility] 0 14:30:15 Body mass index 30+ - obesity 099795453 Active 2020 MUNIR PROSPER, [employer] [address], [place], [address], [place] [facility] 1 11:38:51 Tobacco dependence syndrome 33280426 Active 2020 MUNIR PROSPER, [employer] [address], [place], [address], [place] [facility] 1 12:00:11 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 AUBREY GALAVIZ Attn: Accountin g,[address] [facility], [place], [address], [place] - [facility] 2 16:21:04 Thickening of skin 69993219 Active 2022 AUBREY GALAVIZ Attn: Accountin g,[address] [place], [address], [place] [facility] 3 14:00:22 Serum iron above reference range 880499908 Active 2022 AUBREY GALAVIZ Attn: Accountin g,[address] [place], [address], [place] [facility] 3 14:00:23 Scleral icterus 814787299 Active 2022 AUBREY GALAVIZ Attn: Accountin g,[address] [place], [address], [place] [facility] 3 14:00:29 Hepatomega ly 51048850 Active 2022 AUBREY GALAVIZ Attn: Accountin g,[address] [place], [address], [place] [facility] 3 10:40:02 Obesity 528543211 Active 2023 AUBREY GALVAIZ Attn: Accountin g,[address] [place], [address], [place] [facility] 4 09:30:16 Allergic rhinitis 04210253 Active 2023 AUBREY GALAVIZ Attn: Accountin g,[address], [place], [address], [facility] - [facility] 4 09:30:19 Cirrhosis of liver 74437526 Active 2023 AUBREY GALAVIZ Attn: Lico ni,[address] [facility], [place], [address], [facility] - [facility] 4 15:32:30 Muscle weakness 45144665 Active 2023 AUBREY GALAVIZ Attn: Lico ni,[address] [facility], [place], [address], [facility] - [facility] 4 15:32:32 Problem Notes None recorded. Procedures Surgical History Date Name Laterality Status Provider Name and Address Organization Details Recorded Time 1 Injection completed Gus Camp MD [address] [place], [address], [facility] - [facility] 10/20/2020 16:38:00 section completed Gisela Stock [place] - [facility] 11/25/2018 14:46:20 section completed Gisela Stock MA [place] - [facility] 11/25/2018 14:46:21 section completed Gisela Stock MA [place] - [facility] 11/25/2018 14:46:23 Imaging Results None recorded. Procedure Notes None recorded. Medical Equipment None Reported. Allergies Allergen ID Allergen Name Allergen Category Reaction Reaction Severity Criticality Documentation Date Start Date Code Code System Note Provider Name and Address Organization Details Recorded Time 087544 Substance with sulfonami de structure and antibacte rial mechanism of action (substanc e) medicatio n abdominal pain nausea Not available Not available Not available 11/25/2018 46616 8003 SNOMED Gisela Stock [place], [place] - [facility] 9 14:35:21 [id number] Bactrim medicatio n nausea Not available Not available 09/03/2019 72064 9 RxNorm AUBREY GALAVIZ Attn: Lico ni,[address] [facility], [place], [address], [place] - [facility] 2 12:50:23 138144 cephalexi n medicatio n itching Not available Not available 06/24/20201 RxNorm Sewll ing in pubic area and itchi ng Thi Busby [place] null, [place] - [facility] 11:53:10 Medications Name Sig Start Date Stop Date Status Note LastModified by Organization Details LastModified Time Refresh Tears 0.5 % eye drops Apply 1 drop 4 times a day by ophthalmi c route. 2020 active Not Available Not Available Not Avai lable furosemide 40 mg tablet active Not Available Not Available Not Available methocarba mol 500 mg tablet TAKE ONE TABLET BY MOUTH EVERY 6 HOURS NEEDED FOR MUSCLE SPASMS active Not Available Not Available No t Available triamcinol one acetonide 0.5 % topical cream Apply thin layer to the wrists twice daily 2 weeks on/ 2 weeks off as needed 2020 active Not Available Not Available Not Avai lable atorvastat in 10 mg tablet TAKE ONE TABLET EVERY DAY BY ORAL ROUTE FOR 30 DAYS. active Not Available Not Available No t Available spironolac tone 100 mg tablet active Not Available Not Available No t Available Diflucan 150 mg tablet Take 1 tablet by oral route. 09/17 completed Not Available Not Available Not Available triamcinol one acetonide 0.5 % topical ointment APPLY A THIN LAYER TO THE AFFECTED AREA(S) BY TOPICAL ROUTE 2 TIMES PER DAY active Not Available Not Available No t Available ciprofloxa vic 500 mg tablet Take 1 tablet every 12 hours by oral route with meals for 7 days. 03/14 completed Not Available Not Available Not Available oxycodone- acetaminop hen 5 mg-325 mg tablet TAKE 1 TABLET BY MOUTH EVERY 6 HOURS NEEDED FOR PAIN active Not Available Not Available No t Available famotidine 20 mg tablet Take 1 tablet twice a day by oral route for 30 days. 2020 active Not Available Not Available Not Avai lable magnesium oxide 400 mg (241.3 mg magnesium) tablet TAKE 1 TABLET BY MOUTH TWICE DAILY active Not Available Not Available No t Available pantoprazo le 40 mg tablet,del ayed release Take 1 tablet every day by oral route for 90 days. active Not Available Not Available No t Available ursodiol 300 mg capsule TAKE TWO (2) CAPSULES BY MOUTH TWICE A DAY DIRECTED -- INSURANCE ONLY PAYS FOR #90 FOR 30 DAYS active Not Available Not Available No t Available ursodiol 250 mg tablet Take 0.5 tablets every day by oral route for 30 days. 03/14 completed Not Available Not Available Not Available Maxitrol 3.5 mg/g-10,00 0 unit/g-0.1 % eye ointment APPLY A SMALL AMOUNT INTO THE CONJUNCTI SUSAN SAC(S) IN both eyes at bed time 2020 active Not Available Not Available Not Avai lable hydroxyzin e HCl 25 mg tablet Take 1 tablet 4 times a day by oral route. 06/11 completed Not Available Not Available Not Available ergocalcif [place] (vitamin D2) 1,250 mcg (50,000 unit) capsule TAKE ONE CAPSULE BY MOUTH EVERY WEEK FOR 12 WEEKS. active Not Available Not Available No t Available dexamethas one sodium phosphate 4 mg/mL injection solution Inject 1 mL by intramusc ular route. 06/22 completed Not Available Not Available Not Available ferrous sulfate 325 mg (65 mg iron) tablet,del ayed release active Not Available Not Available Not Available ketoconazo le 2 % topical cream active Not Available Not Available Not Available sertraline 50 mg tablet Take 1 tablet every day by oral route. 06/17 completed Not Available Not Available Not Available amoxicilli n 875 mg-potassi um clavulanat e 125 mg tablet TAKE 1 TABLET BY MOUTH TWICE DAILY FOR 5 DAYS active Not Available Not Available No t Available escitalopr am 10 mg tablet Take 1 tablet every day by oral route for 30 days. 01/21 completed Not Available Not Available Not Available escitalopr am 20 mg tablet Take 1 tablet every day by oral route for 30 days. 05/07 completed Not Available Not Available Not Available cholestyra mine (with sugar) 4 gram oral powder Take 1 scoop 3 times a day by oral route for 30 days. 2021 active takin bid Not Available Not Available Not Available nitrofuran toin monohydrat e/macrocry stals 100 mg capsule Take 1 capsule every 12 hours by oral route with meals for 7 days. active Not Available Not Available No t Available Constulose 10 gram/15 mL oral solution Take 10 mL twice a day by oral route for 90 days. active Not Available Not Available No t Available Zoloft 11/27 completed Not Available Not Available Not Available cholecalci ferol (vitamin D3) 25 mcg (1,000 unit) tablet Take 1 tablet every day by oral route for 30 days. 12/20 completed Not Available Not Available Not Available cholecalci ferol (vitamin D3) 50 mcg (2,000 unit) capsule Take 1 capsule every day by oral route for 30 days. active Not Available Not Available No t Available Calcium with Vitamin D 600 mg-10 mcg (400 unit) tablet Take 1 tablet every day by oral route. 06/17 completed Not Available Not Available Not Available Flonase Allergy Relief 50 mcg/actuat ion nasal spray,susp ension [place] 1 spray every day by intranasa l route. 2023 active Not Available Not Available Not Avai lable Procto-Med HC 2.5 % topical cream perineal applicator active Not Available Not Available N ot Available ID NOW COVID-19 Test Kit TEST DIRECTED TODAY active Not Available Not Available No t Available Vitals Date Recorded Body height Body mass index (BMI) Body weight Body temperature Respiratory rate Systolic And Diastolic Provider Name and Address Organization Details Last Updated DateTime 4 162.56 cm 36.6 kg/m2 26026.1 7 g 99 [degF] 14 /min 110/72 mm[Hg] AUBREY GALAVIZ Attn: [address] [facility],[address] [place], [address], [place] - SI 4 09:28:29 Date Recorded Body height Body mass index (BMI) Body weight Heart rate Oxygen saturation Oxygen saturation in Arterial blood by Pulse oximetry Systolic And Diastolic Provider Name and Address Organization Details Last Updated DateTime 4 162.56 cm 37.1 kg/m2 21946.9 5 g 65 /min 99 % 99 % 102/61 mm[Hg] Christina Dhillon MA ID - [facility] 4 15:21:40 Date Recorded Body height Body mass index (BMI) Body weight Heart rate Oxygen saturation Oxygen saturation in Arterial blood by Pulse oximetry Systolic And Diastolic Provider Name and Address Organization Details Last Updated DateTime 3 162.56 cm 36.9 kg/m2 63022.3 6 g 72 /min 99 % 99 % 126/82 mm[Hg] Christina Dhillon MA [facility] 3 09:56:06 Social History Question Answer Notes LastModified by [employer] Details LastModified Time Tobacco Smoking Status Former Smoker Xuan Pride LPN null, ID - [facility] 09/17/2020 10:43:41 In The 14 Days Before Symptom Onset, Have You Had Close Contact With A Laboratory-confir med COVID-19 While That Case Was Ill? No Information not available 07/13/2020 In The 14 Days Before Symptom Onset, Have You Had Close Contact With A Person Who Is Under Investigation For COVID-19 While That Person Was Ill? No Information not available 07/13/2020 Have You Been To An Area Known To Be High Risk For COVID-19? No Information not available 07/13/2020 What Was The Date Of Your Most Recent Tobacco Screening? 03/29/2023 Information not available 03/29/2023 Do You Have Smoke And Carbon Monoxide Detectors In Your Home? Yes Information not available 07/13/2020 Are You Passively Exposed To Smoke? Yes Ciggerate Smoke- Outside. Information not available 07/13/2020 How Much Tobacco Do You Smoke? 0.25 PPD [email or web address] Information not available 05/07/2019 On What Date Was Tobacco Cessation Counseling Provided? 03/29/2023 Information not available 03/29/2023 How Many Years Have You Smoked Tobacco? 27 [email or web address] Information not available 11/25/2018 Sex: Female Functional Status Question Answer Note LastModified by [employer] Details LastModified Time What is your level of alcohol consumption? None Information not available 06/22/2021 Do you or have you ever used smokeless tobacco? Never used smokeless tobacco Information not available 09/03/2019 Do you or have you ever used e-cigarettes or vape? Never used electronic cigarettes Information not available 09/03/2019 Mental Status None recorded. Family History Relationship Description Onset Age of this Age Resolved Age Notes LastModified by Organization Details LastModified Time Paternal Grandfather Malignant neoplasm of lung [email or web address] Not available 2018 14:42:01 Paternal Grandmother Malignant neoplasm of pharynx [email or web address] Not available 2018 14:42:24 Father Malignant neoplasm of skin [email or web address] Not available 2018 14:42:41 Father Harmful pattern of use of alcohol [email or web address] Not available 2018 14:44:53 Maternal Aunt Malignant neoplasm of breast 36 [email or web address] Not available 2018 14:43:34 Maternal Aunt Harmful pattern of use of alcohol [email or web address] Not available 2018 14:45:00 Maternal Grandmother Diabetes mellitus [email or web address] Not available 2018 14:43:47 Brother Harmful pattern of use of alcohol [email or web address] Not available 2018 14:44:53 Sister Harmful pattern of use of alcohol [email or web address] Not available 2018 14:44:53 Mother Harmful pattern of use of alcohol [email or web address] Not available 2018 14:44:53 Maternal Uncle Harmful pattern of use of alcohol [email or web address] Not available 2018 14:45:03 Paternal Aunt Harmful pattern of use of alcohol [email or web address] Not available 2018 14:45:06 Paternal Uncle Harmful pattern of use of alcohol [email or web address] Not available 2018 14:45:15 Medical History Condition Response Coronary Artery Disease N Other Gout Y Atrial Fibrillation N High Blood Pressure N Kidney Stones Y Hyperthyroidism N Thyroid Problems N Kidney or Bladder Problems Y Blood Clots N Hypothyroidism N COPD N Depression Y GI Problems Y Skin Problems N Anemia N Heart Attack (ID) N Anxiety Disorder Y Diabetes N Muscle, Joint, or Bone Problems Seizures/Epilepsy N Tuberculosis N Acid Reflux (GERD) Y Hyperlipidemia Y Cancer N Stroke N Asthma N Allergies Y Sleep Apnea N GERD/Reflux Y High Cholesterol N Hepatitis N Liver Disease Heart Disease N Hypertension N Heart Failure N Kidney Disease N Gynecological History Statement/Question Response Date of Last Mammogram Flow Moderate Date of LMP 02/28/2022 Duration of Flow (days) 5 Age at Menarche 15 Current Control Method None Age at First Child 18 Frequency of Cycle (Q days) 29 Menses Monthly Y Date of Last Pap Smear LMP Approximate Obstetrics History GPAL:G 3 P 3 0 0 3 Type Value Multiple Births 0 Full Term 3 Induced 0 Spontaneous 0 Premature 0 Living 3 Ectopics 0 Total 3 Immunizations Vaccine Type Date Status Note Provider Kyle e and Address Organization Details Recorded Time COVID-19, mRNA, LNP-S, PF, 30 mcg/0.3 mL dose, savanna-sucrose 05/23/2021 completed Christina Dhillon [place], [place] [facility] 05/17/2022 09:22:09 COVID-19, mRNA, LNP-S, PF, 30 mcg/0.3 mL dose, savanna-sucrose 06/13/2021 completed Christina Dhillon [place], [place] [facility] 05/17/2022 09:22:13 Past Encounters Encounter ID Performer Location Encounter Start Date Encounter Closed Date Diagnosis/Indication Diagnosis SNOMED-CT Code Diagnosis ICD10 Code Diagnosis IMO Codes Diagnosis Note [id number] AUBREY GALAVIZ [facility] [address] [place] [address] 11/25/2018 14:19:48 11/27/2018 09:52:27 Liver enzymes level above reference range 796123086 R74.8 Patient has a history of elevated liver enzymes. She continues to have elevated liver enzymes. She says she has had all testing done to determine why and no answers have been found. I would like to get her records before sending her to and ordering more tests. - direct bilirubin 1.14 - AST 170, ALT 202, ALK phis 388 Mixed anxi ety and depressive disorder 865542148 F41.8 Patient has had increased anxiety and depression . She has previously tried zoloft. Has good support at home. TSH normal. denies SI/HI.- start escitalopr am 10mg [id number] AUBREY GALAVIZ [facility] [address] [place] [address] 12/31/2018 11:02:20 01/01/2019 07:54:19 Depressive disorder 41714903 F32.9 Elena is a 43 YO F presenting for mediation f/u she stopped taking 10 mg escitalopr am 1 week ago saying it is not helping. She did notice an improvemen t and would like the increased dose. She did well on the medication while on it and would like to increase dose. She has done well or zoloft 100 mg fbut anxiety was not controlled . If this medication does not work as well as sertraline then we will switch. - increase to 20 mg- f/u in 4 weeks- call me with questions before stopping- if si/hi develop please go to ER Pruritic disorder 312962 002 L29.9 patient has been itching everywhere for weeks. elevated liver enzymes; direct bilirubin 1.14 , AST 170, ALT 202, ALK phos 388. TSH WNL. Dark urine. SHe also complains of dry mouth and dry eyes. DDX: GONCALVES, primary biliary cholangiti s (PBC), malignancy PBC likely due to age group. dry mouth, DRY EYES, elevated alk phos and liver enzymes, history of normal abdominal ultrasound ( no records yet). Less likely because it is rare - checking ama as it is specific for PBC, appointmen t at 8:45 on 01/02/19- making appointmen t for GI- appointmen t at [facility] with donavan Lang 01/20/19 at 9:30- patient has scheduled ultrasound as we do not have her old records [id number] Noe Boles, [facility] [address] [place] [address] 01/21/2019 09:45:34 02/11/2019 12:43:06 Primary biliary cholangitis 09412159 K74.3 [id number] AUBREY GALAVIZ [facility] [address] [place] [address] 01/28/2019 11:15:28 01/29/2019 08:22:22 Depressive disorder 08165892 F32.9 Elena is a 43 YO F presenting for mediation f/u Patient doing well on 20 mg escitalopr am. She would like to reassess in some months when her life calms down a bit since she is dealing with new incurable disease (PBC) - continue medication - f/u in 3 months or prn- call me with questions before stopping- if si/hi develop please go to ER Primary bi liary cholangitis 09405307 K74.3 She met with GI specialist , Donavan Lang, and they are not changing any of the medication s we started (ursodiol and cholestyra mine). She has to avoid alcohol, fatty meals, tylenol, caffeine, and other things that are heavy on liver. Her next appointmen t is in January. - ursodiol is dosed to weight and patient has been losing weight due to lifestyle changes, will reassess at next visit to make sure she is on correct dose. GI should probably tae over these medication s.- continue with lifestyle modificati ons- continue medication as prescribed - continue f/u appointmen t with [id number] [facility]oles [facility] [address] [place] [address] 02/19/2019 14:00:04 02/19/2019 16:01:14 Primary biliary cholangitis 84406899 K74.3 Gastroesop hageal reflux disease 798881742 K21.9 Anxiety 37121533 F41.9 Unintentio nal weight loss 038865726 R63.4 Early satiety 002204125 R68.81 Pruritic disorder 914375 002 L29.9 Likely due to PBC. Increase Questran to TID. [id number] Noe Boles DO [facility] [address] [place] [address] 04/16/2019 14:11:17 04/29/2019 14:30:20 Erosive gastritis 0852553961 967174 K29.70 Primary bi liary cholangitis 79865229 K74.3 Per previous note, Cholestyra mine was increased to TID by Dr. Duran in lesion, cannot R/O lipoma. Patient will call PCP for dermatolog y referral [id number] AUBREY GALAVIZ [facility] [address] [place] [address] 05/07/2019 15:56:08 05/09/2019 09:32:29 Depressive disorder 55084950 F32.9 Elena is a 43 YO F presenting for mediation f/u patient has not been on her lexapro and would like to try sertraline as she did very well with it in the past. Her anxiety is out of control. people around her notice when she is on medication . - start sertraline - f/u in one month- call me with questions before stopping- if si/hi develop please go to ER Acute urin mag tract infection 200186701 N39.0 patient presents with UTI symptoms-i ncreased urination, pain at end of stream. She has cva tenderness on left side. UA postive for leukocytes . afebrile. - cipro as may be pyelonephr itis- ER if worsens or no improvemen t [id number] Noe Boles DO [facility] [address] [place] [address] 05/20/2019 13:55:11 06/11/2019 08:10:04 Vitamin D below reference range 438665016 E55.9 Vitamin D Insufficie ncy Primary bi liary cholangitis 72099973 K74.3 Pruritis seems to be overall well controlled Labs at next visit. [id number] Noe Boles DO [facility] [address] [place] [address] 07/17/2019 09:11:34 08/05/2019 15:40:26 Primary biliary cholangitis 46648745 K74.3 Continue cholestyra mine and ursodiol Vitamin D below reference range 974035383 E55.9 Vitamin D Insufficie ncycontinu e cholecalci ferol 1,000 units dailyReche ck Vitamin D 25-OH in at next visit Gastroesop hageal reflux disease 631936762 K21.9 Continue famotidine Avoid trigger foods [id number] AUBREY GALAVIZ [facility] [address] [place] [address] 09/03/2019 13:10:14 09/04/2019 09:28:14 Suspected COVID-19 412075624 Z03.818 patient had testing today. instructed to manage symptoms at home - ibuprofen for aches/feve r- stay hydrated- f/u prn- discussed going to ER if sob, fever not well controlled with antipyreti [id number] MD Aris Palencia [address] [place] [address] 09/03/2019 14:02:19 09/03/2019 16:21:09 Suspected COVID-19 964461913 Z03.743 [id number] AUBREY GALAVIZ [facility] [address] [place] [address] 09/05/2019 09:22:58 09/09/2019 03:46:33 Acute urinary tract infection 512904481 N39.0 patient presents with UTI symptoms-i ncreased urination, pain at end of stream. She has cva tenderness on left side. UA postive for leukocytes . afebrile. - cipro as may be pyelonephr itis- ER if worsens or no improvemen t [id number] AUBREY GALAVIZ [facility] [address] [place] [address] 10/07/2019 09:35:26 10/09/2019 12:03:24 Right lower quadrant pain 181975400 R10.31 Elena presents with intermitte nt right lower quadrant pain that started as dull and is now sharp. I advised her to go to ER to r/o appendix v ovarian torsion but she refuses. Stat US r/o torsion of ovary and a cyst is visualized . Advised to f/u US in 3 months. - ER if pain worsens. develops fever, chills, nausea, vomiting. [id number] MUNIR LANG NP [facility] [address] [place] [address] 06/17/2020 11:21:25 06/18/2020 16:51:10 Primary biliary cholangitis 36391515 K74.3 Continue cholestyra mine and ursodiolNe xt Bone Density due Januaryast EGD 04/09/2019 : no varicesLow fat, low cholestero l, low sodium dietCalciu m rich foods and weightbear ing exercise Vitamin D below reference range 294887711 E55.9 Vitamin D Insufficie ncycontinu e cholecalci ferol 1,000 units daily Gastroesop hageal reflux disease 850233139 K21.9 Continue MaaloxAvoi d trigger foods Body mass index 30+ - obesity 279639446 Z68.35 Encouraged weight loss -Choosing low-fat, low-calori e foods -Eating smaller portions -Drinking water instead of sugary drinks -Being physically active Tobacco de pendence syndrome 47622230 F17.200 Trying to quit. Smoking 2 cigarettes dailyStron gly encouraged to discontinu e smoking [id number] AUBREY GALAVIZ [facility] [address] [place] [address] 06/28/2020 09:25:44 06/28/2020 10:30:22 Adult health examination 405528623 Z00.00 [id number] AUBREY GALAVIZ [facility] [address] [place] [address] 07/13/2020 14:01:15 07/16/2020 11:02:49 Autoimmune disease 51018673 M35.9 Patient who is diagnosed and treated for Primary biliary cholangiti s presents for thickening skin in arms. Due to higher prevalence of having more than one autoimmune disease and patient symptoms we will run labs. - CONI and Sjogrens + - sending to rheumatolo gy - advised patient to sign up for state insurance Visual disturbance 77304 001 H53.9 Patient who has dry eyes, +sjogrens, + CONI presents for continued visual impairment s. She sees [employer] lines most of the time and has been for years. Advised going to see ophthalmol ogist. [id number] MUNIR LANG NP [facility] [address] [place] [address] 09/17/2020 10:33:39 09/17/2020 14:03:10 Primary biliary cholangitis 37555252 K74.3 Continue cholestyra mine and ursodiol Next Bone Density due January 2021 Last EGD 04/09/2019 : no varices Low fat, low cholestero l, low sodium diet Calcium rich foods and weightbear ing exercise Will order US and Fibroscan at next visit Vitamin D below reference range 093029372 E55.9 Vitamin D Insufficie ncy Taking Vitamin D supplement : 50,000 units weekly. Has 1 more month. 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 [id number] AUBREY GALAVIZ [facility] [address] [place] [address] 09/20/2020 16:24:32 09/22/2020 14:01:07 Medial epicondylitis 66681550 M77.02 Patient with medial elbow pain causing shooting pain into hand x 2 months. Due to autoimmune condition and liver damage patient is to avoid NSAID and tylenol. She also has elevated liver enzymes and cholestero l and would not be a good candidate for oral steroids. Patient is to ice her arm 15 min twice daily. Will send to ortho as may benefit from steroid injection. Thickening of skin 51392 006 R23.4 Patient with CONI+ and sjorgen + presents with continued thickening of bilateral wrist. Patient would benefit from a skin biopsy looking for cause. [id number] AUBREY GALAVIZ [facility] [address] [place] [address] 10/06/2020 11:45:27 10/06/2020 12:03:37 Acute urinary tract infection 453755273 N39.0 patient presents with UTI symptoms-i ncreased urination, pain at end of stream. She has cva tenderness on left side. UA postive for leukocytes . afebrile. - cipro as may be pyelonephr itis- ER if worsens or no improvemen t [id number] Ryan Cabrera [facility] [address] [place] [address] 10/11/2020 14:28:13 10/12/2020 09:57:29 Keratoconjunctivitis sicca, in Sj gren's syndrome 54289054 M35.01 [id number] Camp [facility] [address] [place] [address] 10/20/2020 15:55:54 11/15/2020 14:52:31 Right lateral elbow tendinopathy 1847048905 81882 M77.11 MIGHT NEED 3 INJECTIONS TO RESOLVE PROBLEM. RETURN HERE 2 WEEKS. [id number] Gus Camp MD [facility] [address] [place] [address] 11/03/2020 16:13:50 11/15/2020 13:10:32 Right lateral elbow tendinopathy 3845101791 75412 M77.11 WILL SWITCH TO P. T. RATHER THAN REPEATED INJECTIONS , IN VIEW OF EXPANSION OF SYMPTOMS [id number] MUNIR LANG NP [facility] [address] [place] [address] 12/17/2020 10:34:55 12/17/2020 12:30:46 Primary biliary cholangitis 23260627 K74.3 Continue cholestyra mine and ursodiol Last EGD 04/09/2019 : no varices Low fat, low cholestero l, low sodium diet Calcium rich foods and weightbear ing exercise Vitamin D below reference range 620315243 E55.9 Vitamin D Insufficie ncy Taking Vitamin D supplement : 50,000 units weekly. Has 1 more month. 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 Body mass index 30+ - obesity 049292417 Z68.36 Encouraged weight loss -Choosing low-fat, low-calori e foods -Eating smaller portions -Drinking water instead of sugary drinks -Being physically active Nausea 793230807 R11.0 after eatingOcca sional vomitingIf H. Pylori is negative, will order EGD [id number] MD Ana Paredes FP ([address]) [address] [place] [address] 12/22/2020 11:25:58 12/23/2020 07:58:12 Anti-nuclear factor detected 669413454 R76.8 Consider Early Scleroderm a [id number] Tim Lau MD [facility] [address] [place] [address] 01/20/2021 11:06:57 01/21/2021 16:50:03 Right lateral elbow tendinopathy 6587862727 71847 M77.11 resolving has been referred to Rheumatolo gist for multiple + CONI, etc RTC prn [id number] AUBREY GALAVIZ [facility] [address] [place] [address] 06/22/2021 12:09:28 06/27/2021 13:38:09 Primary biliary cholangitis 17714208 K74.3 Continue cholestyra mine and ursodiol. all medication filled. Patient needs to [facility]abli [facility] at [facility] with provider as Edward Lang no longer there. pruritis under control. current medication dose: ursodiol 300mg 2 capsules twice per day. will add half of 250mg tabletLast EGD 04/09/2019 : no varices Low fat, low cholestero l, low sodium diet Calcium rich foods and weightbear ing exercise Vitamin D below reference range 846317063 E55.9 Vitamin D Insufficie ncy Taking Vitamin D supplement : 50,000 units weekly. Has 1 more month. also taking cholecalci ferol 1000 units dialy Gastroesop hageal reflux disease 386800578 K21.9 Continue MaaloxAvoi d trigger foods Body mass index 30+ - obesity 207819149 Z68.36 Encouraged weight loss -Choosing low-fat, low-calori e foods -Eating smaller portions -Drinking water instead of sugary drinks -Being physically active Hyperlipidemia 97065234 E78.5 On atrovastat in Anti-nucle ar factor detected 227919196 R76.8 Anti SSA 4.0rheumat ologic referral sent Fluttering heart 2701984 04 R00.2 fluttering on occasion. can happen on exertion or can be laying in bed. can last all day long. caused dizziness at times. and can feel out of breath. [facility] and 24 hour holter monitor $110 without insurance. Patient is okay paying this. will start with EKG and holter may be non-reveal ing as it happens infrequent ly. - ekg- holter monior next step Iron defic iency anemia 62372669 D50.9 Acute urin mag tract infection 963570665 N39.0 patient presents with UTI symptoms-i ncreased urination, pain at end of stream. no CVA tenderness today. UA postive for leukocytes . afebrile. patient has recurrent uti. needs urology. - macrobid bid x 5 days- ER if worsens or no improvemen t Dry eyes 743596704 H04.1 29 eyes hurt past 4 days. squiggly vision. burning and sensitive. last episode 4 months ago. saw eye doctor last year. Liver enzy mes level above reference range 866887797 R74.8 Patient has a history of elevated liver enzymes. She continues to have elevated liver enzymes. from labs 11/2020 all numbers have worsened 06/22/21 labs:bilir ubin, total 1.8, above high normalbili pearce, direct 1.07 , above high normalalka line phosphatas e 333, above high normalAST (SGOT) 90 , above high normalALT (SGPT) 107, above high normal bilt 0.9 0.0-1.2mg/ dLfinal [id number] Noe Boles DO [facility] [address] [place] [address] 06/29/2021 15:56:40 06/30/2021 07:31:45 Primary biliary cholangitis 97783235 K74.3 Relatively stable. CPT for now. [id number] AUBREY GALAVIZ [facility] [address] [place] [address] 05/19/2022 10:50:22 05/25/2022 11:14:36 Primary biliary cholangitis 70004204 K74.3 diagnosed here 12/2018Cont inue cholestyra mine and ursodiol. all medication filled. Patient needs to re-establi sh at [facility] with provider. pruritis under control. current medication dose: ursodiol 300mg 2 capsules twice per day. will add half of 250mg tablet - EGD 04/09/2019 : no varices - Fibroscan 11/2020: CAP 187 dB/m; E 32.0 kPa, needs repeat (see GI)- DEXA: normal 2020, orderd again Vitamin D below reference range 210630444 E55.9 Vitamin D Insufficie ncy Taking Vitamin D supplement : 50,000 units weekly. 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 She continues to have elevated liver enzymes. from labs 11/2020 all numbers have worsened 06/22/21 labs:bilir ubin, total 1.8, above high normalbili pearce, direct 1.07 , above high normalalka line phosphatas e 333, above high normalAST (SGOT) 90 , above high normalALT (SGPT) 107, above high normal bilt 0.9 0.0-1.2mg/ dLfinal Scleral icterus 35455250 1 H15.89 slightly icteric sclera today Serum iron above reference range 831713187 R79.0 repeat Thickening of skin 90792 006 R23.4 Patient with CONI+ and sjorgen + presents with continued thickening of bilateral wrist. Patient would benefit from a skin biopsy looking for cause. She would like derm to do bx - she denies trouble swallowing - r/o scleroderm a Obesity 405918773 E66.9 BMI 36.4 Encouraged weight loss -Choosing low-fat, low-calori e foods -Eating smaller portions -Drinking water instead of sugary drinks -Being physically active Tetanus di phtheria and acellular pertussis vaccination declined [id number] 1740120 Z28.20 declines Osteoporosis 69071864 M8 1.[id number] [facility] [address] [place] [address] 06/08/2022 16:10:14 06/09/2022 09:57:53 Primary biliary cholangitis 08160002 K74.3 Relatively stable. CPT for now. Labs stable will re evaluate. Will give Vistaril for sleep. Pruritic disorder 802205 002 L29.9 Likely due to PBC. Increase Questran to TID. [id number] AUBREY GALAVIZ [facility] [address] [place] [address] 10/13/2022 11:56:14 10/19/2022 12:00:11 Low back pain 270359374 M54.50 right back side [id number] Noe Boles DO [facility] [address] [place] [address] 10/19/2022 15:26:16 10/23/2022 12:23:15 Right upper quadrant pain 469337418 R10.11 Pt has ER Visit at [facility] last week we need record as well as Ct scan result. Also EGD 2019 at [facility] need reports please, Hepatomegaly 81217110 R1 6.0 likely worse. Recurrent urinary tract infection 040620023 N39.0 On rx. Primary bi liary cholangitis 64676054 K74.3 Reevaluate . Will give Vistaril for sleep. [id number] Noe Boles DO [facility] [address] [place] [address] 01/25/2023 16:16:38 01/26/2023 13:16:22 Primary biliary cholangitis 45384209 K74.3 Re evaluate. Will give Vistaril for sleep. Has no insurance is filling for disability . 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 recently hospitaliz ed at [facility].PEC: hepatomega ly, icterus, Epigastric tenderness referred to [facility] for treatment continue with hepatologi st - EGD 04/09/2019 : no varices - Fibroscan 05/2022 F4- DEXA: normal 2022 Hepatomegaly 25589531 R1 6.0 enlarged liver one exam Obesity 931952305 E66.9 BMI 36.4 Encouraged weight loss -Choosing low-fat, low-calori e foods -Eating smaller portions -Drinking water instead of sugary drinks -Being physically active [id number] AUBREY GALAVIZ [place] [facility] [address] [facility] [place] [address] 06/05/2023 13:54:12 06/05/2023 15:54:43 Hepatomegaly 68645758 R16.0 enlarged liver one exam [id number] AUBREY GALAVIZ [place] [facility] [address] [facility] [place] [address] 06/11/2023 08:28:52 06/11/2023 11:32:06 Scleral icterus 391473188 H15.89 slightly icteric sclerae today Primary bi liary cholangitis 66386971 K74.3 diagnosed 12/2018.joyce menard [facility] hepatology team, last seen 04/2023.tra iled 10 days of prednisone and repeated labs last weekshe will f/u with specialist next weekPEC: hepatomega ly, icterus, jaundiceco ntinue with hepatologi st - EGD 04/09/2019 : no varices - Fibroscan 05/2022 F4- DEXA: normal 2022 Hepatomegaly 56840547 R1 6.0 enlarged liver one exam Obesity 378256335 E66.9 BMI 36.6 Chest pain 61693533 R07. 9 per hepatology note she c/o of chest pain. She claims this is just indegestio n. Allergic rhinitis 193041 04 J30.9 10 days of dry cough and post-nasal drip. family members with similar sx. recent course of steroid did not help.PEX: Lungs are clear, no cervical lymphadeno haydee. [place] ing, pharynx mildly erythemato us. 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 She has trouble getting around her house or even going to get groceries. She cannot fit a large wheelchair in home but can fir a scooter in her home. She would benefit from having a scooter to avoid falls and increase QOL. Requires c ourse of hepatitis B vaccination 463699852 Z28.39 2 mL IM x1 at mo 0, 1, and 6 Obesity 322912107 E66.8 BMI 37.1 [id number] Gabo Rosas MD [facility] [address] [place] [address] 02/04/2024 13:42:07 02/04/2024 15:11:27 Acute urinary tract infection 962470451 N39.0 patient presents with UTI symptoms-i ncreased urination, pain at end of stream. no CVA tenderness today. UA postive for leukocytes . afebrile. patient has recurrent uti. needs urology. - macrobid bid x 5 days- ER if worsens or no improvemen t Health Concerns Section Related Observation LastModified by Organization Detai ls LastModified Time None Recorded Concern Status LastModified by Organization Details LastModified Time None Recorded Advance Directives Directive None Recorded Payers Insurance Date Sequence Insurance Name Policy Number Policy Griffith Covered Member ID Griffith Member ID Guarantor Name 06/20/2024 [facility] (MEDICAID HMO) [id number] Elena Lugo [id number] Elena Lugo 06/22/2021 SLIDING FEE SCHEDULE - DISCOUNT Elena Lugo 06/22/2021 COVID19 [employer] UNINSURED TESTING AND TREATMENT FUND Elena Lugo [id number] Elena Tesfayedon 07/12/2020 SLIDING FEE SCHEDULE - DISCOUNT Elena Lugo 06/14/2023 2 *SELF PAY* Mariama Lugo 03/29/2023 SLIDING FEE SCHEDULE - DISCOUNT Elena Tesfayedon 10/29/2023 1 [place] Elena Lugo [id number] Elena Lugo 06/20/2024 [place] Elena Lugo [id number] Elena Lugo Notes Date Note Type Note Provider Name and Address Organization Details Recorded Time 03/29/2023 text/html Mrs. Lugo is a 47 y/o Female w/ PMH of PBC, Sjogren's, and HLD who presents for ER f/u Patient hospitalized [facility] one week [facility] after feeling dizzy and having fever for one day. she was noted to ahve RUQ pain (that she says is always there). Labs w/ pancytopenia, elevated LFT's in cholestatic and hepatocellular pattern. Infectious w/u (-). CTAP w/ contrast demonstrating cirrhosis, splenomegaly, and mild urothelial enhancement of Left renal pelvis c/w UTI. Transferred to [facility] to r/o cholangitis. During visit BCx, UCx, MRCP all unremarkable for initial w/u. RUQ US w/ cholelithiasis and cholecystitis, ACS c/s for concerns of cholecystitis based on RUQ US findings. Initial plan for lap jolie, however HIDA obtained which did not show any signs of cholecystitis so surgery was deferred. She will need repeat RUQ US for incidental gallbladder polyp observed on RUQ US from 03/25. Polyp is 0.7 cm and 12 month f/u was recommended.Of note, recently established care w/ Syn 03/14/2023 for evaluation of elevated LFT's and hepatomegaly, previously diagnosed w/ PBC (2019). AUBREY GALAVIZ Attn: Accounting,[address] [facility], [place], [address], [place] 04/02/2023 10:44:57 06/11/2023 text/html Mrs. Lugo is a 47 y/o Female w/ PMH of PBC, Sjogren's, and HLD who presents for ER f/u 10 days ago started with cough and postnasal drip. Mucinex did not help. painful throat and chest mainly but denies fever, congestion, wheezing. family is her sick contact. 05/10/22 saw data processing supervisor for f/u on her liver bx. and prescribed her prednisone 40mg x 4 weeks and protonix. Per his note he suggests a xray as she complains of chest pain. Today she states it is just indigestion pain. interval hx:Patient hospitalized for one week over thanksgiving after feeling dizzy and having fever for one day. she was noted to ahve RUQ pain (that she says is always there). Labs w/ pancytopenia, elevated LFT's in cholestatic and hepatocellular pattern. Infectious w/u (-). CTAP w/ contrast demonstrating cirrhosis, splenomegaly, and mild urothelial enhancement of Left renal pelvis c/w UTI. Transferred to [facility] to r/o cholangitis. During visit BCx, UCx, MRCP all unremarkable for initial w/u. RUQ US w/ cholelithiasis and cholecystitis, ACS c/s for concerns of cholecystitis based on RUQ US findings. Initial plan for lap jolie, however HIDA obtained which did not show any signs of cholecystitis so surgery was deferred. She will need repeat RUQ US for incidental gallbladder polyp observed on RUQ US from 03/25. Polyp is 0.7 cm and 12 month f/u was recommended.Of note, recently established care w/ Syn 03/14/2023 for evaluation of elevated LFT's and hepatomegaly, previously diagnosed w/ PBC (2019). AUBREY GALAVIZ Attn: Accounting,[address] [facility], [place], [address], [place] 06/11/2023 10:33:04 10/29/2023 text/html Mrs. Lugo is a 47 y/o Female w/ PMH of PBC, Sjogren's, and HLD who presents for ER f/u MELD score after todays visit is 19. doing eval for liver transplant. furosemide 20mg and spironolactone 50mg (cuts pills in half) are new medications she is one. She is here for hep B vaccination. This vaccine is not in stock today and she will come back to obtain. 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 She has trouble getting around her house or even going to get groceries. She cannot fit a large wheelchair in home but can fir a scooter in her home. She would benefit from having a scooter to avoid falls and increase QOL. AUBREY GALAVIZ Attn: Accounting,[address] [facility], [place], [address], [facility] - S[facility] 11/07/2023 15:32:39 OBGyn Episode No OBEpisode recorded.
--- OUTSIDE RECORDS SUMMARY | 2025-03-05 19:49 | XMS_ITS | Encounter Summary ---
Author Organization [facility] Address [address] [facility] [place] [address] Care Team Providers Care Hydraulic Jack Adjuster Name Role Phone Lily Wright MD Unavailable Joana Moya PA-C Primary Care Provider Encounter Details Date Type Department Care Team (Late st Contact Info) Description 08/09/2023 Telephone [facility] - [address] [address] [place], [place] Social History [...] housing, medical care, and heating? Hard 03/22/2023 [facility] [place] of Occupat ional Health - Occupational Stress [...] place to sleep or slept in a half-way (including now)? No 03/22/2023 Comments No Sex [...] on filedocumented in this encounter Care Teams Hydraulic Jack Adjuster Relationship Specialty Start Date End Date Joana Moya PA-C [address] [place] [address] PCP - General Physician Colorer 08/08/23 Lily Wright MD [address] [place] [address] Obstetrics and Gynecology 08/08/23 documented as of this encounter
--- OUTSIDE RECORDS SUMMARY | 2025-03-05 19:49 | XMS_ITS | Encounter Summary ---
Author Organization [facility] Address [address] [facility] [place] [address] Care Team Providers Care Assembler Knife Name Role Phone Lily Wright MD Unavailable Joana Moya PA-C Primary Care Provider Reason for Visit * Reason Comments Refill Request Encounter Details Date Type Department Care Team (Late st Contact Info) Description 03/04/2025 [place] [facility] [place] [address] [place] [address], [place] [phone] Alexx Manriquez MD [address] [place] [address] [place] [address] Refill Request Social History Tobacco Use Types [...] and heating? Not hard at all 11/11/2023 [place] of Occupat ional Health - Occupational Stress [...] place to sleep or slept in a detention (including now)? No 11/11/2023 Comments No Sex [...] on filedocumented in this encounter Care Teams Assembler Knife Relationship Specialty Start Date End Date Joana Moya PA-C [facility] [place] [address] PCP - General Physician Cdl Company Driver 08/08/23 Lily Wright MD [address] [place] [address] Obstetrics and Gynecology 08/08/23 documented as of this encounter
--- OUTSIDE RECORDS SUMMARY | 2025-03-05 19:49 | XMS_ITS | Clinical Summary ---
Author Organization [facility] Address [address] [facility] [place] [address] Care Team Providers Care Hair Worker Name Role Phone Lily Wright MD Unavailable Joana Moya PA-C Primary Care Provider Source Comments [facility],non-owned Affiliates and Associated Physician Practices is amultiple site organization consisting of ambulatory clinics and hospital sitesin [place], [place], [place] and [place]. This disclosure is being madepursuant to the Care Everywhere program and may not contain all information available regarding this patient. Last updated 18.[facility] Allergies Active Allergy Reactions Criticality Noted Date [...] vitamin D, ergocalciferol , (Drisdol) 1.25 MG (98326 UT) capsule Take 1 (one) capsule by [...] D, 25 Hydroxy 13.4 (L) 10/29/23 08:22 Zqkyv-1-Uubdntvbrcl 266 (H) Fdgtt-4-Aytzoizbkcy Phenotype M1M1 Ceruloplasmin 53 04/19/23 16:38 CONI [...] to 4.5 Transplant Education 10/29/23 Xuan Fallon sports umpireDraw Fire Operator 10/29/23 Clinical Social Work Impression: It is the impression of this manager social media that Elena Lugo has several positive factors for Liver transplant candidacy including knowledge of illness, sufficient insurance coverage, stable financial situation for post transplant needs, no concerns regarding substance abuse, adequate support system, and appropriate discharge plan. Plan: signal worker helper to provide supportive services as needed. Patient appears to be a reasonable candidate for transplant from a psychosocial perspective. Post transplant arrangement forms are needed prior to being listed. -Mail senior placement resources for mother in law -DME for motor scooter Psychiatric Consult Recommended: No Transplant Industrial Hygiene Manager: Anna Painting LMSW RD 10/29/23 Ht: 63 [...] modalities for dry mouth symptoms. following with Store Operations Associate #. Follow-up: In 4 months or sooner [...] Division of Rheumatology Department of Internal Medicine [facility] of Medicine Dermatology Consultation 11/21/23 Tinea [...] as prednisone. Would need to discuss with senior media planner whether that was feasible given need for upcoming liver transplantation RTC in 2 months for follow up and FBSE Seen, examined, and discussed with Dr. Todd, attending corporate communications manager. Han Aldrich MD - Dermatology Resident 12/17/23 [...] committee and are final. Cheri Alvares MD motorcycle tester Transplant Surgery 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 Not hard at all 11/11/2023 [facility] [place] of Occupat ional Health - Occupational Stress [...] place to sleep or slept in a retirement (including now)? No 11/11/2023 Comments No Sex [...] CDT Respiratory Rate 12 06/25/2024 1:53 PM PHYSICIAN CODING SPECIALIST Oxygen Saturation 100% 07/07/2024 9:31 AM CDT [...] ENDOSCOPY, COLON, SCREENING Routine 06/21/2023 8:11 AM PHYSICIAN CODING SPECIALIST from Last 3 Months or Most Recently Relevant to Health Maintenance Results * (ABNORMAL) COMPREHENSIVE METABOLIC PANEL (07/07/2024 12:54 PM CDT) BUN 11 7 - 26 mg/dL 07/07/2024 1:58 PM [facility] Creatinine 0.77 0.56 - 0.96 mg/dL 07/07/2024 1:58 PM [facility] Sodium 135(L) 136 - 145 mmol/L 07/07/2024 1:58 PM [facility] Potassium 3.7 3.5 - 4.5 mmol/L 07/07/2024 1:58 PM [facility] Chloride 110(H) 98 - 107 mmol/L 07/07/2024 1:58 PM [facility] CO2 19(L) 22 - 29 mmol/L 07/07/2024 1:58 PM [facility] Glucose 81 70 - 99 mg/dL 07/07/2024 1:58 PM [facility] Calcium 8.6 8.4 - 10.2 mg/dL 07/07/2024 1:58 PM [facility] Protein Total 7.3 6.0 - 8.3 g/dL 07/07/2024 1:58 PM [facility] Albumin 2.7(L) 3.4 - 5.0 g/dL 07/07/2024 1:58 PM [facility] Bilirubin Total 4.8(H) 0.2 - 1.2 mg/dL 07/07/2024 1:58 PM [facility] Alkaline Phosphatase 346(H) 40 - 150 U/L 07/07/2024 1:58 PM [facility] ALT 62(H) 5 - 55 U/L 07/07/2024 1:58 PM [facility] AST 151(H) 5 - 34 U/L 07/07/2024 1:58 PM [facility] Anion Gap 6 6 - 16 07/07/2024 1:58 PM [facility] BUN/Creatinine Ratio 14 7 - 23 07/07/2024 1:58 PM [facility] Osmolality Calculated 278 275 - 295 mOsm/kg 07/07/2024 1:58 PM [facility] Albumin/Globulin Ratio 0.6(L) 1.1 - 2.3 07/07/2024 1:58 PM [facility] eGFR by CKD-EPI >90 >=90 mL/min/1.7 3 m2 07/07/2024 1:58 PM [facility] Blood BLOOD SPECIMEN / Unknown Lab Venipuncture / Unknown 07/07/2024 12:54 PM CDT 07/07/2024 1:30 PM CDT Alexx Manriquez MD LAB - CHEMISTRY ORDERABLES Fin al Result [facility] [address] [place] [address], [facility] [phone] * HIV-1 HIV-2 ANTIBODY + HIV P24 AG PANEL (10/29/2023 8:22 AM CDT) HIV Antigen/Antibod y 1 & 2 Non-reacti ve Non-react ion 10/29/2023 9:38 AM T [facility] Comment:No Laboratory eviden ce of HIV infection. Blood BLOOD SPECIMEN / Unknown Lab Venipuncture / Unknown 10/29/2023 8:22 AM CDT 10/29/2023 8:53 AM CDT Alexx Manriquez MD LAB - CHEMISTRY ORDERABLES Fin al Result Performing Organization Address [facility] Co de Phone Number [address] [address], [facility] [phone] * HEPATITIS C ANTIBODY (10/29/2023 8:22 AM CDT) Hepatitis C Antibody Non-react ion Non-reac tive 10/29/2023 9:38 AM CDT [facility] Comment:Hepatitis C Antibody screen indicates no [...] Alexx Manriquez MD LAB - CHEMISTRY ORDERABLES [facility] Result Performing Organization Address [facility] Co de Phone Number [address] [address], [facility] [phone] * ENDOSCOPY, COLON, SCREENING (06/21/2023 8:11 AM PHYSICIAN CODING SPECIALIST) [facility] Report Endoscopy POC Endoscopy Department Report _ [...] entire procedure. Procedure Code(s): --- Professional --- 49582, Colonoscopy, flexible; with removal of tumor(s), polyp(s), or other lesion(s) by snare technique 04443, 59, Colonoscopy, flexible; with biopsy, single or multiple Diagnosis Code(s): --- Professional --- D12.3, Benign neoplasm of transverse colon (hepatic flexure or splenic flexure) Z12.11, Encounter for screening for malignant neoplasm of colon CPT copyright 2021 [employer]. All rights reserved. The codes documented in this report are preliminary and upon stamp classifier review may be revised to meet current compliance requirements. Alexx Manriquez, 06/21/2023 8:53:42 AM Note Initiated On: 06/21/2023 8:11 AM Number of Addenda: [id number] [place] [address] PROVATION 06/21/2023 8:11 AM PHYSICIAN CODING SPECIALIST us Alexx Manriquez MD GI PROCEDURE ORDERABLES Edited Result - Final [facility] PROVATION from Last 3 Months or Most Recently Relevant to Health Maintenance Advance Directives * Full Code (Latest Code Status on File) Date Activated Date Inactivated Comments 11/11/2023 8:52 PM 11/14/2023 4:14 PM * Full Code Date Activated Date Inactivated Comments 10/17/2023 3:35 AM 10/17/2023 4:35 PM * Full Code Date Activated Date Inactivated Comments 03/22/2023 11:55 AM 03/27/2023 7:56 PM Care Teams Hair Worker Relationship Specialty Start Date End Date Joana Moya PA-C [address] [place] [address] PCP - General Physician Seal Mixing Operator 08/08/23 Lily Wright MD [address] [place] [address] Obstetrics and Gynecology 08/08/23
--- OUTSIDE RECORDS SUMMARY | 2025-03-05 19:49 | XMS_ITS | Clinical Summary ---
Author Organization [facility] Address [address] [place] [address] Care Team Providers Care Intermodal Owner Operator Truck Driver Name Role Phone Joana Moya PA-C Primary Care Provider [phone] Allergies Active Allergy Reactions Criticality Noted Date [...] age to complete this topic Care Teams Intermodal Owner Operator Truck Driver Relationship Specialty Start Date End Date Joana Moya PA-C [address] [place] [address] PCP - General NURSE PRACTITIONER 09/28/20
== END 2025-03-05 17:34 | disposition home or self-care (01) ==
PROVIDERS: Physician Assistant; Emergency Provider Student in an Organized Health Care Education/Training Program; PCP Physician Assistant
DX: K72.10 Chronic hepatic failure without coma (principal); K52.9 Noninfective gastroenteritis and colitis, unspecified; G25.81 Restless legs syndrome; K83.01 Primary sclerosing cholangitis; E55.9 Vitamin D deficiency, unspecified; E78.00 Pure hypercholesterolemia, unspecified; K21.9 Gastro-esophageal reflux disease without esophagitis; Z87.440 Personal history of urinary (tract) infections; Z90.49 Acquired absence of other specified parts of digestive tract; Z79.899 Other long term (current) drug therapy; R16.1 Splenomegaly, not elsewhere classified
CPT/HCPCS: 36415; 74177; 76830; 80053; 81001; 81025; 83690; 85025; 85610; 85730; 87086; 87186; 99284; Q9967

== ENCOUNTER 2025-04-21 16:26 | Emergency (ER) | payer SELFPAY ==
--- NOTE | ~2025-04-21 | CT_ITS ---
EXAMINATION: CT abdomen pelvis w con DATE: 04/21/2025 20:31 INDICATION: Abdominal pain and distention TECHNIQUE: Computed tomography (CT) of the abdomen and pelvis was performed with intravenous contrast. The dose-length product was 1012.99 mGy-cm. Automated exposure control and iterative reconstruction technique were employed. COMPARISON: CT dated 03/05/2025 FINDINGS: Lung bases unremarkable. Heart size upper normal. No significant pleural or pericardial effusion. Status post cholecystectomy. Splenomegaly. Nonobstructive bowel gas pattern. Mild diffuse subcutaneous edema. Colonic diverticulosis without evidence for diverticulitis. There is nodular liver tee rface, compatible with cirrhosis. The pancreas, adrenal glands and kidneys are unremarkable. No free air or free fluid. No significant vascular abnormality. No lymphadenopathy. Portal vein is prominent, suspicious for portal venous hypertension. IMPRESSION: 1. Cirrhosis with probable portal venous hypertension. Splenomegaly. Reviewed, dictated and finalized at location O. IFIED PROFESSIONAL CODER
--- NOTE | ~2025-04-21 | XR_ITS ---
EXAMINATION: XR chest 2V 04/21/2025 18:16 INDICATION: Shortness of breath PROCEDURE: 2 view chest COMPARISON: No prior studies for comparison. FINDINGS: The lungs are clear. The cardiomediastinal silhouette is within normal limits. There are no pleural effusions. There is no pneumothorax suspected. IMPRESSION: 1: NO ACUTE CARDIOPULMONARY DISEASE. Reviewed, dictated and finalized at location O. VITIES DIRECTOR
--- OUTSIDE RECORDS SUMMARY | 2025-04-21 16:29 | XMS_ITS | Clinical Summary ---
Author Organization [facility] Address [address] [place] [address] Care Team Providers Care Rotary Drier Operator Name Role Phone Joana Moya PA-C Primary Care Provider [phone]- [phone] Allergies Active Allergy Reactions Criticality Noted Date [...] age to complete this topic Care Teams Rotary Drier Operator Relationship Specialty Start Date End Date Joana Moya PA-C [address] [place] [id number] PCP - General NURSE PRACTITIONER 09/28/20
--- OUTSIDE RECORDS SUMMARY | 2025-04-21 16:29 | XMS_ITS | Encounter Summary ---
Author Organization [facility] Address [address] [facility] [place] [address] Care Team Providers Care Executive Administrator Name Role Phone Lily Wright MD Unavailable Joana Moya PA-C Primary Care Provider Encounter Details Date Type Department Care Team (Latest Contact Info) Description 04/21/2025 Travel Social History Tobacco Use Types Packs/Day Years [...] and heating? Not hard at all 11/11/2023 [facility] [place] of Occupat ional Health - Occupational Stress [...] place to sleep or slept in a fci (including now)? No 11/11/2023 Comments No Sex [...] Entry Date Author No 06/25/2024 1:02 PM Nicole Winklery N, RN documented in this encounter Plan of Treatment Upcoming Encounters Date Type Department Care Team (Late st Contact Info) Description 09/10/2025 9:30 AM CDT Office Visit [facility] - General Surgery [address] [facility] [place] [phone] Carmen Deluca MD [address] [facility] [address] [place] [phone] documented as of this encounter Goals Goal Patient Goal Type Associated Problems Recent Progress Patient-Stated? Author Medication Management General On track( 025 9:29 AM CDT) Chantale Prado, RN Note: Expected end date: Ongoing Interventions: Take all medications as prescribed Let your doctor know right away about any changes in your medications Make sure to request a refill of your medication at least one week prior to your last dose documented as of this encounter Visit Diagnoses Not on filedocumented in this encounter Care Teams Executive Administrator Relationship Specialty Start Date End Date Joana Moya PA-C [address] [place] [phone] PCP - General Physician Historic Site Administrator 08/08/23 Lily Wright MD [address] [place] [address] Obstetrics and Gynecology 08/08/23 documented as of this encounter
--- OUTSIDE RECORDS SUMMARY | 2025-04-21 16:29 | XMS_ITS | Encounter Summary ---
Author Organization [facility] Address [address] [facility] [place] [address] Care Team Providers Care Lieutenant General Name Role Phone Lily Wright MD Unavailable Joana Moya PA-C Primary Care Provider Encounter Details Date Type Department Care Team (Late st Contact Info) Description 08/09/2023 Telephone [facility] - [address] [phone] [place] Teran, [place] Social History [...] housing, medical care, and heating? Hard 03/22/2023 [employer] [employer] [place] of Occupat ional Health - Occupational Stress [...] place to sleep or slept in a custodial (including now)? No 03/22/2023 Comments No Sex [...] Date Author No 06/21/2023 8:51 AM Brittnee Hernandez, RN documented in this encounter Plan of Treatment Upcoming Encounters Date Type Department Care Team (Late st Contact Info) Description 09/10/2025 9:30 AM CDT Office Visit [facility] - General Surgery [address] [facility] [place] [address] Carmen Deluca MD [address] [facility] [address] [place] [phone] documented as of this encounter Goals Goal [...] on filedocumented in this encounter Care Teams Lieutenant General Relationship Specialty Start Date End Date Joana Moya PA-C [facility] [place] [address] PCP - General Physician Business Developer 08/08/23 Lily Wright MD [address] [place] [phone] Obstetrics and Gynecology 08/08/23 documented as of this encounter
[2025-04-21 16:56] VITALS: BP 132/48; PULSE 75; RESP 16; TEMP 36.6; O2SAT 100
--- NOTE | 2025-04-21 18:07 | ED.ABDPAIN ---
HPI - Abdominal Pain General Chief Complaint: Abdominal Pain <Africa Medrano PA-C - Last Filed: 04/22/25 17:14> Stated Complaint: hx liver disease, out of meds <Africa Medrano PA-C - Last Filed: 04/22/25 17:14> Time Seen by Provider: 04/21/25 18:07 <Africa Medrano PA-C - Last Filed: 04/22/25 17:14> Focused HPI: This is a 49 year old female that presents to the ER for abnormal labs. Reports her liver doctor sent her a message that her bilirubin was higher than usual. Reports she has been without her medication for a while. GENERAL: Jaundiced, well-nourished, and in no acute distress. HEAD: Normocephalic, atraumatic. CHEST: Clear to auscultation. ?No respiratory distress. HEART: Regular rate and rhythm.? NEURO: ?Alert and oriented x3. Patient screened in triage and initial orders placed.? ?Additional care and disposition to be based upon?diagnostic testing and treatment. <Africa Medrano PA-C - Last Filed: 04/22/25 17:14> History of Present Illness HPI narrative: patient is a 49-year-old female who presents emergency department chief complaint of peripheral edema patient reports that she has history of cirrhosis reports he is followed by hepatology at [facility] patient reports he has had some issues with her medications the patient is worried she may have ascites <Eladio Chin MD - Last Filed: 04/22/25 00:00> Related Data Home Medications: Home Medications ?Medication ?Instructions ?Recorded ?Confirmed ?Last Taken ?Type atorvastatin 10 mg tablet 10 mg PO DAILY 03/22/23 03/22/23 03/21/23 History ursodiol 300 mg capsule 300 mg PO BID 03/22/23 03/22/23 03/21/23 History <Africa Medrano PA-C - Last Filed: 04/22/25 17:14> Allergies/Adverse Reactions: Allergies Allergy/AdvReac Type Severity Reaction Status Date / Time sulfamethoxazole Allergy Mild NAUSEA Verified 04/21/25 16:59 trimethoprim Allergy Mild NAUSEA Verified 04/21/25 16:59 Sulfa (Sulfonamide AdvReac Intermediate NAUSEA Verified 04/21/25 16:59 Antibiotics) <Africa Medrano PA-C - Last Filed: 04/22/25 17:14> Review of Systems Review of Systems: A 10 system review of systems was completed on the patient and is negative except for what is stated in the HPI. Nursing and ancillary documentation was reviewed. <Eladio Chin MD - Last Filed: 04/22/25 00:00> PMFSH Past Medical History Medical History: Medical History GERD (gastroesophageal reflux disease) Vitamin D deficiency Hypercholesterolemia Primary biliary cholangitis Inflammatory liver disease, unspecified Frequent UTI Gastritis <Africa Medrano PA-C - Last Filed: 04/22/25 17:14> Surgical History Surgical History: Surgical History History of section History of esophagogastroduodenoscopy (EGD) <Africa Medrano PA-C - Last Filed: 04/22/25 17:14> Social History Social History: Social History Smoking packs per day: 0.5 Smoking cigarettes per day: 10.0 Smoking status: Current every day smoker Additional smoking assessment comments: Patient trying to quit Alcohol intake: current <Africa Medrano PA-C - Last Filed: 04/22/25 17:14> Exam Narrative: GENERAL: Well-appearing, well-nourished, and in no acute distress. HEAD: Normocephalic, atraumatic. EYES: PERRLA and EOMI. ENT: Nares clear, no rhinorrhea or epistaxis. Mucous membranes moist. NECK: Supple. CHEST: Clear to auscultation. No respiratory distress. HEART: Regular rate and rhythm. No murmur heard. Normal peripheral pulses. ABDOMEN: Soft, nontender, nondistended, normal active bowel sounds. EXTREMITIES: Normal range of motion. 3+ edema. SKIN: Warm, dry, no rash. NEURO: No focal deficits. Alert and oriented x3. PSYCH: Normal mood and affect. <Eladio Chin MD - Last Filed: 04/22/25 00:00> Course Vital Signs Vital signs: Vital Signs Temperature 97.8 F 04/21/25 16:56 Pulse Rate 75 04/21/25 16:56 Respiratory Rate 16 04/21/25 16:56 Blood Pressure 132/48 L 04/21/25 16:56 Pulse Oximetry 100 04/21/25 16:56 Oxygen Delivery Room Air 04/21/25 16:56 Temperature 98.0 F 04/21/25 18:44 Pulse Rate 69 04/22/25 00:36 Respiratory Rate 16 04/22/25 00:36 Blood Pressure 111/69 04/22/25 00:36 Pulse Oximetry 100 04/22/25 00:36 Oxygen Delivery Room Air 04/21/25 16:56 <Africa Medrano PA-C - Last Filed: 04/22/25 17:14> Vital Signs Temperature 97.8 F 04/21/25 16:56 Pulse Rate 75 04/21/25 16:56 Respiratory Rate 16 04/21/25 16:56 Blood Pressure 132/48 L 04/21/25 16:56 Pulse Oximetry 100 04/21/25 16:56 Oxygen Delivery Room Air 04/21/25 16:56 Temperature 98.0 F 04/21/25 18:44 Pulse Rate 69 04/22/25 00:36 Respiratory Rate 16 04/22/25 00:36 Blood Pressure 111/69 04/22/25 00:36 Pulse Oximetry 100 04/22/25 00:36 Oxygen Delivery Room Air 04/21/25 16:56 <Eladio Chin MD - Last Filed: 04/22/25 00:00> MDM Differential Diagnosis Differential Diagnosis: differential diagnosis includes ascites, liver failure, peripheral edema, CHF, laboratory studies were obtained on patient white count 2.5 hemoglobin is 9.2 INR is 1.8 electrolytes showed a bilirubin of 8.7 AST was 161 ALT of 60 ammonia was negative BNP was 1 5 [address] scan of the abdomen pelvis showed no ascites the case was discussed with the [facility] service and the patient be given a dose of IV diuretic in the emergency department and should follow-up with the liver service calling the office in the morning <Eladio Chin MD - Last Filed: 04/22/25 00:00> Lab Data Result diagrams: 04/21/25 19:39 04/21/25 19:39 <Africa Medrano PA-C - Last Filed: 04/22/25 17:14> Labs: Lab Results 04/21/25 04/21/25 04/21/25 Range/Units 19:39 19:54 19:55 WBC 2.5 L (4.5-10.0) K/mm3 RBC 2.91 L (4.2-5.4) M/mm3 Hgb 9.2 L (12.0-15.0) g/dL Hct 29.0 L (37.0-47.0) % MCV 99.7 (80-100) fl MCH 31.6 (26-34) pg MCHC 31.7 L (32-36) g/dl RDW 17.3 H (11.5-14.5) % Plt Count 118 L (150-375) k/mm3 MPV 8.9 (7.4-10.4) fl Immature Gran % (Auto) 0.4 (0-0.5) % Neut % (Auto) 58.3 (45.5-73.1) % Lymph % (Auto) 31.9 (18.3-44.2) % [place] % (Auto) 3.9 (2.6-8.5) % Eos % (Auto) 4.7 H (0-4.4) % Baso % (Auto) 0.8 (0.2-1.2) % Lymph # (Auto) 0.81 L (0.9-3.2) K/mm3 [place] # (Auto) 0.1 (0.1-0.6) K/mm3 Eos # (Auto) 0.1 (0-0.3) K/mm3 Baso # (Auto) 0.0 (0.0-0.1) K/mm3 Abs Immat Gran (auto) 0.01 (0.00-0.031) K/mm3 Absolute Neuts (auto) 1.5 (1.3-6.7) K/mm3 Absolute Nucleated RBC 0.000 (0.0-0.012) K/mm3 Nucleated RBC % 0.0 (0.0-0.2) % PT 16.0 H (11.1-14.7) Seconds INR 1.3 APTT 38.1 H (22.3-36.8) Seconds Sodium 139 (137-145) mmol/L Potassium 3.5 (3.4-5.0) mmol/L Chloride 110 H (98-107) mmol/L Carbon Dioxide 22 (22-30) mmol/L Anion Gap 7 (4-12) mmol/L BUN 11 (7-17) mg/dL Creatinine 0.75 (0.7-1.0) mg/dL Estim Creat Clear Calc 86 ml/min Estimated GFR > 60 (59 - ) Glucose 87 (65-110) mg/dL Calcium 8.4 (8.4-10.2) mg/dL Total Bilirubin 8.7 H (0.2-1.3) mg/dL AST 161 H (14-36) U/L ALT 60 H (6-35) U/L Alkaline Phosphatase 354 H (38-126) U/L Ammonia < 9 L (9-30) umol/L NT-Pro-B Natriuret Pep 154 H (19.9-100) pg/mL Total Protein 8.2 (6.3-8.2) g/dL Albumin 3.3 L (3.5-5.1) g/dL Lipase 77 (23-300) U/L Urine Color Dark yellow (Yellow) Urine Appearance Clear (Clear) Urine pH 6.5 (5.0-9.0) Ur Specific [place] 1.019 (1.001-1.035) Urine Protein Negative (Negative) mg/dL Urine Glucose (UA) Negative (Negative) mg/dL Urine Ketones Negative (Negative) mg/dL Ur Blood (Man) Negative (Negative) Urine Nitrate Positive H (Negative) Urine Bilirubin 2+ H (Negative) Urine Urobilinogen 2.0 H (<2.0) mg/dL Leukocyte Esterase Rfl Trace H (Negative) ANTONINO/UL Urine RBC 0-2 (0-2) /hpf Urine WBC 0-5 (0-3) /hpf Ur Squamous Epith Cells Moderate (Few) /hpf Urine Bacteria 4+ H /hpf Urine Casts 0-2 POC Urine HCG, Qual Negative (Negative) <Africa Medrano PA-C - Last Filed: 04/22/25 17:14> Lab Results 04/21/25 04/21/2525 Range/Units 19:39 19:54 19:55 WBC 2.5 L (4.5-10.0) K/mm3 RBC 2.91 L (4.2-5.4) M/mm3 Hgb 9.2 L (12.0-15.0) g/dL Hct 29.0 L (37.0-47.0) % MCV 99.7 (80-100) fl MCH 31.6 (26-34) pg MCHC 31.7 L (32-36) g/dl RDW 17.3 H (11.5-14.5) % Plt Count 118 L (150-375) k/mm3 MPV 8.9 (7.4-10.4) fl Immature Gran % (Auto) 0.4 (0-0.5) % Neut % (Auto) 58.3 (45.5-73.1) % Lymph % (Auto) 31.9 (18.3-44.2) % [place] % (Auto) 3.9 (2.6-8.5) % Eos % (Auto) 4.7 H (0-4.4) % Baso % (Auto) 0.8 (0.2-1.2) % Lymph # (Auto) 0.81 L (0.9-3.2) K/mm3 [place] # (Auto) 0.1 (0.1-0.6) K/mm3 Eos # (Auto) 0.1 (0-0.3) K/mm3 Baso # (Auto) 0.0 (0.0-0.1) K/mm3 Abs Immat Gran (auto) 0.01 (0.00-0.031) K/mm3 Absolute Neuts (auto) 1.5 (1.3-6.7) K/mm3 Absolute Nucleated RBC 0.000 (0.0-0.012) K/mm3 Nucleated RBC % 0.0 (0.0-0.2) % PT 16.0 H (11.1-14.7) Seconds INR 1.3 APTT 38.1 H (22.3-36.8) Seconds Sodium 139 (137-145) mmol/L Potassium 3.5 (3.4-5.0) mmol/L Chloride 110 H (98-107) mmol/L Carbon Dioxide 22 (22-30) mmol/L Anion Gap 7 (4-12) mmol/L BUN 11 (7-17) mg/dL Creatinine 0.75 (0.7-1.0) mg/dL Estim Creat Clear Calc 86 ml/min Estimated GFR > 60 (59 - ) Glucose 87 (65-110) mg/dL Calcium 8.4 (8.4-10.2) mg/dL Total Bilirubin 8.7 H (0.2-1.3) mg/dL AST 161 H (14-36) U/L ALT 60 H (6-35) U/L Alkaline Phosphatase 354 H (38-126) U/L Ammonia < 9 L (9-30) umol/L NT-Pro-B Natriuret Pep 154 H (19.9-100) pg/mL Total Protein 8.2 (6.3-8.2) g/dL Albumin 3.3 L (3.5-5.1) g/dL Lipase 77 (23-300) U/L Urine Color Dark yellow (Yellow) Urine Appearance Clear (Clear) Urine pH 6.5 (5.0-9.0) Ur Specific [place] 1.019 (1.001-1.035) Urine Protein Negative (Negative) mg/dL Urine Glucose (UA) Negative (Negative) mg/dL Urine Ketones Negative (Negative) mg/dL Ur Blood (Man) Negative (Negative) Urine Nitrate Positive H (Negative) Urine Bilirubin 2+ H (Negative) Urine Urobilinogen 2.0 H (<2.0) mg/dL Leukocyte Esterase Rfl Trace H (Negative) ANTONINO/UL Urine RBC 0-2 (0-2) /hpf Urine WBC 0-5 (0-3) /hpf Ur Squamous Epith Cells Moderate (Few) /hpf Urine Bacteria 4+ H /hpf Urine Casts 0-2 POC Urine HCG, Qual Negative (Negative) <Eladio Chin MD - Last Filed: 04/22/25 00:00> Imaging Data Radiologist's impression: ITS Impressions Chest X-Ray 04/21/25 18:17 IMPRESSION: 1: NO ACUTE CARDIOPULMONARY DISEASE. Abdomen/Pelvis CT 04/21/25 20:44 IMPRESSION: 1. Cirrhosis with probable portal venous hypertension. Splenomegaly. <Africa Medrano PA-C - Last Filed: 04/22/25 17:14> ITS Impressions Chest X-Ray 04/21/25 18:17 IMPRESSION: 1: NO ACUTE CARDIOPULMONARY DISEASE. Abdomen/Pelvis CT 04/21/25 20:44 IMPRESSION: 1. Cirrhosis with probable portal venous hypertension. Splenomegaly. <Eladio Chin MD - Last Filed: 04/22/25 00:00> Critical Care Time Critical Care Time Critical Care Time: No <Africa Medrano PA-C - Last Filed: 04/22/25 17:14> Discharge Plan Discharge Clinical Impression: Edema, peripheral Cirrhosis Qualifiers: Hepatic cirrhosis type: unspecified hepatic cirrhosis Ascites presence: unspecified Qualified Code(s): K74.60 - Unspecified cirrhosis of liver <Africa Medrano PA-C - Last Filed: 04/22/25 17:14> Patient Disposition: Home <Africa Medrano PA-C - Last Filed: 04/22/25 17:14> Condition: Stable <Africa Medrano PA-C - Last Filed: 04/22/25 17:14> Instructions: Antibiotic Form, Chronic Liver Disease (ED) <Africa Medrano PA-C - Last Filed: 04/22/25 17:14> Additional Instructions: please follow-up with your trip motor operator as soon as possible call the office tomorrow <Africa Medrano PA-C - Last Filed: 04/22/25 17:14> Patient Language: Kosovan <Africa Medrano PA-C - Last Filed: 04/22/25 17:14> Prescriptions: No Action ursodiol 300 mg Capsule 300 mg PO BID atorvastatin 10 mg Tablet 10 mg PO DAILY hydrocortisone [Anusol-HC] 2.5 % cream with perineal applicator 1 applic RECTAL BID 7 Days Qty: 30 0RF ropinirole 0.25 mg tablet 0.25 mg PO HS Qty: 30 0RF ondansetron 4 mg tablet,disintegrating 4 mg PO Q8H PRN (Reason: nausea and vomiting) Qty: 15 0RF <Africa Medrano PA-C - Last Filed: 04/22/25 17:14> Follow-up/Referrals: Nita,AUBREY Archer [Primary Care Provider, Family Practice] <Africa Medrano PA-C - Last Filed: 04/22/25 17:14> Time of Disposition: 00:00 <Africa Medrano PA-C - Last Filed: 04/22/25 17:14> 00:00 <Eladio Chin MD - Last Filed: 04/22/25 00:00>
--- NOTE | 2025-04-21 18:08 | ECG_ITS ---
Test Date: 2025-04-21 19:52:38 Measurements Intervals [place] Rate: 70 P: 71 MT: 163 QRS: 40 QRSD: 92 T: 26 QT: 401 QTc: 435 Interpretive Statements SINUS RHYTHM LEFT ATRIAL ENLARGEMENT INCOMPLETE RIGHT BUNDLE BRANCH BLOCK BORDERLINE ST-T WAVE ABNORMALITY- ANT/INF LEADS BASELINE ARTIFACT- I, II, AVR, V2 BORDERLINE ECG No previous ECG available for comparison Electronically Signed On 04-21-2025 20:39:51 HELP DESK TECHNICIAN by Vick Flores D.O.
[2025-04-21 18:44] VITALS: BP 121/52; PULSE 74; RESP 14; TEMP 36.7; O2SAT 100
[2025-04-21 19:46] LABS: Hematocrit 29.0 % (37.0-47.0); Hemoglobin 9.2 g/dL (12.0-15.0); Immature Granulocyte Percent A 0.4 % (0-0.5); Lymphocytes Absolute Auto 0.81 K/mm3 (0.9-3.2); Mean Corpuscular HGB Conc 31.7 g/dl (32-36); Mean Corpuscular Hemoglobin 31.6 pg (26-34); Mean Corpuscular Volume 99.7 fl (80-100); Nucleated Red Blood Cells Absolute Auto 0.000 K/mm3 (0.0-0.012); Nucleated Red Blood Cells Perc 0.0 % (0.0-0.2); Platelet Count Result 118 k/mm3 (150-375); Red Blood Count 2.91 M/mm3 (4.2-5.4); White Blood Count 2.5 K/mm3 (4.5-10.0)
[2025-04-21 19:56] LABS: BEDSIDEPREGUCG Negative (Negative)
[2025-04-21 19:56] LABS: INR 1.3; Prothrombin Time 16.0 Seconds (11.1-14.7)
[2025-04-21 19:57] LABS: Partial Thromboplastin Time 38.1 Seconds (22.3-36.8)
[2025-04-21 20:04] LABS: Alanine Aminotransferase 60 U/L (6-35); Albumin Level 3.3 g/dL (3.5-5.1); Alkaline Phosphatase 354 U/L (38-126); Anion Gap 7 mmol/L (4-12); Aspartate Amino Transferase 161 U/L (14-36); Bilirubin,Total 8.7 mg/dL (0.2-1.3); Blood Urea Nitrogen 11 mg/dL (7-17); Calcium 8.4 mg/dL (8.4-10.2); Carbon Dioxide 22 mmol/L (22-30); Chloride 110 mmol/L (98-107); Estimated CRCL calculation 86 ml/min; Estimated Glomerular Filt Rate > 60; Glucose 87 mg/dL (65-110); Lipase 77 U/L (23-300); Potassium 3.5 mmol/L (3.4-5.0); Sodium 139 mmol/L (137-145); Total Protein 8.2 g/dL (6.3-8.2)
[2025-04-21 20:12] LABS: Add Urine Microscopic? YES; Appearance Urine Clear (Clear); Glucose Urine UA Negative (Negative); Leukocyte Esterase Ur Trace LEU/UL (Negative); Nitrate Urine Positive (Negative); Non Pathogenic Casts 0-2; Specific Grav Ur 1.019 (1.001-1.035)
[2025-04-21 20:14] LABS: NT Pro B Type Natriuretic Pept 154 pg/mL (19.9-100)
[2025-04-21 20:15] VITALS: BP 118/62; PULSE 70; RESP 18; O2SAT 98
[2025-04-21 20:15] LABS: Ammonia < 9 umol/L (9-30)
--- OUTSIDE RECORDS SUMMARY | 2025-04-21 20:40 | XMS_ITS | Clinical Summary ---
Author Organization [facility] Address [address] [place] [address] Care Team Providers Care Ocean Lifeguard Name Role Phone Joana Moya PA-C Primary Care Provider +1- [phone] Allergies Active Allergy Reactions Criticality Noted Date [...] topic Meningococcal Vaccine Aged Out No hermann piage eligible based on patient's age to complete this topic RSV Immunizations Under 20 Months Aged Out No longer eligible based on patient's age to complete this topic Care Teams Ocean Lifeguard Relationship Specialty Start Date End Date Joana Moay PA-C [address] [place] [id number] PCP - General NURSE PRACTITIONER 09/28/20
--- OUTSIDE RECORDS SUMMARY | 2025-04-21 20:40 | XMS_ITS | Encounter Summary ---
Author Organization [facility] Address [address] [place] [address] Care Team Providers Care Industrial Staff Nurse Name Role Phone Lily Wright MD Unavailable Joana Moya PA-C Primary Care Provider Encounter Details Date Type Department Care Team (Late st Contact Info) Description 08/09/2023 Telephone [facility] - [address] [phone] [place], [place] Social History [...] housing, medical care, and heating? Hard 03/22/2023 [facility] of Occupat ional Health - Occupational Stress [...] slept in a jail (including now)? No 03/22/2023 Comments No Sex [...] Description 09/10/2025 9:30 AM CDT Office Visit [facility] - General Surgery [address] [facility] [place] [address] Carmen Deluca MD [address] [facility] [address] [place] [phone] documented as of this encounter Goals Goal [...] on filedocumented in this encounter Care Teams Industrial Staff Nurse Relationship Specialty Start Date End Date Joana Moya PA-C [facility] [place] [address] PCP - General Physician Foundry Superintendant 08/08/23 Lily Wright MD [address] [place] [phone] Obstetrics and Gynecology 08/08/23 documented as of this encounter
--- OUTSIDE RECORDS SUMMARY | 2025-04-21 20:40 | XMS_ITS | Encounter Summary ---
Author Organization [facility] Address [address] [place] [address] Care Team Providers Care Electrical Systems Engineer Name Role Phone Lily Wright MD [...] and heating? Not hard at all 11/11/2023 [facility] [place] [facility] - Occupational Stress [...] Description 09/10/2025 9:30 AM CDT Office Visit [facility] - General Surgery [address] [place] [phone] Carmen Deluca MD [address] [facility] [address] [place] [phone] documented as of this encounter Goals Goal [...] on filedocumented in this encounter Care Teams Electrical Systems Engineer Relationship Specialty Start Date End Date Joana Moya PA-C [address] [place] [phone] PCP - General Physician Train Director 08/08/23 Lily Wright MD [address] [place] [phone] Obstetrics and Gynecology 08/08/23 documented as of this encounter
[2025-04-21 21:48] VITALS: BP 108/59; PULSE 70; RESP 18; O2SAT 99
[2025-04-21] MEDS: FUROSEMIDE INJ 40 MG/4 ML VIAL IV PUSH (22:39)
[2025-04-22 00:36] VITALS: BP 111/69; PULSE 69; RESP 16; O2SAT 100
== END 2025-04-22 00:37 | disposition home or self-care (01) ==
PROVIDERS: Physician Assistant; Emergency Provider Emergency Medicine; PCP Physician Assistant
DX: K74.60 Unspecified cirrhosis of liver (principal); E55.9 Vitamin D deficiency, unspecified; E78.00 Pure hypercholesterolemia, unspecified; K74.3 Primary biliary cirrhosis; K21.9 Gastro-esophageal reflux disease without esophagitis; F17.210 Nicotine dependence, cigarettes, uncomplicated; R16.1 Splenomegaly, not elsewhere classified; Z87.440 Personal history of urinary (tract) infections
CPT/HCPCS: 36415; 71046; 74177; 80053; 81001; 81025; 82140; 83690; 83880; 85025; 85610; 85730; 93005; 96374; 99284; J1938; Q9967